=== PATIENT | male | born 1945 | race Caucasian/White ===

== ENCOUNTER 2019-05-12 09:47 | Outpatient (CLI) | payer MEDICARE, OTHER, SELFPAY ==
--- NOTE | 2019-05-12 10:04 | CT_ITS ---
WS: [id number] CT ANGIOGRAPHY ABDOMEN AORTA HISTORY: H/O ENDOVASCULAR STENT GRAFT FOR AAA TECHNIQUE: Noncontrast CT first performed. CT angiogram is performed during IV injection. Reformation images reviewed. All CT scans at [facility] use at least one of these dose optimization t echniques: automated exposure control; mA and/or kV adjustment per patient size (includes targeted ex ams where dose is matched to clinical indication); or iterative reconstruction. CONTRAST: Omnipaque 350; 95 mL IV. DLP: 2324.9 mGycm COMPARISON: Aorta ultrasound 04/09/2018 Chronic emphysematous changes at the lung bases. Mildly enlarged heart. No hiatal hernia. Liver, sple en, pancreas and adrenal glands are negative. Normally distended gallbladder with calcification. Mild thinning of the renal cortex bilaterally with bilateral renal cysts. No solid mass is identified. La rgest cyst in the upper pole the LEFT kidney measuring 4.3 cm. Hyperdense cyst from the posterior mid kidney does not enhance. None of these complex cystic masses enhance. Mild perinephric stranding wit h no obstruction. Abdominal aorta: Endovascular stent graft is placed throughout the aorta beginning at the level of th e renal arteries. Graft extends inferiorly into the proximal iliac arteries. Maximum diameter of the aorta is 4.4 cm x 4.3 cm. Fusiform dilatation begins just below the level of the renal arteries. Ther e is no endoleak or enlargement of the [facility] aneurysm. No periaortic hematoma or mass. Diffuse constipation. No adenopathy or fluid. The appendix is normal. Extensive descending and sigmoi d colon diverticulosis without acute diverticulitis. Straightening and slight reversal of the normal lumbar lordosis. Severe degenerative disc disease at L2-3 and L3-4. Large endplate osteophytes from the vertebral bodies. Component of central and foramin al stenosis at the L3-[address]/CT angio abdomen 99684 IMPRESSION: 1. Stable endovascular stent grafting of the abdominal aorta. No evidence for endovascular leak or progression of the [facility] ge[facility] aneurysm. 2. Bilateral renal cysts. 3. Descending and sigmoid diverticulosis without acute diverticulitis. 4. Cholelithiasis without acute cholecystitis.
[2019-05-12] MEDS: iohexol 350 mg/mL 100 mL Btl IV (10:42)
== END 2019-05-12 09:48 | disposition home or self-care (01) ==
LOC: RADWPI 10:03
PROVIDERS: Family Provider Family Medicine; PCP Family Medicine; Visit Provider Internal Medicine Cardiovascular Disease
DX: K80.20 Calculus of gallbladder without cholecystitis without obstruction (principal); K57.90 Diverticulosis of intestine, part unspecified, without perforation or abscess without bleeding; N28.1 Cyst of kidney, acquired; Z95.828 Presence of other vascular implants and grafts
CPT/HCPCS: 74175; Q9967

== ENCOUNTER → 2019-10-15 07:51 | Outpatient (BNVA) | payer MEDICARE, OTHER, SELFPAY | PROVIDERS: Family Provider Family Medicine; PCP Family Medicine; Visit Provider Urology | DX: C67.2 Malignant neoplasm of lateral wall of bladder (principal) | CPT/HCPCS: 81001 ==

== ENCOUNTER 2019-11-24 14:37 | Outpatient (CLI) | payer MEDICARE, OTHER, SELFPAY ==
--- NOTE | 2019-11-24 14:43 | XR_ITS ---
WS: [id number] SCREENING DEXA SCAN [employer] CLINICAL INFORMATION: OSTEOPOROSIS COMPARISON: FINDINGS: Left forearm bone mineral density 0.986 with a T score of 0.0 and Z score of 1.0 Left femoral neck bone mineral density measures 0.845 g/cm2. This corresponds to a T score of -1.8 an d Z score of -1.3. Right femoral neck bone mineral density measures 0.898 g/cm2. This corresponds to a T score -1.4of an d Z score of -0.9. Mean femoral neck bone mineral density measures 0.871 g/cm2. This corresponds to a T score of -1.6 an d Z score of -1.1. XR/XR DEXA axial skeleton* 32262 IMPRESSION: Osteopenia in the femoral necks. Normal bone mineralization in the left forearm Patient's FRAX calculated 10 year probability for major osteoporotic fracture i s 32.5 % and osteoporotic hip fracture is 27.1%.
== END 2019-11-24 14:38 | disposition home or self-care (01) ==
LOC: RADWPI 14:42
PROVIDERS: PCP Family Medicine; Visit Provider Family Medicine
DX: M81.0 Age-related osteoporosis without current pathological fracture (principal); M85.862 Other specified disorders of bone density and structure, left lower leg; M85.861 Other specified disorders of bone density and structure, right lower leg
CPT/HCPCS: 77080

== ENCOUNTER 2020-02-26 07:40 | Outpatient (CLI) | payer MEDICARE, OTHER, SELFPAY ==
--- NOTE | 2020-02-26 08:00 | USCV_ITS ---
Neal Garzon Age: 75 Gender: M : 1945 Exam Date: 02/26/2020 07:56 Ordering Phys: Jovany Burns MD ([email or web address]) Technologist: Travon Jj [place] [facility] [place] AO GRAFT AO GRAFT HISTORY: Diameter (cm) AP x Transverse x Length Velocity (cm/s) Waveform Prox Aorta: x x Mid Aorta: x x Distal Aorta: x x Right Iliac Prox: x x Left Iliac Prox: x x Stent Prox Landing 2.84 x 3.58 x 35.90 Aneurysmal Sac Max 4.59 x 4.11 x 37.20 Lt Lat Sac Dim 0.63 Rt Lat Sac Dim 0.44 Stent Dist Landing 3.16 x 3.50 x 40.50 Right Iliac Stent 1.65 x 1.60 x 89.20 Left Iliac Stent 1.55 x 1.28 x 82.60 Right Renal Art 112.40 Left Renal Art 98.30 FINDINGS: NORMAL GRAPH CONCLUSIONS Normal Doppler flow velocites noted throught the aorta and common iliac arteries. Normal aortic endograft. Aneurysm sac measures 4.5 x 4.1cm Romel Flor MD (Electronically Signed) Final Date: 26 February 2020 10:17 S
== END 2020-02-26 07:41 | disposition home or self-care (01) ==
LOC: US 07:40
PROVIDERS: PCP Family Medicine; Visit Provider Internal Medicine Cardiovascular Disease
DX: I71.4 Abdominal aortic aneurysm, without rupture (principal)
CPT/HCPCS: 93978

== ENCOUNTER → 2020-04-19 10:20 | Outpatient (BNVA) | payer MEDICARE, OTHER, SELFPAY | PROVIDERS: PCP Family Medicine; Visit Provider Urology | DX: C67.9 Malignant neoplasm of bladder, unspecified (principal); C67.2 Malignant neoplasm of lateral wall of bladder; C67.4 Malignant neoplasm of posterior wall of bladder | CPT/HCPCS: 81003 ==

== ENCOUNTER → 2020-06-15 14:22 | Outpatient (BNVA) | payer MEDICARE, SELFPAY | PROVIDERS: PCP Family Medicine; Visit Provider Urology | DX: C67.4 Malignant neoplasm of posterior wall of bladder (principal) | CPT/HCPCS: 81003 ==

== ENCOUNTER 2020-07-05 13:51 | Outpatient (CLI) | payer MEDICARE, SELFPAY ==
--- NOTE | 2020-07-05 14:08 | USCV_ITS ---
Neal Garzon Age: 75 Gender: M : 1945 Exam Date: 07/05/2020 15:13 Ordering Phys: Jovany Burns MD ([email or web address]) Technologist: Emilia Miles [place] [facility] [place]ication: LOSS OF VISION 1/2 LT EYE BP: 135 / 68 HR: 65 Rhythm: Sinus Technical Quality: Adequate MEASUREMENTS (Male / Female) Normal Values 2D ECHO LV Diastolic Diameter PLAX 4.7 cm 4.2 - 5.9 / 3.9 - 5.3 cm LV Systolic Diameter PLAX 2.9 cm IVS Diastolic Thickness 1.3 cm 0.6 - 1.0 / 0.6 - 0.9 cm IVS Systolic Thickness 1.9 cm LVPW Diastolic Thickness 1.5 cm 0.6 - 1.0 / 0.6 - 0.9 cm LVPW Systolic Thickness 1.9 cm LVOT Diameter 2.1 cm LV Ejection Fraction 2D Teich 68.8 % LV Ejection Fraction MOD 2C 76.0 % LV Ejection Fraction 2C AL 76.1 % LA Diameter 3.5 cm LA Width 2.7 cm LA Height 3.9 cm RA Width 3.8 cm RA Height 4.8 cm Aorta at Sinotubular Diameter 4.0 cm M-MODE LV Diastolic Diameter MM 7.3 cm 4.2 - 5.9 / 3.9 - 5.3 cm LV Systolic Diameter MM 4.0 cm LV Ejection Fraction MM Teich 75.4 % IVS Diastolic Thickness MM 1.8 cm 0.6 - 1.0 / 0.6 - 0.9 cm IVS Systolic Thickness MM 3.1 cm LVPW Diastolic Thickness MM 0.9 cm 0.6 - 1.0 / 0.6 - 0.9 cm LVPW Systolic Thickness MM 2.0 cm RV Diastolic Diameter MM 1.9 cm Aortic Annulus Diameter 4.0 cm LA Ao Ratio MM 1.0 MV E Point Septal Separation 0.7 cm DOPPLER AV Peak Velocity 131.0 cm/s LVOT Peak Velocity 106.0 cm/s AV Area Cont Eq vti 2.6 cm squared AV Area Cont Eq pk 2.7 cm squared MV Area PHT 3.3 cm squared Mitral E to A Ratio 0.8 MV E' Velocity 43.0 cm/s Mitral E to MV E' Ratio 9.9 Mitral E to LV E' Lateral Ratio 10.8 Mitral E to LV E' Septal Ratio 9.4 TR Peak Velocity 113.1 cm/s TR Peak Gradient 5.1 mmHg TR Mean Velocity 80.6 cm/s TR Mean Gradient 2.9 mmHg TR Velocity Time Integral 32.2 cm TV Peak E Velocity 84.0 cm/s Right Atrial Pressure 3.0 mmHg Pulmonary Artery Systolic Pressu 8.1 mmHg PV Peak Velocity 78.0 cm/s RV Acceleration Time 0.1 s RV Ejection Time 0.4 s RV AcT/ET 0.4 FINDINGS Left Ventricle Normal LV size with a slightly diminished ejection fraction of 50%. Mild diffuse hypokinesia of the anterior and lateral wall segments. Right Ventricle The right ventricle is normal in size and function. Right Atrium The right atrium is normal in size. Left Atrium The left atrium is normal in size. Mitral Valve No gross abnormalities noted Aortic Valve Trace aortic valve regurgitation. Tricuspid Valve Trace to mild tricuspid valve regurgitation. Pulmonic Valve Pulmonic valve not well visualized. Pericardium Normal pericardium without effusion. Aorta Normal ascending aorta dimension. CONCLUSIONS Normal LV size with a slightly diminished ejection fraction of 50% (visual). Mild diffuse hypokinesia of the anterior and lateral wall segments. Trace to mild tricuspid valve regurgitation. Trace aortic valve regurgitation. There is no pericardial effusion. There are no intracardiac masses. No similar previous study is available for comparison. Dr Jovany Burns MD [facility] (Electronically Signed) Final Date: 06 July 2020 09:54 S
--- NOTE | 2020-07-05 14:15 | USCV_ITS ---
Neal Garzon Age: 75 Gender: M : 1945 Exam Date: 07/05/2020 14:44 Ordering Phys: Jovany Burns MD ([email or web address] [email or web address]) Technologist: Emilia Miles [place] [facility] [place]: LOSS OF VISION LT EYE 1/2 Risk Factors: Unknown Previous Vascular Surgery: None PER PT Right Brachial BP: / Left Brachial BP: / Right Left Velocity (cm/s) Spectral Plaque Velocity (cm/s) Spectral Plaque Syst/Diast Broadening Syst/Diast Broadening 98.10/ 34.20 Prox CCA 29.90 / 7.60 94.80/ 32.00 Mid CCA 25.00 / 7.60 87.10/ 28.70 Distal CCA 21.70 / 7.90 98.10/ 33.10 Prox ICA 152.80/ 80.40 118.00/45.20 Mid ICA 48.90 / 21.80 118.00/33.10 Distal ICA 41.70 / 23.00 95.90 ECA 163.00 1.24 ICA/CCA 6.12 Antegrade Vertebral Antegrade 51.90/ 14.50 cm/s 49.70/ 13.40 cm/s Tri Subclavian Bi 118.0 122.8 0 5 FINDINGS Heavy heterogeneous plaques at the left bifurcation and proximal internal carotid artery Delayed peaking low amplitude waveforms in the mid and distal ICA High resistance Doppler flow pattern in the common carotid artery Moderate heterogeneous plaques of the right bifurcation and internal carotid artery. Antegrade flow in the vertebral arteries bilaterally Normal Doppler velocities in the subclavian arteries bilaterally CONCLUSIONS Features suggestive of high-grade stenosis in the left ICA and bifurcation suggesting greater than 70%. Moderate heterogeneous plaques at the right bifurcation and ICA with a less than 50% stenosis. No significant stenosis in the subclavian or vertebral arteries. No similar previous studies are available for comparison Dr Jovany Burns MD [facility] (Electronically Signed) Final Date: 06 July 2020 17:11 S
== END 2020-07-05 13:52 | disposition home or self-care (01) ==
LOC: US 13:52
PROVIDERS: PCP Family Medicine; Visit Provider Internal Medicine Cardiovascular Disease
DX: I74.9 Embolism and thrombosis of unspecified artery (principal); H54.7 Unspecified visual loss; I65.23 Occlusion and stenosis of bilateral carotid arteries; I08.2 Rheumatic disorders of both aortic and tricuspid valves
CPT/HCPCS: 93306; 93880

== ENCOUNTER 2020-07-30 07:14 | Outpatient (CLI) | payer MEDICARE, SELFPAY ==
[2020-07-30 07:20] VITALS: BMI 32.6
--- NOTE | 2020-07-30 07:21 | NMCV_ITS ---
NM denny perf SPECT r/s* [id number] Neal Garzon Age: 75 Gender: M : 1945 Exam Date: 07/30/2020 08:38 Ordering Phys: Jovany Burns MD ([email or web address]) Technologist: JAYRO Manriquez Exam Location: [facility] Indications: ATHEROSCLEROTIC HEART DISEASE STRESS TEST Please [facility] IMAGE PROTOCOL Rest/Stress 1 Lexiscan Day Radiopharmaceutical Dose (mCi) Administration Site Administered by Rest: Tc-99m 10.7 IV JAYRO Villa Sestamibi Stress:Tc-99m 32.3 IV JAYRO Villa Sestamibi Rest: 30-Jul-2020 60 Discovery 630 Stress: 30-Jul-2020 30 Discovery 630 0.4mg Lexiscan. Images obtained in supine and prone position. SPECT RESULTS Technical Quality: Excellent Raw Data Analysis: Image Corrections: Summed Stress Score: 9 Summed Rest Score: 5 Summed Difference Score: 5 PERFUSION FINDINGS Small to moderate area of decreased tracer uptake in the mid inferolateral, anterolateral and apical segments with some reversibility in the anterolateral and apical regions FUNCTIONAL RESULTS (calculated via Gated SPECT) Stress Image LV EF (%): 61 Stress EDV (mL):187 TID: 1.09 Stress ESV (mL):73 FUNCTIONAL FINDINGS: Segmental wall motion analysis revealed no gross wall motion abnormalities. IMPRESSIONS 1. Myocardial perfusion imaging revealing small to moderate area of decreased tracer uptake in the anterolateral, inferolateral and apical segments with some reversibility in the anterolateral and apical region, suggestive of myocardial scarring with ischemia in the distribution of the left circumflex artery; small areas of scarring in the distribution of the right coronary artery and left anterior descending artery. 2. Normal LV ejection fraction 61%. 3. LV wall motion analysis revealing no gross wall motion normalities. 4. Mildly dilated LV cavity No similar previous studies are available for comparison Dr Jovany Burns MD [facility] (Electronically Signed) Final Date: 30 July 2020 14:31 S
--- NOTE | 2020-07-30 07:21 | ECG_ITS ---
[facility] Test Date: 2020-07-30 Pat Name: Neal Garzon Department: Room: Gender: Male Card Fixer: : 1945 Requested By: Jovany Burns Order Number: [id number] Mikaela MD: Jovany Burns M.D. Interpretive Statements NAME OF STUDY: LEXISCAN SESTAMIBI STRESS TEST INDICATION: LOW EF; LEAKY VALVES PROCEDURE: At the baseline, the EKG revealed normal sinus rhythm with a right bundle branch block pattern.. The baseline blood pressure was 137/73 mm Hg with a heart rate of 61 beats/min. Lexiscan was infused over a period of 20 seconds. A total of 0.4 milligrams of Lexiscan was infused. The stress phase was continued for a total of 5 minutes. Heart rate at the end of the stress phase was 69 with a blood pressure 129/67. The EKG at the peak infusion revealed no significant changes. Sestamibi was injected 20 seconds after the Lexiscan infusion. Blood pressure at the end of the recovery phase was 136/59 with a heart rate of 67 per minute. CONCLUSION: 1. No significant EKG changes with the LexiScan infusion 2. No LexiScan induced chest pain or cardiac arrhythmia 3. Normal blood pressure and heart rate response 4. Sestamibi/sestamibi perfusion scan pending; see separate report. Electronically Signed On 08-02-2020 23:39:25 CDT by Jovany Burns M.D. [email or web address]
--- NOTE | 2020-07-30 08:03 | CT_ITS ---
WS: [id number] CT ANGIOGRAM CEREBRAL AND CAROTID ARTERIES HISTORY: I65.29 - Occlusion and stenosis of unspecified carotid artery TECHNIQUE: CT angiogram is performed of the carotid and cerebral arteries. During arterial injection imaging is obtained from the skull vertex to the aortic arch in 1.25 mm imaging. Coronal and sagittal reformats are submitted. Additional multi planar reformats of the carotid and cerebral arteries are submitted, MIP imaging also reviewed. NASCET criteria utilized. All CT scans at [facility] use at least one of these dose optimization techniques: automated exposure control; mA and/or kV ad justment per patient size (includes targeted exams where dose is matched to clinical indication); or iterative reconstruction. CONTRAST: Omnipaque 300; 95 mL IV. DLP: 3306.85 mGy.cm COMPARISON: None available. No intracranial hemorrhage. Mild atrophy and ischemic disease. Carotid Angiogram: Right carotid: Common carotid artery: Arises normally from the arch. There is calcified plaque in the distal carotid artery through the bifurcation. Internal carotid artery: Mild scattered plaque with stenosis at 20%. External carotid artery is paten t. External carotid artery: Patent. Left carotid: Common carotid artery: Large amount of intimal thickening circumferentially surrounding the common ca rotid artery. The lumen is narrow to the bifurcation. Lumen measures 3 mm. Internal carotid artery: There is extensive amount of calcified plaque through the carotid bifurcatio n. There is intimal thickening. Complete occlusion is suspected. There is contrast in the distal ICA but there is continued intimal thickening throughout the common carotid artery. External carotid artery: Patent. Right vertebral artery: Unremarkable. Left vertebral artery: Unremarkable. Arises normally from the subclavian artery. Subclavian arteries: No stenosis or significant abnormality. Upper thorax: Chronic emphysema. Small mediastinal and superior tracheal length nodes. Thyroid gland: Normal. Osseous structures: Unremarkable. CEREBRAL ANGIOGRAM: Intracranial vertebral arteries: Normal with no significant atherosclerosis. Basilar artery: No significant stenosis or occlusion. No aneurysm. Intracranial Internal carotid arteries: There is a large amount of calcified plaque and intimal thick ening in the RIGHT petrous and cavernous carotid artery. Stenosis near 50%. Small caliber LEFT petrou s portion of the intracranial carotid artery. Small caliber with limited flow due due to the occlusio n at the LEFT extracranial bifurcation. There is a large amount of calcified plaque through the kai nous sinus. Middle cerebral arteries: Small caliber but patent LEFT MCA. No aneurysm. Anterior cerebral arteries and ACOM: Normal. Posterior cerebral arteries and PCOM's: Small caliber RIGHT P1 segment. Dural venous sinuses are normally enhancing. Mastoid air cells: Normal. Paranasal sinuses: Mucous retention cyst in the RIGHT maxillary sinus. Calvarium: Normal. CT/CT angio headneck* [id number] IMPRESSION: 1. Large amount of calcified plaque and intimal thickening through the proxima l LEFT ICA. 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 Small string sign could be present but obscured by artifact from the calcification. 2. There is diffuse mild intimal thickening throughout the LEFT common and int ernal carotid artery. 3. 20% stenosis RIGHT extracranial ICA. 4. Moderate amount of calcified plaque with atherosclerotic disease in the pet sloan and cavernous carotid arteries, greatest on the LEFT. 5. Moderate atherosclerotic plaque aortic arch.
[2020-07-30 08:46] LABS: Blood Urea Nitrogen 17 mg/dL (8-23)
[2020-07-30] MEDS: regadenoson 0.4 Mg/5 ml Syringe IVP (09:55)
[2020-07-30 09:58] VITALS: BP 163/58; PULSE 83
--- NOTE | 2020-07-30 09:58 | SUR.PREOP ---
Patient reports no pain or discomfort prior to the start of the procedure.
[2020-07-30] MEDS: iohexol 350 mg/mL 100 mL Btl IV (10:02)
== END 2020-07-30 07:15 | disposition home or self-care (01) ==
PROVIDERS: Radiology Diagnostic Radiology; PCP Family Medicine; Visit Provider Internal Medicine Cardiovascular Disease
DX: I65.29 Occlusion and stenosis of unspecified carotid artery (principal); I70.0 Atherosclerosis of aorta
CPT/HCPCS: 70496; 70498; 78452; 82565; 84520; 93017; A9500; J2785; Q9967

== ENCOUNTER 2020-08-10 09:01 | Outpatient (CLI) | payer MEDICARE, SELFPAY ==
--- NOTE | 2020-08-10 09:00 | CT_ITS ---
WS: [id number] CTA THORACIC TECHNIQUE: Contrast enhanced CTA of the thoracic aorta with coronal and sagittal reformatted images a nd maximum intensity projection (MIP) images. CLINICAL INFORMATION: I65.29 - Occlusion and stenosis of unspecified carotid artery COMPARISON: CT chest CTA neck July 30, 2020 DLP: 1969.[address] scans at [facility] use at least one of these dose optimization techniques: automat ed exposure control; mA and/or kV adjustment per patient size (includes targeted exams where dose is matched to clinical indication); or iterative reconstruction. FINDINGS: Recent CTA neck reviewed. Right common carotid artery is patent at the origin. No significant right c ommon carotid artery stenosis. Circumferential wall thickening involving the left common carotid artery with mild stenosis. Common c arotid artery origin is patent. Proximal subclavian arteries are normal. Subclavian arteries are dougherty nt. Mild to moderate calcification at the right subclavian artery origin. Moderate atheromatous disea se thoracic aorta. Proximal vertebral arteries are patent. Normal caliber thoracic aorta. Coronary calcification. Moderate chronic emphysematous changes. No acu te pulmonary infiltrates. Suspicious pulmonary opacities involving the superior segment right upper l obe along the fissure with spiculated margins measuring 2.1 x 1.1 CM. Additional suspicious nodule in the anterior right upper lobe measuring 15 mm with spiculated margins. Additional noncalcified nodule right lower lobe measuring 7 mm. Tiny noncalcified nodules in the righ t lung apex. A few additional subcentimeter noncalcified nodules in the right upper lobe and right lo wer lobe. Left lung is well aerated. No acute pulmonary infiltrates. Hazy atelectasis in both lungs with air tr apping. Right hilar lymphadenopathy. Prominent AP window, peribronchial, anterior mediastinal and sub carinal lymph nodes. Findings are new since 2017. Partially visualized abdominal aorta endovascular stent. Hypertrophic changes thoracic spine. No axil david lymphadenopathy. Diffuse fatty infiltration the liver. Cholelithiasis. Normal GE junction. Adren al glands are normal. Left renal cysts. CT/CT angio chest 31253 IMPRESSION: 1. Common carotid origins are patent. Mild circumferential wall thickening inv olving the left common carotid artery which remains patent. 2. Subclavian artery origins are patent. 3. Multiple pulmonary nodules described above the largest in the super segment right lower lobe along the fissure measuring 2.1 x 1.1 mm with spiculated clifton ins suspicious for primary neoplasm or metastasis. Findings can be further eval uated with PET/CT. 4. Multiple additional suspicious noncalcified pulmonary nodules with addition al notable lesion in the right upper lobe measuring 15 mm. 5. Right hilar lymphadenopathy. Prominent AP window, anterior mediastinal, per ibronchial and subcarinal lymph nodes. 6. Diffuse fatty infiltration of the liver. Cholelithiasis.
[2020-08-10] MEDS: iohexol 350 mg/mL 100 mL Btl IV (09:32)
== END 2020-08-10 09:02 | disposition home or self-care (01) ==
PROVIDERS: PCP Family Medicine; Visit Provider Internal Medicine Cardiovascular Disease
DX: I65.29 Occlusion and stenosis of unspecified carotid artery (principal); K76.0 Fatty (change of) liver, not elsewhere classified; R91.8 Other nonspecific abnormal finding of lung field; K80.20 Calculus of gallbladder without cholecystitis without obstruction
CPT/HCPCS: 71275

== ENCOUNTER → 2020-08-18 14:12 | Outpatient (BNVA) | payer MEDICARE, SELFPAY | PROVIDERS: PCP Family Medicine; Visit Provider Urology | DX: C67.4 Malignant neoplasm of posterior wall of bladder (principal) | CPT/HCPCS: 81003 ==

== ENCOUNTER → 2020-08-24 13:47 | Outpatient (BNVA) | payer MEDICARE, SELFPAY | PROVIDERS: PCP Family Medicine; Visit Provider Internal Medicine Critical Care Medicine | DX: R91.1 Solitary pulmonary nodule (principal); Z20.822 Contact with and (suspected) exposure to COVID-19 | CPT/HCPCS: 87635 ==

== ENCOUNTER 2020-08-31 05:57 | Day surgery (SDC) | payer MEDICARE, SELFPAY ==
[2020-08-30 16:55] VITALS: BMI 31.4
[2020-08-31] VITALS (15 sets, daily range): BP systolic 93–145; BP diastolic 44–91; PULSE 58–73; RESP 12–20; TEMP 36.1–36.9; O2SAT 85–100
--- NOTE | 2020-08-31 | CT_ITS ---
Guided Bronchoscopy Planning CT images; total exam DLP: 888.91 mGy-cm MTDD
[2020-08-31] MEDS: sodium chloride 0.9% 1,000 ML 30 ML IV ×2 (06:38→08:27)
--- NOTE | 2020-08-31 06:52 | W.PM.OPSUD ---
Surgery/Procedure H&P Update DATE OF PROCEDURE: August 31, 2020 DATE H&P PERFORMED: 08/27/20 H&P UPDATE INFORMATION: I have reviewed H&P completed within last 30 days, I have examined patient prior to procedure and No changes to prior documentation PREOP DIAGNOSIS: Suspected lung cancer PLANNED PROCEDURE: Bronchoscopy with inspection of the airway, possible endobronchial biopsies, bronchoalveolar lavage navigational bronchoscopy guided transbronchial biopsy of the right upper lobe lung nodule, fine-needle aspiration of the same lesion, endobronchial sound guided transbronchial needle aspiration of lymph nodes and control of bleeding. Operation Date: 08/31/20 07:00 Proposed Procedures p Jesús [id number] R91.1(Not Applicable) - Biplab MD Claribel
--- NOTE | 2020-08-31 07:03 | ANES.PREANE2 ---
Pre-Anesthetic Assessment Pre-Anesthetic Assessment: Height/Weight: Height 1.83 m Weight 105.233 kg Temp Pulse Resp BP Pulse Ox 98.5 F 69 18 105/59 92 08/31/20 06:15 08/31/20 06:15 08/31/20 06:15 08/31/20 06:15 08/31/20 06:15 Preop Diagnosis: Suspected lung cancer Proposed Procedure: Operation Date: 08/31/20 07:00 Proposed Procedures horace Espinosa [id number] R91.1(Not Applicable) - Avani Sanford MD Familial anesthetic complications: None Was Beta Jas taken within 24 hours: Yes Was Clonidine taken within 24 hours: N/A Last intake: Intake Last Liquid Date 08/30/20 Last Liquid Time 20:00 Last Solid Date 08/30/20 Last Solid Time 06:18 Social: Social History: Tobacco and No alcohol Exam: Pre-Anes Outpt Exam: alert, oriented x 3, clear to auscultation bilaterally and regular rate & rhythm Airway: Cervical ROM: WNL MP: 2 Dentition: False Pulmonary: Pulmonary: COPD CV/HEM: CV/HEM: CAD and HTN Comments: aortic aneursym GI: GI: GERD Metabolic: Metabolic: Hyperlipidemia Neuropsych: 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 Anesthetic Plan: ASA status: 4 Anesthesia: General Risk of > 500 ml blood loss (7ml/kg in children): No Meds/Allergies Current Medications: Current Medications Generic Name Dose Route Start Last Admin Trade Name Freq PRN Reason Stop Dose Admin Sodium Chloride 1,000 mls @ 30 ml s/hr 08/31/20 06:15 08/31/20 06:38 Sodium Chloride 0.9% IV 09/01/20 06:14 30 mls/hr .Q24H HATTIE Administration PFSH Anesthesia PFSH: Medical History Aortic aneurysm Bladder cancer CAD (coronary artery disease) 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 Father , AT AGE 51 Aortic aneurysm Other Hypertension Social History Smoking and tobacco status: current every day smoker cigarettes Packs smoked per day: 1 Years cigarettes smoked: 60 Second hand smoke exposure: Yes Smoking risk assessment/counseling performed?: Yes Alcohol intake: current Alcohol intake frequency: holidays/special occasions only Counseling given: No Counseling given: No Lives independently: Yes Household members: spouse Marital status: Current occupational status: retired History of recent travel: No Current gender identity: Male Data Anesthesia Cardiac Studies: No Data to Display
[2020-08-31] MEDS: lidocaine 1% INJ 20 mL XX (07:30)
--- NOTE | 2020-08-31 09:07 | PM.OP ---
Operative Report Date of procedure: August 31, 2020 Pre-op Diagnosis: Suspected lung cancer Post-op diagnosis: same Brief History: This is a 75-year-old gentleman coming in for bronchoscopic evaluation for suspected lung cancer. Procedure: Name of the procedure: Bronchoscopy with inspection of the airway, bronchoalveolar lavage, endobronchial biopsies, navigational guided transbronchial biopsies and fine-needle aspiration of the right upper lobe lung nodule, endobronchial ultrasound-guided transbronchial needle aspiration of lymph nodes and control of bleeding. Indication: Suspected lung cancer Anesthesia: General anesthesia. Local anesthesia: The elis in the right and left mainstem bronchi were anesthetized with 1% lidocaine, 3 mL. Description of the procedure: The procedure was explained to the patient and the consent was obtained. The patient was brought to the OR. The patient underwent endotracheal intubation for general anesthesia. Following induction of general anesthesia, the bronchoscope was advanced through the ET tube. The lower trachea appeared to be mildly erythematous, no endotracheal lesion was seen. The elis was splayed. The elis, the right and left mainstem bronchi are anesthetized with 1% lidocaine. In a systematic manner bilateral bronchial tree was then examined. The bronchoscope was advanced into the left mainstem bronchus. The left upper lobe, lingula and left lower lobe bronchi were examined up to the third subsegmental level and no abnormalities were identified. The bronchoscope was then introduced into the right mainstem bronchus. The right upper lobe, right middle lobe and right lower lobe bronchi were examined up to the third subsegmental level and no abnormalities were identified except mild irregularity in the mucosa of the entrance in the right upper lobe bronchus. There was mucus throughout the lungs. Navigational bronchoscopy guided transbronchial biopsies from the right upper lobe lung nodule was obtained. Multiple samples were obtained. Endobronchial biopsies were obtained from the right secondary elis. Bronchoalveolar lavage was performed from the posterior segment of the right upper lobe. 60 mL of fluid was instilled fluid return was 20 mL. The fluid color was bloody. The endobronchial ultrasound was introduced through the ET tube. Mediastinal and hilar lymphadenopathy was identified with the ultrasound. Fine-needle aspiration was performed from station 4R, 7 and 10 after sequentially. Samples: 1. Bronchoalveolar lavage specimen was sent for cytology. 2. The endobronchial biopsies are sent for histopathology. 3. The transbronchial biopsies are sent for histopathology. The fine-needle aspiration from the right upper lobe lung nodule was also sent for histopathology. 4. The transbronchial needle aspiration of the aforementioned lymph node groups were sent for histopathology. Complications: There was no immediate complications. Chest x-ray: Pending
--- NOTE | 2020-08-31 09:10 | XRR_ITS ---
PROCEDURE INFORMATION: Exam: XR Chest Exam date and time: 08/31/2020 9:17 AM Age: 75 years old Clinical indication: Screening exam; Other screening; Prior surgery; Surgery date: Post-operative (0-2 days); Surgery type: Bronchoscopy; Additional info: Post bronchoscopy TECHNIQUE: Imaging protocol: XR of the chest. Views: 1 view. COMPARISON: CT angio chest [id number] 08/10/2020 9:37 AM FINDINGS: Lungs: There is a a a parenchymal density in the lateral aspect of the right lung in the projection of the 6 posterior rib. This finding was documented to be a mass lesion on recent CT scan of the chest. The lungs are otherwise clear. No consolidation. Pleural spaces: Unremarkable. No pleural effusion. No pneumothorax. Heart/Mediastinum: Unremarkable. No cardiomegaly. Bones/joints: Unremarkable. XR/XR chest 1V portable [id number] IMPRESSION: 1. Right upper lobe mass lesion seen on CT examination . 2. Otherwise negative chest examination
[2020-08-31] MEDS: ipratropium 0.5 mg/2.5 mL Neb INHALATION (09:31)
--- NOTE | 2020-08-31 10:32 | PC.NURSE ---
UPON ARRIVAL TO OPS A POST PT S O2 SATS WERE 88% RA. LEVELS CONTINUED TO DECLINE TO 82%. I WAS ABLE TO GET O2 LEVEL TO 92 ON 4L NC. PTS SATS WENT DOWN AGAIN TO 86 AND HELD STEADY UNTIL I RAISED LEVEL TO 6L NC THEN SATS AVERAGED 98%. 30 MINS LATER PT REQUESTED TO GO HOME. I TURNED OFF THE OXYGEN AND HE DECLINED TO 82%, PLACED BACK ON O2 AT 4 L NC
--- NOTE | 2020-08-31 10:59 | PC.NURSE ---
DR PEREZ CONSULTED AND ORDERS RECEIVED FOR RT EVALUATION FOR HOME OXYGEN
--- NOTE | 2020-08-31 13:08 | PC.NURSE ---
HOME OXYGEN 3L PER NC RECOMMENDED FROM RT. ORDERS FAXED TO [facility], THEN PT INFORMED ME THAT HE DID NOT WANT HOME OXYGEN. STATED HE CHECKS HIS O2 LEVELS EVERY OTHER DAY AND THAT 88% TO 99% OXYGEN LEVEL IS WHAT HE RUNS AT HOME. HE SAID IF IT DROPS LOWER HE WILL CALL THE DR. DR PEREZ INFORMED AND AWARE OF NO HOME OXYGEN.
--- NOTE | 2020-08-31 14:27 | ANE.PACU2 ---
Inpatient post-anesthesia follow up: Airway intact: Yes Vital signs: Temperature 97.6 F Pulse Rate 63 Respiratory Rate 18 Blood Pressure 145/91 Pulse Oximetry [Qu alifying 93 Sp02 on Oxygen wit h Exercise] Pulse Oximetry [Ro om Air at 85 Rest] Pulse Oximetry 100 Oxygen Delivery Me thod Room Air Oxygen Flow Rate 3 Fraction of Inspir ed Oxygen Hydration adequate: Yes Nausea and vomiting: No Pain level: 1 Mental status: Baseline
== END 2020-08-31 12:15 | disposition home or self-care (01) ==
PROVIDERS: PCP Family Medicine; Visit Provider Internal Medicine Critical Care Medicine
PROC: 0BJ08ZZ Inspection of Tracheobronchial Tree, Via Natural or Artificial Opening Endoscopic (ICD-10-PCS; CPT 31622; principal; 2020-08-31 07:00)
PROC: BB4BZZZ Ultrasonography of Pleura (ICD-10-PCS; 2020-08-31 07:00)
DX: C34.90 Malignant neoplasm of unspecified part of unspecified bronchus or lung (principal); J44.9 Chronic obstructive pulmonary disease, unspecified; I25.10 Atherosclerotic heart disease of native coronary artery without angina pectoris; I10 Essential (primary) hypertension; K21.9 Gastro-esophageal reflux disease without esophagitis; E78.5 Hyperlipidemia, unspecified
CPT/HCPCS: 31624; 31627; 31652; 71045; 77011; 80500; 88112; 88305; J1100; J2405; J2704; J2710; J3010; J3490; J7030; J7611; J7644

== ENCOUNTER 2020-08-31 21:30 | Inpatient (IN) | payer MEDICARE, SELFPAY ==
[2020-08-31] VITALS (7 sets, daily range): BP systolic 90–122; BP diastolic 45–92; PULSE 66–92; RESP 12–22; TEMP 36.9; O2SAT 88–100; BMI 31.4
--- NOTE | 2020-08-31 21:34 | ECG_ITS ---
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 Measurements Intervals [place] Rate: 86 P: [place]: QRS: -89 QRSD: 168 T: 26 QT: 406 QTc: 487 Interpretive Statements SINUS RHYTHM LEFT AXIS DEVIATION [QRS AXIS < -30] RIGHT BUNDLE BRANCH BLOCK [120+ ms QRS DURATION, UPRIGHT V1, 40+ ms S IN I/aVL/V4/V5/V6] No previous ECG available for comparison Electronically Signed On 09-02-2020 14:11:42 CDT by Denise Smith M.D. [id number]
--- NOTE | 2020-08-31 21:38 | XRR_ITS ---
PROCEDURE INFORMATION: Exam: XR Chest Exam date and time: 08/31/2020 9:47 PM Age: 75 years old Clinical indication: Shortness of breath; Prior surgery; Surgery date: 6+ months; Additional info: SOB TECHNIQUE: Imaging protocol: XR of the chest. Views: 1 view. Total images: 1 COMPARISON: CR XR chest 1V portable [id number] 08/31/2020 9:23 AM FINDINGS: Lungs: Interval development of ground-glass interstitial lung disease right upper lobe which could reflect active interstitial pneumonitis and/or interstitial edema. No visible consolidated alveolar airspace disease. The right lung pulmonary nodules are not radiographically visible this evaluation. COPD/chronic bronchitis. Senile fibrosis. Pleural spaces: Unremarkable. No pleural effusion. No pneumothorax. Heart/Mediastinum: Cardiac structures and configuration with arteriosclerosis. Tortuous thoracic aorta which can be seen in hypertensive cardiovascular disease. Bones/joints: Unremarkable rage. XR/XR chest 1V portable [id number] IMPRESSION: Interval development of ground-glass interstitial lung disease right upper lobe which could reflect active interstitial pneumonitis and/or interstitial edema.
--- NOTE | 2020-08-31 22:09 | ED_ITS ---
HPI - SOB/Dyspnea General: Chief Complaint: Shortness of Breath/Dyspnea Stated Complaint: BRONCHOSCOPY THIS AM:DIFF BREATHING,DIZZY,HTN Time Seen by Provider: 08/31/20 21:38 Source: patient Mode of arrival: ambulatory Limitations: no limitations History of Present Illness: HPI Narrative: 75-year-old male who has a history of a pulmonary nodule and had a bronchoscopy done this morning. He states he started having shortness of breath and chest pain later this afternoon. Patient is short of breath here and is requiring oxygen currently. He is not on oxygen at home and is requiring 4 L here to keep above 90%. Denies any fever. He has had a slight cough. Denies any worsening improving factors. Associated symptoms: Reports chest pain; Deny abdominal pain, fever(s), nausea or vomiting Review of Systems Const: Denies: fever(s), chills, body aches or change in appetite Eyes: Denies: blurry vision or eye discomfort ENMT: Denies: throat pain or dental pain Card: Reports: chest pain Resp: Reports: dyspnea GI: Denies: abdominal pain, nausea, vomiting or diarrhea : Denies: dysuria Musc: Denies: neck pain or back pain Skin/Breast: Denies: rash Neuro: Denies: headache(s) Psych: Denies: depression Elliott/Lymph: Denies: easy bruising All/Imm: Denies: urticaria PFSH ED PFSH: Medical History Aortic aneurysm Bladder cancer CAD (coronary artery disease) 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 Father , AT AGE 51 Aortic aneurysm Other Hypertension Social History Smoking and tobacco status: current every day smoker cigarettes Packs smoked per day: 1 Years cigarettes smoked: 60 Second hand smoke exposure: Yes Smoking risk assessment/counseling performed?: Yes Alcohol intake: current Alcohol intake frequency: holidays/special occasions only Counseling given: No Counseling given: No Lives independently: Yes Household members: spouse Marital status: Current occupational status: retired History of recent travel: No Current gender identity: Male Physical Exam Const: COMMON NORMALS: no acute distress, patient oriented x3 and healthy appearing HENMT: COMMON NORMALS: normocephalic and atraumatic HEAD & SCALP: normoceph alic and atraumatic Eye: COMMON NORMALS: Equal, round and reactive pupils present and EOMs intact bilaterally PUPIL: Yes Equal, round and reactive pupils present Neck/C-Spine: COMMON NORMALS: full ROM and supple Chest: COMMONS NORMALS: normal inspection of the chest and normal palpation of entire chest wall Resp: COMMON NORMALS: normal respiratory effort, No retractions, No use of accessory muscles and clear to auscultation bilaterally AUSCULTATION: clear to auscultation bilaterally Cardio: COMMON NORMALS: regular rate, regular rhythm and No murmurs present (Cardio) RATE: regular rate RHYTHM: regular rhythm GI: COMMON NORMALS: Normal to inspection, nondistended, normoactive bowel sounds present, Soft to palpation, non-tender and no masses PALPATION: Yes Soft to palpation Extremity: COMMON NORMALS: normal to inspection and full ROM Neuro: COMMON NORMALS: patient oriented x3, moves all extremities and no focal motor deficits Psych: COMMON NORMALS: mental status grossly normal, Normal thought process present and cooperative THOUGHT PROCESS: Normal thought process present Skin: COMMON NORMALS: no rashes or lesions noted and no wounds GENERAL SKIN EXAM: no rashes or lesions noted Course Vital Signs: Vital signs: Vital Signs Temperature 98.5 F 08/31/20 21:36 Pulse Rate 92 08/31/20 21:36 Respiratory Rate 20 H 08/31/20 21:36 Blood Pressure 120/55 08/31/20 21:36 Pulse Oximetry 88 L 08/31/20 21:36 MDM - SOB/Dyspnea MDM Narrative: Medical decision making narrative: Patient presents here with dyspnea. X-ray is concerning for pneumonia. CT shows possible pulmonary contusion or hemorrhage it could be related to his recent bronchoscopy. We will still treat him for the possible pneumonia as well. Patient is requiring oxygen that is new in nature. Spoke to the hospitalist will admit. Lab Data: Labs: Lab Results 08/31/20 08/31/20 08/31/20 Range/Units 21:50 21:50 21:50 WBC 18.2 H (4.0-10.0) 10^3/ uL RBC 4.04 L (4.1-5.3) 10^6/u L Hgb 10.7 L (11.7-16.6) g/dL Hct 35.8 L (42.0-52.0) % MCV 88.6 (80-94) fL MCH 26.5 L (28.0-34.0) pg MCHC 29.9 L (30.0-36.0) g/dL RDW 18.5 H (12.1-15.1) % Plt Count 228 (130-400) 10^3/c mm MPV 10.6 H (7.4-10.4) fL Neut % (Auto) 87.6 % Lymph % (Auto) 3.5 % [place] % (Auto) 8.1 % Eos % (Auto) 0.0 % Baso % (Auto) 0.2 % Neut # (Auto) 15.91 H (1.8-7.7) 10^3/u L Lymph # (Auto) 0.6 L (0.8-4.8) 10^3/u L [place] # (Auto) 1.5 H (0.2-0.9) 10^3/u L Eos # (Auto) 0.0 (0.0-0.8) 10^3/u L Baso # (Auto) 0.0 (0.0-0.1) 10^3/u L Nucleated RBC % (a uto) 0 % Nucleated RBCs # 0.0 /100WBC PT (12.1-14.9) SECO NDS INR (0.8-1.2) Sodium 135 L (136-145) mmol/L Potassium 4.6 (3.5-5.1) mmol/L Chloride 102 (98-107) mmol/L Carbon Dioxide 16 L (22-29) mmol/L Anion Gap 21.6 H (5-19) BUN 33 H (8-23) mg/dL Creatinine 1.2 (0.7-1.2) mg/dL GFR Calculation Not Reportable Glucose 142 H (65-115) mg/dL Calculated Osmolal ity 290 (285-295) mOsm/k g Lactic Acid (0.5-2.2) mmol/L Calcium 8.2 L (8.5-10.5) mg/dL Total Bilirubin 0.7 (0.15-1.2) mg/dL AST 15 (0-40) U/L ALT 8 (0-41) U/L Alkaline Phosphata se 86 (40-130) IU/L Troponin T Baselin e 25 H (0-15) ng/L Troponin T 120 Min conchita [place] Troponin T NT-Pro-B Natriuret Pep 647 H (0-450) pg/mL Total Protein 6.3 L (6.6-8.7) g/dL Albumin 3.6 (3.5-5.2) g/dL Globulin 2.7 (1.3-4.6) g/dL 08/31/20 08/31/20 08/31/20 Range/Units 21:50 22:15 23:42 WBC (4.0-10.0) 10^3/ uL RBC (4.1-5.3) 10^6/u L Hgb (11.7-16.6) g/dL Hct (42.0-52.0) % MCV (80-94) fL MCH (28.0-34.0) pg MCHC (30.0-36.0) g/dL RDW (12.1-15.1) % Plt Count (130-400) 10^3/c mm MPV (7.4-10.4) fL Neut % (Auto) % Lymph % (Auto) % [place] % (Auto) % Eos % (Auto) % Baso % (Auto) % Neut # (Auto) (1.8-7.7) 10^3/u L Lymph # (Auto) (0.8-4.8) 10^3/u L [place] # (Auto) (0.2-0.9) 10^3/u L Eos # (Auto) (0.0-0.8) 10^3/u L Baso # (Auto) (0.0-0.1) 10^3/u L Nucleated RBC % (a uto) % Nucleated RBCs # /100WBC PT 14.20 (12.1-14.9) SECO NDS INR 1.07 (0.8-1.2) Sodium (136-145) mmol/L Potassium (3.5-5.1) mmol/L Chloride (98-107) mmol/L Carbon Dioxide (22-29) mmol/L Anion Gap (5-19) BUN (8-23) mg/dL Creatinine (0.7-1.2) mg/dL GFR Calculation Glucose (65-115) mg/dL Calculated Osmolal ity (285-295) mOsm/k g Lactic Acid 1.3 (0.5-2.2) mmol/L Calcium (8.5-10.5) mg/dL Total Bilirubin (0.15-1.2) mg/dL AST (0-40) U/L ALT (0-41) U/L Alkaline Phosphata se (40-130) IU/L Troponin T Baselin e (0-15) ng/L Troponin T 120 Min conchita Cancelled Delta Troponin T Cancelled NT-Pro-B Natriuret Pep (0-450) pg/mL Total Protein (6.6-8.7) g/dL Albumin (3.5-5.2) g/dL Globulin (1.3-4.6) g/dL Imaging Data^: CXR: Radiologist's impression: [address] [address] XRay Report Signed Patient: Neal Garzon Unit #: [id number] : 1945 Age/Sex: 75 / M ADM Date: 08/31/20 Loc: ER Room/Bed: Attending Dr: Ordering Provider/Ordering MD: Delaney Novak MD Date of Service: 08/31/20 Procedure(s): XR chest 1V portable [id number] Accession Number(s): [id number] Report Number: [id number] PROCEDURE INFORMATION: Exam: XR Chest Exam date and time: 08/31/2020 9:47 PM Age: 75 years old Clinical indication: Shortness of breath; Prior surgery; Surgery date: 6+ months; Additional info: SOB TECHNIQUE: Imaging protocol: XR of the chest. Views: 1 view. Total images: 1 COMPARISON: CR XR chest 1V portable [id number] 08/31/2020 9:23 AM FINDINGS: Lungs: Interval development of ground-glass interstitial lung disease right upper lobe which could reflect active interstitial pneumonitis and/or interstitial edema. No visible consolidated alveolar airspace disease. The right lung pulmonary nodules are not radiographically visible this evaluation. COPD/chronic bronchitis. Senile fibrosis. Pleural spaces: Unremarkable. No pleural effusion. No pneumothorax. Heart/Mediastinum: Cardiac structures and configuration with arteriosclerosis. Tortuous thoracic aorta which can be seen in hypertensive cardiovascular disease. Bones/joints: Unremarkable rage. XR/XR chest 1V portable [id number] IMPRESSION: Interval development of ground-glass interstitial lung disease right upper lobe which could reflect active interstitial pneumonitis and/or interstitial edema. CT Head: Radiologist's impression: [employer] [address] [address] Scan Report Signed Patient: Neal Garzon Unit #: [id number] : 1945 Age/Sex: 75 / M ADM Date: 08/31/20 Loc: ER Room/Bed: Attending Dr: Ordering Provider/Ordering MD: Delaney Novak MD Date of Service: 08/31/20 Procedure(s): CT head wo con* [id number] Accession Number(s): [id number] Report Number: [id number] PROCEDURE INFORMATION: Exam: CT Head Without Contrast Exam date and time: 08/31/2020 10:32 PM Age: 75 years old Clinical indication: Weakness, extremity; Bilateral TECHNIQUE: Imaging protocol: Computed tomography of the head without contrast. Radiation optimization: All CT scans at this facility use at least one of these dose optimization techniques: automated exposure control; mA and/or kV adjustment per patient size (includes targeted exams where dose is matched to clinical indication); or iterative reconstruction. ADDITIONAL STUDY INFORMATION: Total DLP (mGy-cm): 960.23 COMPARISON: 07/30/2020 FINDINGS: Examination is limited by artifacts from patient motion. There are prominent intracranial arterial calcifications. Evaluation of the brain demonstrates no other convincing areas of abnormal density when allowing for artifacts from patient motion. There is mild cerebral cortical atrophy. Ventricles do not appear significantly dilated. No definite depressed calvarial fracture is demonstrated. Visualized paranasal sinuses and mastoid air cells demonstrate no significant opacification. CT/CT head wo con* [id number] IMPRESSION: No definite acute intracranial process is demonstrated when allowing for artifacts from patient motion. CT Chest: Attestation: I personally reviewed and interpreted this imaging study as follows: Radiologist's impression: [employer] [address] [address] Scan Report Signed Patient: Neal Garzon Unit #: [id number] : 1945 Age/Sex: 75 / M ADM Date: 08/31/20 Loc: ER Room/Bed: Attending Dr: Ordering Provider/Ordering MD: Delaney Novak MD Date of Service: 08/31/20 Procedure(s): CT angio chest PE protcl [id number] Accession Number(s): [id number] Report Number: [id number] PROCEDURE INFORMATION: Exam: CTA Chest With Contrast Exam date and time: 08/31/2020 10:51 PM Age: 75 years old Clinical indication: Chest pain; Prior surgery; Surgery type: Stent; Patient HX: Bronchoscopy today; Additional info: Cp TECHNIQUE: Imaging protocol: Computed tomographic angiography of the chest with contrast. 3D rendering (Not supervised by radiologist): MIP and/or 3D reconstructed images were created by the technologist. Total images: 999 Radiation optimization: All CT scans at this facility use at least one of these dose optimization techniques: automated exposure control; mA and/or kV adjustment per patient size (includes targeted exams where dose is matched to clinical indication); or iterative reconstruction. Contrast material: OMNI 350; Contrast volume: 81 ml; Contrast route: INTRAVENOUS (IV); COMPARISON: CT angio chest [id number] 08/10/2020 9:37 AM RADIATION DOSE METRICS: Total DLP (mGy-cm): 633.53 FINDINGS: Pulmonary arteries: No visible evidence of pulmonary embolism/pulmonary arterial thrombus. Aorta: The thoracic aorta is nonaneurysmal. No visible intimal flap or dissection. Moderately advanced arterial sclerotic disease. Lungs: New mixed ground-glass interstitial opacification and crazy paving of early consolidated alveolar airspace disease posterior segment left upper lobe at the site of presumed bronchoscopy site. This process obscures the underlying subpleural pulmonary nodule. Suspected focal pulmonary contusion, pulmonary hemorrhage, and/or pneumonitis/pneumonia. Again note of the anterior segment right upper lobe spiculated nodule unchanged. Again note of 2 tiny right lower lobe pulmonary nodules (series 3, image 40 and 44) measuring under 5 mm. Small 4 mm pulmonary nodule lateral basal segment left lower lobe (series 3, image 50). COPD/chronic bronchitis. Pleural spaces: Scant right pleural effusion. No pneumothorax. Heart: No cardiomegaly. No visible pericardial effusion. Moderate three-vessel coronary artery disease. Lymph nodes: Again note of marginally prominent middle mediastinal and hilar lymph nodes stable since 08/10/2020. Largest aortopulmonic node measures approximately 15 mm in the short axis. Gallbladder and bile ducts: Tiny gallstones within the gallbladder neck. Kidneys and ureters: Simple cortical cyst superior pole left kidney. No follow-up recommended. Bones/joints: No visible active or acute osseous pathology. Degenerative disease of the spine with degenerative disc disease and spondylosis deformans. Currently no visible osteolytic or osteoblastic destructive process. Old anterior right rib fractures. Soft tissues: Unremarkable. CT/CT angio chest PE protcl [id number] IMPRESSION: 1. No visible evidence of pulmonary embolism/pulmonary arterial thrombus. 2. Posterior segment left upper lobe focal pulmonary contusion, pulmonary hemorrhage, and/or pneumonitis/pneumonia as discussed in text above. 3. Bilateral pulmonary nodules as detailed in text above. 4. Scant right pleural effusion. 5. Again note of marginally prominent middle mediastinal and hilar lymph nodes stable since 08/10/2020. 6. Cholelithiasis. EKG Data^: EKG 1: Attestation: I personally reviewed and interpreted this EKG as follows: EKG Interpretation Date: 08/31/20 EKG interpretation time: 21:58 Interpretation: nsr hr [address] or t wave abnormalities qrs 168 qtc 449 EKG 2: Attestation: I personally reviewed and interpreted this EKG as follows: EKG Interpretation Date: 08/31/20 EKG interpretation time: 23:38 Interpretation: nsr hr [address] or t wave abnormalities qrs 173 qtc 448 Discharge Plan Discharge Patient Disposition: Admitted As Inpatient Clinical Impression: Hypoxia Community acquired pneumonia Qualifiers: Laterality: unspecified laterality Qualified Code(s): J18.9 - Pneumonia, unspecified organism Dyspnea Qualifiers: Dyspnea type: unspecified Qualified Code(s): R06.00 - Dyspnea, unspecified Condition: Stable Coding Level of Care Code ED Car Dropper for g Fwd Exam Comprehensive
[2020-08-31 22:14] LABS: Basophils % 0.2 %; Hematocrit 35.8 % (42.0-52.0); Hemoglobin 10.7 g/dL (11.7-16.6); Lymphocytes # 0.6 10^3/uL (0.8-4.8); Lymphocytes % 3.5 %; Mean Corpuscular HGB Conc 29.9 g/dL (30.0-36.0); Mean Corpuscular Hemoglobin 26.5 pg (28.0-34.0); Mean Corpuscular Volume 88.6 fL (80-94); Mean Platelet Volume 10.6 fL (7.4-10.4); Monocytes # 1.5 10^3/uL (0.2-0.9); Monocytes % 8.1 %; Neutrophils # 15.91 10^3/uL (1.8-7.7); Neutrophils % 87.6 %; Nucleated Red Blood Cells % 0 %; Platelet Count 228 10^3/cmm (130-400); Red Blood Count 4.04 10^6/uL (4.1-5.3); Red Cell Distribution Width 18.5 % (12.1-15.1); White Blood Count 18.2 10^3/uL (4.0-10.0)
--- NOTE | 2020-08-31 22:17 | CTR_ITS ---
PROCEDURE INFORMATION: Exam: CTA Chest With Contrast Exam date and time: 08/31/2020 10:51 PM Age: 75 years old Clinical indication: Chest pain; Prior surgery; Surgery type: Stent; Patient HX: Bronchoscopy today; Additional info: Cp TECHNIQUE: Imaging protocol: Computed tomographic angiography of the chest with contrast. 3D rendering (Not supervised by radiologist): MIP and/or 3D reconstructed images were created by the technologist. Total images: 999 Radiation optimization: All CT scans at this facility use at least one of these dose optimization techniques: automated exposure control; mA and/or kV adjustment per patient size (includes targeted exams where dose is matched to clinical indication); or iterative reconstruction. Contrast material: OMNI 350; Contrast volume: 81 ml; Contrast route: INTRAVENOUS (IV); COMPARISON: CT angio chest [id number] 08/10/2020 9:37 AM RADIATION DOSE METRICS: Total DLP (mGy-cm): 633.53 FINDINGS: Pulmonary arteries: No visible evidence of pulmonary embolism/pulmonary arterial thrombus. Aorta: The thoracic aorta is nonaneurysmal. No visible intimal flap or dissection. Moderately advanced arterial sclerotic disease. Lungs: New mixed ground-glass interstitial opacification and crazy paving of early consolidated alveolar airspace disease posterior segment left upper lobe at the site of presumed bronchoscopy site. This process obscures the underlying subpleural pulmonary nodule. Suspected focal pulmonary contusion, pulmonary hemorrhage, and/or pneumonitis/pneumonia. Again note of the anterior segment right upper lobe spiculated nodule unchanged. Again note of 2 tiny right lower lobe pulmonary nodules (series 3, image 40 and 44) measuring under 5 mm. Small 4 mm pulmonary nodule lateral basal segment left lower lobe (series 3, image 50). COPD/chronic bronchitis. Pleural spaces: Scant right pleural effusion. No pneumothorax. Heart: No cardiomegaly. No visible pericardial effusion. Moderate three-vessel coronary artery disease. Lymph nodes: Again note of marginally prominent middle mediastinal and hilar lymph nodes stable since 08/10/2020. Largest aortopulmonic node measures approximately 15 mm in the short axis. Gallbladder and bile ducts: Tiny gallstones within the gallbladder neck. Kidneys and ureters: Simple cortical cyst superior pole left kidney. No follow-up recommended. Bones/joints: No visible active or acute osseous pathology. Degenerative disease of the spine with degenerative disc disease and spondylosis deformans. Currently no visible osteolytic or osteoblastic destructive process. Old anterior right rib fractures. Soft tissues: Unremarkable. CT/CT angio chest PE protcl [id number] IMPRESSION: 1. No visible evidence of pulmonary embolism/pulmonary arterial thrombus. 2. Posterior segment left upper lobe focal pulmonary contusion, pulmonary hemorrhage, and/or pneumonitis/pneumonia as discussed in text above. 3. Bilateral pulmonary nodules as detailed in text above. 4. Scant right pleural effusion. 5. Again note of marginally prominent middle mediastinal and hilar lymph nodes stable since 08/10/2020. 6. Cholelithiasis. COMMENTS: Consistent with the [employer]'s Incidental Findings Committee white paper (J Am Carline Radiol 2018): Any incidental renal lesion less than 1 cm or classified as too small to characterize, or any incidental cystic renal lesion characterized as simple-appearing, is likely benign. No follow-up imaging is recommended for these lesions per consensus recommendations based on imaging criteria. Radiation Dose CTDIVOL = (mGy): DLP = 633.53 (mGy-cm)
--- NOTE | 2020-08-31 22:31 | CTR_ITS ---
PROCEDURE INFORMATION: Exam: CT Head Without Contrast Exam date and time: 08/31/2020 10:32 PM Age: 75 years old Clinical indication: Weakness, extremity; Bilateral TECHNIQUE: Imaging protocol: Computed tomography of the head without contrast. Radiation optimization: All CT scans at this facility use at least one of these dose optimization techniques: automated exposure control; mA and/or kV adjustment per patient size (includes targeted exams where dose is matched to clinical indication); or iterative reconstruction. ADDITIONAL STUDY INFORMATION: Total DLP (mGy-cm): 960.23 COMPARISON: 07/30/2020 FINDINGS: Examination is limited by artifacts from patient motion. There are prominent intracranial arterial calcifications. Evaluation of the brain demonstrates no other convincing areas of abnormal density when allowing for artifacts from patient motion. There is mild cerebral cortical atrophy. Ventricles do not appear significantly dilated. No definite depressed calvarial fracture is demonstrated. Visualized paranasal sinuses and mastoid air cells demonstrate no significant opacification. CT/CT head wo con* [id number] IMPRESSION: No definite acute intracranial process is demonstrated when allowing for artifacts from patient motion. Radiation Dose CTDIVOL = (mGy): DLP = 960.23 (mGy-cm)
[2020-08-31 22:35] LABS: Troponin(5th) Baseline 25 ng/L (0-15)
[2020-08-31 22:41] LABS: INR 1.07 (0.8-1.2)
[2020-08-31 22:43] LABS: Alanine Aminotransferase 8 U/L (0-41); Albumin Level 3.6 g/dL (3.5-5.2); Alkaline Phosphatase 86 IU/L (40-130); Anion Gap 21.6 (5-19); Aspartate Amino Transferase 15 U/L (0-40); Blood Urea Nitrogen 33 mg/dL (8-23); Calcium 8.2 mg/dL (8.5-10.5); Carbon Dioxide 16 mmol/L (22-29); Chloride 102 mmol/L (98-107); Globulin 2.7 g/dL (1.3-4.6); Glucose 142 mg/dL (65-115); NT Pro B Type Natriuretic Pept 647 pg/mL (0-450); Osmolality Calculated 290 mOsm/kg (285-295); Potassium 4.6 mmol/L (3.5-5.1); Sodium 135 mmol/L (136-145); Total Bilirubin 0.7 mg/dL (0.15-1.2); Total Protein 6.3 g/dL (6.6-8.7)
[2020-08-31 22:50] LABS: Lactic Sepsis W/Reflex 1.3 mmol/L (0.5-2.2)
[2020-08-31] MEDS: iohexol 350 mg/mL 100 mL Btl IV (22:52)
--- NOTE | 2020-08-31 23:34 | ECG_ITS ---
[facility] Test Date: 2020-08-31 Pat Name: Neal Garzon Department: Room: Gender: Male Government Clerk: : 1945 Requested By: Delaney Novak Order Number: [id number] Mikaela MD: Denise Smith M.D. Measurements Intervals [place] Rate: 82 P: PA: QRS: -76 QRSD: 173 T: 27 QT: 410 QTc: 479 Interpretive Statements SINUS RHYTHM LEFT AXIS DEVIATION [QRS AXIS < -30] RIGHT BUNDLE BRANCH BLOCK [120+ ms QRS DURATION, UPRIGHT V1, 40+ ms S IN I/aVL/V4/V5/V6] Compared to ECG 08/31/2020 21:58:31 No significant changes Electronically Signed On 09-02-2020 14:13:53 CDT by Denise Smith M.D. [id number]
[2020-08-31] MEDS: cefTRIAXone 2,000 MG in sodium chloride 0.9% (plus) 50 ML 100 MG IV (23:45)
[2020-08-31] MEDS: sodium chloride 0.9% 1,000 ML 999 ML IV (23:46)
--- NOTE | 2020-08-31 23:55 | P.HP_ITS ---
Providers/Chief Complaint Primary Care Provider: Clint Cleaning MD Chief Complaint: BRONCHOSCOPY THIS AM:DIFF BREATHING,DIZZY,HTN History of Present Illness Neal Garzon is a 75 year old male who underwent bronchoscopic evaluation of karmen pected lung cancer, status post bronchoalveolar lavage posterior segment right upper lobe, fluid color was bloody, endobronchial biopsies were sent for histopathological diagnosis fine-needle aspiration from right upper lobe lung nodule was also sent, has extensive history of smoking, PET scan revealed hypermetabolic activity of nodules on right upper lobe with increased FDG uptake around right hilar, right paratracheal region presenting today with worsening shortness of breath. Patient is stating that after bronchoscopy he did not require any opioids, he went home ate his lunch and was doing fine until about mid afternoon he started experiencing right-sided chest heaviness, he checked his pulse ox which was reading O2 saturation in upper 70s, he also noticed hemoptysis today. Please note patient has carotid stenosis for which he is following up with Dr. Goldstein, today when he started noticing singh floaters in his visual field he decided to come to the hospital. Diagnostics in the ER revealed normal hemodynamics he was requiring 4 L nasal cannula to keep saturation 100% which was downgraded to 3 L during my evaluation, hemoglobin 10.7 do not have previous hemoglobin to compare CTA chest revealed: lungs: New mixed ground-glass interstitial opacification and crazy paving of early consolidated alveolar airspace disease posterior segment left upper lobe at the site of presumed bronchoscopy site. This process obscures the underlying subpleural pulmonary nodule. Suspected focal pulmonary contusion, pulmonary hemorrhage, and/or pneumonitis/pneumonia. Again note of the anterior segment right upper lobe spiculated nodule unchanged. Again note of 2 tiny right lower lobe pulmonary nodules (series 3, image 40 and 44) measuring under 5 mm. Small 4 mm pulmonary nodule lateral basal segment left lower lobe (series 3, image 50). COPD/chronic bronchitis. Review of Systems Const: Reports: body aches and fatigue; Denies: fever(s) Eyes: Reports: change in vision, blurry vision, floaters and seeing flashes ENMT: Denies: throat pain Card: Reports: chest pain and dyspnea on exertion Resp: Reports: dyspnea, productive cough and hemoptysis GI: Denies: abdominal pain : Denies: flank pain Musc: Denies: neck pain Skin/Breast: Denies: rash Neuro: Denies: headache(s) Psych: Denies: anxiety Endo: Denies: polyuria Elliott/Lymph: Denies: easy bruising All/Imm: Denies: urticaria Medications/Allergies Home Medications Medication Instructions Recorded Confirmed Last Taken Type B-complex with vitamin C 1 tab PO DAILY 09/22/19 08/31/20 08/30/20 History diphenhydramine 25 1 tab PO Q6H PRN 09/22/19 08/31/20 08/30/20 History mg-acetaminophen 500 mg tablet empagliflozin 25 mg tablet 25 mg PO DAILY 09/22/19 08/31/20 08/29/20 History fluticasone fur. 100 mcg-umeclid 1 inh INHALATION DAILY 09/22/19 08/31/20 08/31/20 04:15 History 62.5 mcg-vilant 25 mcg inhalat.powder glipizide 2.5 mg tablet, extended 2.5 mg PO DAILY 09/22/19 08/31/20 08/30/20 History release 24 hr isosorbide mononitrate 30 mg 30 mg PO DAILY 09/22/19 08/31/20 1 Day Ago History tablet,extended release 24 hr ~08/30/20 lansoprazole 30 mg capsule,delayed 30 mg PO DAILY 09/22/19 08/31/20 08/31/20 04:20 History release losartan 50 mg tablet 50 mg PO BID 09/22/19 08/31/20 08/31/20 04:20 History metformin 1,000 mg tablet 1,000 mg PO BID 09/22/19 08/31/20 08/30/20 History multivitamin 1 tab PO DAILY 09/22/19 08/31/20 08/31/20 04:20 History nitroglycerin 0.4 mg sublingual 0.4 mg SUBLINGUAL Q5M PRN 30 Days 09/22/19 08/30/20 Unknown Rx tablet #30 tab rosuvastatin 20 mg tablet 20 mg PO DAILY 09/22/19 08/31/20 08/30/20 History amlodipine 5 mg tablet 5 mg PO DAILY #90 tab 02/09/20 08/31/20 08/30/20 Rx atenolol 50 mg tablet 50 mg PO DAILY #90 tab 02/09/20 08/31/20 08/31/20 04:20 Rx cholecalciferol (vitamin D3) 25 25 mcg PO DAILY 04/19/20 08/31/20 08/30/20 History mcg (1,000 unit) capsule aspirin 325 mg tablet 325 mg PO BID 08/18/20 08/31/20 08/30/20 History Allergies Allergy/AdvReac Type Severity Reaction Status Date / Time ammonia Allergy NA Verified 08/31/20 06:29 exenatide [From Byetta] Allergy Nausea Verified 08/31/20 06:29 Iodinated Contrast Media Allergy Rash Verified 08/31/20 06:29 liraglutide [From Victoza] Allergy Tachycardia Verified 08/31/20 06:29 niacin Allergy NA Verified 08/31/20 06:29 PFSH Acute PFSH: Medical History Aortic aneurysm Bladder cancer CAD (coronary artery disease) 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 Father , AT AGE 51 Aortic aneurysm Other Hypertension Social History Smoking and tobacco status: current every day smoker cigarettes Packs smoked per day: 1 Years cigarettes smoked: 60 Second hand smoke exposure: Yes Smoking risk assessment/counseling performed?: Yes Alcohol intake: current Alcohol intake frequency: holidays/special occasions only Counseling given: No Counseling given: No Lives independently: Yes Household members: spouse Marital status: Current occupational status: retired History of recent travel: No Current gender identity: Male Vitals/I&O/Wt Last Vital Signs Temp 98.5 F 08/31/20 21:36 Pulse 92 08/31/20 21:36 Resp 20 H 08/31/20 21:36 BP 120/55 08/31/20 21:36 Pulse Ox 88 L 08/31/20 21:36 Weight last 48 hrs Weight 105.233 kg Physical Exam Narrative: EXAM NARRATIVE: Very pleasant and cooperative elderly male Currently saturating well on 3 L nasal cannula Complaining of mild right-sided chest discomfort S1, S2 no murmur appreciated, no signs of heart failure Abdomen distended, central obesity, nontender, soft Lower extremity mild edema EOMI, PERRLA GCS 15 Awake alert and attentive GCS history no signs of neurological deficit Appropriate mood and affect No acute respite distress Bilateral breath sounds with crackles right upper lung zone Data : 08/31/20 21:50 08/31/20 21:50 Micro: Microbiology 08/31/20 22:40 Blood Culture - Preliminary Blood SPECIMEN COLLECTED 08/31/20 22:20 Blood Culture - Preliminary Blood SPECIMEN COLLECTED A&P Assessment and plan (1) Acute respiratory failure with hypoxia: Status: Acute (2) COPD (chronic obstructive pulmonary disease): Status: Acute (3) Mediastinal lymphadenopathy: Status: Acute (4) Lung nodule, multiple: Status: Acute (5) 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: Status: Acute (6) Carotid stenosis, left: Status: Acute Additional A&P Information Acute hypoxic respiratory failure with underlying COPD Acute COPD exacerbation Status post bronchoscopy and bronchoalveolar lavage of right bronchus CTA chest today is revealing opacity in the right upper lobe, concern for pulmonary contusion/hemorrhage, he is not septic on admission, Received 2 g of ceftriaxone in the ER along with azithromycin, got 1 L normal saline and DuoNeb treatment Pulmonary contusion, hemorrhage, pneumonitis in differential, no massive pulmonary hemorrhage to require urgent intubation or bronchoscopy Monitor ventilation, oxygenation and H&H overnight currently saturating well on 3 L nasal cannula Continue Levaquin Keep patient n.p.o. Avoid anticoagulation, no coagulopathy noted Not sure at this point whether this is procedure related versus lung carcinoma related right upper lobe finding however in comparison to previous CT scan right upper lobe opacity is new will update Dr. Sanford in the morning, hemodynamically stable oxygenating well on 3 L no active hemoptysis Left carotid stenosis Patient does endorse floaters, flashes No active neurological signs or symptoms Follows up with Dr. Goldstein Unfortunately cannot take aspirin or Plavix at this time Bladder cancer: Follows up with Dr. Schreer, no active hematuria He is an active smoker N.p.o. DVT prophylaxis SCDs Goals of care discussed with the patient: He is full code Attestations Medical Necessity Statement*: Anticipating stay in the hospital cross more than 2 midnights for hemoptysis, post bronchoscopy possible pulmonary contusion/hemorrhage Time Spent in Patient Care: (>than 50% of time spent in counselling and/or direct pt care on unit) . 30mins Coding Level of Care Code Acute Over The Road Driver for Chg Fwd Diagnoses Acute respiratory failure with hypoxia J96.01 COPD (chronic obstructive pulmonary disease) J44.9 Mediastinal lymphadenopathy R59.0 Lung nodule, multiple R91.8 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 R91.8 Carotid stenosis, left I65.22
[2020-09-01] VITALS (60 sets, daily range): BP systolic 90–147; BP diastolic 49–73; PULSE 74–103; RESP 16–35; TEMP 37.1–37.2; O2SAT 87–95
[2020-09-01 00:21] LABS: Troponin 5 2HR 26.95 ng/L (0-15); Troponin 5 2HR Delta 1.95 ABS# (0-10)
[2020-09-01] MEDS: azithromycin 500 MG in sodium chloride 0.9% 250 ML 250 MG IV (00:41)
[2020-09-01] MEDS: sodium chloride 0.9% 1,000 ML 30 ML IV ×2 (02:20→14:07)
[2020-09-01] MEDS: sodium chloride 0.9% 1,000 ML 999 ML IV (03:24)
[2020-09-01 03:40] LABS: Basophils % 0.2 %; Hematocrit 31.2 % (42.0-52.0); Hemoglobin 9.3 g/dL (11.7-16.6); Lymphocytes # 1.1 10^3/uL (0.8-4.8); Lymphocytes % 5.7 %; Mean Corpuscular HGB Conc 29.8 g/dL (30.0-36.0); Mean Corpuscular Hemoglobin 26.3 pg (28.0-34.0); Mean Corpuscular Volume 88.1 fL (80-94); Mean Platelet Volume 9.5 fL (7.4-10.4); Monocytes # 1.7 10^3/uL (0.2-0.9); Monocytes % 8.9 %; Neutrophils # 16.22 10^3/uL (1.8-7.7); Neutrophils % 84.7 %; Nucleated Red Blood Cells % 0 %; Platelet Count 199 10^3/cmm (130-400); Red Blood Count 3.54 10^6/uL (4.1-5.3); Red Cell Distribution Width 18.4 % (12.1-15.1); White Blood Count 19.2 10^3/uL (4.0-10.0)
--- NOTE | 2020-09-01 04:00 | XR_ITS ---
WS: [id number] Portable AP upright chest, 09/01/2020 Clinical Data: Hypoxia Comparison: Portable chest, 08/31/2020. Findings: Right upper lobe opacity has increased slightly. The remainder of the lungs is clear. The h eart is slightly enlarged. The aortic arch and descending aorta show calcification and tortuosity. No nodules, masses or effusions are seen. Monitor leads are on the chest wall. XR/XR chest 1V portable [id number] Impression: 1. Slight increase in right upper lobe opacity which may represent worsening pn eumonia and/or pulmonary contusion. 2. Cardiomegaly and atherosclerosis.
[2020-09-01 04:01] LABS: Troponin 5 6HR 32.74 ng/L (0-15); Troponin 5 6HR Delta 7.74 ng/L (0-12)
[2020-09-01 04:06] LABS: Anion Gap 17.6 (5-19); Blood Urea Nitrogen 34 mg/dL (8-23); Calcium 7.3 mg/dL (8.5-10.5); Carbon Dioxide 19 mmol/L (22-29); Glucose 132 mg/dL (65-115); Osmolality Calculated 291 mOsm/kg (285-295); Sodium 136 mmol/L (136-145)
[2020-09-01 04:08] LABS: Chloride 104 mmol/L (98-107); Potassium 4.6 mmol/L (3.5-5.1)
[2020-09-01] MEDS: piperacillin-tazobactam 3.375 GM in sodium chloride 0.9% (plus) 50 ML IV ×2 (05:59→14:05)
[2020-09-01 06:05] LABS: Glucose Point of Care 130 mg/dL (70-110)
[2020-09-01] MEDS: tranexamic acid 1,000 mg/10mL SDV 500 MG XX (06:21)
--- NOTE | 2020-09-01 06:23 | PC.NURSE ---
0445 Pt placed in ICU room 5 on bedside monitor VSS A/Ox4 on 5LNC 0506 Dr. Friedman give PLt results notified VSS and adequate BP Hold platlets and vasopressin for now. May start vasopressin if SBP less [address] Friemdan updated on pt condition VSS no issues
[2020-09-01] MEDS: ipratropium-albuterol 3 mL Neb INHALATION (06:37)
[2020-09-01] MEDS: pantoprazole DR 40 mg Tablet PO (09:04)
[2020-09-01 09:10] LABS: Hematocrit 32.2 % (42.0-52.0); Hemoglobin 9.4 g/dL (11.7-16.6)
[2020-09-01 12:41] LABS: Glucose Point of Care 118 mg/dL (70-110)
[2020-09-01 16:14] LABS: Hematocrit 32.2 % (42.0-52.0); Hemoglobin 9.6 g/dL (11.7-16.6)
[2020-09-01] MEDS: atorvastatin 40 mg Tablet 80 MG PO (17:27)
[2020-09-01 17:34] LABS: Glucose Point of Care 234 mg/dL (70-110)
--- NOTE | 2020-09-01 18:33 | PC.NURSE ---
LATE NOTE: AT 1628 There was a 4 second pause on the heart monitor. Visible in all leads. Another nurse was in the room speaking with the patient at the time. Pt was asymptomatic. Nurse alerted Dr Ingram. No new orders received at this time. continue to monitor.
--- NOTE | 2020-09-01 18:58 | PC.RESP ---
Smoking Cessation information sent to patient.
[2020-09-01 19:54] LABS: Glucose Point of Care 233 mg/dL (70-110)
[2020-09-01] MEDS: HYDROmorphone 1 mg/mL INJ 1 mL 0.2 MG IVP (20:26)
--- NOTE | 2020-09-01 21:05 | P.PN_ITS ---
Subjective Subjective: Interval history: No hematemesis. Breathing better. Had a several second sinus pause that was completely asymptomatic. Hemoglobin is stable. Vitals/I&O/Wt Last Vital Signs Temp 98.9 F 09/01/20 04:24 Pulse 84 09/01/20 14:00 Resp 25 H 09/01/20 20:26 BP 90/49 09/01/20 04:24 Pulse Ox 94 09/01/20 06:37 09/01/20 09/01/20 09/01/20 06:59 14:59 22:59 Intake Total 2300 / 2300 903.5 / 903.5 530 / 1433.5 Output Total 450 / 450 450 / 450 850 / 1300 Balance 1850 / 1850 453.5 / 453.5 -320 / 133.5 Weight last 48 hrs Weight 105.233 kg Physical Exam Narrative: EXAM NARRATIVE: Awake and alert, not acutely ill-appearing, scattered wheezes, no evidence of hemoptysis noted, regular rhythm Data : 09/01/20 16:05 09/01/20 03:34 Micro: Microbiology 08/31/20 22:40 Blood Culture - Preliminary Blood SPECIMEN COLLECTED 08/31/20 22:20 Blood Culture - Preliminary Blood SPECIMEN COLLECTED A&P Assessment and plan (1) Sinus pause: Noted on monitor, asymptomatic Status: Acute (2) Hemoptysis: Status: Acute (3) Acute respiratory failure with hypoxia: Status: Acute (4) S/P bronchoscopy with biopsy: Status: Acute (5) 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: Status: Chronic (6) COPD (chronic obstructive pulmonary disease): Status: Chronic Qualifiers: COPD type: unspecified COPD Qualified Code(s): J44.9 - Chronic obstructive pulmonary disease, unspecified (7) Diabetes: Status: Chronic Qualifiers: Diabetes mellitus type: type 2 Diabetes mellitus detention insulin use: without detention use Diabetes mellitus complication status: with circulatory complication Diabetes mellitus complication detail: with other circulatory complications Qualified Code(s): E11.59 - Type 2 diabetes mellitus with other circulatory complications (8) Hypertension: With borderline blood pressures off of multiple medications -usually on atenolol, isosorbide, amlodipine and losartan Status: Chronic Qualifiers: Hypertension type: essential hypertension Qualified Code(s): I10 - Essential (primary) hypertension (9) CAD (coronary artery disease): Status: Chronic Qualifiers: Coronary Disease-Associated Artery/Lesion type: [place] artery [place] vs. transplanted heart: [place] heart Associated angina: with stable angina Qualified Code(s): I25.118 - Atherosclerotic heart disease of [place] coronary artery with other forms of angina pectoris (10) Carotid stenosis, left: Status: Chronic (11) Aortic aneurysm: Status: Chronic Qualifiers: Aortic location: abdominal aorta Presence of rupture: without rupture Qualified Code(s): I71.4 - Abdominal aortic aneurysm, without rupture Additional A&P Information Discussed with Dr. Sanford Stop IV antibiotics, start Augmentin I have discontinued IV fluids and vasopressin We will transfer to the floor Recheck hemoglobin in the morning Telemetry monitoring for recurrent sinus pauses -noted on monitor and appeared in multiple leads but patient was completely asymptomatic, alert and talking at the time. Dose of beta-blockade was already decreased by half Continue to hold home amlodipine, isosorbide and losartan Resume home Crestor Has breathing treatments Reevaluate in the morning and if stable consider discharge Touched base with his son and him briefly to review plan of care Attestations Medical Necessity Statement*: Requires ongoing stay for continued management as described Coding Level of Care Code Acute Software Installation Engineer for Chg Fwd Diagnoses Sinus pause I45.5 Hemoptysis R04.2 Acute respiratory failure with hypoxia J96.01 S/P bronchoscopy with biopsy Z98.890 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 R91.8 COPD (chronic obstructive pulmonary disease) J44.9 COPD type: unspecified COPD Diabetes E11.59 Diabetes mellitus type: type 2 Diabetes mellitus 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 transplanted heart: [place] heart Associated angina: with stable angina Carotid stenosis, left I65.22 Aortic aneurysm I71.4 Aortic location: abdominal aorta Presence of rupture: without rupture
[2020-09-02] VITALS (57 sets, daily range): BP systolic 118–159; BP diastolic 54–81; PULSE 70–106; RESP 13–33; TEMP 36.6–36.8; O2SAT 85–94
[2020-09-02] MEDS: HYDROmorphone 1 mg/mL INJ 1 mL 0.4 MG IVP (02:16)
[2020-09-02 03:42] LABS: Basophils # 0.1 10^3/uL (0.0-0.1); Basophils % 0.4 %; Eosinophils # 0.1 10^3/uL (0.0-0.8); Eosinophils % 0.7 %; Hematocrit 32.3 % (42.0-52.0); Hemoglobin 9.7 g/dL (11.7-16.6); Lymphocytes # 1.2 10^3/uL (0.8-4.8); Lymphocytes % 7.9 %; Mean Corpuscular Hemoglobin 26.5 pg (28.0-34.0); Mean Corpuscular Volume 88.3 fL (80-94); Mean Platelet Volume 9.9 fL (7.4-10.4); Monocytes # 1.3 10^3/uL (0.2-0.9); Monocytes % 8.3 %; Neutrophils # 12.37 10^3/uL (1.8-7.7); Neutrophils % 81.9 %; Nucleated Red Blood Cells % 0 %; Platelet Count 211 10^3/cmm (130-400); Red Blood Count 3.66 10^6/uL (4.1-5.3); Red Cell Distribution Width 18.4 % (12.1-15.1); White Blood Count 15.1 10^3/uL (4.0-10.0)
[2020-09-02 03:55] LABS: Blood Urea Nitrogen 19 mg/dL (8-23); Calcium 8.1 mg/dL (8.5-10.5); Carbon Dioxide 22 mmol/L (22-29); Chloride 105 mmol/L (98-107); Glucose 152 mg/dL (65-115); Osmolality Calculated 285 mOsm/kg (285-295); Sodium 135 mmol/L (136-145)
[2020-09-02] MEDS: atenolol 50 mg Tablet 25 MG PO (05:12)
[2020-09-02 07:10] LABS: Glucose Point of Care 152 mg/dL (70-110)
[2020-09-02] MEDS: pantoprazole DR 40 mg Tablet PO (09:18)
[2020-09-02] MEDS: amoxicillin-clav 875-125 mg Tablet 1 TAB PO ×2 (09:18→17:40)
--- NOTE | 2020-09-02 09:23 | PC.CHAP ---
Pastoral Care Encounter/Spiritual Assessment Type of Contact [] Declined industrial psychology teacher visit [] Patient/Family/Request visit [] Outpatient visit [] Follow-up visit [] Physician referral [] Code/Alert [x] Routine visit [] Staff referral [] Actively dying [] Patient sleeping [] Family support [] [] Out of room [] Palliative care [] [] Receiving care in room [] Pre-surgical visit [] Trauma [] Long length of stay [x] ICU visit [] Other: Relational/Emotional Strength [] Patient feels connected with others/family/visitors/staff [] Distress [] Loneliness/isolation [] Abandonment Spirituality of Patient [] Person of [place] [] Attends Synagogue of their [place] [] Believes in Prayer [] Reads Bible or Restorationism materials [] There are Spiritual issues to be addressed Bottle Cleaner Interventions [x] Prayer [] Active listening [] Non-anxious presence [] Spiritual/emotional support [] Crisis/trauma care [] Spiritual counseling [] Bereavement support [] Provided bereavement packet [] Provided Bible/devotional materials [] Provided toy/stuffed animal, coloring book to patient or family member [] Provided Communion [] Anointing/[place] [] Salvation [x] Completed spiritual assessment [] Other: Impact on Illness or Injury [] Angry [] Fearful [] Anxious [] Often cries [] Exhaustion [] Unable to work [] Unable to attend gnosticism [] Unable to walk/stand [] Unable to read [] Unable to drive [] Unable to eat/drink [] Unable to sleep [] Unable to be with family [] Patient intubated [] Other: Summary Time spent with patient
--- NOTE | 2020-09-02 09:45 | PM.PN ---
Subjective Subjective: Interval history: The patient was seen and examined. He was in bed comfortable. Not coughing up any blood. The patient has been treated with broad-spectrum antibiotic and currently on Augmentin. The patient had a 4-second pause yesterday without any symptoms. Background: The patient underwent navigational bronchoscopy guided transbronchial biopsy of the right upper lobe lung nodule, fine-needle aspiration of the same nodule as well as endobronchial sound guided transbronchial needle aspiration of station 4R, 7 and 10. The bronchoscopy was performed for concerns for lung cancer. The patient has 2 pulmonary nodules in the right upper lobe and PET positive midsternal hilar lymphadenopathy. Medications: Reviewed: Yes Vitals/I&O/Wt Last Vital Signs Temp 98.2 F 09/02/20 04:00 Pulse 71 09/02/20 07:59 Resp 16 09/02/20 07:59 BP 144/58 09/02/20 04:10 Pulse Ox 92 09/02/20 07:59 09/01/20 09/02/20 09/02/20 22:59 06:59 14:59 Intake Total 530 / 1433.5 1500 / 2933.5 420 / 420 Output Total 1700 / 2150 1550 / 3700 600 / 600 Balance -1170 / -716.5 -50 / -766.5 -180 / -180 Weight last 48 hrs Weight 232 lb Physical Exam Narrative: EXAM NARRATIVE: General: Patient is awake alert and oriented, in no distress. Neck: No JVD Respiratory: Auscultation: Crackles in the posterior right upper lung, no wheezing or rhonchi Cardiovascular: Regular rate and rhythm, S1-S2 present, no murmur, no peripheral edema. Abdomen: Soft, nontender, nondistended, positive bowel sound Musculoskeletal: No obvious joint deformity Skin: No rash Neuro: Mental status is normal, no gross cranial nerve deficit, normal motor and coordination. Data : 09/02/20 03:14 09/02/20 03:14 Micro: Microbiology 08/31/20 22:40 Blood Culture - Preliminary Blood Gram positive cocci 08/31/20 22:20 Blood Culture - Preliminary Blood NEGATIVE TO DATE Attestation for Other Data: I personally reviewed and interpreted the following: Other data: I have reviewed the patient laboratory microbiologic and neurologic data. CT angiogram of the chest on admission did not reveal any pulmonary embolism. There was crazy paving pattern in the posterior segment of the right upper lobe consistent with bleeding. A&P Assessment and plan (1) Pulmonary hemorrhage: The CT scan of the chest that revealed infiltrate in the posterior segment of the right upper lobe and crazy paving pattern is consistent with pulmonary hemorrhage. The patient underwent transbronchial biopsies of the right upper lobe lung nodule. 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 There has been no evidence of active bleeding on the CT angiogram of the chest. The patient did not have any more hemoptysis in the past 24 hours. The patient is currently on Augmentin. The patient can be safely discharged from the pulmonary point of view. Status: Acute (2) Chronic respiratory failure with hypoxia: The patient will likely require oxygen. He was hypoxic in the past and after the bronchoscopy evaluation. However the patient did not want any oxygen. Today the patient is willing to use oxygen as he thinks this is helping him. Status: Acute (3) Suspected lung cancer: Patient is currently undergoing work-up for suspected lung cancer. The patient has PET positive right upper lobe lung nodule in the posterior segment and PET positive midsternal hilar lymphadenopathy. The endobronchial sound guided transbronchial needle aspiration of the hilar mediastinal lymph nodes had been negative for malignancy. The transbronchial biopsies of the right upper lobe lung nodule had also been negative. The patient will need a CT-guided biopsy of the lung nodule. I have discussed this in detail with the patient and I will follow this up as outpatient. Status: Acute Attestations Medical Necessity Statement*: Will defer to the primary team Coding Level of Care Code Acute Oncology Account Specialist for [facility] Kathia Diagnoses Pulmonary hemorrhage R04.89 Chronic respiratory failure with hypoxia J96.11 Suspected lung cancer R68.89
--- NOTE | 2020-09-02 10:06 | PC.NURSE ---
pt anxious to go home. He spoke to Dr. Sanford regarding going home. Refusing to wear EKG and BP cuff. Agreed to wear o2 and pulse ox. Sitting in chair, wearing his clothes.
--- NOTE | 2020-09-02 10:11 | PC.NURSE ---
02 turned down to 2L/NC
[2020-09-02 11:08] LABS: Glucose Point of Care 144 mg/dL (70-110)
--- NOTE | 2020-09-02 11:19 | PC.NURSE ---
walked pt around unit, approx. 200 ft, pt was on 2 liter, saturation was 89 when returning to room. Tolerated well.
[2020-09-02] MEDS: aspirin 81 mg EC Tablet PO ×2 (14:09→17:40)
[2020-09-02 17:08] LABS: Glucose Point of Care 127 mg/dL (70-110)
--- NOTE | 2020-09-02 17:25 | PM.DCS ---
Discharge Providers Date of Admission: 09/01/20 01:19 Date of Discharge: September 02, 2020 Attending Provider at Admission: Colt Friedman MD Attending Provider at Discharge: Lisa Ingram MD Consults: Pulmonology, Dr. Sanford Primary Care Provider: Clint Cleaning MD Diagnoses at Discharge Discharge Diagnosis (1) Hemoptysis: Status: Resolved (2) Pulmonary hemorrhage: Status: Acute (3) Acute respiratory failure with hypoxia: Status: Resolved (4) S/P bronchoscopy with biopsy: (5) Suspected lung cancer: Status: Acute (6) Sinus pause: Status: Acute Permanent problem details: one episode 3-4 seconds on telemetry, multiple leads, during hospital stay, completely asymptomatic (7) Lung nodule, multiple: Status: Chronic (8) Mediastinal lymphadenopathy: Status: Chronic (9) Chronic respiratory failure with hypoxia: Status: Chronic (10) COPD (chronic obstructive pulmonary disease): Status: Chronic Qualifiers: COPD type: unspecified COPD Qualified Code(s): J44.9 - Chronic obstructive pulmonary disease, unspecified (11) Diabetes: Status: Chronic Qualifiers: Diabetes mellitus complication detail: with other circulatory complications Diabetes mellitus complication status: with circulatory complication Diabetes mellitus intermediate insulin use: without intermediate use Diabetes mellitus type: type 2 Qualified Code(s): E11.59 - Type 2 diabetes mellitus with other circulatory complications Reason for Visit Reason for Visit: BRONCHOSCOPY THIS AM:DIFF BREATHING,DIZZY,HTN Hospital Course Hospital Course Mr. Levi presented to the emergency room with complaint of increased shortness of breath and low oxygen levels in addition to some hemoptysis. He had had a bronchoscopy with biopsy. It had to be done while he was still on aspirin due to chronic vascular issues. It was not unexpected for him to have hemoptysis. He had been hypoxic with exertion previously but declined arrangements for home oxygen. Imaging done in the emergency room including a CTA of the chest was concerning for pulmonary contusion, hemorrhage or pneumonitis. Mr. Segal has known multiple bilateral pulmonary nodules and concern for lung cancer. He was treated with inhaled tranxenamic acid and vasopressin as well as broad-spectrum antibiotics. The following day H&H were stable, he had no further hemoptysis. He was transferred out of the ICU and vasopressin was stopped. He was changed to oral antibiotics. He was monitored overnight on the floor. Arrangements were made for home oxygen after he finally agreed that it helped him feel better and he was discharged home with plan for outpatient follow-up. Patient was quite eager to be going home. He was walking around with oxygen on and feeling better than he had before a bit. Scattered crackles noted on examination. He had a regular rhythm. Gait was normal. Discharge Data Data Completed and Pending: Completed Studies During Hospitalization Category Date Time Status CT angio chest PE protcl [id number] Urge nt Cat Scan 08/31/20 22:[address] head wo con* 7 0450 Urgent Cat Scan 08/31/20 22:31 Completed XR chest 1V monica ble [id number] AM LABS Exams 09/01/20 04:00 Completed XR chest 1V monica ble [id number] Stat Exams 08/31/20 21:38 Completed Pending at discharge Category Date Time Status Blood Culture Sta t Lab 08/31/20 22:40 Results Laboratory Results WBC 15.1 10^3/uL (4.0 -10.0) H 09/02/20 03:14 RBC 3.66 10^6/uL (4.1 -5.3) L 09/02/20 03:14 Hgb 9.7 g/dL (11.7-16 .6) L 09/02/20 03:14 Hct 32.3 % (42.0-52.0 ) L 09/02/20 03:14 MCV 88.3 fL (80-94) 09/02/20 03:14 MCH 26.5 pg (28.0-34. 0) L 09/02/20 03:14 MCHC 30.0 g/dL (30.0-3 6.0) 09/02/20 03:14 RDW 18.4 % (12.1-15.1 ) H 09/02/20 03:14 Plt Count 211 10^3/cmm (130 -400) 09/02/20 03:14 MPV 9.9 fL (7.4-10.4) 09/02/20 03:14 Neut % (Auto) 81.9 % 09/02/20 03:14 Lymph % (Auto) 7.9 % 09/02/20 03:14 Chester % (Auto) 8.3 % 09/02/20 03:14 Eos % (Auto) 0.7 % 09/02/20 03:14 Baso % (Auto) 0.4 % 09/02/20 03:14 Neut # (Auto) 12.37 10^3/uL (1. 8-7.7) H 09/02/20 03:14 Lymph # (Auto) 1.2 10^3/uL (0.8- 4.8) 09/02/20 03:14 Chester # (Auto) 1.3 10^3/uL (0.2- 0.9) H 09/02/20 03:14 Eos # (Auto) 0.1 10^3/uL (0.0- 0.8) 09/02/20 03:14 Baso # (Auto) 0.1 10^3/uL (0.0- 0.1) 09/02/20 03:14 Nucleated RBC % (a uto) 0 % 09/02/20 03:14 Nucleated RBCs # 0.0 /100WBC 09/02/20 03:14 PT 14.20 SECONDS (12 .1-14.9) 08/31/20 22:15 INR 1.07 (0.8-1.2) 08/31/20 22:15 Sodium 135 mmol/L (136-1 45) L 09/02/20 03:14 Potassium 4.0 mmol/L (3.5-5 .1) 09/02/20 03:14 Chloride 105 mmol/L (98-10 7) 09/02/20 03:14 Carbon Dioxide 22 mmol/L (22-29) 09/02/20 03:14 Anion Gap 12.0 (5-19) 09/02/20 03:14 BUN 19 mg/dL (8-23) 09/02/20 03:14 Creatinine 0.7 mg/dL (0.7-1. 2) 09/02/20 03:14 GFR Calculation Not Reportable 09/02/20 03:14 Glucose 152 mg/dL (65-115 ) H 09/02/20 03:14 POC Glucose 127 mg/dL (70-110 ) H 09/02/20 16:52 Calculated Osmolal ity 285 mOsm/kg (285- 295) 09/02/20 03:14 Lactic Acid 1.3 mmol/L (0.5-2 .2) 08/31/20 21:50 Calcium 8.1 mg/dL (8.5-10 .5) L 09/02/20 03:14 Total Bilirubin 0.7 mg/dL (0.15-1 .2) 08/31/20 21:50 AST 15 U/L (0-40) 08/31/20 21:50 ALT 8 U/L (0-41) 08/31/20 21:50 Alkaline Phosphata se 86 IU/L (40-130) 08/31/20 21:50 Troponin T Baselin e 25 ng/L (0-15) H 08/31/20 21:50 Troponin T 120 Min conchita 26.95 ng/L (0-15) H 08/31/20 23:55 Delta Troponin T 1.95 ABS# (0-10) 08/31/20 23:55 Troponin T Hi Sens 6Hr 32.74 ng/L (0-15) H 09/01/20 03:34 Troponin T Hi Sens 6Hr Delta 7.74 ng/L (0-12) 09/01/20 03:34 NT-Pro-B Natriuret Pep 647 pg/mL (0-450) H 08/31/20 21:50 Total Protein 6.3 g/dL (6.6-8.7 ) L 08/31/20 21:50 Albumin 3.6 g/dL (3.5-5.2 ) 08/31/20 21:50 Globulin 2.7 g/dL (1.3-4.6 ) 08/31/20 21:50 Impressions Chest CTA 08/31/20 22:17 IMPRESSION: 1. No visible evidence of pulmonary embolism/pulmonary arterial thrombus. 2. Posterior segment left upper lobe focal pulmonary contusion, pulmonary hemorrhage, and/or pneumonitis/pneumonia as discussed in text above. 3. Bilateral pulmonary nodules as detailed in text above. 4. Scant right pleural effusion. 5. Again note of marginally prominent middle mediastinal and hilar lymph nodes stable since 08/10/2020. 6. Cholelithiasis. COMMENTS: Consistent with the [employer]'s Incidental Findings Committee white paper (J Am Carline Radiol 2018): Any incidental renal lesion less than 1 cm or classified as too small to characterize, or any incidental cystic renal lesion characterized as simple-appearing, is likely benign. No follow-up imaging is recommended for these lesions per consensus recommendations based on imaging criteria. Head CT 08/31/20 22:31 IMPRESSION: No definite acute intracranial process is demonstrated when allowing for artifacts from patient motion. Chest X-Ray 09/01/20 04:00 Impression: 1. Slight increase in right upper lobe opacity which may represent worsening pneumonia and/or pulmonary contusion. 2. Cardiomegaly and atherosclerosis. Vitals: Last Vital Signs Temp 97.8 F 09/02/20 13:47 Pulse 70 09/02/20 14:02 Resp 16 09/02/20 14:02 BP 131/71 09/02/20 13:47 Pulse Ox 85 L 09/02/20 15:48 Discharge Plan Discharge Patient Disposition: Home Condition: Stable Prescriptions: New amoxicillin-pot clavulanate 875-125 mg Tablet 1 tab PO BID 7 Days Qty: 14 RF: 0 Continued losartan 50 mg tablet 50 mg PO BID RF: 0 lansoprazole 30 mg capsule,delayed release(DR/EC) 30 mg PO QAM RF: 0 glipizide 2.5 mg tablet extended release 24hr 2.5 mg PO QAM RF: 0 Jardiance 25 mg tablet 25 mg PO DAILY@18 RF: 0 isosorbide mononitrate 30 mg tablet extended release 24 hr 30 mg PO DAILY@18 RF: 0 rosuvastatin [Crestor] 20 mg tablet 20 mg PO DAILY@18 RF: 0 Trelegy Ellipta 100-62.5-25 mcg blister with device 1 inh INHALATION QAM RF: 0 multivitamin Tablet 1 tab PO DAILY RF: 0 B-complex with vitamin C Tablet 1 tab PO QAM RF: 0 diphenhydramine-acetaminophen [Tylenol PM Extra Strength] 25-500 mg tablet 1 tab PO BEDTIME RF: 0 nitroglycerin 0.4 mg tablet, sublingual 0.4 mg SUBLINGUAL Q5M PRN (Reason: chest pain) 30 Days Qty: 30 RF: 3 cholecalciferol (vitamin D3) 25 mcg (1,000 unit) capsule 25 mcg PO QPM RF: 0 amlodipine 5 mg tablet 5 mg PO DAILY Qty: 90 RF: 3 aspirin 81 mg Tablet,Delayed Release (Dr/Ec) 81 mg PO BID RF: 0 atenolol 50 mg tablet 50 mg PO QAM RF: 0 ZzzQuil 50 mg/30 mL Liquid 50 mg PO BEDTIME RF: 0 Held metformin 1,000 mg tablet 1,000 mg PO BID RF: 0 Hold Instructions: Resume on 09/04/20. held due to contrast with CTA; resume sunday Discharge Orders: Discharge Order (Routine); Ordered 09/02/20 Ordered By: Lisa Ingram Other Ambulatory Orders: DME: Oxygen (Order) Location: None Selected Ordered By: Lisa Ingram Referrals: Clint Cleaning MD [Primary Care Provider] - (Please call [facility] and make an appointment to see Dr. Cleaning within one week.) Avani Sanford MD [Physician] - 1 week (Please call [facility] [place] and schedule an appointment to see Dr. Sanford within one week.) Discharge Diet: Usual diet Discharge Activity: Resume usual activity Patient Instructions: Amoxicillin/Clavulanate Potassium (By mouth), Flexible Bronchoscopy (GEN), Opioid Safety, Using Oxygen at Home Activity Restrictions/Additional Instructions: You presented with low oxygen levels, increasing shortness of breath and some scant hemoptysis after your bronchoscopy done by Dr. Sanford. You were started on oxygen therapy and monitored closely. You had no further episodes of blood in your sputum. Hemoglobin was stable. You were evaluated for home oxygen and found to require 3 L by nasal cannula to maintain saturations at rest. Arrangements for home oxygen were made. You are being treated with an antibiotic for the next 7 days. Metformin needs to be held for another day and a half, you can resume on Sunday. This was held secondary to contrast. During the course of the hospital stay you did have one episode of a sinus pause that was noted on telemetry monitoring. You were talking and completely asymptomatic during this event. Your usual medications were continued and you were monitored without recurrence. When you follow-up with cardiology please be sure to let them know this. Should you have any recurrent hemoptysis, increasing chest pain or difficulty breathing, please contact Dr. Sanford return to the emergency room for further evaluation. Blood cultures from the hospital stay are still pending as our studies from outpatient bronchoscopy. Discharge Attestations Time Spent in Discharge Care*: greater than 30 min Specific Discharge Activities: educating patient, discussing with pcp/other providers, discussing with major case detective/social workers/dc planners, documenting/other paperwork and evaluating patient/reviewing data Quality Metrics Clinical Quality Measures During this hospital stay, did patient experience: None Coding Level of Care Code Acute Chg FW DC note Diagnoses Hemoptysis R04.2 Pulmonary hemorrhage R04.89 Acute respiratory failure with hypoxia J96.01 S/P bronchoscopy with biopsy Z98.890 Suspected lung cancer R68.89 Sinus pause I45.5 Lung nodule, multiple R91.8 Mediastinal lymphadenopathy R59.0 Chronic respiratory failure with hypoxia J96.11 COPD (chronic obstructive pulmonary disease) J44.9 COPD type: unspecified COPD Diabetes E11.59 Diabetes mellitus complication detail: with other circulatory complications Diabetes mellitus complication status: with circulatory complication Diabetes mellitus intermediate insulin use: without intermediate use Diabetes mellitus type: type 2
[2020-09-02] MEDS: atorvastatin 40 mg Tablet 80 MG PO (17:40)
--- NOTE | 2020-09-02 18:27 | PC.NURSE ---
Patient given discharge instructions, all questions answered. Patient discharged at this time in stable condition.
== END 2020-09-02 18:29 | disposition home or self-care (01) | DRG 189 ==
LOC: ER 23:59 → MEDSURG 09-01 01:19 → ICU 09-01 04:28 → MEDSURG 09-02 13:27
PROVIDERS: Admitting Provider Internal Medicine; Emergency Provider Emergency Medicine; PCP Family Medicine; Visit Provider Hospitalist
DX: J96.01 Acute respiratory failure with hypoxia (principal); J44.1 Chronic obstructive pulmonary disease with (acute) exacerbation; R04.89 Hemorrhage from other sites in respiratory passages; F17.210 Nicotine dependence, cigarettes, uncomplicated; I65.22 Occlusion and stenosis of left carotid artery; I71.9 Aortic aneurysm of unspecified site, without rupture; C67.4 Malignant neoplasm of posterior wall of bladder; I25.10 Atherosclerotic heart disease of native coronary artery without angina pectoris; E11.9 Type 2 diabetes mellitus without complications; E78.5 Hyperlipidemia, unspecified; I10 Essential (primary) hypertension; Z98.1 Arthrodesis status; R59.0 Localized enlarged lymph nodes; R91.8 Other nonspecific abnormal finding of lung field; Z79.82 Long term (current) use of aspirin; Z79.84 Long term (current) use of oral hypoglycemic drugs
CPT/HCPCS: 31624; 31627; 31652; 36415; 36416; 70450; 71045; 71275; 77011; 80048; 80053; 80500; 82962; 83605; 83880; 84484; 85014; 85018; 85025; 85610; 87040; 87205; 88112; 88305; 93005; 94640; 96365; 96367; 96372; 99285; J0456; J0696; J1100; J1170; J1815; J2405; J2543; J2704; J2710; J3010; J3370; J3490; J7030; J7040; J7050; J7611; J7644; Q9967

== ENCOUNTER 2020-10-28 08:27 | Outpatient (CLI) | payer MEDICARE, SELFPAY ==
--- NOTE | 2020-10-28 08:45 | USCV_ITS ---
Duran Neal Age: 75 Gender: M : 1945 Exam Date: 10/28/2020 08:49 Ordering Phys: Jovany Burns MD ([email or web address]) Technologist: Exam Location: [facility] Indication: CCA STENOSIS Risk Factors: Previous Vascular Surgery: Right Brachial BP: / Left Brachial BP: / Right Left Velocity (cm/s) Spectral Plaque Velocity (cm/s) Spectral Plaque Syst/Diast Broadening Syst/Diast Broadening 71.70/ 12.10 Prox CCA 29.50 / 0.00 50.70/ 13.20 Mid CCA 22.50 / 1.60 Hetro 72.80/ 20.90 Distal CCA 23.30 / 2.30 Kennedy 79.40/ 20.90 Prox ICA 37.60 / 12.80 Kennedy 88.20/ 34.20 Mid ICA 28.20 / 7.70 Kennedy 116.90/41.90 Distal ICA 25.60 / 6.00 109.20 ECA 75.00 1.61 ICA/CCA 1.27 Antegrade Vertebral Antegrade 52.90/ 16.50 cm/s 43.00/ 12.00 cm/s Tri Subclavian Tri 55.90 54.00 FINDINGS APPEARS TO BE NEART OR COMPLETE OCCLUSION OF CCA IN THE LT BULB. REVERSED BLOOD FLOW IN ECA WITH ABNORMAL FLOW IN LT ICA. 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 Mild to moderate heterogeneous plaques at the right bifurcation and proximal ICA with the Doppler features suggesting less than 50% stenosis. Compared to the study from 07/05/2000, the occlusion at the left bifurcation appears to be almost complete. Dr Jovany Burns MD [facility] (Electronically Signed) Final Date: 29 October 2020 15:18 S
== END 2020-10-28 08:28 | disposition home or self-care (01) ==
LOC: RAD 08:30
PROVIDERS: PCP Family Medicine; Visit Provider Internal Medicine Cardiovascular Disease
DX: I77.9 Disorder of arteries and arterioles, unspecified (principal); I65.23 Occlusion and stenosis of bilateral carotid arteries
CPT/HCPCS: 93880

== ENCOUNTER 2020-11-05 07:50 | Outpatient (CLI) | payer MEDICARE, SELFPAY ==
--- NOTE | 2020-11-08 09:40 | ONC CON_ITS ---
Dr. López New Patient Note Patient: Neal Garzon Unit #: [id number]: 1945 Dicatated By: Wally López M.D.Date of Visit: Nov 05, 2020 Onc MED New Patient/Consult Referring Physician: Dr. ELISSA SANFORD M.D. Chief Complaint: Lung cancer. 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 In June 2019 when he presented with acute visual loss in the left eye. His echocardiogram showed slightly diminished ejection fraction at 50% with mild diffuse hypokinesis of the anterior and lateral wall segments. It otherwise was unrevealing. His carotid Doppler showed high-grade stenosis of the left ICA and bifurcation with a moderate heterogeneous plaques at the right bifurcation and ICA. CT angiogram of the head/neck on 07/30/2020 showed a large amount of calcified plaque and intimal thickening to the proximal left ICA which was noted to be completely occluded. There was 20% stenosis of the right extracranial ICA. CT angiogram of the chest on 08/10/2020 showed patent common carotid origins and subclavian artery origins. The most significant finding was the presence of suspicious pulmonary opacities involving the superior segment right upper lobe along the fissure measuring 2.1 x 1.1 cm and in the anterior right upper lobe measuring 15 mm. A noncalcified right lower lobe nodule measured 7 mm. There was associated right hilar adenopathy and there was prominent AP window, peribronchial, anterior mediastinal, and subcarinal adenopathy, all new from a previous study in 2017. Further evaluation with PET/CT on 08/21/2020 showed FDG avid posterior segment right upper lobe subpleural nodule measuring 1.4 x 1.7 cm, SUV 7.7, indicating high probability of malignancy. A second lesion in the anterior right upper lobe measuring 1.0 x 1.5 cm was also FDG avid with SUV 4.9. FDG positive lymph nodes were noted in the right upper hilum and right paratracheal region consistent with metastatic disease. There were no other areas of abnormal uptake. He then had pulmonary consultation with Dr. Sanford and on 08/31/2020 he underwent navigational bronchoscopy/EBUS. There was evidence for mild irregularity of mucosa of the entrance in the right upper lobe bronchus, there were no endobronchial lesions identified. He underwent right upper lobe endobronchial biopsy and transbronchial FNA biopsy of the right upper lobe nodule and of station 4R, 7, and 10 lymph nodes. Pathology on the right upper lobe transbronchial biopsies showed no malignancy, and the FNA biopsies of station 4R, station 7, and station 10 R lymph nodes were also negative for malignancy. Additionally, the bronchial washings were negative for malignancy. On 10/22/[address]-guided biopsy of the subpleural nodule in the posterior lateral right upper lobe. Pathology on that biopsy showed invasive moderately differentiated adenocarcinoma consistent with pulmonary origin. Additional pathologic studies are still pending including the EGFR mutation with ALK reflex, BRAF mutation, ROS1, and PD-L1 studies. He is seen now for further management. He has limited activity tolerance due to fatigue and shortness of breath, though it has been going on for quite a while. He is able to do some light work. ECOG score is 1. He has good appetite and he has gained weight. He does not have fever or night sweats. He has shortness of breath. He used to have cough, especially at night, but that has improved. He does not complain of chest pain. He currently has no GI complaints. He does follow with Dr. Scherer for his bladder cancer. His says his bladder is a little weak . He has chronic back pain. Recently has developed some pain in the middle fingers of his left hand. He has just occasional headache in the occipital area. He has some positional dizziness. He has no numbness/paresthesia or other focal neurologic symptoms. Past Medical History: His medical history consists of abdominal aortic aneurysm, carotid stenosis, chronic obstructive pulmonary disease, coronary artery disease, degenerative arthritis, degenerative disease of the spine, gastroesophageal reflux disease, hyperlipidemia, hypertension, and type II diabetes. He has a history of superficial bladder cancer, a history of retinal artery occlusion, and a history of diverticulitis. Past Surgical History: He underwent navigational bronchoscopy/EBUS on 08/31/[address] directed biopsy of right upper lobe lung nodule on 10/22/2020. His other surgical/procedural history includes endovascular repair of abdominal aortic aneurysm in 2010, TURBT for superficial bladder cancer in 2006, and spinal fusion in 1960. Medications: Acetaminophen PM (500-25 mg) Tablet Oral at bedtime PRN, amLODIPine Besylate (5 mg) Tablet Oral daily, Atenolol (50 mg) Tablet Oral every am, B Complex-C Tablet Oral daily, Cholecalciferol (25 mcg ) Tablet Oral daily, Clopidogrel Bisulfate (75 mg) Tablet Oral daily, diphenhydrAMINE HCl (50 mg) Capsule Oral at bedtime, Empagliflozin (25 mg) Tablet Oral daily, Fmnxaqgmlht-Waxqjbgts-Nuhdlq (100-62.5-25 mcg/inh) Aerosol Powder, Breath Activated Inhalation every am, glipiZIDE ER (2.5 mg) Tablet SR 24 HR Oral every am, HYDROcodone-Acetaminophen (10-325 mg) Tablet Oral four times a day PRN, Isosorbide Mononitrate ER (30 mg) Tablet SR 24 HR Oral every am, Lansoprazole (30 mg) Capsule Delayed Release Oral every am, Losartan Potassium (50 mg) Tablet Oral b.i.d., metFORMIN HCl (1000 mg) Tablet Oral b.i.d., Multivitamin Adult Tablet Oral daily, Nitroglycerin Tablet, sublingual Sublingual PRN, Rosuvastatin Calcium (20 mg) Tablet Oral daily, ZzzQuil Liquid Oral at bedtime PRN Allergies: Ammonia Solution, Exenatide, Iodinated Contrast Media, Liraglutide, and Niacin. Social History: Mr. Garzon is . He has a history of smoking for 50 years, up to 2 packs of cigarettes daily. He is in the process of quitting. He has had only very occasional alcohol use. Family History: Father of ruptured aortic aneurysm at age 51. Mother lived to age 99. A brother has been treated for throat cancer. Review Of Symptoms: Constitutional - He has limited activity tolerance due to fatigue and shortness of breath. He is able to do some light work. His appetite is good. He has gained weight. He does not have fever or night sweats. ECOG score is 1, Eyes - He recently lost vision in his left eye, ENMT - He has hearing loss and tinnitus. No sinus congestion/drainage. No mouth sores. No sore throat or difficulty swallowing, Hematologic/Lymphatic - No abnormal bruising or bleeding, Respiratory - He has shortness of breath. He had been having cough, especially at night, but that has improved. No pleuritic pain or hemoptysis, Cardiovascular - No angina pain. No palpitations, Gastrointestinal - No nausea or vomiting. His acid reflux is adequately managed with medication. No diarrhea or constipation. No blood in the stool or black stools, Genitourinary (M) - He has a history of bladder cancer. His bladder is a little weak . No dysuria or hematuria. No urinary frequency. No urgency or incontinence, Musculoskeletal - He has chronic back pain. He recently developed pain in the 2 middle fingers of his left hand, Integumentary - No skin rash or other skin changes, Neurologic - He has occasional headache in the occipital area. He has some dizziness, which tends to be positional. No numbness or tingling. No other focal neurologic symptoms, Psychiatric - No anxiety or depression. He sleeps okay taking Benadryl and Tylenol at bedtime. Vital Signs: Performed on Nov 05, 2020 09:15: 3, 0, 34.18 (HIGH), 2.35 sq.m, 72 in, 92 % (LOW), 68 /min, 18 /min, 152/76 mm(hg) (HIGH), 97.2 F (LOW), and 252 lbs (HIGH). Physical Examination: Constitutional - He looks pretty good generally, Eyes - Sclerae nonicteric. Conjunctivae clear, ENMT - No lesions noted in the oral cavity, Neck - No mass or thyromegaly, Hematologic/Lymphatic - No cervical, clavicular, or axillary adenopathy, Respiratory - Lungs sound clear with some decrease in air movement bilaterally, Cardiovascular - Heart rhythm is regular. There is no murmur, gallop, or rub noted, Abdomen - Mildly distended. Liver and spleen are not enlarged. There is no abdominal mass or ascites noted and there is no inguinal adenopathy, Back/Spine - No spine or CVA tenderness noted, Extremities - Mild lower extremity edema. Pedal pulses are palpable bilaterally, Integumentary - No rashes. No suspicious skin lesions noted, Neurologic - No focal neurologic deficits noted. Problem List: 1. Moderately differentiated adenocarcinoma involving the upper lobe of the right lung. There is uncertainty about the staging due to suspected mediastinal lymph node involvement by PET/CT, but unconfirmed with EBUS/FNA biopsy. With two sites of suspected involvement in the right upper lobe but in the absence of lymph node involvement, his disease is stage IIB (T3, N0, M0). 2. COPD. 3. Hypertension. 4. Hyperlipidemia. 5. Type 2 diabetes. 6. Coronary artery disease with previous myocardial infarction. 7. 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 8. He is status post endovascular repair of abdominal aortic aneurysm. 9. GERD. 10. Degenerative arthritis/degenerative disease of the spine. 11. History of superficial bladder cancer. Problems Addressed with this Encounter and Plan: Patient with moderately differentiated adenocarcinoma involving the upper lobe of the right lung. There is uncertainty about the staging. due to suspected mediastinal lymph node involvement by PET/CT, but unconfirmed with EBUS/FNA biopsy. With two sites of suspected involvement in the right upper lobe but in the absence of lymph node involvement, his disease is stage IIB (T3, N0, M0). By PET/CT, there are two sites of suspected involvement in the right upper lobe and there was also suspected hilar and mediastinal lymph node involvement. The lymph nodes, though, were negative by EBUS with FNA biopsy. If the biopsies are accurate, his disease is stage IIB (T3, N0, M0) but with involved lymph nodes the stage is IIIB (T3, N2, M0). With N0 or N1 disease, he would potentially be an operable candidate. However, given his underlying medical illnesses, SBRT to both lesions may be a better option, but only for N0 disease. For T3, N1 disease and have the option for surgery or chemoradiation. For T3, N2 disease the recommended treatment is radiation concurrently with weekly carboplatin/paclitaxel chemotherapy. Given the uncertainty with the staging, I am going to repeat a diagnostic chest CT. If that shows increase in the mediastinal adenopathy, I think we can be fairly certain that it is involved and he can be treated as such. If there has not been a significant interval change in those lymph nodes, then it would be best to surgically stage with mediastinoscopy. In addition, I am also going to schedule additional staging evaluation with head MRI. Signed By: Wally López M.D. <<Signature on File>>
== END 2020-11-05 07:51 | disposition home or self-care (01) ==
LOC: ONCMED 07:54
PROVIDERS: PCP Family Medicine; Referring Provider Internal Medicine Critical Care Medicine; Visit Provider Internal Medicine Medical Oncology
DX: C34.11 Malignant neoplasm of upper lobe, right bronchus or lung (principal); C77.2 Secondary and unspecified malignant neoplasm of intra-abdominal lymph nodes; J44.9 Chronic obstructive pulmonary disease, unspecified; I10 Essential (primary) hypertension; E78.5 Hyperlipidemia, unspecified; E11.59 Type 2 diabetes mellitus with other circulatory complications; I25.10 Atherosclerotic heart disease of native coronary artery without angina pectoris; I25.2 Old myocardial infarction; I65.22 Occlusion and stenosis of left carotid artery; I71.4 Abdominal aortic aneurysm, without rupture; K21.9 Gastro-esophageal reflux disease without esophagitis; M47.9 Spondylosis, unspecified; Z85.51 Personal history of malignant neoplasm of bladder; Z79.899 Other long term (current) drug therapy
CPT/HCPCS: 99205

== ENCOUNTER 2020-11-10 06:32 | Outpatient (CLI) | payer MEDICARE, SELFPAY ==
--- NOTE | 2020-11-10 12:36 | N.ONRAD NP_ITS ---
Radiation Oncology New Patient Visit Patient: Neal Garzon MR#: [id number] : 1945> Age: 75> Sex: Male> Dictated by: Dr. Junaid Fitzgerald Date of Service: 11/10/2020 Referring Physician(s) : Dr. Wally López Diagnosis: C34.11 - malignant neoplasm of upper lobe, right bronchus or lung, Diagnosed 11/05/2020 (active), stage iib, t3, n0, m0. (Stage is uncertain because of another questionable pulmonary nodule and questionable mediastinal lymphadenopathy. Follow-up imaging is planned in attempt to clarify the stage.) Radiotherapy to date: Summary > No prior radiation therapy. Chief Complaint / History of Present Illness: Mr. Garzon is a 75-year-old gentleman who presented in June of this year with acute loss of vision in the left eye. He underwent an extensive vascular work-up which included a CT angiogram of the chest on 08/10/2020. He was noted to have 3 pulmonary nodules in the right lung, 2 of which were in the right upper lobe measuring 2.1 x 1.1 cm and 1.5 cm. A 7 mm noncalcified nodule was also noted in the right lower lobe. The study also revealed evidence of right hilar lymphadenopathy and possible mediastinal lymphadenopathy. A PET CT was performed 08/21/2028. The SUV for the 2 nodules in the right upper lobe was in the malignant range. Also lymph nodes in the right upper hilum and right paratracheal area had uptake consistent with malignancy. No other disease was detected. Navigational bronchoscopy was performed 08/31/2020. There was some irregularity of the mucosa at the entrance of the right upper lobe bronchus but no endobronchial lesions were seen. Right upper lobe biopsy and transbronchial biopsies of 1 right upper lobe nodule and lymph node stations 4R, 7 and 10 were performed. Pathology returned negative for malignancy at all sites. In view of these results a CT-guided biopsy of the subpleural nodule in the posterior lateral right upper lobe was performed 11-10. The pathology shows invasive moderately differentiated adenocarcinoma. Genetic studies have been ordered. As of today the only one that has returned is the PD-L1 which shows approximately 50% of cells positive. Dr. López has seen Mr. Garzon in consultation. It is difficult to make any recommendations with regard to treatment in view of the unclear staging. The patient could be staged T1N0M0, T3N0M0, T1 or T3 N1, or T1 or T3N2. Dr. López has ordered a CT of the chest in an attempt to clarify the situation with the unbiopsied right upper lobe nodule as well as the hilar and mediastinal nodes. That study will be performed 11/22/2020. For additional staging he also ordered an MRI of the brain which will be performed 11/19/2020. Pulmonary function studies are ordered for 11/16/2020. Mr. Garzon is referred for consultation. Current Medications: Acetaminophen PM, amLODIPine Besylate, atenolol, b Complex-C, cholecalciferol, clopidogrel Bisulfate, diphenhydrAMINE HCl, empagliflozin, qpbsekfgybo-Fhwekkgoo-Ctzqjf, glipiZIDE ER, hYDROcodone-Acetaminophen, isosorbide Mononitrate ER, lansoprazole, losartan Potassium, metFORMIN HCl, multivitamin Adult, nitroglycerin, rosuvastatin Calcium, zzzQuil. Allergies: Ammonia Solution, Exenatide, Iodinated Contrast Media, Liraglutide and Niacin. Medical History: - Abdominal aortic aneurysm, - carotid stenosis, - chronic obstructive pulmonary disease, - coronary artery disease, - degenerative arthritis, - degenerative disease of the spine, - gastroesophageal reflux disease, - history of diverticulitis, - history of retinal artery occlusion, - history of superficial bladder cancer, - hyperlipidemia, - hypertension, - type II diabetes. No history of collagen vascular disease. No previous radiation therapy. Surgical History: Covid vaccine #1 in 04/2020, covid vaccine #2 in 05/2020, cT directed biopsy of right upper lobe lung nodule on 10/22/2020, endovascular repair of abdominal aortic aneurysm in 2010, navigational bronchoscopy/EBUS on 08/31/2020, spinal fusion in 1960 and tURBT for superficial bladder cancer in 2006. Family History: Father is at age 51 having experienced aortic aneurysm. Mother is at age 100. Father of ruptured aortic aneurysm at age 51. Mother lived to age 99. A brother has been treated for throat cancer. Social History: Last screened on 11/05/2020 - Current every day smoker. Last screened on 11/05/2020 - Drinks occasionally. Patient indicated use of the following products: cigarettes. Current Complaints / Review of Systems: . Mild fatigue but is stable. Performance status has not changed recently. Eyes- the vision loss in his left eye is stable and is not expected to improve. He has no other vision problems. Ears: he has bilateral chronic hearing loss that is stable. GI: no loss of appetite. No difficulty with swallowing. No upper GI or lower GI complaints. Pulmonar: he has shortness of breath with exertion. He has oxygen at home that he uses on an as needed basis. He has minimal cough. No sputum production or hemoptysis. Cardiovascular: he has sublingual nitrogen but has never taken it for chest pain. He has had no recent cardiac events. : history of a superficial bladder cancer which was treated surgically. He still undergoes screening and has had no recurrence. No bladder complaints. Musculoskeletal: he has chronic back pain which has produced some limitation in his mobility, particularly just after arising from lying down or sitting. No new complaints in bone or joints. Neurologic: occasional headaches. Otherwise negative. Vital Signs: Performed on 11/10/2020 9:17 AM BMI - 33.771 kg/m2 (high), Height - 72.00 in, Weight - 249.0 lbs, Temperature - 97.7 f, Pulse - 66, Respiration - 18, O2 Sat - 94 % (low), Pain - 0 and BP - 135/ 66 mm(hg). Physical Exam: Alert, oriented, no acute distress. He appears well-nourished and moderately overweight. He has no cervical or supraclavicular lymphadenopathy. Lungs clear to auscultation with no rales rhonchi or wheezes. Heart rhythm regular. No murmur or gallop detected. Abdomen obese. No distention. No organomegaly or mass or tenderness. Musculoskeletal no bone tenderness. Normal and steady gait. Performance Status: ECOG 1 Pathology: Primary, c34.11 - malignant neoplasm of upper lobe, right bronchus or lung, Diagnosed 11/05/2020 (active) Lab: Imaging: See HPI Impression: Mr. Moreno in has a biopsy confirmed adenocarcinoma of the left upper lobe. Genetic studies are pending. As previously noted, his stage of disease is not clear at this time. Further imaging has been ordered in an attempt to clarify the patient's stage. I discussed that if he has disease limited to 1 or both of the nodules in the right upper lobe that he would likely be a candidate for either surgery or SBRT. We did not discuss surgery to any degree, but I did review both the logistics and expected outcome of SBRT to the lung. I explained that most patients tolerate SBRT extremely well and have minimal or no loss of pulmonary reserve. I discussed that long-term control is about the same or slightly better than surgery. If he has more advanced disease, then he would be a candidate for concomitant chemo radiation. I discussed an approximately 6-week course of radiation given daily 5 days/week. I reviewed side effects and possible complications. I discussed that his oxygen needs may increase and he could possibly even need to be on oxygen [id number]. I discussed there is a small risk of cardiac injury but given the location of this cancer, the risk to the heart is very small. I discussed the acute effects of treatment as well. Plan: See Dr. López and Dr. Gusman after his scans and PFTs to further discuss treatment options. Signed by: 11/10/2020 12:35:37 PM <<Signature on File>> Time spent with patient: CPT Code: CPT Code:
== END 2020-11-10 06:33 | disposition home or self-care (01) ==
LOC: ONCMED 06:35
PROVIDERS: PCP Family Medicine; Visit Provider Specialist
DX: C34.11 Malignant neoplasm of upper lobe, right bronchus or lung (principal); E11.8 Type 2 diabetes mellitus with unspecified complications; I10 Essential (primary) hypertension; J44.9 Chronic obstructive pulmonary disease, unspecified; I25.10 Atherosclerotic heart disease of native coronary artery without angina pectoris; M19.90 Unspecified osteoarthritis, unspecified site; K21.9 Gastro-esophageal reflux disease without esophagitis; Z85.51 Personal history of malignant neoplasm of bladder; E78.5 Hyperlipidemia, unspecified
CPT/HCPCS: 99205

== ENCOUNTER → 2020-11-11 10:30 | Outpatient (BNVA) | payer MEDICARE, SELFPAY | PROVIDERS: PCP Family Medicine; Visit Provider Internal Medicine Cardiovascular Disease | DX: C34.90 Malignant neoplasm of unspecified part of unspecified bronchus or lung (principal); Z20.822 Contact with and (suspected) exposure to COVID-19 | CPT/HCPCS: 87635 ==

== ENCOUNTER 2020-11-16 13:56 | Outpatient (CLI) | payer MEDICARE, SELFPAY ==
--- NOTE | 2020-11-16 14:34 | PFTS_ITS ---
Date of Study:11/16/20 Date of Dictation: MECHANICS: Forced vital capacity (FVC) is normal. Forced expiratory volume in one second (FEV1) is normal. FEV1/FVC is normal. FLOW VOLUME LOOP: Mild scooping. LUNG VOLUMES: Total lung capacity (TLC) is normal. Residual volume (RV) is normal. DIFFUSING CAPACITY FOR CARBON MONOXIDE: Moderately reduced. INTERPRETATION: The postbronchodilator spirometry is normal. There is no significant postbronchodilator response. Lung volumes are normal. Gas exchange (DLCO) is moderately reduced. MTDD
== END 2020-11-16 13:57 | disposition home or self-care (01) ==
LOC: RT 13:59
PROVIDERS: PCP Family Medicine; Visit Provider Internal Medicine Critical Care Medicine
DX: C34.90 Malignant neoplasm of unspecified part of unspecified bronchus or lung (principal)
CPT/HCPCS: 94060; 94726; 94729; J7611

== ENCOUNTER → 2020-11-17 13:22 | Outpatient (BNVA) | payer MEDICARE, SELFPAY | PROVIDERS: PCP Family Medicine; Visit Provider Urology | DX: C67.4 Malignant neoplasm of posterior wall of bladder (principal) | CPT/HCPCS: 81003 ==

== ENCOUNTER 2020-11-19 08:26 | Outpatient (CLI) | payer MEDICARE, SELFPAY ==
--- NOTE | 2020-11-19 08:46 | MR_ITS ---
WS: [id number] MRI HEAD WITHOUT AND WITH CONTRAST TECHNIQUE: Sagittal T1, T2 axial, T2 axial FLAIR, axial susceptibility weighted imaging, axial diffus ion weighted images, and coronal T2 images were obtained. Pre and post-T1 axial and post T1 coronal i mages. ADC and FSPGR images. CLINICAL INFORMATION: LUNG CANCER COMPARISON: CT August 31, 2020 FINDINGS: 5 mm focus of restricted diffusion involving the medial left temporal lobe along the temporal horn. S mall amount of associated T2 signal abnormality. This is difficult to evaluate due to size adjacent t o the ventricle but no abnormal gadolinium enhancement in this area. Findings suspicious for tiny foc us of acute ischemia considering left ICA stenosis or less likely metastatic disease. Recommend 3 mon th follow-up. No other suspicious foci of restricted diffusion. Minimal small vessel changes. Mild parenchymal volu me loss. Normal posterior fossa. Loss of the left ICA flow void at the skull base consistent with slo w flow and high-grade proximal ICA stenosis as seen on the recent CTA.Small amount of fluid right max illary sinus. Tiny chronic lacunar infarcts or prominent perivascular spaces left basal ganglia. Enhancing dural based lesion in the parasagittal extending into the calvarium with enhancement. This measures approximately 5 x 6 mm right parietal lobe posteriorly. Tiny amount of calvarial remodeling seen on the prior CTA July 31, 2019 The right parietal calvarium. This most likely represents a small chronic meningioma. No convincing e vidence of enhancing intracranial metastatic disease. Normal optic chiasm and pituitary infundibulum. Temporal lobes and hippocampal formations are otherwi se normal in appearance. No other abnormal foci of intracranial enhancement. No other significant fin dings. IMPRESSION: 1. Loss of the left ICA flow void at the skull base consistent with slow flow with high-grade proxim al stenosis at the bifurcation as seen on the recent CTA. 2. Tiny 5 mm focus of restricted diffusion in the mesial left temporal lobe suspicious for acute isc hemia or less likely metastatic disease. Recommend 3 month follow-up. 3. Enhancing extra-axial dural based lesion with calvarial remodeling measuring 5 x 6 mm in the righ t parietal lobe posteriorly likely represents an incidental meningioma 4. No other abnormal intracranial enhancing lesions. 5. Mild small vessel changes with moderate parenchymal volume loss. 6. Right maxillary sinusitis with air-fluid level.
[2020-11-19] MEDS: gadobenate dimeglumine 20 mL vial IV (09:25)
== END 2020-11-19 08:27 | disposition home or self-care (01) ==
LOC: RADWPI 08:37
PROVIDERS: PCP Family Medicine; Visit Provider Internal Medicine Medical Oncology
DX: C34.11 Malignant neoplasm of upper lobe, right bronchus or lung (principal); J32.0 Chronic maxillary sinusitis
CPT/HCPCS: 70553; A9577

== ENCOUNTER 2020-11-22 07:59 | Outpatient (CLI) | payer MEDICARE, SELFPAY ==
[2020-11-22 09:44] LABS: Blood Urea Nitrogen 13 mg/dL (8-23)
--- NOTE | 2020-11-22 09:44 | CT_ITS ---
WS: [id number] CT CHEST TECHNIQUE: Contrast enhanced CT of the chest with coronal and sagittal reformatted images. CLINICAL INFORMATION: LUNG CANCER COMPARISON: PET/CT August 21, 2020, CTA chest 08/10/2020 and 08/31/2020 DLP: 1050.[address] scans at [facility] use at least one of these dose optimization techniques: automat ed exposure control; mA and/or kV adjustment per patient size (includes targeted exams where dose is matched to clinical indication); or iterative reconstruction. FINDINGS: Spiculated right upper lobe nodule laterally and right upper lobe anterior are unchanged since the pr ior examination. Right upper lobe nodule laterally measures 2.1 x 1.2 CM. Spiculated anterior right u pper lobe nodule measures 7.4 mm. Noncalcified nodules right lower lobe measuring 4 to 5 mm are uncha nged. Prominent anterior mediastinal and peribronchial lymph nodes are unchanged. Stable prominent ri ght hilar lymph nodes. Moderate chronic emphysematous changes. Left lung is well aerated. Small nodule left lower lobe later ally to the fissure measuring 3 mm is unchanged and appears calcified on the prior exam. No axillary lymphadenopathy. Aortic calcification. Coronary calcification. Normal GE junction. Hepato megaly. Cholelithiasis. Partially visualized left renal cyst measuring 4.1 CM. Aneurysmal upper abdom inal aorta measuring 4.[address]/CT chest w con* [id number] IMPRESSION: 1. Right upper lobe FDG avid spiculated nodules suspicious for neoplasm are un changed since the prior examinations described above. 2. Two Additional 4 to 5 mm noncalcified nodules right lower lobe are stable. 3. Calcified granuloma left lower lobe near the fissure. 4. Prominent anterior mediastinal, peribronchial lymph nodes and right hilar l ymph nodes are unchanged.
[2020-11-22] MEDS: iodixanol 320 mg/mL 100mL Btl IV (10:01)
== END 2020-11-22 08:00 | disposition home or self-care (01) ==
PROVIDERS: PCP Family Medicine; Visit Provider Internal Medicine Medical Oncology
DX: C34.11 Malignant neoplasm of upper lobe, right bronchus or lung (principal); J43.9 Emphysema, unspecified; I70.0 Atherosclerosis of aorta; Z79.899 Other long term (current) drug therapy
CPT/HCPCS: 36415; 71260; 82565; 84520; Q9967

== ENCOUNTER 2020-12-01 10:40 | Outpatient (CLI) | payer MEDICARE, SELFPAY ==
[2020-12-01 11:46] LABS: Blood Urea Nitrogen 16 mg/dL (8-23)
== END 2020-12-01 10:41 | disposition home or self-care (01) ==
PROVIDERS: Internal Medicine Cardiovascular Disease; PCP Family Medicine; Visit Provider Thoracic Surgery (Cardiothoracic Vascular Surgery)
DX: Z01.812 Encounter for preprocedural laboratory examination (principal); Z20.822 Contact with and (suspected) exposure to COVID-19
CPT/HCPCS: 36415; 80048; 81003; 82565; 84520; 85025; 86850; 86900; 86920; 87635; 93005

== ENCOUNTER 2020-12-06 07:22 | Day surgery (SDC) | payer MEDICARE, SELFPAY ==
[2020-12-01 12:09] VITALS: BMI 33.2
--- NOTE | 2020-12-01 12:31 | ECG_ITS ---
[facility] Test Date: 2020-12-01 Pat Name: Neal Garzon Department: Room: Gender: Male Porter Baggage: : 1945 Requested By: Alexis Goldstein Order Number: [id number] MD: Denise Smith M.D. Measurements Intervals [place] Rate: 63 P: 53 NE: 286 QRS: -80 QRSD: 182 T: 12 QT: 469 QTc: 482 Interpretive Statements SINUS RHYTHM WITH FIRST DEGREE AV BLOCK INDETERMINATE AXIS RIGHT BUNDLE BRANCH BLOCK [120+ ms QRS DURATION, UPRIGHT V1, 40+ ms S IN I/aVL/V4/V5/V6] LEFT ANTERIOR FASCICULAR BLOCK [QRS AXIS <= -45, QR IN I, RS IN II] Compared to ECG 08/31/2020 23:24:21 First degree AV block now present Indeterminate axis now present Left anterior fascicular block now present Left-axis deviation no longer present Electronically Signed On 12-02-2020 10:01:04 CDT by Denise Smith M.D. [email or web address]
[2020-12-01 12:51] LABS: Anion Gap 16.2 (5-19); Blood Urea Nitrogen 16 mg/dL (8-23); Calcium 9.1 mg/dL (8.5-10.5); Carbon Dioxide 22 mmol/L (22-29); Chloride 106 mmol/L (98-107); Glucose 116 mg/dL (65-115); Osmolality Calculated 292 mOsm/kg (285-295); Potassium 4.2 mmol/L (3.5-5.1); Sodium 140 mmol/L (136-145)
[2020-12-01 13:07] LABS: Add Urine Microscopic? NO; Charge for UA Resulting for Rev
[2020-12-01 13:24] LABS: Basophils # 0.1 10^3/uL (0.0-0.1); Basophils % 1.4 %; Eosinophils # 0.2 10^3/uL (0.0-0.8); Eosinophils % 2.8 %; Hematocrit 35.7 % (42.0-52.0); Hemoglobin 10.7 g/dL (11.7-16.6); Lymphocytes # 2.4 10^3/uL (0.8-4.8); Lymphocytes % 28.1 %; Mean Corpuscular Hemoglobin 27.3 pg (28.0-34.0); Mean Corpuscular Volume 91.1 fL (80-94); Mean Platelet Volume 10.5 fL (7.4-10.4); Monocytes # 0.7 10^3/uL (0.2-0.9); Neutrophils # 5.06 10^3/uL (1.8-7.7); Neutrophils % 59.3 %; Nucleated Red Blood Cells % 0 %; Platelet Count 210 10^3/cmm (130-400); Red Blood Count 3.92 10^6/uL (4.1-5.3); Red Cell Distribution Width 18.5 % (12.1-15.1); White Blood Count 8.5 10^3/uL (4.0-10.0)
--- NOTE | 2020-12-01 13:28 | P.ANESASSM_ITS ---
Pre-Anesthetic Assessment Pre-Anesthetic Assessment: Height/Weight: Height 1.83 m Weight 111.13 kg Preop Diagnosis: Mediastinal adenopathy/right upper lobe lung lesions Proposed Procedure: Operation Date: 12/06/20 12:45 Proposed Procedures p Mediastinoscopy(Not Applicable) - Alexis Goldstein MD s Bronchoscopy(Not Applicable) - Alexis Goldstein MD Was Beta Jas taken within 24 hours: Yes Was Clonidine taken within 24 hours: N/A Social: Social History: Tobacco and No alcohol Exam: Pre-Anes Outpt Exam: alert, oriented x 3 and regular rate & rhythm Airway: Submandibular: WNL Cervical ROM: WNL MP: 2 Dentition: False Pulmonary: Pulmonary: COPD CV/HEM: CV/HEM: Arrythmia, CAD, HTN and PVD Comments: left carotic total occlusion, AAA stent GI: GI: GERD Metabolic: Metabolic: DM, Hyperlipidemia and Morbid obesity Anesthetic Plan: ASA status: 3 Anesthesia: General Other: A.line Risk of > 500 ml blood loss (7ml/kg in children): No PFSH Anesthesia PFSH: Medical History Aortic aneurysm Bladder cancer CAD (coronary artery disease) 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 Carotid stenosis, left COPD (chronic obstructive pulmonary disease) Diabetes Diverticulitis Hyperlipidemia Hypertension 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 Surgical History H/O spinal fusion H/O transurethral destruction of bladder lesion History of biopsy S/P bronchoscopy with biopsy (08/31/20) Family History Mother , 100 Diabetes Father , AT AGE 51 Aortic aneurysm CAD (coronary artery disease) Brother Cancer Other Hypertension Denies family history of Clotting disorder Dementia Chronic kidney disease (CKD) Suicide Anesthesia complication Bleeding disorder Lung disease Stroke Social History Quit status (tobacco): has quit using tobacco Year quit tobacco: 2020 Former quit date comment: Hx of 1 PPD x 60 Years Second hand smoke exposure: No Smoking risk assessment/counseling performed?: No Alcohol intake: current Alcohol intake frequency: holidays/special occasions only Counseling given: No Counseling given: No Lives independently: Yes Household members: spouse Marital status: Current occupational status: retired History of recent travel: No Current gender identity: Male Data Anesthesia CBC & Chem 7: 12/01/20 12:45 12/01/20 10:55 Other Labs: Laboratory Results - last 48 hr 12/01/20 12/01/20 10:55 12:45 WBC 8.5 RBC 3.92 L Hgb 10.7 L Hct 35.7 L MCV 91.1 MCH 27.3 L MCHC 30.0 RDW 18.5 H Plt Count 210 MPV 10.5 H Neut % (Auto) 59.3 Lymph % (Auto) 28.1 [place] % (Auto) 8.0 Eos % (Auto) 2.8 Baso % (Auto) 1.4 Neut # (Auto) 5.06 Lymph # (Auto) 2.4 [place] # (Auto) 0.7 Eos # (Auto) 0.2 Baso # (Auto) 0.1 Nucleated RBC % (auto) 0 Nucleated RBCs # 0.0 Sodium 140 Potassium 4.2 Chloride 106 Carbon Dioxide 22 Anion Gap 16.2 BUN 16 Creatinine 0.6 L GFR Calculation Not Reportable Glucose 116 H Calculated Osmolality 292 Calcium 9.1 Cardiac Studies: No Data to Display
[2020-12-01 13:40] LABS: Urine Appearance Clear (CLEAR); Urine Color Yellow (Yellow); pH Urine 6 (5-7)
[2020-12-01 13:41] LABS: Bilirubin Urine Neg (Negative); Blood Urine Neg (Negative); Glucose Urine UA 4+ (Normal); Ketones Urine Negative (Negative); Leukocyte Esterase Urine Negative (Negative); Nitrate Urine Negative (Negative); Protein Urine Trace (Negative); Urobilinogen Urine 4 mg/dL (Negative)
[2020-12-06] VITALS (11 sets, daily range): BP systolic 111–148; BP diastolic 53–82; PULSE 63–74; RESP 14–18; TEMP 36.1–36.5; O2SAT 89–95
[2020-12-06 07:55] LABS: Glucose Point of Care 153 mg/dL (70-110)
[2020-12-06] MEDS: sodium chloride 0.9% 1,000 ML 30 ML IV (08:06)
--- NOTE | 2020-12-06 08:11 | P.ANESUD_ITS ---
Pre-Anesthetic Update Pre-Anesthetic Assessment: Date of Surgery/Procedure: 12/06/20 Preop Brittnee gnosis: Suspected lung cancer Proposed Procedure: Operation Date: 12/06/20 08:55 Proposed Procedures p Mediastinoscopy(Not Applicable) - Alexis Goldstein MD s Bronchoscopy(Not Applicable) - Alexis Goldstein MD Any changes to Pre-Anesthetic Assessment?: No Last Intake: Intake Last Liquid Date 12/06/20 Last Liquid Time 06:00 Last Solid Date 12/05/20 Last Solid Time 21:00 Labs Last 48hrs: Laboratory Results - last 48 hr 12/01/20 12/06/20 12:45 07:51 POC Glucose 153 H Blood Type O Positive Rho(D) Type Positive / 4+ Antibody Screen Negative Crossmatch See Detail Vitals: Temperature 97 F L 12/06/20 07:34 Temperature Source Temporal Artery S can 12/06/20 07:34 Pulse Rate 63 12/06/20 07:34 Pulse Rhythm 12/06/20 07:34 Pulse Strength 3+ Normal 12/06/20 07:34 Respiratory Rate 18 12/06/20 07:34 Blood Pressure 148/82 12/06/20 07:34 Blood Pressure Darcy n 104 12/06/20 07:34 Pulse Oximetry 95 12/06/20 07:34 Oxygen Delivery Me thod 12/06/20 07:34 Exam: Pre-Anes Outpt Exam: alert, oriented x 3, clear to auscultation bilaterally and regular rate & rhythm Cardiac Studies: No Data to Display
--- NOTE | 2020-12-06 08:30 | W.PM.OPSUD ---
Surgery/Procedure H&P Update DATE OF PROCEDURE: December 06, 2020 DATE H&P PERFORMED: 11/26/20 H&P UPDATE INFORMATION: I have reviewed H&P completed within last 30 days, I have examined patient prior to procedure and No changes to prior documentation PREOP DIAGNOSIS: Adenocarcinoma right upper lobe: Possible mediastinal involvement PRIMARY INDICATION FOR PROCEDURE: Assessment for possible metastatic disease to mediastinum PLANNED PROCEDURE: Operation Date: 12/06/20 08:55 Proposed Procedures p Mediastinoscopy(Not Applicable) - Alexis Goldstein MD s Bronchoscopy(Not Applicable) - Alexis Goldsteni MD
[2020-12-06] MEDS: vancomycin 1,000 MG SDV 1000 MG IRRIGATION (09:47)
[2020-12-06] MEDS: thrombin 5,000 unit SDV 5000 UNIT XX (10:06)
--- NOTE | 2020-12-06 10:58 | XRR_ITS ---
PROCEDURE INFORMATION: Exam: XR Chest Exam date and time: 12/06/2020 10:58 AM Age: 75 years old Clinical indication: Device placement; Prior surgery; Surgery date: Post-operative (0-2 days); Surgery type: Post op cabg TECHNIQUE: Imaging protocol: XR of the chest. Views: 1 view. Total images: 1 COMPARISON: CT chest w con* [id number] 11/22/2020 9:57 AM FINDINGS: Lungs: Coarse chronic pulmonary markings. Indistinct patchy opacities are seen in the right mid lung and at the left lung base may represent small areas of scarring or pneumonia, possible atypical pneumonia. Pleural spaces: Unremarkable. No pleural effusion. No pneumothorax. Heart/Mediastinum: Mild cardiomegaly. Vasculature: Atherosclerosis is evident. Bones/joints: Osseous structures are unchanged from the prior exam. XR/XR chest 1V portable [id number] IMPRESSION: 1. Mild cardiomegaly. 2. Coarse chronic pulmonary markings. 3. Indistinct patchy opacities are seen in the right mid lung and at the left lung base may represent small areas of scarring or pneumonia, possible atypical pneumonia.
--- NOTE | 2020-12-06 10:58 | PM.OP ---
Operative Report Date of procedure: December 06, 2020 Pre-op Diagnosis: Adenocarcinoma right upper lobe: Possible mediastinal involvement Post-op diagnosis: same Procedure Done: 1. Flexible diagnostic bronchoscopy 2. Mediastinoscopy with biopsy Implants: None Specimens removed/disposition: Mediastinal lymph node biopsies from the precarinal region, station 4R, station 2R. All specimens sent for permanent analysis. Surgeon: Alexis Goldstein Anesthesia: General Complications: None Findings: Mr. Garzon presents today for planned bronchoscopy and mediastinoscopy as we continued investigations as to mediastinal adenopathy and increased activity on PET scan. He has been previously diagnosed by CT directed biopsy of a right upper lobe lesion to have adenocarcinoma. He currently is under the care of Dr. López from oncology. Due to the persistence of his mediastinal adenopathy, direct biopsy has been recommended and will continue to attempt treatment options and staging. Rationale was carefully discussed. Appropriate consents have been reviewed and signed. 1. Flexible diagnostic bronchoscopy Procedure: Mr. Garzon underwent general endotracheal anesthesia with an 8.0 endotracheal tube. With adequate anesthesia, flexible bronchoscope was inserted through the endotracheal tube. In a methodical fashion the trachea, elis, right main bronchus and associated lobar bronchi were inspected. In a similar fashion the left side was inspected. Secretions were cleared as needed to allow for adequate inspection. normal saline and bicarbonate solution were used to clear thick secretions. Findings: Main elis and secondary elis were sharp. Branching anatomy was normal. Mucosa was not friable. There is no evidence for submucosal infiltration or extrinsic compression. No shara endobronchial lesions were identified. Once completed, the scope was withdrawn under direct visualization confirming cleared secretions and no substantial bleeding. Endoscopic photos were taken as required to document pathology. Next, Mr. Garzon was repositioned for mediastinoscopy. 2. Mediastinoscopy with biopsy PROCEDURE:. Appropriate invasive lines were placed. After positioning over protective padding, Mr. Garzon was sterilely prepped and draped. A transverse incision was made above the sternal notch and carried down through the platysma. Cautery was utilized and large bridging veins were secured with clips and ligature prior to division. The pretracheal space was reached and enhanced the surgeon's finger. Mediastinoscope was inserted by direct vision and carefully advanced along the anterior plane of the trachea. Utilizing blunt dissection with suction, prominent lymph nodes at stations 4R and 2R as well as precarinal region were dissected free. Aspiration was then carefully performed followed by biopsy under direct vision. Specimens were sent to pathology for permanent analysis. The specimens collected at stations 4R visually appeared suspicious. After adequate biopsy and tissue sampling, the patient was placed in reverse Trendelenburg position. Hemostasis was confirmed with the use of cautery, packing, and Surgicel. After confirmation of hemostasis, the scope was withdrawn under direct vision. The wound was then carefully irrigated and closed with 3-0 and 4-0 Vicryl suture. The skin was reapproximated in a subcuticular manner. Sterile dressing was applied. With equal breath sounds bilaterally, Mr. Garzon was then awakened from anesthesia, extubated, and taken to the Postoperative Care Unit. Chest x-ray is currently pending. I did confer with his as to our operative findings. Condition: stable Disposition: PACU
[2020-12-06] MEDS: ipratropium 0.5 mg/2.5 mL Neb INHALATION (11:27)
--- NOTE | 2020-12-06 15:12 | ANE.PACU2 ---
Inpatient post-anesthesia follow up: Airway intact: Yes Vital signs: Temperature 97.7 F Pulse Rate 70 Respiratory Rate 18 Blood Pressure 122/60 Pulse Oximetry 90 Oxygen Delivery Me thod Room Air Oxygen Flow Rate 2 Fraction of Inspir ed Oxygen Hydration adequate: Yes Nausea and vomiting: No Pain level: 3 Mental status: Baseline
[2020-12-17 09:10] LABS: Miscellaneous Test See Scanned Lab Rpt
[2020-12-17 09:11] LABS: Miscellaneous Test See Scanned Lab Rpt
== END 2020-12-06 13:13 | disposition home or self-care (01) ==
PROVIDERS: PCP Family Medicine; Visit Provider Thoracic Surgery (Cardiothoracic Vascular Surgery)
PROC: 0WJC4ZZ Inspection of Mediastinum, Percutaneous Endoscopic Approach (ICD-10-PCS; CPT 39401; principal; 2020-12-06 08:55)
PROC: 0BJ08ZZ Inspection of Tracheobronchial Tree, Via Natural or Artificial Opening Endoscopic (ICD-10-PCS; CPT 31622; 2020-12-06 08:55)
DX: C34.90 Malignant neoplasm of unspecified part of unspecified bronchus or lung (principal); I65.22 Occlusion and stenosis of left carotid artery; J44.9 Chronic obstructive pulmonary disease, unspecified; I25.10 Atherosclerotic heart disease of native coronary artery without angina pectoris; I10 Essential (primary) hypertension; K21.9 Gastro-esophageal reflux disease without esophagitis; E78.5 Hyperlipidemia, unspecified; E66.01 Morbid (severe) obesity due to excess calories; Z68.33 Body mass index [BMI] 33.0-33.9, adult; E11.9 Type 2 diabetes mellitus without complications; Z98.1 Arthrodesis status; Z87.891 Personal history of nicotine dependence
CPT/HCPCS: 31622; 39402; 36415; 36416; 71045; 80048; 81003; 81235; 81275; 82565; 82962; 84520; 85025; 86850; 86900; 86920; 87635; 88305; 88367; 88368; 88381; 88387; 93005; J1100; J2405; J2704; J3010; J3370; J3490; J7030; J7611; J7644

== ENCOUNTER 2020-12-08 09:15 | Outpatient (CLI) | payer MEDICARE, SELFPAY ==
--- NOTE | 2020-12-08 16:54 | ONC FU_ITS ---
Dr. López Patient Follow-Up Note Patient: Neal Garzon Unit #: [id number]: 1945 Dicatated By: Wally López M.D.Date of Visit:Dec 08, 2020 Onc Med Follow-up/Prog Note Chief Complaint: Lung cancer. 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 In June 2020 he presented with acute visual loss in the left eye. His echocardiogram showed slightly diminished ejection fraction at 50% with mild diffuse hypokinesis of the anterior and lateral wall segments. It otherwise was unrevealing. His carotid Doppler showed high-grade stenosis of the left ICA and bifurcation with a moderate heterogeneous plaques at the right bifurcation and ICA. CT angiogram of the head/neck on 07/30/2020 showed a large amount of calcified plaque and intimal thickening to the proximal left ICA which was noted to be completely occluded. There was 20% stenosis of the right extracranial ICA. CT angiogram of the chest on 08/10/2020 showed patent common carotid origins and subclavian artery origins. The most significant finding was the presence of suspicious pulmonary opacities involving the superior segment right upper lobe along the fissure measuring 2.1 x 1.1 cm and in the anterior right upper lobe measuring 15 mm. A noncalcified right lower lobe nodule measured 7 mm. There was associated right hilar adenopathy and there was prominent AP window, peribronchial, anterior mediastinal, and subcarinal adenopathy, all new from a previous study in 2017. Further evaluation with PET/CT on 08/21/2020 showed FDG avid posterior segment right upper lobe subpleural nodule measuring 1.4 x 1.7 cm, SUV 7.7, indicating high probability of malignancy. A second lesion in the anterior right upper lobe measuring 1.0 x 1.5 cm was also FDG avid with SUV 4.9. FDG positive lymph nodes were noted in the right upper hilum and right paratracheal region consistent with metastatic disease. There were no other areas of abnormal uptake. He then had pulmonary consultation with Dr. Sanford and on 08/31/2020 he underwent navigational bronchoscopy/EBUS. There was evidence for mild irregularity of mucosa of the entrance in the right upper lobe bronchus, there were no endobronchial lesions identified. He underwent right upper lobe endobronchial biopsy and transbronchial FNA biopsy of the right upper lobe nodule and of station 4R, 7, and 10 lymph nodes. Pathology on the right upper lobe transbronchial biopsies showed no malignancy, and the FNA biopsies of station 4R, station 7, and station 10 R lymph nodes were also negative for malignancy. Additionally, the bronchial washings were negative for malignancy. On 10/22/[address]-guided biopsy of the subpleural nodule in the posterior lateral right upper lobe. Pathology on that biopsy showed invasive moderately differentiated adenocarcinoma consistent with pulmonary origin. The tumor was positive for P-L1 expression > 50%. There was insufficient tumor sample for any additional molecular studies. I had seen him initially on 11/05/2020. Despite the negative FNA, the PET/CT findings were still suspicious for involvement in the mediastinal lymph nodes. He then had a repeat chest CT on 11/22/2020. That study showed no change in the right upper lobe pulmonary nodules or in the prominent anterior mediastinal, peribronchial, and right hilar lymph nodes. As such, he was referred to Dr. Goldstein and on 12/06/2020 he underwent surgical mediastinoscopy with biopsy of level 2R, level 4R, and left precarinal lymph nodes. The left precarinal node biopsy was negative for malignancy, but both the level 4R and the level 2R nodes showed adenocarcinoma. With that finding, his disease was confirmed to be stage IIIB (T3, N2, M0). His other medical illnesses include COPD, hypertension, hyperlipidemia, type 2 diabetes, coronary artery disease with previous myocardial infarction, carotid stenosis, GERD, and degenerative arthritis/degenerative disease of the spine. He has had previous endovascular repair of an abdominal aortic aneurysm. He also has a prior history of superficial bladder cancer. He has a history of smoking for 50 years, up to 2 packs of cigarettes daily. He has been in the process of quitting. He is seen now to discuss further management of the lung cancer. There has been no significant change in his clinical status. Medications: Acetaminophen PM (500-25 mg) Tablet Oral at bedtime PRN, amLODIPine Besylate (5 mg) Tablet Oral daily, Atenolol (50 mg) Tablet Oral every am, B Complex-C Tablet Oral daily, Cholecalciferol (25 mcg ) Tablet Oral daily, Clopidogrel Bisulfate (75 mg) Tablet Oral daily, diphenhydrAMINE HCl (50 mg) Capsule Oral at bedtime, Empagliflozin (25 mg) Tablet Oral daily, Idzcklodevt-Yerhebcgt-Eiqfic (100-62.5-25 mcg/inh) Aerosol Powder, Breath Activated Inhalation every am, glipiZIDE ER (2.5 mg) Tablet SR 24 HR Oral every am, HYDROcodone-Acetaminophen (10-325 mg) Tablet Oral four times a day PRN, Isosorbide Mononitrate ER (30 mg) Tablet SR 24 HR Oral every am, Lansoprazole (30 mg) Capsule Delayed Release Oral every am, Losartan Potassium (50 mg) Tablet Oral b.i.d., metFORMIN HCl (1000 mg) Tablet Oral b.i.d., Multivitamin Adult Tablet Oral daily, Nitroglycerin Tablet, sublingual Sublingual PRN, Rosuvastatin Calcium (20 mg) Tablet Oral daily, ZzzQuil Liquid Oral at bedtime PRN Allergies: Ammonia Solution, Exenatide, Iodinated Contrast Media, Liraglutide, and Niacin. Vital Signs: Performed on Dec 08, 2020 10:56 Height - 72.00 in Weight - 251 lbs (HIGH) BSA - 2.35 sq.m BMI - 34.04 (HIGH) Temperature - 98.0 F (LOW) Pulse - 82 /min Respiration - 18 /min BP - 123/67 mm(hg) O2 Sat - 92 % (LOW) Pain - 3 Fatigue - 7 Problem List: 1. Moderately differentiated adenocarcinoma involving the upper lobe of the right lung, stage IIIB (T3, N2, M0). His tumor was found to to be positive for PD-L1 expression at > 50%. 2. COPD. 3. Hypertension. 4. Hyperlipidemia. 5. Type 2 diabetes. 6. Coronary artery disease with previous myocardial infarction. 7. 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 8. He is status post endovascular repair of abdominal aortic aneurysm. 9. GERD. 10. Degenerative arthritis/degenerative disease of the spine. 11. History of superficial bladder cancer. 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 His tumor was found to to be positive for PD-L1 expression at > 50%. The mediastinal lymph node involvement has been confirmed by surgical mediastinoscopy. The pathology results were reviewed with the patient, and we discussed the clinical implications. With involved mediastinal lymph nodes his disease is inoperable and is no longer eligible for SBRT. The recommended treatment will be a standard chemoradiation utilizing weekly carboplatin/paclitaxel for the chemosensitization. He will need to undergo placement of Port-A-Cath venous access device for the chemotherapy, and that will be arranged with Dr. Goldstein. I reviewed anticipated side effects with the chemotherapy which may include nausea/vomiting, alopecia, fatigue, low blood counts, and neuropathy, among others. He is aware that the chemotherapy will involve a steroid premedication, which will likely increase his blood sugars. He will return to see Dr. Gusman as soon as the Port-A-Cath is in place and he will then begin treatment as soon as the radiation planning is completed. We also discussed the fact that if he does show response to the chemoradiation, he will then be eligible to continue treatment with maintenance immunotherapy. Signed By: Wally López M.D. <<Signature on File>>
== END 2020-12-08 09:16 | disposition home or self-care (01) ==
PROVIDERS: PCP Family Medicine; Visit Provider Internal Medicine Medical Oncology
DX: C34.11 Malignant neoplasm of upper lobe, right bronchus or lung (principal); J44.9 Chronic obstructive pulmonary disease, unspecified; I10 Essential (primary) hypertension; E78.5 Hyperlipidemia, unspecified; E11.59 Type 2 diabetes mellitus with other circulatory complications; I25.10 Atherosclerotic heart disease of native coronary artery without angina pectoris; I25.2 Old myocardial infarction; I65.23 Occlusion and stenosis of bilateral carotid arteries; I71.4 Abdominal aortic aneurysm, without rupture; K21.9 Gastro-esophageal reflux disease without esophagitis; M47.9 Spondylosis, unspecified; Z85.51 Personal history of malignant neoplasm of bladder; Z79.899 Other long term (current) drug therapy
CPT/HCPCS: 99215

== ENCOUNTER → 2020-12-10 14:00 | Outpatient (BNVA) | payer MEDICARE, SELFPAY | PROVIDERS: PCP Family Medicine; Visit Provider Thoracic Surgery (Cardiothoracic Vascular Surgery) | DX: Z20.822 Contact with and (suspected) exposure to COVID-19 (principal) | CPT/HCPCS: 87635 ==

== ENCOUNTER 2020-12-14 09:23 | Day surgery (SDC) | payer MEDICARE, SELFPAY ==
[2020-12-13 14:27] VITALS: BMI 32.8
[2020-12-14] VITALS (7 sets, daily range): BP systolic 127–178; BP diastolic 73–85; PULSE 56–65; RESP 12–16; TEMP 36.3–36.5; O2SAT 90–94
--- NOTE | 2020-12-14 | SCC_ITS ---
Procedure Done: Left IJ Port-A-Cath placement 41.2 seconds of fluoroscopic guidance, for a cumulative dose of 7.62 mGy, was provided to Dr. Goldstein by the radiology department. C-arm images of the chest were saved for the patient's permanent record. [facility]
--- NOTE | 2020-12-14 09:36 | SC_ITS ---
WS: [id number] Exam: C-arm FL for CVA [id number] Date/Time of Exam: 12/14/2020 9:36 AM Reason For Exam: Port-A-Cath placement A limited anterior-posterior C-arm image of the central chest is submitted for evaluation. A Port-A-Cath appears to enter from the left side and terminate at the expected region of the cavoatr ial junction. No other significant finding on this limited study.
[2020-12-14] MEDS: sodium chloride 0.9% 1,000 ML 30 ML IV (10:14)
[2020-12-14 10:26] LABS: Basophils # 0.1 10^3/uL (0.0-0.1); Basophils % 1.2 %; Eosinophils # 0.3 10^3/uL (0.0-0.8); Hematocrit 35.5 % (42.0-52.0); Hemoglobin 10.7 g/dL (11.7-16.6); Lymphocytes # 2.5 10^3/uL (0.8-4.8); Lymphocytes % 28.9 %; Mean Corpuscular HGB Conc 30.1 g/dL (30.0-36.0); Mean Corpuscular Hemoglobin 27.6 pg (28.0-34.0); Mean Corpuscular Volume 91.5 fl (80-94); Mean Platelet Volume 10.1 fL (7.4-10.4); Monocytes # 0.7 10^3/uL (0.2-0.9); Monocytes % 7.6 %; Neutrophils # 5.06 10^3/uL (1.8-7.7); Neutrophils % 58.8 %; Nucleated Red Blood Cells % 0 %; Platelet Count 227 10^3/cmm (130-400); Red Blood Count 3.88 10^6/uL (4.1-5.3); Red Cell Distribution Width 17.4 % (12.1-15.1); White Blood Count 8.6 10^3/uL (4.0-10.0)
--- NOTE | 2020-12-14 10:26 | W.PM.OPSUD ---
Surgery/Procedure H&P Update DATE OF PROCEDURE: December 14, 2020 DATE H&P PERFORMED: 12/06/20 H&P UPDATE INFORMATION: I have reviewed H&P completed within last 30 days, I have examined patient prior to procedure and No changes to prior documentation PREOP DIAGNOSIS: Right upper lobe adenocarcinoma/Port-A-Cath placement PRIMARY INDICATION FOR PROCEDURE: Stage III lung carcinoma. PLANNED PROCEDURE: Operation Date: 12/14/20 11:00 Proposed Procedures p Portacath Insertion(Not Applicable) - Alexis Goldstein MD
--- NOTE | 2020-12-14 10:31 | ANES.PREANE2 ---
Pre-Anesthetic Assessment Pre-Anesthetic Assessment: Height/Weight: Height 1.83 m Weight 109.769 kg Temp Pulse Resp BP Pulse Ox 97.7 F 63 16 127/73 92 12/14/20 09:41 12/14/20 09:41 12/14/20 09:41 12/14/20 09:41 12/14/20 09:41 Preop Diagnosis: Right upper lobe adenocarcinoma/Port-A-Cath placement Proposed Procedure: Operation Date: 12/14/20 11:00 Proposed Procedures p Portacath Insertion(Not Applicable) - Alexis Goldstein MD Was Beta Jas taken within 24 hours: Yes Was Clonidine taken within 24 hours: N/A Last intake: Intake Last Liquid Date 12/13/20 Last Liquid Time 23:00 Last Solid Date 12/13/20 Last Solid Time 19:00 Social: Social History: Tobacco and No alcohol Exam: Pre-Anes Outpt Exam: alert, oriented x 3 and regular rate & rhythm Airway: Submandibular: WNL Cervical ROM: WNL MP: 2 Dentition: False Pulmonary: Pulmonary: COPD Comments: Lung CA CV/HEM: CV/HEM: CAD, HTN and PVD Comments: AAA stent GI: GI: GERD Metabolic: Metabolic: DM Anesthetic Plan: ASA status: 3 Anesthesia: MAC Risk of > 500 ml blood loss (7ml/kg in children): No Meds/Allergies Current Medications: Current Medications Generic Name Dose Route Start Last Admin Trade Name Freq PRN Reason Stop Dose Admin Sodium Chloride 1,000 mls @ 30 ml s/hr 12/14/20 09:45 12/14/20 10:14 Sodium Chloride 0.9% IV 12/15/20 09:44 30 mls/hr .Q24H HATTIE Administration PFSH Anesthesia PFSH: Medical History Aortic aneurysm Bladder cancer CAD (coronary artery disease) 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 Carotid stenosis, left COPD (chronic obstructive pulmonary disease) Diabetes Diverticulitis Hyperlipidemia Hypertension 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 Surgical History H/O spinal fusion H/O transurethral destruction of bladder lesion History of biopsy S/P bronchoscopy with biopsy (08/31/20) Family History Mother , 100 Diabetes Father , AT AGE 51 Aortic aneurysm CAD (coronary artery disease) Brother Cancer Other Hypertension Denies family history of Clotting disorder Dementia Chronic kidney disease (CKD) Suicide Anesthesia complication Bleeding disorder Lung disease Stroke Social History Quit status (tobacco): has quit using tobacco Year quit tobacco: 2020 Former quit date comment: Hx of 1 PPD x 60 Years Second hand smoke exposure: No Smoking risk assessment/counseling performed?: No Alcohol intake: current Alcohol intake frequency: holidays/special occasions only Counseling given: No Counseling given: No Lives independently: Yes Household members: spouse Marital status: Current occupational status: retired History of recent travel: No Current gender identity: Male Data Anesthesia CBC & Chem 7: 12/14/20 10:09 12/14/20 10:09 Other Labs: Laboratory Results - last 48 hr 12/14/20 10:09 WBC 8.6 RBC 3.88 L Hgb 10.7 L Hct 35.5 L MCV 91.5 MCH 27.6 L MCHC 30.1 RDW 17.4 H Plt Count 227 MPV 10.1 Neut % (Auto) 58.8 Lymph % (Auto) 28.9 [place] % (Auto) 7.6 Eos % (Auto) 3.0 Baso % (Auto) 1.2 Neut # (Auto) 5.06 Lymph # (Auto) 2.5 [place] # (Auto) 0.7 Eos # (Auto) 0.3 Baso # (Auto) 0.1 Nucleated RBC % (auto) 0 Nucleated RBCs # 0.0 Cardiac Studies: No Data to Display
[2020-12-14 10:44] LABS: INR 0.92 (0.8-1.2)
[2020-12-14 10:46] LABS: Anion Gap 15.3 (5-19); Blood Urea Nitrogen 14 mg/dL (8-23); Carbon Dioxide 23 mmol/L (22-29); Chloride 104 mmol/L (98-107); Glucose 145 mg/dL (65-115); Osmolality Calculated 289 mOsm/kg (285-295); Potassium 4.3 mmol/L (3.5-5.1); Sodium 138 mmol/L (136-145)
[2020-12-14 10:49] LABS: Add Urine Microscopic? YES; Bilirubin Urine Neg (Negative); Blood Urine Neg (Negative); Glucose Urine UA 4+ (Normal); Ketones Urine Negative (Negative); Leukocyte Esterase Urine Negative (Negative); Mucus Urine TRACE /hpf; Nitrate Urine Negative (Negative); Protein Urine Trace (Negative); Squamous Epithelial Cell Urine RARE /hpf (0-5); Urine Appearance Clear (CLEAR); Urine Color Yellow (Yellow); Urobilinogen Urine 1 mg/dL (Negative); pH Urine 5 (5-7)
[2020-12-14] MEDS: ceFAZolin 1,000 mg SDV 1000 MG IRRIGATION (11:14)
[2020-12-14] MEDS: lidocaine 1% INJ 50 mL INJECTION (11:41)
[2020-12-14] MEDS: heparin, porcine 1,000 unit/mL INJ 10 mL 10000 UNIT IRRIGATION (11:41)
--- NOTE | 2020-12-14 13:06 | P.OP_ITS ---
Operative Report Date of procedure: December 14, 2020 Pre-op Diagnosis: Right upper lobe adenocarcinoma/Port-A-Cath placement Post-op diagnosis: same Procedure Done: Left IJ Port-A-Cath placement Implants: Port-A-Cath tubing and reservoir Pathology: none sent Surgeon: Alexis Goldstein Anesthesia: MAC and Local Complications: None: Post procedure chest x-ray pending Findings: Hand-held ultrasonography investigation of the right and left subclavian veins revealed attenuated vessels. 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 Therefore, after inability to adequately notify the vessels or adjacent, I elected to utilize a left IJ for catheter placement. Condition: stable Disposition: same day Brief History: 75-year-old gentleman with adenocarcinoma of the right upper lobe by previous CT directed needle biopsy. He underwent mediastinoscopy on December 06 for persistent adenopathy in the mediastinum and indeed return adenocarcinoma consistent with 3B disease. He is currently under the care of Dr. López from oncology. Port-A-Cath placement has been requested as therapy continues. Details and risk of the procedure were carefully and frankly discussed. Appropriate consents were reviewed and signed. Procedure: Details and risks of the procedure were carefully and frankly reviewed. Appropriate consents were provided for review and signature. Mr. Garzon was taken to the operating room and placed on the OR table in supine position. Appropriate sedation and relaxation were provided by our anesthesia colleagues. The patient's entire upper chest and neck was sterilely prepped and draped. 1% lidocaine was infiltrated for local anesthesia. The patient was then placed in Trendelenburg position. Utilizing modified Seldinger technique, initially at tempted to engage the left subclavian vein without success. I was also unsuccessful on the right side. Hand-held ultrasonography revealed attenuated vessels without an obvious lumen. He has a prior history for thrombosis of indwelling catheters. We did ultrasounded the left neck and identified the left IJ. This vessel was engaged under ultrasound guidance and guidewire was placed. Position was confirmed by fluoroscopy. Needle was withdrawn. The patient was then placed in the supine position. Next, after infiltration of anesthesia, transverse incision was made in the left subclavicular region of the anterior chest wall and a subcutaneous pocket was created with the use of cautery. Lidocaine was infiltrated between this pocket and the exit point of the guidewire from the left neck. Tunneling catheter was then passed from the pocket to the exit point in the left neck for which Port-A-Cath tubing was then passed through., Utilizing a dilator and sheath combination, these were passed over the J-wire under fluoroscopic guidance into position without difficulty. Vascular tubing was then passed through the tear-away sheath and the sheath was removed. Appropriate distal positioning was confirmed. Entire tubing was flushed heparinized saline solution. The tubing at the exit point in the left chest wall subcutaneous pocket was cut to the appropriate length and then connected to Port-A-Cath reservoir tubing. The entire system was aspirated of air and then flushed with heparin solution. The Port-A-Cath reservoir was then secured to the floor of the subcutaneous pocket with suture. The pocket was then carefully irrigated with antibiotic solution. Hemostasis was confirmed. The wound was then closed in 2 layers of 3-0 Vicryl suture subcutaneously. The skin was reapproximated carefully in a subcuticular manner with 4-0 Monocryl suture. A sterile dressing was applied followed by a compressive dressing. At the completion of the procedure there are equal breath sounds bilaterally. Vital signs remained stable. Mr. Garzon was then transported to patient surgery. Chest x-ray is pending. We attempted to contact his by phone at the completion of the procedure.
--- NOTE | 2020-12-14 13:40 | XR_ITS ---
WS: [id number] Exam: XR chest 1V portable [id number] Date/Time of Exam: 12/14/2020 1:40 PM Reason For Exam: POST OP A left subclavian port has been placed and probably ends near the cavoatrial junction. The lungs are fully expanded. The heart is enlarged. No pleural effusions. Groundglass infiltrates seen in the late ral aspect of the mid and upper lobe right lung. XR/XR chest 1V portable [id number] IMPRESSION: 1. Left subclavian port appears to end at the cavoatrial junction in good posit ion. 2. Groundglass infiltrates seen in the lateral aspect of the mid and upper righ t lung.
--- NOTE | 2020-12-14 15:34 | ANE.PACU2 ---
Inpatient post-anesthesia follow up: Airway intact: Yes Vital signs: Temperature 97.7 F Pulse Rate 57 Respiratory Rate 16 Blood Pressure 178/85 Pulse Oximetry 90 Oxygen Delivery Me thod Room Air Oxygen Flow Rate 2 Fraction of Inspir ed Oxygen Hydration adequate: Yes Nausea and vomiting: No Pain level: 1 Mental status: Baseline
[2020-12-15 06:01] LABS: Glucose Point of Care 147 mg/dL (70-110)
== END 2020-12-14 14:15 | disposition home or self-care (01) ==
PROVIDERS: PCP Family Medicine; Visit Provider Thoracic Surgery (Cardiothoracic Vascular Surgery)
PROC: (CPT 36561; principal; 2020-12-14 11:00)
DX: C34.11 Malignant neoplasm of upper lobe, right bronchus or lung (principal); J44.9 Chronic obstructive pulmonary disease, unspecified; I25.10 Atherosclerotic heart disease of native coronary artery without angina pectoris; I10 Essential (primary) hypertension; K21.9 Gastro-esophageal reflux disease without esophagitis; E11.9 Type 2 diabetes mellitus without complications; Z98.1 Arthrodesis status; Z87.891 Personal history of nicotine dependence
CPT/HCPCS: 36561; 36415; 36416; 71045; 76000; 77001; 80048; 81001; 82962; 85025; 85610; C1788; J0690; J1644; J2250; J2704; J3010; J7030

== ENCOUNTER 2020-12-21 05:46 | Outpatient (RCR) | payer MEDICARE, SELFPAY ==
--- NOTE | 2020-12-15 | CT_ITS ---
Radiation Therapy Planning CT images; total exam DLP: 1021.42 mGy-cm MTDD
[2020-12-20 11:52] LABS: Basophils % 0.2 %; Hematocrit 36.9 % (42.0-52.0); Hemoglobin 11.2 g/dL (11.7-16.6); Lymphocytes # 0.5 10^3/uL (0.8-4.8); Lymphocytes % 7.7 %; Mean Corpuscular HGB Conc 30.4 g/dL (30.0-36.0); Mean Corpuscular Hemoglobin 27.3 pg (28.0-34.0); Mean Corpuscular Volume 89.8 fl (80-94); Mean Platelet Volume 10.3 fL (7.4-10.4); Monocytes % 0.6 %; Neutrophils # 6.04 10^3/uL (1.8-7.7); Nucleated Red Blood Cells % 0 %; Platelet Count 252 10^3/cmm (130-400); Red Blood Count 4.11 10^6/uL (4.1-5.3); Red Cell Distribution Width 16.8 % (12.1-15.1); White Blood Count 6.6 10^3/uL (4.0-10.0)
[2020-12-20 12:24] LABS: Alanine Aminotransferase 11 U/L (0-41); Alkaline Phosphatase 61 IU/L (40-130); Aspartate Amino Transferase 18 U/L (0-40); Blood Urea Nitrogen 11 mg/dL (8-23); Calcium 9.5 mg/dL (8.5-10.5); Carbon Dioxide 19 mmol/L (22-29); Chloride 101 mmol/L (98-107); Globulin 3.8 g/dL (1.3-4.6); Glucose 162 mg/dL (65-115); Osmolality Calculated 283 mOsm/kg (285-295); Sodium 135 mmol/L (136-145); Total Protein 7.8 g/dL (6.6-8.7)
[2020-12-20] MEDS: famotidine 20 mg/2 mL INJ IVP (13:38)
[2020-12-20] MEDS: sodium chloride 0.9% 250 ML IV (13:38)
[2020-12-20] MEDS: diphenhydrAMINE 50 mg/mL SDV 1mL 25 MG IV (13:40)
[2020-12-20] MEDS: palonosetron 0.25 mg/5 mL SDV IV (13:43)
--- NOTE | 2020-12-21 14:30 | ONCRAD TMN_ITS ---
Radiation Oncology Weekly Treatment Management Patient: Neal Garzon MR#: [id number] : 1945 Attending Physician: Dr. Junaid Fitzgerald Date of Service: 12/21/2020 Referring Physician(s) : Wally López Diagnosis: C34.11 - Malignant neoplasm of upper lobe, right bronchus or lung, Diagnosed 12/08/2020 (Active) Stage IIIB, T3, N2, M0 Radiotherapy to date: Course: Lung 2020, Treatment Site: Lung Ca RUL, Ref. ID: [id number], Energy: 6X, Dose/Fx (cGy): 200, #Fx: , Dose Correction (cGy): 0, Total Dose (cGy): 400, Start Date: 12/20/2020, Elapsed Days: 1 Reason for visit: The patient is being seen today as part of their regularly scheduled weekly on treatment visits to assess for acute toxicities from radiotherapy. Review of Systems: Radiation started yesterday. The first treatment went well. He also had his first session of chemotherapy yesterday and seemed to tolerate that well. He has no complaints. He has multiple questions about the arrangement of beans, how they are focused on the malignancy, their impact as they pass through normal tissue, and how the treatment works at the cellular level against the cancer. He also wants to get a copy of his treatment plan. Vital Signs: Performed on 12/21/2020 11:36 AM BMI - 33.364 kg/m2 (high), Height - 72.00 in, Weight - 246.0 lbs, Temperature - 97.4 f, Pulse - 80 /min, Respiration - 20 /min, O2 Sat - 93 % (low), Pain - 0 and BP - 129/ 69 mm(hg). Physical Exam: Alert, oriented, no acute distress. No respiratory distress. He is ambulatory without assistance. Imaging: Radiation therapy imaging related to accurate target localization (i.e. KV, MV and CBCT) was reviewed. Appropriate changes, if any, were made to ensure treatment accuracy. Plan: Continue treatment as planned. We will check with the technical staff about either getting a paper printout of his treatment plan or obtaining a disc with the requested material. Signed by: Dr. Junaid Fitzgerald 12/21/2020 2:29:15 PM
== END 2020-12-21 23:59 | disposition home or self-care (01) ==
LOC: ONCMED 05:46
PROVIDERS: Internal Medicine Medical Oncology; Absent Provider Specialist; PCP Family Medicine; Visit Provider Specialist
DX: Z51.0 Encounter for antineoplastic radiation therapy (principal); Z51.11 Encounter for antineoplastic chemotherapy; C34.11 Malignant neoplasm of upper lobe, right bronchus or lung; Z79.899 Other long term (current) drug therapy
CPT/HCPCS: 77300; 77301; 77334; 77338; 77386; 77470; 80053; 85025; 96367; 96375; 96413; 96417; J1100; J1200; J2469; J3490; J7030; J7040; J7050; J9045; J9267

== ENCOUNTER 2020-12-31 05:56 | Outpatient (RCR) | payer MEDICARE, SELFPAY ==
[2020-12-28 09:47] LABS: Basophils % 0.2 %; Hematocrit 36.5 % (42.0-52.0); Hemoglobin 11.3 g/dL (11.7-16.6); Lymphocytes # 0.3 10^3/uL (0.8-4.8); Lymphocytes % 5.6 %; Mean Corpuscular Hemoglobin 28.2 pg (28.0-34.0); Mean Platelet Volume 11.1 fL (7.4-10.4); Monocytes % 0.5 %; Neutrophils # 5.12 10^3/uL (1.8-7.7); Neutrophils % 92.6 %; Nucleated Red Blood Cells % 0 %; Platelet Count 217 10^3/cmm (130-400); Red Blood Count 4.01 10^6/uL (4.1-5.3); Red Cell Distribution Width 16.9 % (12.1-15.1); White Blood Count 5.5 10^3/uL (4.0-10.0)
[2020-12-28 10:15] LABS: Alanine Aminotransferase 13 U/L (0-41); Albumin Level 4.1 g/dL (3.5-5.2); Alkaline Phosphatase 54 IU/L (40-130); Anion Gap 16.5 (5-19); Aspartate Amino Transferase 16 U/L (0-40); Blood Urea Nitrogen 15 mg/dL (8-23); Carbon Dioxide 22 mmol/L (22-29); Chloride 102 mmol/L (98-107); Globulin 3.2 g/dL (1.3-4.6); Glucose 174 mg/dL (65-115); Osmolality Calculated 287 mOsm/kg (285-295); Potassium 4.5 mmol/L (3.5-5.1); Sodium 136 mmol/L (136-145); Total Bilirubin 0.7 mg/dL (0.15-1.2); Total Protein 7.3 g/dL (6.6-8.7)
--- NOTE | 2020-12-28 10:27 | ONCRAD TMN_ITS ---
Radiation Oncology Treatment Management Note Patient Name: Neal Garzon Date of : 1945 Date of Service: 12/28/2020 Attending Physician: John Gusman M.D. Neal Garzon is a 75 year-old white male recently diagnosed with a clinical stage IIIA (T1cN2) adenocarcinoma of the right upper lobe of the lung. The patient has received 10 Gy of a prescribed 60 Bales with an intensity modulated radiotherapy plan utilizing a step and shoot treatment technique. He has been prescribed Carboplatin (AUC 2) and Paclitaxel (50 mg/m???) weekly during therapy. Upon review of systems, he denied pulmonary symptoms. On physical examination, the patient weighed 246 lbs. His temperature was 96.6 ???F with a blood pressure of 137/72 mmHg. The pulse was 74 bpm and his respiratory rate was 20. Oxygen saturation while breathing room air was 93%. There was no erythema within the treatment mendoza. Continue thoracic radiotherapy as prescribed. Signed by: Dr. John Gusman 12/28/2020 10:26:46 AM
[2020-12-28 10:34] LABS: Slide Review Slide Review Perform
[2020-12-28] MEDS: famotidine 20 mg/2 mL INJ IVP (11:24)
[2020-12-28] MEDS: sodium chloride 0.9% 250 ML 75 ML IV (11:25)
[2020-12-28] MEDS: diphenhydrAMINE 50 mg/mL SDV 1mL 25 MG IVP (11:26)
[2020-12-28] MEDS: palonosetron 0.25 mg/5 mL SDV IVP (11:28)
--- NOTE | 2020-12-28 14:41 | ONC FU_ITS ---
Dr. López Patient Follow-Up Note Patient: Neal Garzon Unit #: [id number]: 1945 Dicatated By: Wally López M.D.Date of Visit:Dec 28, 2020 Onc Med Follow-up/Prog Note Chief Complaint: Lung cancer. 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 In June 2020 he presented with acute visual loss in the left eye. His echocardiogram showed slightly diminished ejection fraction at 50% with mild diffuse hypokinesis of the anterior and lateral wall segments. It otherwise was unrevealing. His carotid Doppler showed high-grade stenosis of the left ICA and bifurcation with a moderate heterogeneous plaques at the right bifurcation and ICA. CT angiogram of the head/neck on 07/30/2020 showed a large amount of calcified plaque and intimal thickening to the proximal left ICA which was noted to be completely occluded. There was 20% stenosis of the right extracranial ICA. CT angiogram of the chest on 08/10/2020 showed patent common carotid origins and subclavian artery origins. The most significant finding was the presence of suspicious pulmonary opacities involving the superior segment right upper lobe along the fissure measuring 2.1 x 1.1 cm and in the anterior right upper lobe measuring 15 mm. A noncalcified right lower lobe nodule measured 7 mm. There was associated right hilar adenopathy and there was prominent AP window, peribronchial, anterior mediastinal, and subcarinal adenopathy, all new from a previous study in 2017. Further evaluation with PET/CT on 08/21/2020 showed FDG avid posterior segment right upper lobe subpleural nodule measuring 1.4 x 1.7 cm, SUV 7.7, indicating high probability of malignancy. A second lesion in the anterior right upper lobe measuring 1.0 x 1.5 cm was also FDG avid with SUV 4.9. FDG positive lymph nodes were noted in the right upper hilum and right paratracheal region consistent with metastatic disease. There were no other areas of abnormal uptake. He then had pulmonary consultation with Dr. Sanford and on 08/31/2020 he underwent navigational bronchoscopy/EBUS. There was evidence for mild irregularity of mucosa of the entrance in the right upper lobe bronchus, there were no endobronchial lesions identified. He underwent right upper lobe endobronchial biopsy and transbronchial FNA biopsy of the right upper lobe nodule and of station 4R, 7, and 10 lymph nodes. Pathology on the right upper lobe transbronchial biopsies showed no malignancy, and the FNA biopsies of station 4R, station 7, and station 10 R lymph nodes were also negative for malignancy. Additionally, the bronchial washings were negative for malignancy. On 10/22/[address]-guided biopsy of the subpleural nodule in the posterior lateral right upper lobe. Pathology on that biopsy showed invasive moderately differentiated adenocarcinoma consistent with pulmonary origin. The tumor was positive for P-L1 expression > 50%. There was insufficient tumor sample for any additional molecular studies. I had seen him initially on 11/05/2020. Despite the negative FNA, the PET/CT findings were still suspicious for involvement in the mediastinal lymph nodes. He then had a repeat chest CT on 11/22/2020. That study showed no change in the right upper lobe pulmonary nodules or in the prominent anterior mediastinal, peribronchial, and right hilar lymph nodes. As such, he was referred to Dr. Goldstein and on 12/06/2020 he underwent surgical mediastinoscopy with biopsy of level 2R, level 4R, and left precarinal lymph nodes. The left precarinal node biopsy was negative for malignancy, but both the level 4R and the level 2R nodes showed adenocarcinoma. With that finding, his disease was confirmed to be stage IIIB (T3, N2, M0), and he was recommended to proceed with chemoradiation he was His other medical illnesses include COPD, hypertension, hyperlipidemia, type 2 diabetes, coronary artery disease with previous myocardial infarction, carotid stenosis, GERD, and degenerative arthritis/degenerative disease of the spine. He has had previous endovascular repair of an abdominal aortic aneurysm. He also has a prior history of superficial bladder cancer. He has a history of smoking for 50 years, up to 2 packs of cigarettes daily. He has been in the process of quitting. INTERIM HISTORY: He began radiation together with weekly carboplatin/paclitaxel chemotherapy on 12/20/2020. Experienced no acute toxicity with his initial chemotherapy infusion. He is seen for a follow-up visit. He says his energy has been down a little, particularly in the mornings. He complains that his legs feel heavy, particularly after taking steroid. He is still doing his normal chores. ECOG score is 1. He has good appetite. He has not had fever or night sweats. He has a little sinus drainage and he has a little bit of cough. He has normal COPD breathing, and he is using oxygen at night. He does not complain of chest pain. He has not had any nausea/vomiting. Bowel and bladder function have been okay, though his urination has been a little more urgent at times. His left middle and ring fingers have been locking up since his treatment. He has no other joint or bone pain. He has a little bit of dull headache. His dizziness has been a little worse at times. He has no numbness/paresthesia or other neuropathy symptoms. Medications: Acetaminophen PM (500-25 mg) Tablet Oral at bedtime PRN, amLODIPine Besylate (5 mg) Tablet Oral daily, Atenolol (50 mg) Tablet Oral every am, B Complex-C Tablet Oral daily, Cholecalciferol (25 mcg ) Tablet Oral daily, Clopidogrel Bisulfate (75 mg) Tablet Oral daily, diphenhydrAMINE HCl (50 mg) Capsule Oral at bedtime, Empagliflozin (25 mg) Tablet Oral daily, Hutbkjapazk-Bclgldcpx-Cxuvfg (100-62.5-25 mcg/inh) Aerosol Powder, Breath Activated Inhalation every am, glipiZIDE ER (2.5 mg) Tablet SR 24 HR Oral every am, HYDROcodone-Acetaminophen (10-325 mg) Tablet Oral four times a day PRN, Isosorbide Mononitrate ER (30 mg) Tablet SR 24 HR Oral every am, Lansoprazole (30 mg) Capsule Delayed Release Oral every am, Losartan Potassium (50 mg) Tablet Oral b.i.d., metFORMIN HCl (1000 mg) Tablet Oral b.i.d., Multivitamin Adult Tablet Oral daily, Nitroglycerin Tablet, sublingual Sublingual PRN, Rosuvastatin Calcium (20 mg) Tablet Oral daily, ZzzQuil Liquid Oral at bedtime PRN Allergies: Ammonia Solution, Exenatide, Iodinated Contrast Media, Liraglutide, and Niacin. Vital Signs: Performed on Dec 28, 2020 12:00 Height - 72.00 in Weight - 245.8 lbs BSA - 2.33 sq.m BMI - 33.34 (HIGH) Temperature - 97.1 F (LOW) Pulse - 78 /min Respiration - 18 /min BP - 136/68 mm(hg) O2 Sat - 94 % (LOW) Pain - 0 Fatigue - 3 Performed on Dec 28, 2020 09:36 Height - 72.00 in Weight - 245.8 lbs Temperature - 96.6 F Pulse - 74 /min Respiration - 20 /min BP - 137/72 mm(hg) O2 Sat - 93 % (LOW) Pain - 0 Performed on Dec 28, 2020 09:36 BMI - 33.337 kg/m2 (HIGH) Physical Examination: Constitutional - He looks pretty good generally, Eyes - Sclerae nonicteric. Conjunctivae clear, ENMT - No lesions noted in the oral cavity, Hematologic/Lymphatic - No cervical, clavicular, or axillary adenopathy, Respiratory - Lungs sound clear with some decrease in air movement bilaterally, Cardiovascular - Heart rhythm is regular. There is no murmur, gallop, or rub noted, Abdomen - Mildly distended. Liver and spleen are not enlarged. There is no abdominal mass or ascites noted and there is no inguinal adenopathy, Extremities - Mild edema, Neurologic - No focal neurologic deficits noted. Lab/Imaging: Test performed on Dec 28, 2020 10:59 Creatinine 0.6 mg/dL Cr Clearance (Est) 166.04 mL/min Test performed on Dec 28, 2020 09:18 Sodium 136 mmol/L Potassium 4.5 mmol/L Chloride 102 mmol/L CO2 22 mmol/L Anion Gap 16.5 BUN 15 mg/dL Glucose 174 mg/dL Osmolality - Calculated 287 mOsm/kg Calcium 9.0 mg/dL Protein, Total 7.3 g/dL Albumin 4.1 g/dL Globulin 3.2 g/dL Bilirubin, Total 0.7 mg/dL ALT (SGPT) 13 U/L AST (SGOT) 16 U/L Alkaline Phosphatase 54 IU/L WBC 5.5 10 3/uL RBC 4.01 10 6/uL HGB 11.3 g/dL HCT 36.5 % MCV 91.0 fl MCH 28.2 pg MCHC 31.0 g/dL RDW 16.9 % Platelet Count 217 10 3/cmm MPV 11.1 fL Neutrophils 5.12 10 3/uL Lymphocytes 0.3 10 3/uL Monocytes 0.0 10 3/uL Eosinophils 0.0 10 3/uL Basophils 0.0 10 3/uL Neutrophil % 92.6 % Lymphocyte % 5.6 % Monocyte % 0.5 % Eosinophil % 0.0 % Basophils % 0.2 % NRBC % 0 % CBC Slide Review Slide Review Perform SLIDE REVIEW AGREES WITH AUTOMATED RESULTS ST Problem List: 1. Moderately differentiated adenocarcinoma involving the upper lobe of the right lung, stage IIIB (T3, N2, M0). His tumor was found to to be positive for PD-L1 expression at > 50%. 2. COPD. 3. Hypertension. 4. Hyperlipidemia. 5. Type 2 diabetes. 6. Coronary artery disease with previous myocardial infarction. 7. 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 8. He is status post endovascular repair of abdominal aortic aneurysm. 9. GERD. 10. Degenerative arthritis/degenerative disease of the spine. 11. History of superficial bladder cancer. 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 His tumor was found to to be positive for PD-L1 expression at > 50%. The mediastinal lymph node involvement was confirmed by surgical mediastinoscopy. With those findings, he was recommended to proceed with chemoradiation. He then began radiation, currently with weekly carboplatin/paclitaxel chemotherapy on 12/20/2020. Thus far he has tolerated his chemotherapy with no significant adverse effects. He will proceed with his week 2 carboplatin/paclitaxel. The dosages remain the same. I will see him again in 1 week. Signed By: Wally López M.D. <<Signature on File>>
== END 2021-01-02 14:00 | disposition home or self-care (01) ==
LOC: ONCMED 05:56
PROVIDERS: Internal Medicine Medical Oncology; Absent Provider Radiology Radiation Oncology; PCP Family Medicine; Visit Provider Radiology Radiation Oncology
DX: Z51.0 Encounter for antineoplastic radiation therapy (principal); Z51.11 Encounter for antineoplastic chemotherapy; C34.11 Malignant neoplasm of upper lobe, right bronchus or lung; J44.9 Chronic obstructive pulmonary disease, unspecified; I10 Essential (primary) hypertension; E78.5 Hyperlipidemia, unspecified; E11.59 Type 2 diabetes mellitus with other circulatory complications; I25.10 Atherosclerotic heart disease of native coronary artery without angina pectoris; I25.2 Old myocardial infarction; I65.22 Occlusion and stenosis of left carotid artery; I71.4 Abdominal aortic aneurysm, without rupture; K21.9 Gastro-esophageal reflux disease without esophagitis; M47.9 Spondylosis, unspecified; Z85.51 Personal history of malignant neoplasm of bladder; Z79.899 Other long term (current) drug therapy
CPT/HCPCS: 77014; 77336; 77386; 80053; 85025; 96367; 96375; 96413; 96417; 99215; J1100; J1200; J2469; J3490; J7030; J7040; J7050; J9045; J9267

== ENCOUNTER 2021-01-02 14:26 | Inpatient (IN) | payer MEDICARE, SELFPAY ==
[2021-01-02] VITALS (9 sets, daily range): BP systolic 70–115; BP diastolic 40–58; PULSE 70–82; RESP 15–26; TEMP 36.2–36.7; O2SAT 90–96; BMI 31.8
[2021-01-02] MEDS: sodium chloride 0.9% 1,000 ML 999 ML IV ×2 (15:40→16:31)
[2021-01-02] MEDS: cefepime 1,000 MG in sodium chloride 0.9% (plus) 50 ML 100 MG IV (15:40)
[2021-01-02 15:45] LABS: Basophils % 0.5 %; Eosinophils % 0.9 %; Hemoglobin 10.5 g/dL (11.7-16.6); Lymphocytes # 0.2 10^3/uL (0.8-4.8); Lymphocytes % 8.8 %; Mean Corpuscular HGB Conc 30.9 g/dL (30.0-36.0); Mean Corpuscular Hemoglobin 27.7 pg (28.0-34.0); Mean Corpuscular Volume 89.7 fl (80-94); Monocytes # 0.1 10^3/uL (0.2-0.9); Monocytes % 6.5 %; Neutrophils % 82.8 %; Nucleated Red Blood Cells % 0 %; Platelet Count 81 10^3/cmm (130-400); Red Blood Count 3.79 10^6/uL (4.1-5.3); Red Cell Distribution Width 16.7 % (12.1-15.1); White Blood Count 2.2 10^3/uL (4.0-10.0)
[2021-01-02 15:59] LABS: Alanine Aminotransferase 36 U/L (0-41); Albumin Level 3.4 g/dL (3.5-5.2); Alkaline Phosphatase 50 IU/L (40-130); Aspartate Amino Transferase 59 U/L (0-40); Blood Urea Nitrogen 28 mg/dL (8-23); Calcium 8.6 mg/dL (8.5-10.5); Carbon Dioxide 20 mmol/L (22-29); Chloride 98 mmol/L (98-107); Globulin 2.9 g/dL (1.3-4.6); Glucose 123 mg/dL (65-115); Lipase 12 U/L (13-60); Osmolality Calculated 281 mOsm/kg (285-295); Sodium 132 mmol/L (136-145); Total Bilirubin 0.9 mg/dL (0.15-1.2); Total Protein 6.3 g/dL (6.6-8.7)
[2021-01-02 16:00] LABS: Lactate (Lactic Acid level) 1.9 mmol/L (0.5-2.2)
--- NOTE | 2021-01-02 16:16 | W.ED.GENADLT ---
HPI - General Adult General: Chief complaint: Skin/Abscess/Foreign Body Stated complaint: LOW BP, BLURRED VISION, DIZZY//DR GREEN Time Seen by Provider: 01/02/21 14:49 History of Present Illness: HPI narrative: Patient is a 75-year-old male with history of lung carcinoma on chemotherapy and radiation treatments presenting to the emergency room at the request of Dr. Green for concerns of port infection that is not improving with outpatient antibiotics. Patient underwent last round of chemotherapy about 7 days ago last round of radiation treatment 4 days ago. Patient 2 days ago noticed that his left chest port looks red and swollen. Patient received Keflex for antibiotics took the medicine without significant improvement in symptoms. Today, patient went to see Dr. Green and was told to go to the emergency room given low blood pressure 70/30 in the office on repeat reading and nonimprovement in infection around the port. Onset: 3 days ago Duration:3 days Location:home Severity:moderate/severe Review of Systems Narrative: Constitutional: No fever, no chills. HEENT: No vision changes CV: No chest pain, no palpitations PULM: no cough, no dyspnea. GI: No abdominal pain, no N/V/D. : No dysuria MSKEL: No muscle pain SKIN: +L chest port site redness, swelling, and pain NEURO: No headache, no focal weakness. 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 Surgical History H/O spinal fusion H/O transurethral destruction of bladder lesion History of biopsy History of PTCA S/P bronchoscopy with biopsy (08/31/20) Family History Mother , 100 Diabetes Father , AT AGE 51 Aortic aneurysm CAD (coronary artery disease) Brother Cancer Other Hypertension Denies family history of Clotting disorder Dementia Chronic kidney disease (CKD) Suicide Anesthesia complication Bleeding disorder Lung disease Stroke Social History Quit status (tobacco): has quit using tobacco Year quit tobacco: 2020 Former quit date comment: Hx of 1 PPD x 60 Years Second hand smoke exposure: No Smoking risk assessment/counseling performed?: No Alcohol intake: current Alcohol intake frequency: holidays/special occasions only Counseling given: No Counseling given: No Lives independently: Yes Household members: spouse Marital status: Current occupational status: retired History of recent travel: No Current gender identity: Male Physical Exam Narrative: EXAM NARRATIVE: Head: Atraumatic Eyes: PERRL, conjunctiva without injection ENT: Mucous membrane moist NECK: Supple, ROM intact LUNGS: LCTAB, no crackles/rhonchi CV: RRR ABDOMEN: Soft, nontender in all quadrants EXTREMITY: Normal ROM SKIN: +erythema nd indruation around the L port site NEURO: Awake and alert, no focal motor deficits PSYCH: Normal mood and affect Course Vital Signs: Vital signs: Vital Signs Temperature 97.9 F 01/03/21 16:54 Pulse Rate 70 01/03/21 16:54 Respiratory Rate 17 01/03/21 16:54 Blood Pressure 110/66 01/03/21 16:54 Pulse Oximetry 96 01/03/21 16:54 MDM - General Adult MDM Narrative: Medical decision making narrative: Patient is 75-year-old male on chemotherapy and radiation treatment for lung cancer presenting to the emergency room for concerns of worsening port site infection and hypotension. However, patient has had steady blood pressure reading of 80/40. Patient is currently not neutropenic with a white count of 2.2 and 80% neutrophils. Patient is afebrile in the emergency room. Given concerns for port infection, patient will be admitted to the hospital for surgical removal and medical management. S/p vancomycin and cefepime and 2L IVF. Blood culture lactic acid pending. I have spoken with Dr. Das who will attempt to remove the infected port today. Disposition: Admission for serial reevaluation. Lab Data: Labs: Lab Results 01/02/21 01/02/21 01/02/21 Range/Units 15:10 15:10 15:10 WBC 2.2 L (4.0-10.0) 10^3/ uL RBC 3.79 L (4.1-5.3) 10^6/u L Hgb 10.5 L (11.7-16.6) g/dL Hct 34.0 L (42.0-52.0) % MCV 89.7 (80-94) fl MCH 27.7 L (28.0-34.0) pg MCHC 30.9 (30.0-36.0) g/dL RDW 16.7 H (12.1-15.1) % Plt Count 81 L (130-400) 10^3/c mm MPV 11.0 H (7.4-10.4) fL Neut % (Auto) 82.8 % Lymph % (Auto) 8.8 % [place] % (Auto) 6.5 % Eos % (Auto) 0.9 % Baso % (Auto) 0.5 % Neut # (Auto) 1.80 (1.8-7.7) 10^3/u L Lymph # (Auto) 0.2 L (0.8-4.8) 10^3/u L [place] # (Auto) 0.1 L (0.2-0.9) 10^3/u L Eos # (Auto) 0.0 (0.0-0.8) 10^3/u L Baso # (Auto) 0.0 (0.0-0.1) 10^3/u L Nucleated RBC % (a uto) 0 % Nucleated RBCs # 0.0 /100WBC Sodium 132 L (136-145) mmol/L Potassium 4.0 (3.5-5.1) mmol/L Chloride 98 (98-107) mmol/L Carbon Dioxide 20 L (22-29) mmol/L Anion Gap 18.0 (5-19) BUN 28 H (8-23) mg/dL Creatinine 1.4 H (0.7-1.2) mg/dL GFR Calculation Not Reportable Glucose 123 H (65-115) mg/dL Calculated Osmolal ity 281 L (285-295) mOsm/k g Lactate 1.9 (0.5-2.2) mmol/L Calcium 8.6 (8.5-10.5) mg/dL Total Bilirubin 0.9 (0.15-1.2) mg/dL AST 59 H (0-40) U/L ALT 36 (0-41) U/L Alkaline Phosphata se 50 (40-130) IU/L Total Protein 6.3 L (6.6-8.7) g/dL Albumin 3.4 L (3.5-5.2) g/dL Globulin 2.9 (1.3-4.6) g/dL Lipase 12 L (13-60) U/L Discharge Plan Discharge Patient Disposition: Admitted As Inpatient Admit Provider: Chino Das Clinical Impression: Sepsis, Infection due to Port-A-Cath, Immunosuppression, Hypotension Condition: Stable Discharge Diet: Cardiac Discharge Activity: Resume usual activity Coding Level of Care Code ED Law Office Assistant for Lauro Bae
[2021-01-02] MEDS: vancomycin 1,000 MG in sodium chloride 0.9% 250 ML 250 MG IV (16:27)
--- NOTE | 2021-01-02 16:52 | P.HP_ITS ---
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 He began radiation with weekly carboplatin/paclitaxel chemotherapy on 12/20/2020. s/p Left IJ Port-A-Cath placement 12/14 presented to the hospital for complaint of fever. Pt is stating that he has noticed fever as high as 103F at home, he was prescribed keflex however it did not improve his symptoms. Today he presented to the ER for the evaluation of port a cath as it is getting tender and more hyperemic. In the ER, has leucopenia, no neutropenia, SHELDON. He was given Vanc and Cefepime. Dr Suárez to take him to the OR today. Review of Systems Const: Reports: fever(s), chills, body aches and fatigue Eyes: Denies: change in vision ENMT: Denies: throat pain Card: Denies: chest pain Resp: Denies: dyspnea GI: Denies: abdominal pain, nausea or vomiting : Denies: flank pain Musc: Denies: neck pain Skin/Breast: Reports: erythema, skin tenderness and non-healing lesions; Denies: sores Neuro: Denies: headache(s) Psych: Denies: anxiety Endo: Denies: polyuria Elliott/Lymph: Denies: easy bruising All/Imm: Denies: urticaria Medications/Allergies Home Medications Medication Instructions Recorded Confirmed Last Taken Type B-complex with vitamin C 1 tab PO QAM 09/22/19 01/02/21 01/02/21 History diphenhydramine 25 1 tab PO BEDTIME 09/22/19 01/02/21 01/01/21 History mg-acetaminophen 500 mg tablet empagliflozin 25 mg tablet 25 mg PO DAILY@18 09/22/19 01/02/21 01/01/21 History fluticasone fur. 100 mcg-umeclid 1 inh INHALATION QAM 09/22/19 01/02/21 01/02/21 History 62.5 mcg-vilant 25 mcg inhalat.powder glipizide 2.5 mg tablet, extended 2.5 mg PO QAM 06/05/1201/02/21 01/02/21 Histo ry release 24 hr isosorbide mononitrate 30 mg 30 mg PO DAILY@18 09/22/19 01/02/21 01/01/21 H istory tablet,extended release 24 hr lansoprazole 30 mg capsule,delayed 30 mg PO QAM 09/22/19 01/02/21 01/02/21 History release losartan 50 mg tablet 50 mg PO BID 09/22/19 01/02/21 01/02/21 History metformin 1,000 mg tablet 1,000 mg PO BID 09/22/19 01/02/21 01/02/21 History multivitamin 1 tab PO DAILY 09/22/19 01/02/21 01/02/21 History nitroglycerin 0.4 mg sublingual 0.4 mg SUBLINGUAL Q5M PRN 30 Days 09/22/19 01/02/21 12/05/20 Rx tablet #30 tab rosuvastatin 20 mg tablet 20 mg PO DAILY@18 09/22/19 01/02/21 01/01/21 History cholecalciferol (vitamin D3) 25 25 mcg PO QPM 04/19/20 01/02/21 01/01/21 History mcg (1,000 unit) capsule ZzzQuil 50 mg PO BEDTIME 09/01/20 01/02/21 01/01/21 History atenolol 50 mg PO QAM 09/01/20 01/02/21 01/02/21 History clopidogrel 75 mg tablet 75 mg PO DAILY 30 Days #30 tab 10/21/20 01/02/21 01/02/21 Rx hydrocodone-acetaminophen 1 tab PO Q6H PRN #20 tab 12/06/20 01/02/21 Unknown Rx amlodipine 5 mg PO QPM 12/13/20 01/02/21 01/01/21 History cephalexin 500 mg PO QID 01/02/21 01/02/21 01/02/21 History dexamethasone [Decadron] 20 mg PO . BEFORE TREATMENTS 01/02/21 01/02/21 12/26/20 History lorazepam [Ativan] 1 mg PO TID PRN 01/02/21 01/02/21 Unknown History Allergies Allergy/AdvReac Type Severity Reaction Status Date / Time ammonia Allergy NA Verified 12/01/20 12:03 exenatide [From Byetta] Allergy Nausea Verified 12/01/20 12:03 Iodinated Contrast Media Allergy Rash Verified 12/01/20 12:03 liraglutide [From Victoza] Allergy Tachycardia Verified 12/01/20 12:03 niacin Allergy ALGY-Rash Verified 12/01/20 12:03 PFSH Acute PFSH: Medical History (Updated 01/02/21 @ 17:25 by Colt Friedman MD) Aortic aneurysm Bladder cancer CAD (coronary artery disease) 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 Carotid stenosis, left COPD (chronic obstructive pulmonary disease) Diabetes Diverticulitis Hyperlipidemia Hypertension 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 Surgical History (Updated 01/02/21 @ 17:25 by Colt Friedman MD) H/O spinal fusion H/O transurethral destruction of bladder lesion History of biopsy History of PTCA S/P bronchoscopy with biopsy (08/31/20) Family History Mother , 100 Diabetes Father , AT AGE 51 Aortic aneurysm CAD (coronary artery disease) Brother Cancer Other Hypertension Denies family history of Clotting disorder Dementia Chronic kidney disease (CKD) Suicide Anesthesia complication Bleeding disorder Lung disease Stroke Social History Quit status (tobacco): has quit using tobacco Year quit tobacco: 2020 Former quit date comment: Hx of 1 PPD x 60 Years Second hand smoke exposure: No Smoking risk assessment/counseling performed?: No Alcohol intake: current Alcohol intake frequency: holidays/special occasions only Counseling given: No Counseling given: No Lives independently: Yes Household members: spouse Marital status: Current occupational status: retired History of recent travel: No Current gender identity: Male Vitals/I&O/Wt Last Vital Signs Temp 98.1 F 01/02/21 14:43 Pulse 70 01/02/21 15:43 Resp 19 H 01/02/21 15:43 BP 83/46 01/02/21 15:43 Pulse Ox 91 01/02/21 15:43 Weight last 48 hrs Weight 106.594 kg Physical Exam Narrative: EXAM NARRATIVE: elderly male Who was sitting comfortably in his bed Saturating well on room air Left-sided Port-A-Cath has hyperemia and tenderness to palpation without active purulent drainage however has some skin excoriation and open wound on superior side Abdomen distended with obesity bowel sound present Low symmetry no edema he is wearing compression stockings EOMI: PERRLA No joint swelling Cellulitis around Port-A-Cath Data : 01/02/21 15:10 01/02/21 15:10 Micro: Microbiology 01/02/21 15:12 Blood Culture - Preliminary Blood SPECIMEN COLLECTED 01/02/21 15:10 Blood Culture - Preliminary Blood SPECIMEN COLLECTED A&P Assessment and plan (1) Immunosuppression: Status: Acute (2) Infection due to Port-A-Cath: Status: Acute (3) Lung cancer: Status: Acute (4) Chronic respiratory failure with hypoxia: Status: Chronic (5) SHELDON (acute kidney injury): Status: Acute Additional A&P Information Infected left IJ Port-A-Cath To be taken to the OR for removal by Dr. Das Initiate diet afterwards Continue vancomycin and cefepime Requested procalcitonin, blood cultures In the ER he is not septic he is afebrile no leukocytosis tachypnea tachycardia there is leukopenia without neutropenia I will continue low-dose normal saline because of hypotension Hold antihypertensives Patient took atenolol this morning Lung cancer: Please see Dr. Green's note for details Received first cycle of chemo radiotherapy, second cycle was due tomorrow which he will miss Acute kidney injury: Creatinine 1.4 I would like to keep him on normal saline 30 cc/h today and monitor urine output correlate with creatinine next day EF 50% Hold nephrotoxic agents: Discontinue Metformin Chronic respiratory failure with hypoxia no acute exacerbation uses 2 L at night Full code DVT prophylaxis start 12hrs after the procedure tomorrow Consistent carb diet with sliding scale Attestations Medical Necessity Statement*: Anticipating stay in the hospital cross more than 2 midnights Anticipating discharge after final results of blood culture Time Spent in Patient Care: Greater than 35 minutes Coding Level of Care Code Acute Radioisotope Technician for [facility] F[facility] Diagnoses Immunosuppression D84.9 Infection due to Port-A-Cath T80.219A Lung cancer C34.90 Chronic respiratory failure with hypoxia J96.11 SHELDON (acute kidney injury) N17.9
--- NOTE | 2021-01-02 18:04 | PM.CONSULT ---
Providers/Reason For Consult Consulting Physician/Specialty*: Chino Das MD Reason for Consult*: Infected left upper chest Port-A-Cath Attending Physician: Chino Das MD Primary Care Provider: Clint Cleaning MD History of Present Illness History of Present Illness Chief Complaint: I am sore on my left chest side and my neck History of present illness: Mr Neal Garzon is a 75 year old male well-known with history of lung cancer. Undergone Port-A-Cath placement back in November 2020 to start his chemotherapy.Apparently the patient had previous thrombosis of the left subclavian vein as well as right upper extremity PICC line and thus it was elected at that time to access the left internal jugular vein.over the past few days patient developed cellulitic changes on the left upper chest and left side of the neck in addition to tenderness to touch and he was directed by Dr. López his medical oncologist to go to the ER for further care and evaluation. Patient is admitted to the hospitalist service and a chest x-ray was obtained today that showed: 1. Left subclavian port appears to end at the cavoatrial junction in good position. 2. Groundglass infiltrates seen in the lateral aspect of the mid and upper right lung Per emergency provider the patient had a blood pressure of 80/40 and sepsis was a concern subsequently general surgery was consulted for potential explantation of the port. Patient reports that last time he had his Plavix was today and he reports that he has been running fevers. Review of Systems General: Reports: 10 or more systems reviewed and unremarkable except in HPI and below Meds/Allergies Home Medications and Allergies Home Medications Medication Instructions Recorded Confirmed Last Taken Type B-complex with vitamin C 1 tab PO QAM 09/22/19 01/02/21 01/02/21 History diphenhydramine 25 1 tab PO BEDTIME 09/22/19 01/02/21 01/01/21 History mg-acetaminophen 500 mg tablet empagliflozin 25 mg tablet 25 mg PO DAILY@18 09/22/19 01/02/21 01/01/21 History fluticasone fur. 100 mcg-umeclid 1 inh INHALATION QAM 09/22/19 01/02/21 01/02/21 History 62.5 mcg-vilant 25 mcg inhalat.powder glipizide 2.5 mg tablet, extended 2.5 mg PO QAM 09/22/19 01/02/21 01/02/21 History release 24 hr isosorbide mononitrate 30 mg 30 mg PO DAILY@18 09/22/19 01/02/21 01/01/21 History tablet,extended release 24 hr lansoprazole 30 mg capsule,delayed 30 mg PO QAM 09/22/19 01/02/21 01/02/21 History release losartan 50 mg tablet 50 mg PO BID 09/22/19 01/02/21 01/02/21 History metformin 1,000 mg tablet 1,000 mg PO BID 09/22/19 01/02/21 01/02/21 History multivitamin 1 tab PO DAILY 09/22/19 01/02/21 01/02/21 History nitroglycerin 0.4 mg sublingual 0.4 mg SUBLINGUAL Q5M PRN 30 Days 09/22/19 01/02/21 12/05/20 Rx tablet #30 tab rosuvastatin 20 mg tablet 20 mg PO DAILY@18 09/22/19 01/02/21 01/01/21 History cholecalciferol (vitamin D3) 25 25 mcg PO QPM 04/19/20 01/02/21 01/01/21 History mcg (1,000 unit) capsule ZzzQuil 50 mg PO BEDTIME 09/01/20 01/02/21 01/01/21 History atenolol 50 mg PO QAM 09/01/20 01/02/21 01/02/21 History clopidogrel 75 mg tablet 75 mg PO DAILY 30 Days #30 tab 10/21/20 01/02/21 01/02/21 Rx hydrocodone-acetaminophen 1 tab PO Q6H PRN #20 tab 12/06/20 01/02/21 Unknown Rx amlodipine 5 mg PO QPM 12/13/20 01/02/21 01/01/21 History cephalexin 500 mg PO QID 01/02/21 01/02/21 01/02/21 History dexamethasone [Decadron] 20 mg PO . 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 Carotid stenosis, left COPD (chronic obstructive pulmonary disease) Diabetes Diverticulitis Hyperlipidemia Hypertension 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 Surgical History H/O spinal fusion H/O transurethral destruction of bladder lesion History of biopsy History of PTCA S/P bronchoscopy with biopsy (08/31/20) Family History Mother , 100 Diabetes Father , AT AGE 51 Aortic aneurysm CAD (coronary artery disease) Brother Cancer Other Hypertension Denies family history of Clotting disorder Dementia Chronic kidney disease (CKD) Suicide Anesthesia complication Bleeding disorder Lung disease Stroke Social History Quit status (tobacco): has quit using tobacco Year quit tobacco: 2020 Former quit date comment: Hx of 1 PPD x 60 Years Second hand smoke exposure: No Smoking risk assessment/counseling performed?: No Alcohol intake: current Alcohol intake frequency: holidays/special occasions only Counseling given: No Counseling given: No Lives independently: Yes Household members: spouse Marital status: Current occupational status: retired History of recent travel: No Current gender identity: Male Vitals/I&O/Wt Last Vital Signs Temp 97.1 F L 01/02/21 17:13 Pulse 72 01/02/21 17:13 Resp 18 01/02/21 17:13 BP 115/58 01/02/21 17:13 Pulse Ox 94 01/02/21 17:13 01/02/21 01/02/21 01/02/21 06:59 14:59 22:59 Intake Total 250 / 250 Balance 250 / 250 Weight last 48 hrs Weight 235 lb Physical Exam Narrative: EXAM NARRATIVE: Patient is conscious alert oriented X3 BMI 32 Head and neck examination PERRLA no masses no cervical lymphadenopathy no jaundice Cellulitic changes appreciated onto the left upper chest and left side of the neck with tenderness at the port site with erythema associated and no evidence of crepitus Cardiac examination audible S1-S2 no murmurs no gallops no arrhythmias Chest is clear bilateral,abscence of Rhonchi or wheezes,no surgical emphysema Abdomen nontender nondistended soft no organomegaly guarding or rigidity/no signs of peritonitis Extremities no cyanosis no clubbing no edema Data Micro: Micro: Microbiology 01/02/21 15:12 Blood Culture - Pr eliminary Blood SPECIMEN [facility]LEC CHANDNI 01/02/21 15:10 Blood Culture - Pr eliminary Blood SPECIMEN [facility] A&P Assessment and plan (1) Infection due to Port-A-Cath: Plan of care; After thorough history physical examination and reviewing the chart and reviweing the images iwth my personal intrepretation.I counseled the patient for Port-A-Cath explantation , indications, risks including pneumothorax that may require Chest tube(s) placement and potential injury of major vascular structures that may require Thoractomy, benefits,indications and alternatives were all discussed with the patient, patient understands and is interested to proceed. Patient also understands that his potentially high risk for bleeding as he has been on chronic Plavix therapy but due to the urgency of the matter we will plan to explant the Port-A-Cath today. Rationale was carefully and clearly discussed with the patient.Appropriate informed consent have been reviewed and signed. Status: Acute Consult Attestations Medical Necessity Statement: Per admitting service Time Spent in Patient Care: (>than 50% of time spent in counselling and/or direct pt care on unit). Coding Level of Care Code Acute Medical Accounts Receivable Specialist for [facility] Fwd Diagnoses Infection due to Port-A-Cath T80.219A
--- NOTE | 2021-01-02 18:16 | ANES.PREANE2 ---
Pre-Anesthetic Assessment Pre-Anesthetic Assessment: Height/Weight: Height 1.83 m Weight 106.594 kg Temp Pulse Resp BP Pulse Ox 97.1 F L 72 18 115/58 94 01/02/21 17:13 01/02/21 17:13 01/02/21 17:13 01/02/21 17:13 01/02/21 17:13 Preop Diagnosis: Right upper lobe adenocarcinoma/Port-A-Cath placement Proposed Procedure: Operation Date: 01/02/21 18:25 Proposed Procedures p Portacath Removal(Not Applicable) - Chino Das MD Was Beta Jas taken within 24 hours: Yes Was Clonidine taken within 24 hours: N/A Last intake: Intake Last Liquid Date 01/02/21 Last Liquid Time 14:00 Last Solid Date 01/02/21 Last Solid Time 08:00 Social: Social History: Tobacco and No alcohol Exam: Pre-Anes Outpt Exam: alert, oriented x 3, clear to auscultation bilaterally and regular rate & rhythm Airway: Submandibular: WNL Cervical ROM: WNL MP: 2 Pulmonary: Pulmonary: COPD Comments: Adenocarcinoma of Right Lung CV/HEM: CV/HEM: CAD, CHF and HTN : : Chronic renal Insufficiency Hepatic: Hepatic: None reported GI: GI: GERD Metabolic: Metabolic: DM and Hyperlipidemia Musc/skel: Musc/skel: OA/DJD Neuropsych: Neuropsych: None reported Anesthetic Plan: ASA status: 3E Anesthesia: MAC PFSH Anesthesia PFSH: Medical History (Updated 01/02/21 @ 17:25 by Colt Friedman MD) Aortic aneurysm Bladder cancer CAD (coronary artery disease) 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 Carotid stenosis, left COPD (chronic obstructive pulmonary disease) Diabetes Diverticulitis Hyperlipidemia Hypertension 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 Surgical History (Updated 01/02/21 @ 17:25 by Colt Friedman MD) H/O spinal fusion H/O transurethral destruction of bladder lesion History of biopsy History of PTCA S/P bronchoscopy with biopsy (08/31/20) Family History Mother , 100 Diabetes Father , AT AGE 51 Aortic aneurysm CAD (coronary artery disease) Brother Cancer Other Hypertension Denies family history of Clotting disorder Dementia Chronic kidney disease (CKD) Suicide Anesthesia complication Bleeding disorder Lung disease Stroke Social History Quit status (tobacco): has quit using tobacco Year quit tobacco: 2020 Former quit date comment: Hx of 1 PPD x 60 Years Second hand smoke exposure: No Smoking risk assessment/counseling performed?: No Alcohol intake: current Alcohol intake frequency: holidays/special occasions only Counseling given: No Counseling given: No Lives independently: Yes Household members: spouse Marital status: Current occupational status: retired History of recent travel: No Current gender identity: Male Data Anesthesia CBC & Chem 7: 01/02/21 15:10 01/02/21 15:10 Other Labs: Laboratory Results - last 48 hr 01/02/21 01/02/21 01/02/21 15:10 15:10 15:10 WBC 2.2 L RBC 3.79 L Hgb 10.5 L Hct 34.0 L MCV 89.7 MCH 27.7 L MCHC 30.9 RDW 16.7 H Plt Count 81 L MPV 11.0 H Neut % (Auto) 82.8 Lymph % (Auto) 8.8 [place] % (Auto) 6.5 Eos % (Auto) 0.9 Baso % (Auto) 0.5 Neut # (Auto) 1.80 Lymph # (Auto) 0.2 L [place] # (Auto) 0.1 L Eos # (Auto) 0.0 Baso # (Auto) 0.0 Nucleated RBC % (auto) 0 Nucleated RBCs # 0.0 Sodium 132 L Potassium 4.0 Chloride 98 Carbon Dioxide 20 L Anion Gap 18.0 BUN 28 H Creatinine 1.4 H GFR Calculation Not Reportable Glucose 123 H Calculated Osmolality 281 L Lactate 1.9 Calcium 8.6 Total Bilirubin 0.9 AST 59 H ALT 36 Alkaline Phosphatase 50 Total Protein 6.3 L Albumin 3.4 L Globulin 2.9 Lipase 12 L Micro: Microbiology 01/02/21 15:12 Blood Culture - Preliminary Blood SPECIMEN COLLECTED 01/02/21 15:10 Blood Culture - Preliminary Blood SPECIMEN COLLECTED Cardiac Studies: No Data to Display
--- NOTE | 2021-01-02 18:50 | P.OP_ITS ---
Operative Report Date of procedure: January 02, 2021 Pre-op Diagnosis: Infected left upper chest Port-A-Cath Post-op diagnosis: same Post-op Findings: Purulent discharge at the site of the pocket Procedure Done: Explantation of left upper chest Port-A-Cath Specimens removed/disposition: Tip of the catheter sent for microbiology Swabs for aerobes and anaerobes from the wound bed of the port Surgeon: Chino Das [employer] Food Server: spring manufacturing set up technician Lucy Circulating nurse Xochitl Anesthesia: MAC (Dr. Zelaya and JOSEFINA Mahajan) Estimated blood loss (mL): 5 Complications: No immediate complication Condition: stable Disposition: floor Brief History: Sepsis with concern of infection of left upper chest Port-A-Cath Procedure: After identifying the patient in the holding area, informed consent per chart ,patient was then transferred to the operative suite, was placed in supine position, IV propofol was infused by the anesthesia provider and both arms were tucked, prep and drape of left upper chest region was done usual sterile technique. Time-out was done verifying the patient's name/date of /planned procedure and destination after the procedure, all were in agreement. I started by injection of lidocaine 2% at the site of the planned incision started by an transverse incision including the previous incision of the catheter placement located at the left upper chest, upon creation of the incision there was purulent discharge appreciated about 5-10 mL, swabs were obtained for cultures and sensitivities for aerobes and anaerobes. After removal of the sutures and dissection without difficulty the port was explanted easily. At this point the catheter was removed at the same time direct pressure was applied at the site of the left internal jugular vein stick to prevent bleeding for at least 7 minutes. The tip of the culture was sent for microbiology Copious and thorough irrigation of the wound was done followed by appropriate hemostasis, the wound skin edges were approximated loosely by 3-0 nylon. Followed by pressure dressing at the site of the left internal jugular vein as well as the wound. Patient tolerated the procedure well, count of instruments, needles and sponges were completed at the end of the procedure.And then patient was transferred to the recovery area in stable condition. I Was present for the whole entire procedure
--- NOTE | 2021-01-02 20:06 | PC.PHAR ---
Pharmacokinetic dosing service Date: 01/02/21 Time: 1999 Objective: Patient: Neal Garzon Floor: 103[address]1 Age: 75 yo Serum creatinine: 1.4 mg/dL Height: 72.0 Inches Weight (kg): 106.594 Diagnosis: Relevant medical/social history: Cultures and sensitivities: Other labs: Assessment: IBW (kg): 77.60 Dosing wt(kg): 106.594 Estimated Creatinine clearance (ml/min): 48.5 CRCL method: Cockcroft and Gault using ibw(default). Drug selected: Vancomycin Loading dose (mg): 0 Vd (liters): 95.9 (factor used: 0.9 L/kg) Manolo (hr-1): 0.045 Half life (hrs): 15.40 Recommended dose: 1500 mg Interval: 18 hrs Infusion time (hrs): 1.5 Predicted peak (mcg/mL): 27.2 Predicted trough (mcg/mL): 12.95 Total body weight is being used for vancomycin dosing. Renal function is stable [ ] /unstable [ ] Recommendations: Give Vancomycin 1500 mg q 18 hrs with an expected Cpeak of 27.2 mcg/ml and an expected Ctrough of 12.95 mcg/ml Renal dosing of other antibiotics (review renal dosing of other medications and list guidelines here): Thank you for the consult, will continue to follow. Signature: Marie Vernon [facility]
[2021-01-02 20:25] LABS: Glucose Point of Care 99 mg/dL (70-110)
[2021-01-03] VITALS (8 sets, daily range): BP systolic 102–117; BP diastolic 60–68; PULSE 70–95; RESP 13–30; TEMP 36.6–36.8; O2SAT 92–97
[2021-01-03] MEDS: cefepime 2,000 MG in sodium chloride 0.9% (plus) 50 ML 100 MG IV (03:18)
[2021-01-03 03:36] LABS: Add Urine Microscopic? YES; Bilirubin Urine Neg (Negative); Blood Urine 2+ (Negative); Glucose Urine UA 4+ (Normal); Ketones Urine Negative (Negative); Leukocyte Esterase Urine Negative (Negative); Nitrate Urine Negative (Negative); Protein Urine 1+ (Negative); Urine Appearance Clear (CLEAR); Urine Color Yellow (Yellow); Urobilinogen Urine Norm (Negative); pH Urine 5 (5-7)
[2021-01-03 03:37] LABS: Add Urine Culture? Yes; Amorphous Sediment Urine 1+ /hpf; Bacteria Urine 2+ /hpf; Hyaline Casts Urine 0-4 /lpf; Mucus Urine 1+ /hpf; Squamous Epithelial Cell Urine 0-4 /hpf (0-5)
[2021-01-03] MEDS: vancomycin 1,500 MG/300 ML PIGGYBACK 200 MG IV (04:34)
[2021-01-03 05:53] LABS: Basophils % 0.5 %; Eosinophils % 0.9 %; Hematocrit 30.8 % (42.0-52.0); Hemoglobin 9.4 g/dL (11.7-16.6); Lymphocytes # 0.4 10^3/uL (0.8-4.8); Lymphocytes % 16.4 %; Mean Corpuscular HGB Conc 30.5 g/dL (30.0-36.0); Mean Corpuscular Hemoglobin 27.8 pg (28.0-34.0); Mean Corpuscular Volume 91.1 fl (80-94); Mean Platelet Volume 11.6 fL (7.4-10.4); Monocytes # 0.2 10^3/uL (0.2-0.9); Monocytes % 10.9 %; Neutrophils # 1.56 10^3/uL (1.8-7.7); Neutrophils % 70.8 %; Nucleated Red Blood Cells % 0 %; Platelet Count 75 10^3/cmm (130-400); Red Blood Count 3.38 10^6/uL (4.1-5.3); Red Cell Distribution Width 16.6 % (12.1-15.1); White Blood Count 2.2 10^3/uL (4.0-10.0)
[2021-01-03 06:18] LABS: Alanine Aminotransferase 33 U/L (0-41); Alkaline Phosphatase 51 IU/L (40-130); Anion Gap 15.8 (5-19); Aspartate Amino Transferase 49 U/L (0-40); Blood Urea Nitrogen 21 mg/dL (8-23); C Reactive Protein 146.6 mg/L (0.0-4.9); Calcium 8.1 mg/dL (8.5-10.5); Carbon Dioxide 20 mmol/L (22-29); Chloride 103 mmol/L (98-107); Creatinine Clr Calc Pharmacy 70.9526; Globulin 2.6 g/dL (1.3-4.6); Glucose 94 mg/dL (65-115); Osmolality Calculated 283 mOsm/kg (285-295); Potassium 3.8 mmol/L (3.5-5.1); Sodium 135 mmol/L (136-145); Total Bilirubin 0.6 mg/dL (0.15-1.2); Total Protein 5.6 g/dL (6.6-8.7)
[2021-01-03 06:23] LABS: Procalcitonin 0.78 ng/mL (0-0.5)
[2021-01-03 06:39] LABS: Glucose Point of Care 115 mg/dL (70-110)
--- NOTE | 2021-01-03 07:13 | PC.NURSE ---
Shift Note Frequent safety and comfort rounds continue. Orders and/or nursing care completed as indicated. Patient monitored for response to intervention and treatment(s). Education provided includes plan of care. Patient and/or operations support representative verbalized understanding. Will continue to monitor.
[2021-01-03 08:29] LABS: Slide Review Slide Review Perform
--- NOTE | 2021-01-03 08:37 | PC.CHAP ---
Pastoral Care Encounter/Spiritual Assessment Type of Contact [] Declined billboard mechanic visit [] Patient/Family/Request visit [] Outpatient visit [] Follow-up visit [] Physician referral [] Code/Alert [x] Routine visit [] Staff referral [] Actively dying [] Patient sleeping [] Family support [] [] Out of room [] Palliative care [] [] Receiving care in room [] Pre-surgical visit [] Trauma [] Long length of stay [] ICU visit [] Other: Relational/Emotional Strength [] Patient feels connected with others/family/visitors/staff [] Distress [] Loneliness/isolation [] Abandonment Spirituality of Patient [] Person of Sapna [] Attends Yarsani of their Sapna [] Believes in Prayer [] Reads Bible or Samaritan materials [] There are Spiritual issues to be addressed Service Center Specialist Interventions [x] Prayer [x] Active listening [x] Non-anxious presence [x] Spiritual/emotional support [] Crisis/trauma care [] Spiritual counseling [] Bereavement support [] Provided bereavement packet [] Provided Bible/devotional materials [] Provided toy/stuffed animal, coloring book to patient or family member [] Provided Communion [] Anointing/[place] [] Salvation [x] Completed spiritual assessment [] Other: Impact on Illness or Injury [] Angry [] Fearful [] Anxious [] Often cries [] Exhaustion [] Unable to work [] Unable to attend baptism [] Unable to walk/stand [] Unable to read [] Unable to drive [] Unable to eat/drink [] Unable to sleep [] Unable to be with family [] Patient intubated [] Other: Summary feels better Time spent with patient 5 min
--- NOTE | 2021-01-03 10:44 | PM.PN ---
Subjective Subjective: Interval history: Overall patient feels better Medications: Reviewed: Yes Vitals/I&O/Wt Last Vital Signs Temp 98.1 F 01/03/21 03:47 Pulse 87 01/03/21 10:12 Resp 30 H 01/03/21 10:12 BP 102/68 01/03/21 10:12 Pulse Ox 93 01/03/21 10:12 01/02/21 01/03/21 01/03/21 22:59 06:59 14:59 Intake Total 2300 / 2300 450 / 2750 714 / 714 Output Total 300 / 303 250 / 250 Balance 2297 / 2297 150 / 2447 464 / 464 Weight last 48 hrs Weight 235 lb Physical Exam Narrative: EXAM NARRATIVE: Patient is conscious alert oriented X3 BMI 32 Head and neck examination PERRLA no masses no cervical lymphadenopathy no jaundice, no evidence of neck swelling or hematoma Left-sided neck cellulitis and upper chest is feeding, no evidence of purulent discharge from the wound, mild erythema surrounding the incision and sutures in place. Data : 01/03/21 05:04 01/03/21 05:04 Micro: Microbiology 01/02/21 18:43 Gram Stain - Final Chest 01/02/21 15:12 Blood Culture - Preliminary Blood SPECIMEN COLLECTED 01/02/21 15:10 Blood Culture - Preliminary Blood SPECIMEN COLLECTED A&P Assessment and plan (1) Infection due to Port-A-Cath: Assessment 75 years old gentleman status post explantation of left upper chest Port-A-Cath due to infection. 01/02/2021 Plan of care; Daily application of dry dressing Sponge bath would be appropriate Follow on cultures and sensitivities and will defer antimicrobial therapy to hospitalist service Assurance and education All questions have been answered and all concerns have been addressed to patient's satisfaction. Status: Acute Attestations Medical Necessity Statement*: Will defer to the primary team Time Spent in Patient Care: (>than 50% of time spent in counselling and/or direct pt care on unit). Coding Level of Care Code Acute Associate Product Manager for Lauro Bae Diagnoses Infection due to Port-A-Cath T80.219A
--- NOTE | 2021-01-03 12:57 | PM.DCS ---
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 Source of fever was related to cellulitis around Port-A-Cath site. From the ER he was taken straight to the OR for removal of Mediport. About 10 mL of purulent discharge noted. He did not spike fever, remained afebrile however CBC and BMP consistent with pancytopenia and improvement in SHELDON. Patient's blood pressure was low at the time of admission which improved with discontinuation of antihypertensives. Patient was eager to leave on 12/03 stating his has an appointment tomorrow with an photography and prints curator which they cannot afford to miss. I did call the lab to run Gram stain on fluid sent from the OR. It came back as gram-positive cocci in pairs and chains. I am planning to discharge him today on clindamycin for coverage of staph aureus, Streptococcus and anaerobes. Dr. Das is aware was planning to see him on Sunday 1 PM. Patient is well aware that his cultures are pending and in case his blood cultures come back as positive he will need at least 4 weeks of antibiotics, PICC line placement and echo. His questions were answered to his satisfaction. He was instructed to stop taking antihypertensives for next few days and monitor his blood pressure on daily basis and add medications gradually. Physical Exam Narrative: EXAM NARRATIVE: elderly male Who was sitting comfortably in his bed Saturating well on room air Abdomen distended with obesity bowel sound present Low symmetry no edema he is wearing compression stockings EOMI: PERRLA No joint swelling Cellulitis around Port-A-Cath improved, no active purulent drainage, suture noted Discharge Data Data Completed and Pending: Pending at discharge Category Date Time Status Anaerobic Culture Routine Lab 01/02/21 18:43 Received Blood Culture Sta t Lab 01/02/21 15:12 Results Catheter Tip Cult ure Routine Lab 01/02/21 18:43 Received Urine Culture Sta t Lab 01/03/21 03:00 Received Vancomycin Trough Timed Lab 01/04/21 15:00 Ordered Wound Culture and Gram Stain Routin e Lab 01/02/21 18:43 Results Labs from last 24 hours 01/03/21 01/03/21 01/03/21 06:31 05:04 05:04 WBC 2.2 L RBC 3.38 L Hgb 9.4 L Hct 30.8 L MCV 91.1 MCH 27.8 L MCHC 30.5 RDW 16.6 H Plt Count 75 L MPV 11.6 H Neut % (Auto) 70.8 Lymph % (Auto) 16.4 Braxton % (Auto) 10.9 Eos % (Auto) 0.9 Baso % (Auto) 0.5 Neut # (Auto) 1.56 L Lymph # (Auto) 0.4 L Braxton # (Auto) 0.2 Eos # (Auto) 0.0 Baso # (Auto) 0.0 Nucleated RBC % (a uto) 0 Nucleated RBCs # 0.0 Sodium 135 L Potassium 3.8 Chloride 103 Carbon Dioxide 20 L Anion Gap 15.8 BUN 21 Creatinine 1.1 GFR Calculation Not Reportable Glucose 94 POC Glucose 115 H Calculated Osmolal ity 283 L Lactate Calcium 8.1 L Total Bilirubin 0.6 AST 49 H ALT 33 Alkaline Phosphata se 51 C-Reactive Protein 146.6 H Total Protein 5.6 L Albumin 3.0 L Globulin 2.6 Lipase Procalcitonin 0.78 H Urine Color Urine Appearance Urine pH Ur Specific Gravit y Urine Protein Urine Glucose (UA) Urine Ketones Urine Blood Urine Nitrate Urine Bilirubin Urine Urobilinogen Ur Leukocyte Alejandra ase Urine RBC Urine WBC Ur Squamous Epith Cells Amorphous Sediment Urine Bacteria Hyaline Casts Urine Mucus 01/03/21 01/02/21 01/02/21 03:00 20:08 15:10 WBC RBC Hgb Hct MCV MCH MCHC RDW Plt Count MPV Neut % (Auto) Lymph % (Auto) Braxton % (Auto) Eos % (Auto) Baso % (Auto) Neut # (Auto) Lymph # (Auto) Braxton # (Auto) Eos # (Auto) Baso # (Auto) Nucleated RBC % (a uto) Nucleated RBCs # Sodium Potassium Chloride Carbon Dioxide Anion Gap BUN Creatinine GFR Calculation Glucose POC Glucose 99 Calculated Osmolal ity Lactate 1.9 Calcium Total Bilirubin AST ALT Alkaline Phosphata se C-Reactive Protein Total Protein Albumin Globulin Lipase Procalcitonin Urine Color Yellow Urine Appearance Clear Urine pH 5 Ur Specific Gravit y 1.010 Urine Protein 1+ H Urine Glucose (UA) 4+ H Urine Ketones Negative Urine Blood 2+ H Urine Nitrate Negative Urine Bilirubin Neg Urine Urobilinogen Norm Ur Leukocyte Alejandra ase Negative Urine RBC 10-15 H Urine WBC 5-10 H Ur Squamous Epith Cells 0-4 H Amorphous Sediment 1+ Urine Bacteria 2+ H Hyaline Casts 0-4 H Urine Mucus 1+ 01/02/21 01/02/21 15:10 15:10 WBC 2.2 L RBC 3.79 L Hgb 10.5 L Hct 34.0 L MCV 89.7 MCH 27.7 L MCHC 30.9 RDW 16.7 H Plt Count 81 L MPV 11.0 H Neut % (Auto) 82.8 Lymph % (Auto) 8.8 Braxton % (Auto) 6.5 Eos % (Auto) 0.9 Baso % (Auto) 0.5 Neut # (Auto) 1.80 Lymph # (Auto) 0.2 L Braxton # (Auto) 0.1 L Eos # (Auto) 0.0 Baso # (Auto) 0.0 Nucleated RBC % (a uto) 0 Nucleated RBCs # 0.0 Sodium 132 L Potassium 4.0 Chloride 98 Carbon Dioxide 20 L Anion Gap 18.0 BUN 28 H Creatinine 1.4 H GFR Calculation Not Reportable Glucose 123 H POC Glucose Calculated Osmolal ity 281 L Lactate Calcium 8.6 Total Bilirubin 0.9 AST 59 H ALT 36 Alkaline Phosphata se 50 C-Reactive Protein Total Protein 6.3 L Albumin 3.4 L Globulin 2.9 Lipase 12 L Procalcitonin Urine Color Urine Appearance Urine pH Ur Specific Gravit y Urine Protein Urine Glucose (UA) Urine Ketones Urine Blood Urine Nitrate Urine Bilirubin Urine Urobilinogen Ur Leukocyte Alejandra ase Urine RBC Urine WBC Ur Squamous Epith Cells Amorphous Sediment Urine Bacteria Hyaline Casts Urine Mucus Vitals: Last Vital Signs Temp 98.2 F 01/03/21 12:16 Pulse 83 01/03/21 12:16 Resp 20 H 01/03/21 12:16 BP 113/62 01/03/21 12:16 Pulse Ox 92 01/03/21 12:16 Discharge Plan Discharge Patient Disposition: Home Condition: Stable Prescriptions: New clindamycin HCl 300 mg capsule 600 mg PO Q8H 7 Days Qty: 42 RF: 0 Continued lansoprazole 30 mg capsule,delayed release(DR/EC) 30 mg PO QAM RF: 0 metformin 1,000 mg tablet 1,000 mg PO BID RF: 0 Hold Instructions: Resume on 09/04/20. held due to contrast with CTA; resume sunday glipizide 2.5 mg tablet extended release 24hr 2.5 mg PO QAM RF: 0 Jardiance 25 mg tablet 25 mg PO DAILY@18 RF: 0 isosorbide mononitrate 30 mg tablet extended release 24 hr 30 mg PO DAILY@18 RF: 0 rosuvastatin [Crestor] 20 mg tablet 20 mg PO DAILY@18 RF: 0 Trelegy Ellipta 100-62.5-25 mcg blister with device 1 inh INHALATION QAM RF: 0 multivitamin Tablet 1 tab PO DAILY RF: 0 B-complex with vitamin C Tablet 1 tab PO QAM RF: 0 diphenhydramine-acetaminophen [Tylenol PM Extra Strength] 25-500 mg tablet 1 tab PO BEDTIME RF: 0 nitroglycerin 0.4 mg tablet, sublingual 0.4 mg SUBLINGUAL Q5M PRN (Reason: chest pain) 30 Days Qty: 30 RF: 3 cholecalciferol (vitamin D3) 25 mcg (1,000 unit) capsule 25 mcg PO QPM RF: 0 clopidogrel [Plavix] 75 mg tablet 75 mg PO DAILY 30 Days Qty: 30 RF: 3 atenolol 50 mg tablet 50 mg PO QAM RF: 0 ZzzQuil 50 mg/30 mL Liquid 50 mg PO BEDTIME RF: 0 hydrocodone-acetaminophen 5-325 mg tablet 1 tab PO Q6H PRN (Reason: pain) Qty: 20 RF: 0 amlodipine 5 mg tablet 5 mg PO QPM RF: 0 Decadron 4 mg Tablet 20 mg PO . BEFORE TREATMENTS RF: 0 Ativan 1 mg Tablet 1 mg PO TID PRN (Reason: SEVERE NAUSEA) RF: 0 Changed losartan 50 mg tablet 50 mg PO DAILY Qty: 0 RF: 0 Discontinued cephalexin 500 mg capsule 500 mg PO QID RF: 0 Discharge Orders: Discharge Order (Routine); Ordered 01/03/21 Ordered By: Colt Friedman Referrals: Chino Das MD [Physician] - 01/05/21 1:00 pm (Please follow-up with Dr. Das on Jan 05 at 1:00P.M. If you have any questions or need to reschedule. Please call ) Clint Cleaning MD [Primary Care Provider] - (Please follow-up with Dr. Cleaning on at 10:45A.M. If you have ant questions or need to reschedule. Please call ) Discharge Diet: Cardiac Discharge Activity: Resume usual activity Patient Instructions: Clindamycin (By mouth), Wound Infection (DC), Sepsis (DC), Surgical Site Infections (GEN), Hypotension (DC), Opioid Safety, Wound Care (General) Activity Restrictions/Additional Instructions: We will give you clindamycin which will cover staph aureus, Streptococcus, anaerobes, in case you develop diarrhea please do not take Imodium. You will need investigation for C. difficile Please follow-up with Dr. Das on Sunday Your blood cultures and final results of fluid culture pending preliminary report says gram-positive cocci in pairs and chains Pls hold off on your blood pressure as discuss by the doctor. Please check your blood pressure twice a day at home and keep a record for you to bring to your doctors. Watch for any signs of infection. Discharge Attestations Time Spent in Discharge Care*: less than 30 min Quality Metrics Clinical Quality Measures During this hospital stay, did patient experience: None Coding Level of Care Code Acute Chg FW DC note Diagnoses Infection due to Port-A-Cath T80.219A
[2021-01-03 17:20] LABS: Glucose Point of Care 189 mg/dL (70-110)
--- NOTE | 2021-01-03 20:33 | PC.NURSE ---
Discharge Note Patient discharged to [home via wheelchair accompanied by nephew. Discharge instructions reviewed with patient and/or client care representative. Educated pt regarding how to care for his wound at home, signs and symptoms of infection, checking his BP and holding his BP meds per doctor discussion w/ him at bedside. pt verbalizes understanding. Mobile pharmacy medications and/or prescriptions provided. Belongings/home medications returned.
--- NOTE | 2021-01-04 09:41 | PC.SOCIAL ---
discharge follow up call made. patient is taking clindamycin as prescribed. patient is aware of follow up appointments. pt voices no needs or concerns at this time.
== END 2021-01-03 17:03 | disposition home or self-care (01) | DRG 315 ==
LOC: ER 16:19 → OR 16:29 → CSU 17:47
PROVIDERS: Absent Provider Internal Medicine Medical Oncology; Admitting Provider Surgery; Emergency Provider Emergency Medicine; PCP Family Medicine; Visit Provider Surgery
PROC: 0JPT0XZ Removal of Tunneled Vascular Access Device from Trunk Subcutaneous Tissue and Fascia, Open Approach (ICD-10-PCS; CPT 36589; principal; 2021-01-02 18:15)
DX: T80.219A Unspecified infection due to central venous catheter, initial encounter (principal); C34.11 Malignant neoplasm of upper lobe, right bronchus or lung; D84.821 Immunodeficiency due to drugs; N17.9 Acute kidney failure, unspecified; J96.11 Chronic respiratory failure with hypoxia; Y81.3 Surgical instruments, materials and general- and plastic-surgery devices (including sutures) associated with adverse incidents; Z79.899 Other long term (current) drug therapy; Z98.1 Arthrodesis status; I71.4 Abdominal aortic aneurysm, without rupture; Z85.51 Personal history of malignant neoplasm of bladder; J44.9 Chronic obstructive pulmonary disease, unspecified; E11.9 Type 2 diabetes mellitus without complications; E78.5 Hyperlipidemia, unspecified; I10 Essential (primary) hypertension; T45.1X5A Adverse effect of antineoplastic and immunosuppressive drugs, initial encounter; Z79.84 Long term (current) use of oral hypoglycemic drugs; Z79.02 Long term (current) use of antithrombotics/antiplatelets; Z79.891 Long term (current) use of opiate analgesic
CPT/HCPCS: 36415; 36416; 77336; 77386; 80048; 80053; 81001; 82962; 83605; 83690; 84145; 85025; 86140; 87040; 87070; 87075; 87077; 87086; 87186; 87205; 96365; 96367; 96372; 99285; J0692; J1815; J2704; J3370; J7030; J7050

== ENCOUNTER 2021-01-10 05:39 | Outpatient (RCR) | payer MEDICARE, SELFPAY ==
--- NOTE | 2021-01-06 11:27 | ONCRAD TMN_ITS ---
Radiation Oncology Treatment Management Note Patient Name: Neal Garzon Date of : 1945 Date of Service: 01/06/2021 Attending Physician: John Gusman M.D. Neal Garzon is a 75 year-old white male recently diagnosed with a clinical stage IIIA (T1cN2) adenocarcinoma of the right upper lobe of the lung. The patient has received 18 Gy of a prescribed 60 Bales with an intensity modulated radiotherapy plan utilizing a step and shoot treatment technique. He has been prescribed Carboplatin (AUC 2) and Paclitaxel (50 mg/m???) weekly during therapy. Upon review of systems, he denied pulmonary symptoms. On physical examination, the patient weighed 243 lbs. His temperature was 96.7 ???F with a blood pressure of 149/77 mmHg. The pulse was 77 bpm and his respiratory rate was 20. Oxygen saturation while breathing room air was 98%. There was no erythema within the treatment mendoza. Left upper-chest wall wound (site of previous port) is being packed daily. Continue thoracic radiotherapy as planned. Signed by: Dr. John Gusman 01/06/2021 11:26:04 AM
--- NOTE | 2021-01-07 08:02 | PC.RESP ---
PULMONARY REHAB INFORMATION SENT TO PATIENT.
== END 2021-01-10 08:25 | disposition home or self-care (01) ==
LOC: ONCMED 05:39
PROVIDERS: Absent Provider Radiology Radiation Oncology; PCP Family Medicine; Visit Provider Radiology Radiation Oncology
DX: Z51.0 Encounter for antineoplastic radiation therapy (principal); C34.11 Malignant neoplasm of upper lobe, right bronchus or lung; Z79.899 Other long term (current) drug therapy
CPT/HCPCS: 77386

== ENCOUNTER 2021-01-10 09:06 | Day surgery (SDC) | payer MEDICARE, SELFPAY ==
[2021-01-10 09:43] VITALS: BMI 31.8
--- NOTE | 2021-01-10 09:50 | XR_ITS ---
WS: [id number] CHEST XRAY TECHNIQUE: Portable chest. CLINICAL INFORMATION: PICC LINE INSERTION COMPARISON: None. FINDINGS: Right PICC line with tip in distal SVC in good position. No pneumothorax. Cardiomegaly with aortic ca lcification. XR/XR chest 1V portable [id number] IMPRESSION: Right PICC line with tip in the distal SVC. No pneumothorax.
--- NOTE | 2021-01-10 10:35 | PC.NURSE ---
Pt to GI lab for Vancomycin 1250 mg IVPB following PICC line insertion. CXR shows PICC in SVC and ready to use. Site to R upper arm flushed without difficulty and positive for blood return. Dressing currently D/I. Pt to have infusions through [facility]. Pt states he has been in contact with agency and is set up for infusion this evening.
[2021-01-10 10:44] VITALS: BP 162/77; PULSE 71; RESP 18; TEMP 36.3; O2SAT 95
--- NOTE | 2021-01-10 10:45 | SUR.PHASEII ---
PICC NOTE/GI TRANSFER Picc inserted. Patient transferred to GI lab via wheelchair for 1st dosing of antibiotic therapy. Insert notes documented in PCS. Report off to Yumiko Zuñiga RN. Discharged in stable condition.
[2021-01-10] MEDS: vancomycin 1,250 MG/250 ML PIGGYBACK 250 MG IV (11:09)
--- NOTE | 2021-01-10 12:12 | PC.NURSE ---
Pt tolerated Vancomycin without difficulty. No signs of reaction noted. PICC flushed with 10 mL NS following use. Secured with coban and stockinette.
== END 2021-01-10 12:30 | disposition home or self-care (01) ==
LOC: GILAB 09:10
PROVIDERS: PCP Family Medicine; Visit Provider Surgery
DX: T80.219A Unspecified infection due to central venous catheter, initial encounter (principal)
CPT/HCPCS: 36569; 71045; 96365; J3370

== ENCOUNTER 2021-01-12 08:13 | Outpatient (CLI) | payer MEDICARE, SELFPAY ==
[2021-01-12 08:47] LABS: Alanine Aminotransferase 16 U/L (0-41); Albumin Level 3.6 g/dL (3.5-5.2); Alkaline Phosphatase 72 IU/L (40-130); Anion Gap 16.1 (5-19); Aspartate Amino Transferase 20 U/L (0-40); Blood Urea Nitrogen 17 mg/dL (8-23); Calcium 8.8 mg/dL (8.5-10.5); Carbon Dioxide 23 mmol/L (22-29); Chloride 101 mmol/L (98-107); Globulin 3.1 g/dL (1.3-4.6); Glucose 141 mg/dL (65-115); Osmolality Calculated 286 mOsm/kg (285-295); Potassium 4.1 mmol/L (3.5-5.1); Sodium 136 mmol/L (136-145); Total Bilirubin 0.7 mg/dL (0.15-1.2); Total Protein 6.7 g/dL (6.6-8.7)
[2021-01-12 10:40] LABS: Vancomycin Trough 12.3 ug/mL (10-15)
== END 2021-01-12 08:14 | disposition home or self-care (01) ==
PROVIDERS: PCP Family Medicine; Visit Provider Surgery
DX: D84.9 Immunodeficiency, unspecified (principal)
CPT/HCPCS: 80053; 80202

== ENCOUNTER 2021-01-14 06:37 | Outpatient (RCR) | payer MEDICARE, SELFPAY ==
[2021-01-11 11:20] LABS: Basophils % 0.3 %; Hematocrit 33.9 % (42.0-52.0); Hemoglobin 10.4 g/dL (11.7-16.6); Lymphocytes # 0.2 10^3/uL (0.8-4.8); Lymphocytes % 7.2 %; Mean Corpuscular HGB Conc 30.7 g/dL (30.0-36.0); Mean Corpuscular Hemoglobin 28.4 pg (28.0-34.0); Mean Corpuscular Volume 92.6 fl (80-94); Mean Platelet Volume 11.1 fL (7.4-10.4); Monocytes % 0.9 %; Neutrophils # 2.86 10^3/uL (1.8-7.7); Nucleated Red Blood Cells % 0 %; Platelet Count 161 10^3/cmm (130-400); Red Blood Count 3.66 10^6/uL (4.1-5.3); Red Cell Distribution Width 20.1 % (12.1-15.1); White Blood Count 3.2 10^3/uL (4.0-10.0)
[2021-01-11 11:57] LABS: Alanine Aminotransferase 19 U/L (0-41); Albumin Level 3.7 g/dL (3.5-5.2); Alkaline Phosphatase 79 IU/L (40-130); Blood Urea Nitrogen 11 mg/dL (8-23); Calcium 9.4 mg/dL (8.5-10.5); Carbon Dioxide 20 mmol/L (22-29); Chloride 106 mmol/L (98-107); Globulin 3.2 g/dL (1.3-4.6); Glucose 183 mg/dL (65-115); Osmolality Calculated 292 mOsm/kg (285-295); Sodium 139 mmol/L (136-145); Total Bilirubin 0.8 mg/dL (0.15-1.2); Total Protein 6.9 g/dL (6.6-8.7)
[2021-01-11 12:00] LABS: Anion Gap 18.2 (5-19); Aspartate Amino Transferase 24 U/L (0-40); Potassium 5.2 mmol/L (3.5-5.1)
[2021-01-11] MEDS: famotidine 20 mg/2 mL INJ IVP (12:58)
[2021-01-11] MEDS: diphenhydrAMINE 50 mg/mL SDV 1mL 25 MG IV (12:59)
[2021-01-11] MEDS: sodium chloride 0.9% 250 ML 75 ML IV (13:00)
[2021-01-11] MEDS: palonosetron 0.25 mg/5 mL SDV IV (13:00)
--- NOTE | 2021-01-12 13:03 | ONCRAD TMN_ITS ---
Radiation Oncology Treatment Management Note Patient Name: Neal Garzon Date of : 1945 Date of Service: 01/12/2021 Attending Physician: John Gusman M.D. Neal Garzon is a 75 year-old white male recently diagnosed with a clinical stage IIIA (T1cN2) adenocarcinoma of the right upper lobe of the lung. The patient has received 26 Gy of a prescribed 60 Bales with an intensity modulated radiotherapy plan utilizing a step and shoot treatment technique. He has been prescribed Carboplatin (AUC 2) and Paclitaxel (50 mg/m???) weekly during therapy. Upon review of systems, he denied pulmonary symptoms. On physical examination, the patient weighed 238 lbs. His temperature was 97.5 ???F with a blood pressure of 135/70 mmHg. The pulse was 71 bpm and his respiratory rate was 20. Oxygen saturation while breathing room air was 95%. There was no erythema within the treatment mendoza. Decreased right-side breath sounds. Continue thoracic radiotherapy as prescribed. Signed by: Dr. John Gusman 01/12/2021 1:01:08 PM
== END 2021-01-14 09:44 | disposition home or self-care (01) ==
LOC: ONCMED 06:37
PROVIDERS: Internal Medicine Medical Oncology; Absent Provider Radiology Radiation Oncology; PCP Family Medicine; Visit Provider Radiology Radiation Oncology
DX: Z51.0 Encounter for antineoplastic radiation therapy (principal); Z51.11 Encounter for antineoplastic chemotherapy; C34.11 Malignant neoplasm of upper lobe, right bronchus or lung; Z79.899 Other long term (current) drug therapy
CPT/HCPCS: 77014; 77336; 77386; 80053; 85025; 96367; 96375; 96413; 96417; J1100; J1200; J1642; J2469; J3490; J7030; J7040; J7050; J9045; J9267

== ENCOUNTER 2021-01-14 09:45 | Outpatient (CLI) | payer MEDICARE, SELFPAY ==
[2021-01-14 10:21] LABS: Alanine Aminotransferase 16 U/L (0-41); Albumin Level 3.6 g/dL (3.5-5.2); Alkaline Phosphatase 66 IU/L (40-130); Anion Gap 15.2 (5-19); Aspartate Amino Transferase 19 U/L (0-40); Blood Urea Nitrogen 19 mg/dL (8-23); Carbon Dioxide 23 mmol/L (22-29); Chloride 103 mmol/L (98-107); Globulin 3.2 g/dL (1.3-4.6); Glucose 141 mg/dL (65-115); Osmolality Calculated 289 mOsm/kg (285-295); Potassium 4.2 mmol/L (3.5-5.1); Sodium 137 mmol/L (136-145); Total Protein 6.8 g/dL (6.6-8.7)
[2021-01-14 10:22] LABS: Vancomycin Trough 19.9 ug/mL (10-15)
== END 2021-01-14 09:46 | disposition home or self-care (01) ==
PROVIDERS: PCP Family Medicine; Visit Provider Surgery
DX: D84.9 Immunodeficiency, unspecified (principal)
CPT/HCPCS: 80053; 80202

== ENCOUNTER 2021-01-15 15:56 | Outpatient (CLI) | payer MEDICARE, SELFPAY | END 2021-01-15 15:57 | disposition home or self-care (01) | PROVIDERS: PCP Family Medicine; Visit Provider Surgery | DX: R19.7 Diarrhea, unspecified (principal) | CPT/HCPCS: 83630; 87493; 87506 ==

== ENCOUNTER 2021-01-17 06:50 | Outpatient (RCR) | payer MEDICARE, SELFPAY ==
[2021-01-17 11:52] LABS: Basophils % 0.9 %; Eosinophils % 0.9 %; Hematocrit 31.9 % (42.0-52.0); Hemoglobin 9.8 g/dL (11.7-16.6); Lymphocytes # 0.6 10^3/uL (0.8-4.8); Lymphocytes % 16.6 %; Mean Corpuscular HGB Conc 30.7 g/dL (30.0-36.0); Mean Corpuscular Hemoglobin 28.8 pg (28.0-34.0); Mean Corpuscular Volume 93.8 fl (80-94); Mean Platelet Volume 11.2 fL (7.4-10.4); Monocytes # 0.2 10^3/uL (0.2-0.9); Monocytes % 7.1 %; Neutrophils % 73.9 %; Nucleated Red Blood Cells % 0 %; Platelet Count 142 10^3/cmm (130-400); White Blood Count 3.4 10^3/uL (4.0-10.0)
[2021-01-17 12:16] LABS: Alanine Aminotransferase 14 U/L (0-41); Albumin Level 3.6 g/dL (3.5-5.2); Alkaline Phosphatase 58 IU/L (40-130); Anion Gap 16.4 (5-19); Aspartate Amino Transferase 27 U/L (0-40); Blood Urea Nitrogen 13 mg/dL (8-23); Calcium 8.9 mg/dL (8.5-10.5); Carbon Dioxide 22 mmol/L (22-29); Chloride 104 mmol/L (98-107); Glucose 158 mg/dL (65-115); Osmolality Calculated 289 mOsm/kg (285-295); Potassium 4.4 mmol/L (3.5-5.1); Sodium 138 mmol/L (136-145); Total Protein 6.6 g/dL (6.6-8.7)
== END 2021-01-17 09:19 | disposition home or self-care (01) ==
LOC: ONCMED 06:50
PROVIDERS: Absent Provider Radiology Radiation Oncology; PCP Family Medicine; Visit Provider Internal Medicine Medical Oncology
DX: Z51.0 Encounter for antineoplastic radiation therapy (principal); C34.11 Malignant neoplasm of upper lobe, right bronchus or lung; Z79.899 Other long term (current) drug therapy
CPT/HCPCS: 77014; 77386; 77427; 80053; 85025

== ENCOUNTER 2021-01-17 09:20 | Outpatient (CLI) | payer MEDICARE, SELFPAY ==
[2021-01-17 10:13] LABS: Alanine Aminotransferase 14 U/L (0-41); Albumin Level 3.6 g/dL (3.5-5.2); Alkaline Phosphatase 62 IU/L (40-130); Anion Gap 15.1 (5-19); Aspartate Amino Transferase 22 U/L (0-40); Blood Urea Nitrogen 12 mg/dL (8-23); Calcium 8.8 mg/dL (8.5-10.5); Carbon Dioxide 24 mmol/L (22-29); Chloride 104 mmol/L (98-107); Globulin 3.1 g/dL (1.3-4.6); Glucose 146 mg/dL (65-115); Osmolality Calculated 290 mOsm/kg (285-295); Potassium 4.1 mmol/L (3.5-5.1); Sodium 139 mmol/L (136-145); Total Bilirubin 1.1 mg/dL (0.15-1.2); Total Protein 6.7 g/dL (6.6-8.7)
[2021-01-17 10:42] LABS: Vancomycin Trough 16.1 ug/mL (10-15)
== END 2021-01-17 09:21 | disposition home or self-care (01) ==
LOC: LAB 09:21
PROVIDERS: PCP Family Medicine; Visit Provider Surgery
DX: T80.212A Local infection due to central venous catheter, initial encounter (principal)
CPT/HCPCS: 80053; 80202

== ENCOUNTER 2021-01-20 06:32 | Outpatient (RCR) | payer MEDICARE, SELFPAY ==
[2021-01-18] MEDS: sodium chloride 0.9% 250 ML 75 ML IV (10:25)
[2021-01-18] MEDS: palonosetron 0.25 mg/5 mL SDV IV (10:25)
[2021-01-18] MEDS: famotidine 20 mg/2 mL INJ IVP (10:26)
[2021-01-18] MEDS: diphenhydrAMINE 50 mg/mL SDV 1mL 25 MG IV (10:28)
--- NOTE | 2021-01-18 11:11 | ONC FU_ITS ---
Dr. López Patient Follow-Up Note Patient: Neal Gazron Unit #: [id number]: 1945 Dicatated By: Wally López M.D.Date of Visit:Jan 18, 2021 Onc Med Follow-up/Prog Note Chief Complaint: Lung cancer. 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 In June 2020 he presented with acute visual loss in the left eye. His echocardiogram showed slightly diminished ejection fraction at 50% with mild diffuse hypokinesis of the anterior and lateral wall segments. It otherwise was unrevealing. His carotid Doppler showed high-grade stenosis of the left ICA and bifurcation with a moderate heterogeneous plaques at the right bifurcation and ICA. CT angiogram of the head/neck on 07/30/2020 showed a large amount of calcified plaque and intimal thickening to the proximal left ICA which was noted to be completely occluded. There was 20% stenosis of the right extracranial ICA. CT angiogram of the chest on 08/10/2020 showed patent common carotid origins and subclavian artery origins. The most significant finding was the presence of suspicious pulmonary opacities involving the superior segment right upper lobe along the fissure measuring 2.1 x 1.1 cm and in the anterior right upper lobe measuring 15 mm. A noncalcified right lower lobe nodule measured 7 mm. There was associated right hilar adenopathy and there was prominent AP window, peribronchial, anterior mediastinal, and subcarinal adenopathy, all new from a previous study in 2017. Further evaluation with PET/CT on 08/21/2020 showed FDG avid posterior segment right upper lobe subpleural nodule measuring 1.4 x 1.7 cm, SUV 7.7, indicating high probability of malignancy. A second lesion in the anterior right upper lobe measuring 1.0 x 1.5 cm was also FDG avid with SUV 4.9. FDG positive lymph nodes were noted in the right upper hilum and right paratracheal region consistent with metastatic disease. There were no other areas of abnormal uptake. He then had pulmonary consultation with Dr. Sanford and on 08/31/2020 he underwent navigational bronchoscopy/EBUS. There was evidence for mild irregularity of mucosa of the entrance in the right upper lobe bronchus, there were no endobronchial lesions identified. He underwent right upper lobe endobronchial biopsy and transbronchial FNA biopsy of the right upper lobe nodule and of station 4R, 7, and 10 lymph nodes. Pathology on the right upper lobe transbronchial biopsies showed no malignancy, and the FNA biopsies of station 4R, station 7, and station 10 R lymph nodes were also negative for malignancy. Additionally, the bronchial washings were negative for malignancy. On 10/22/[address]-guided biopsy of the subpleural nodule in the posterior lateral right upper lobe. Pathology on that biopsy showed invasive moderately differentiated adenocarcinoma consistent with pulmonary origin. The tumor was positive for P-L1 expression > 50%. There was insufficient tumor sample for any additional molecular studies. I had seen him initially on 11/05/2020. Despite the negative FNA, the PET/CT findings were still suspicious for involvement in the mediastinal lymph nodes. He then had a repeat chest CT on 11/22/2020. That study showed no change in the right upper lobe pulmonary nodules or in the prominent anterior mediastinal, peribronchial, and right hilar lymph nodes. As such, he was referred to Dr. Goldstein and on 12/06/2020 he underwent surgical mediastinoscopy with biopsy of level 2R, level 4R, and left precarinal lymph nodes. The left precarinal node biopsy was negative for malignancy, but both the level 4R and the level 2R nodes showed adenocarcinoma. With that finding, his disease was confirmed to be stage IIIB (T3, N2, M0), and he was recommended to proceed with chemoradiation he was His other medical illnesses include COPD, hypertension, hyperlipidemia, type 2 diabetes, coronary artery disease with previous myocardial infarction, carotid stenosis, GERD, and degenerative arthritis/degenerative disease of the spine. He has had previous endovascular repair of an abdominal aortic aneurysm. He also has a prior history of superficial bladder cancer. He has a history of smoking for 50 years, up to 2 packs of cigarettes daily. He has been in the process of quitting. INTERIM HISTORY: He began radiation together with weekly carboplatin/paclitaxel chemotherapy on 12/20/2020. Experienced no acute toxicity with his initial chemotherapy infusion. He continued with his week 2 chemotherapy on 12/28/2020. He then developed an infection at the site of his Port-A-Cath venous access device, requiring removal of the Port-A-Cath on 01/02/2021. The wound site and the catheter tip grew methicillin sensitive staph aureus. On 01/11/2021 he was able to continue with his week 3 carboplatin/paclitaxel administered through a PICC line in the right arm. He is being followed at wound care, and he also has been receiving outpatient IV vancomycin. He is seen for a follow-up visit. He has been feeling pretty good generally, though he is now getting more fatigued. He is still able to do light work. ECOG score is 1. His appetite is not good and he has having more esophagitis symptoms and difficulty swallowing. He is eating some, and is also supplementing with Ensure daily. He does not have fever or night sweats. He has a smoker's cough. He says his breathing is pretty good. He does not complain of chest pain. He has not been having any nausea. He has been having some diarrhea. He has noted improvement in his bladder function. He has no significant joint or bone pain. He has not had headache. He has been having some dizziness. He has no numbness/paresthesia or other neuropathy symptoms. Medications: Acetaminophen PM (500-25 mg) Tablet Oral at bedtime PRN, amLODIPine Besylate (5 mg) Tablet Oral daily, Atenolol (50 mg) Tablet Oral every am, B Complex-C Tablet Oral daily, Cholecalciferol (25 mcg ) Tablet Oral daily, Clopidogrel Bisulfate (75 mg) Tablet Oral daily, diphenhydrAMINE HCl (50 mg) Capsule Oral at bedtime, Empagliflozin (25 mg) Tablet Oral daily, Sfqhisdecph-Upibqdxet-Yedtec (100-62.5-25 mcg/inh) Aerosol Powder, Breath Activated Inhalation every am, glipiZIDE ER (2.5 mg) Tablet SR 24 HR Oral every am, HYDROcodone-Acetaminophen (10-325 mg) Tablet Oral four times a day PRN, Isosorbide Mononitrate ER (30 mg) Tablet SR 24 HR Oral every am, Lansoprazole (30 mg) Capsule Delayed Release Oral every am, Losartan Potassium (50 mg) Tablet Oral b.i.d., metFORMIN HCl (1000 mg) Tablet Oral b.i.d., Multivitamin Adult Tablet Oral daily, Nitroglycerin Tablet, sublingual Sublingual PRN, Rosuvastatin Calcium (20 mg) Tablet Oral daily, Vancomycin HCl (1 g) Intravenous b.i.d., ZzzQuil Liquid Oral at bedtime PRN Allergies: Ammonia Solution, Exenatide, Iodinated Contrast Media, Liraglutide, and Niacin. Vital Signs: Performed on Jan 18, 2021 09:46 Height - 72.00 in Weight - 236.8 lbs (LOW) BSA - 2.29 sq.m BMI - 32.12 (HIGH) Temperature - 95.9 F (LOW) Pulse - 96 /min Respiration - 18 /min BP - 102/61 mm(hg) O2 Sat - 95 % (LOW) Pain - 0 Fatigue - 6 Physical Examination: Constitutional - He looks pretty good generally, Eyes - Sclerae nonicteric. Conjunctivae clear, ENMT - No lesions noted in the oral cavity, Hematologic/Lymphatic - No cervical, clavicular, or axillary adenopathy, Respiratory - Lungs sound clear with some decrease in air movement bilaterally, Cardiovascular - Heart rhythm is regular. There is no murmur, gallop, or rub noted, Abdomen - Mildly distended. Liver and spleen are not enlarged. There is no abdominal mass or ascites noted and there is no inguinal adenopathy, Extremities - Slight edema, Neurologic - No focal neurologic deficits noted. Lab/Imaging: CBC shows hemoglobin 9.8 g, white blood cell count 3400, and platelet count 142,000. The absolute neutrophil count is 2500. Comprehensive metabolic profile is unremarkable. Problem List: 1. Moderately differentiated adenocarcinoma involving the upper lobe of the right lung, stage IIIB (T3, N2, M0). His tumor was found to to be positive for PD-L1 expression at > 50%. 2. COPD. 3. Hypertension. 4. Hyperlipidemia. 5. Type 2 diabetes. 6. Coronary artery disease with previous myocardial infarction. 7. 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 8. He is status post endovascular repair of abdominal aortic aneurysm. 9. GERD. 10. Degenerative arthritis/degenerative disease of the spine. 11. History of superficial bladder cancer. Problems Addressed with this Encounter and Plan: 1. 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 His tumor was found to to be positive for PD-L1 expression at > 50%. The mediastinal lymph node involvement was confirmed by surgical mediastinoscopy. With those findings, he was recommended to proceed with chemoradiation. He began radiation concurrently with weekly carboplatin/paclitaxel chemotherapy on 12/20/2020. Following his week to chemotherapy he developed an infection at the site of the Port-A-Cath venous access device in the upper left chest wall, and he underwent removal of the Port-A-Cath on 01/02/2021. He was able to proceed with week 3 carboplatin/paclitaxel on 01/11/2021, administered through a PICC line in the right arm. He has now having a little more treatment related fatigue and he is now having some esophagitis symptoms. He he is mildly anemic, and he has moderately severe neutropenia. He is having no significant neuropathy symptoms. Overall, he is tolerating treatment with acceptable toxicity. He will proceed with his week 4 carboplatin/paclitaxel. The dosages remain the same. He returns in 1 week. 2. He developed an open wound at the site of his Port-A-Cath venous access device in the upper left chest wall in association with a methicillin sensitive staph aureus infection. The Port-A-Cath has been removed, and he is being followed at wound care. At this point he remains on outpatient IV vancomycin. Signed By: Wally López M.D. <<Signature on File>>
--- NOTE | 2021-01-18 13:27 | ONCRAD TMN_ITS ---
Radiation Oncology Treatment Management Note Patient Name: Neal Garzon Date of : 1945 Date of Service: 01/18/2021 Attending Physician: John Gusman M.D. Neal Garzon is a 75 year-old white male recently diagnosed with a clinical stage IIIA (T1cN2) adenocarcinoma of the right upper lobe of the lung. The patient has received 34 Gy of a prescribed 60 Bales with an intensity modulated radiotherapy plan utilizing a step and shoot treatment technique. He has been prescribed Carboplatin (AUC 2) and Paclitaxel (50 mg/m???) weekly during therapy. Upon review of systems, he denied pulmonary symptoms. On physical examination, the patient weighed 237 lbs. His temperature was 96.9 ???F with a blood pressure of 128/63 mmHg. The pulse was 86 bpm and his respiratory rate was 20. Oxygen saturation while breathing room air was 95%. There was no erythema within the treatment mendoza. Bronchial breath sounds were auscultated. Continue thoracic radiotherapy as planned. Signed by: Dr. John Gusman 01/18/2021 1:25:07 PM
== END 2021-01-20 23:59 | disposition home or self-care (01) ==
LOC: ONCMED 06:32
PROVIDERS: Absent Provider Radiology Radiation Oncology; PCP Family Medicine; Visit Provider Radiology Radiation Oncology
DX: Z51.0 Encounter for antineoplastic radiation therapy (principal); Z51.11 Encounter for antineoplastic chemotherapy; C34.11 Malignant neoplasm of upper lobe, right bronchus or lung; J44.9 Chronic obstructive pulmonary disease, unspecified; I10 Essential (primary) hypertension; E78.5 Hyperlipidemia, unspecified; E11.59 Type 2 diabetes mellitus with other circulatory complications; I25.10 Atherosclerotic heart disease of native coronary artery without angina pectoris; I25.2 Old myocardial infarction; I65.22 Occlusion and stenosis of left carotid artery; I71.4 Abdominal aortic aneurysm, without rupture; K21.9 Gastro-esophageal reflux disease without esophagitis; M47.9 Spondylosis, unspecified; Z85.51 Personal history of malignant neoplasm of bladder; Z79.899 Other long term (current) drug therapy
CPT/HCPCS: 36592; 77336; 77386; 80053; 85025; 96367; 96375; 96413; 96417; 99215; J1100; J1200; J2469; J3490; J7030; J7040; J7050; J9045; J9267

== ENCOUNTER 2021-01-20 08:43 | Outpatient (CLI) | payer MEDICARE, SELFPAY ==
[2021-01-20 09:39] LABS: Anion Gap 17.9 (5-19); Blood Urea Nitrogen 19 mg/dL (8-23); Carbon Dioxide 20 mmol/L (22-29); Chloride 102 mmol/L (98-107); Glucose 168 mg/dL (65-115); Osmolality Calculated 288 mOsm/kg (285-295); Potassium 3.9 mmol/L (3.5-5.1); Sodium 136 mmol/L (136-145)
== END 2021-01-20 08:44 | disposition home or self-care (01) ==
PROVIDERS: PCP Family Medicine; Visit Provider Surgery
DX: T80.212A Local infection due to central venous catheter, initial encounter (principal)
CPT/HCPCS: 80048; 80202

== ENCOUNTER 2021-02-10 06:17 | Outpatient (RCR) | payer MEDICARE, SELFPAY ==
--- NOTE | 2021-01-24 11:48 | ONCRAD TMN_ITS ---
Radiation Oncology Treatment Management Note Patient Name: Neal Garzon Date of : 1945 Date of Service: 01/24/2021 Attending Physician: John Gusman M.D. Neal Garzon is a 75 year-old white male recently diagnosed with a clinical stage IIIA (T1cN2) adenocarcinoma of the right upper lobe of the lung. The patient has received 42 Gy of a prescribed 60 Bales with an intensity modulated radiotherapy plan utilizing a step and shoot treatment technique. He has been prescribed Carboplatin (AUC 2) and Paclitaxel (50 mg/m???) weekly during therapy. Upon review of systems, he denied pulmonary symptoms. On physical examination, the patient weighed 234 lbs. His temperature was 96.7 ???F with a blood pressure of 124/64 mmHg. The pulse was 71 bpm and his respiratory rate was 20. Oxygen saturation while breathing room air was 97%. There was no erythema within the treatment mendoza. Bronchial breath sounds were auscultated in the posterior lung mendoza. Continue thoracic radiotherapy as prescribed. Signed by: Dr. John Gusman 01/24/2021 11:47:22 AM
[2021-01-24 12:30] LABS: Basophils % 1.5 %; Eosinophils # 0.1 10^3/uL (0.0-0.8); Eosinophils % 3.1 %; Hematocrit 31.1 % (42.0-52.0); Hemoglobin 9.5 g/dL (11.7-16.6); Lymphocytes # 0.4 10^3/uL (0.8-4.8); Lymphocytes % 19.6 %; Mean Corpuscular HGB Conc 30.5 g/dL (30.0-36.0); Mean Corpuscular Hemoglobin 28.7 pg (28.0-34.0); Mean Platelet Volume 11.5 fL (7.4-10.4); Monocytes # 0.1 10^3/uL (0.2-0.9); Monocytes % 6.7 %; Neutrophils # 1.33 10^3/uL (1.8-7.7); Neutrophils % 68.6 %; Nucleated Red Blood Cells % 0 %; Platelet Count 98 10^3/cmm (130-400); Red Blood Count 3.31 10^6/uL (4.1-5.3); Red Cell Distribution Width 20.7 % (12.1-15.1); White Blood Count 1.9 10^3/uL (4.0-10.0)
[2021-01-24 13:03] LABS: Alanine Aminotransferase 12 U/L (0-41); Albumin Level 3.7 g/dL (3.5-5.2); Alkaline Phosphatase 52 IU/L (40-130); Anion Gap 15.5 (5-19); Aspartate Amino Transferase 17 U/L (0-40); Blood Urea Nitrogen 14 mg/dL (8-23); Calcium 8.9 mg/dL (8.5-10.5); Carbon Dioxide 22 mmol/L (22-29); Chloride 106 mmol/L (98-107); Globulin 2.6 g/dL (1.3-4.6); Glucose 116 mg/dL (65-115); Osmolality Calculated 289 mOsm/kg (285-295); Potassium 4.5 mmol/L (3.5-5.1); Sodium 139 mmol/L (136-145); Total Bilirubin 1.2 mg/dL (0.15-1.2); Total Protein 6.3 g/dL (6.6-8.7)
[2021-01-31 12:51] LABS: Eosinophils # 0.1 10^3/uL (0.0-0.8); Eosinophils % 1.7 %; Hematocrit 32.2 % (42.0-52.0); Lymphocytes # 0.4 10^3/uL (0.8-4.8); Lymphocytes % 14.4 %; Mean Corpuscular HGB Conc 31.1 g/dL (30.0-36.0); Mean Corpuscular Hemoglobin 30.2 pg (28.0-34.0); Mean Corpuscular Volume 97.3 fl (80-94); Mean Platelet Volume 11.7 fL (7.4-10.4); Monocytes # 0.6 10^3/uL (0.2-0.9); Neutrophils # 1.77 10^3/uL (1.8-7.7); Neutrophils % 60.9 %; Nucleated Red Blood Cells % 0 %; Platelet Count 143 10^3/cmm (130-400); Red Blood Count 3.31 10^6/uL (4.1-5.3); Red Cell Distribution Width 23.7 % (12.1-15.1); White Blood Count 2.9 10^3/uL (4.0-10.0)
[2021-01-31 12:53] LABS: Alanine Aminotransferase 12 U/L (0-41); Albumin Level 3.7 g/dL (3.5-5.2); Alkaline Phosphatase 57 IU/L (40-130); Anion Gap 15.6 (5-19); Aspartate Amino Transferase 19 U/L (0-40); Blood Urea Nitrogen 12 mg/dL (8-23); Carbon Dioxide 23 mmol/L (22-29); Chloride 107 mmol/L (98-107); Globulin 2.8 g/dL (1.3-4.6); Glucose 113 mg/dL (65-115); Osmolality Calculated 293 mOsm/kg (285-295); Potassium 4.6 mmol/L (3.5-5.1); Sodium 141 mmol/L (136-145); Total Bilirubin 0.9 mg/dL (0.15-1.2); Total Protein 6.5 g/dL (6.6-8.7)
--- NOTE | 2021-01-31 13:08 | ONCRAD TMN_ITS ---
Radiation Oncology Treatment Management Note Patient Name: Neal Garzon Date of : 1945 Date of Service: 01/31/2021 Attending Physician: John Gusman M.D. Neal Garzon is a 75 year-old white male recently diagnosed with a clinical stage IIIA (T1cN2) adenocarcinoma of the right upper lobe of the lung. The patient has received 52 Gy of a prescribed 60 Bales with an intensity modulated radiotherapy plan utilizing a step and shoot treatment technique. He has been prescribed Carboplatin (AUC 2) and Paclitaxel (50 mg/m???) weekly during therapy. Upon review of systems, he denied pulmonary symptoms. On physical examination, the patient weighed 235 lbs. His temperature was 97 ???F with a blood pressure of 121/65 mmHg. The pulse was 75 bpm and his respiratory rate was 18. Oxygen saturation while breathing room air was 96%. Bronchial breath sounds were auscultated in the posterior lung mendoza. Continue thoracic radiotherapy as planned. Signed by: Dr. John Gusman 01/31/2021 1:07:40 PM
[2021-02-01 09:44] LABS: Vancomycin Trough 13.9 ug/mL (10-15)
[2021-02-01 09:45] LABS: Alanine Aminotransferase 12 U/L (0-41); Albumin Level 3.6 g/dL (3.5-5.2); Alkaline Phosphatase 59 IU/L (40-130); Anion Gap 12.4 (5-19); Aspartate Amino Transferase 16 U/L (0-40); Blood Urea Nitrogen 14 mg/dL (8-23); Calcium 8.9 mg/dL (8.5-10.5); Carbon Dioxide 23 mmol/L (22-29); Chloride 104 mmol/L (98-107); Glucose 143 mg/dL (65-115); Osmolality Calculated 283 mOsm/kg (285-295); Potassium 4.4 mmol/L (3.5-5.1); Sodium 135 mmol/L (136-145); Total Bilirubin 0.8 mg/dL (0.15-1.2); Total Protein 6.6 g/dL (6.6-8.7)
[2021-02-02] MEDS: palonosetron 0.25 mg/5 mL SDV IVP (11:50)
[2021-02-02] MEDS: sodium chloride 0.9% 250 ML 75 ML IV (11:50)
[2021-02-02] MEDS: famotidine 20 mg/2 mL INJ IVP (11:51)
[2021-02-02] MEDS: diphenhydrAMINE 50 mg/mL SDV 1mL 25 MG IVP (11:53)
--- NOTE | 2021-02-06 22:56 | ONC FU_ITS ---
[facility] Patient Note Patient: Neal Garzon Unit #: [id number]: 1945 Dictated By: Bertin RaderDate of Visit: Feb 01, 2021 Onc MED Follow-Up/Prog Note Chief Complaint: Lung cancer. 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 In June 2020 he presented with acute visual loss in the left eye. His echocardiogram showed slightly diminished ejection fraction at 50% with mild diffuse hypokinesis of the anterior and lateral wall segments. It otherwise was unrevealing. His carotid Doppler showed high-grade stenosis of the left ICA and bifurcation with a moderate heterogeneous plaques at the right bifurcation and ICA. CT angiogram of the head/neck on 07/30/2020 showed a large amount of calcified plaque and intimal thickening to the proximal left ICA which was noted to be completely occluded. There was 20% stenosis of the right extracranial ICA. CT angiogram of the chest on 08/10/2020 showed patent common carotid origins and subclavian artery origins. The most significant finding was the presence of suspicious pulmonary opacities involving the superior segment right upper lobe along the fissure measuring 2.1 x 1.1 cm and in the anterior right upper lobe measuring 15 mm. A noncalcified right lower lobe nodule measured 7 mm. There was associated right hilar adenopathy and there was prominent AP window, peribronchial, anterior mediastinal, and subcarinal adenopathy, all new from a previous study in 2017. Further evaluation with PET/CT on 08/21/2020 showed FDG avid posterior segment right upper lobe subpleural nodule measuring 1.4 x 1.7 cm, SUV 7.7, indicating high probability of malignancy. A second lesion in the anterior right upper lobe measuring 1.0 x 1.5 cm was also FDG avid with SUV 4.9. FDG positive lymph nodes were noted in the right upper hilum and right paratracheal region consistent with metastatic disease. There were no other areas of abnormal uptake. He then had pulmonary consultation with Dr. Sanford and on 08/31/2020 he underwent navigational bronchoscopy/EBUS. There was evidence for mild irregularity of mucosa of the entrance in the right upper lobe bronchus, there were no endobronchial lesions identified. He underwent right upper lobe endobronchial biopsy and transbronchial FNA biopsy of the right upper lobe nodule and of station 4R, 7, and 10 lymph nodes. Pathology on the right upper lobe transbronchial biopsies showed no malignancy, and the FNA biopsies of station 4R, station 7, and station 10 R lymph nodes were also negative for malignancy. Additionally, the bronchial washings were negative for malignancy. On 10/22/[address]-guided biopsy of the subpleural nodule in the posterior lateral right upper lobe. Pathology on that biopsy showed invasive moderately differentiated adenocarcinoma consistent with pulmonary origin. The tumor was positive for P-L1 expression > 50%. There was insufficient tumor sample for any additional molecular studies. Dr López had seen him initially on 11/05/2020. Despite the negative FNA, the PET/CT findings were still suspicious for involvement in the mediastinal lymph nodes. He then had a repeat chest CT on 11/22/2020. That study showed no change in the right upper lobe pulmonary nodules or in the prominent anterior mediastinal, peribronchial, and right hilar lymph nodes. As such, he was referred to Dr. Goldstein and on 12/06/2020 he underwent surgical mediastinoscopy with biopsy of level 2R, level 4R, and left precarinal lymph nodes. The left precarinal node biopsy was negative for malignancy, but both the level 4R and the level 2R nodes showed adenocarcinoma. With that finding, his disease was confirmed to be stage IIIB (T3, N2, M0), and he was recommended to proceed with chemoradiation. His other medical illnesses include COPD, hypertension, hyperlipidemia, type 2 diabetes, coronary artery disease with previous myocardial infarction, carotid stenosis, GERD, and degenerative arthritis/degenerative disease of the spine. He has had previous endovascular repair of an abdominal aortic aneurysm. He also has a prior history of superficial bladder cancer. He has a history of smoking for 50 years, up to 2 packs of cigarettes daily. He has been in the process of quitting. INTERIM HISTORY: He began radiation together with weekly carboplatin/paclitaxel chemotherapy on 12/20/2020. Experienced no acute toxicity with his initial chemotherapy infusion. He continued with his week 2 chemotherapy on 12/28/2020. He then developed an infection at the site of his Port-A-Cath venous access device, requiring removal of the Port-A-Cath on 01/02/2021. The wound site and the catheter tip grew methicillin sensitive staph aureus. On 01/11/2021 he was able to continue with his week 3 carboplatin/paclitaxel administered through a PICC line in the right arm. He is being followed at wound care, and he also has been receiving outpatient IV vancomycin. He was seen for a follow-up visit on 01/31/2021 and his week 5 treatment was held due to neutropenia with an ANC of 1330 compare to 2500 the week before. Mr Garzon is here today for followup and consideration of week 5 Carboplatin/TAxol. He is scheduled to complete radiation therapy this Sunday. Overall he states he feels good. He has had no fever or chills. He denies any mouth sores, sore throat or difficulty swallowing. He states he has had some fatigue but no worse than what it has been. He is still able to do all his ADLs without any kind of assistance. He denies any new concerns. He denies any new pain. His appetite is about the same. His weight remains stable at 235. He denies any nausea to speak of . He denies any diarrhea. He denies any neuropathy from the chemotherapy. He does state that he did not take his premed steroids today. His ECOG is 1. Past Medical History: Abdominal aortic aneurysm Carotid stenosis Chronic obstructive pulmonary disease Coronary artery disease Degenerative arthritis Degenerative disease of the spine Gastroesophageal reflux disease History of diverticulitis History of retinal artery occlusion History of superficial bladder cancer Hyperlipidemia Hypertension Type II diabetes Past Surgical History: Cataracts Colonoscopy CT directed biopsy of right upper lobe lung nodule in 2020 Navigational bronchoscopy/EBUS in 2020 Covid vaccine #2 in 2020 Covid vaccine #1 in 2020 Endovascular repair of abdominal aortic aneurysm in 2010 TURBT for superficial bladder cancer in 2006 Spinal fusion in 1960 Allergies: Ammonia Solution, Exenatide, Iodinated Contrast Media, Liraglutide, and Niacin. Medications: Acetaminophen PM (500-25 mg) Tablet Oral at bedtime PRN amLODIPine Besylate 1 Tablet (of 2.5 mg) Oral daily Anti-Diarrheal 1 Tablet (of 2 mg) Tablet Oral PRN Atenolol (50 mg) Tablet Oral every am B Complex-C Tablet Oral daily Cholecalciferol (25 mcg ) Tablet Oral daily Clopidogrel Bisulfate (75 mg) Tablet Oral daily diphenhydrAMINE HCl (50 mg) Capsule Oral at bedtime Empagliflozin (25 mg) Tablet Oral daily Ioejvowsbgp-Lbssudgzn-Sejxfr (100-62.5-25 mcg/inh) Aerosol Powder, Breath Activated Inhalation every am glipiZIDE ER (2.5 mg) Tablet SR 24 HR Oral every am HYDROcodone-Acetaminophen (10-325 mg) Tablet Oral four times a day PRN Isosorbide Mononitrate ER (30 mg) Tablet SR 24 HR Oral every am Lansoprazole (30 mg) Capsule Delayed Release Oral every am Losartan Potassium (50 mg) Tablet Oral b.i.d. metFORMIN HCl (1000 mg) Tablet Oral b.i.d. Multivitamin Adult Tablet Oral daily Nitroglycerin Tablet, sublingual Sublingual PRN Probiotic Daily 1 Capsule Oral b.i.d. Rosuvastatin Calcium (20 mg) Tablet Oral daily Vancomycin HCl (1 g) Intravenous b.i.d. ZzzQuil Liquid Oral at bedtime PRN Family History: Mr. Garzon's mother at age 100. Mr. Garzon's father at age 51: aortic aneurysm. Father of ruptured aortic aneurysm at age 51. Mother lived to age 100. A brother has been treated for throat cancer. Social History: Mr. Garzon is . He is an occasional smoker who has smoked 2.0 packs/day for 59 years. He drinks occasionally. He has indicated exposure to the following products: cigarettes. 12/21/20: Has started back smoking but is trying to quit again.//bd He has a history of smoking for 50 years, up to 2 packs of cigarettes daily. He is in the process of quitting. He has had only very occasional alcohol use. Review Of Symptoms: <See Above> Vital Signs: Performed on Feb 01, 2021 11:24 Height - 72.00 in Weight - 235.8 lbs (HIGH) BSA - 2.28 sq.m BMI - 31.98 (HIGH) Temperature - 97.4 F (LOW) Pulse - 77 /min Respiration - 18 /min BP - 104/60 mm(hg) O2 Sat - 95 % (LOW) Pain - 0 Fatigue - 6,1 - No physically strenuous activity, but ambulatory and able to carry out light or sedentary work (e.g. office work, light house work). (ECOG) Physical Examination: Constitutional Alert, oriented, no acute distress. Skin pink, warm and dry. Head Normocephalic; atraumatic. Eyes Conjunctivae and sclerae are clear and without icterus. Pupils are reactive and equal. ENMT No oral exudates, ulcers, masses, thrush or mucositis. Oropharynx clear. Tongue normal. Neck Supple without masses or thyromegaly. No jugular venous distension. Hematologic/Lymphatic No petechiae or purpura. No tender or palpable lymph nodes in the cervical or supraclavicular areas. Respiratory Lungs are clear to auscultation without rhonchi or wheezing. Cardiovascular Regular rate and rhythm of heart without murmurs,clicks, gallops or rubs. Abdomen Non-tender, non-distended, no masses or ascites. Good bowel sounds noted in all quads. No guarding or rebound tenderness. No pulsatile masses. Back/Spine Non-tender to palpation. Extremities No visible deformities, no cyanosis, clubbing or edema. Right arm PICC unremarkable. Musculoskeletal No tenderness or swelling, normal range of motion without obvious weakness. Integumentary No rashes or lesions. Neurologic No sensory or motor deficits, normal cerebellar function, normal gait. Psychiatric Alert and oriented times three. Coherent speech. Verbalizes understanding of our discussions today. Laboratory:Test performed on Feb 01, 2021 08:00 Sodium 135 mmol/L Potassium 4.4 mmol/L Chloride 104 mmol/L CO2 23 mmol/L Anion Gap 12.4 BUN 14 mg/dL Creatinine 0.6 mg/dL Cr Clearance (Est) 166.0400 mL/min Glucose 143 mg/dL Osmolality - Calculated 283 mOsm/kg Calcium 8.9 mg/dL Protein, Total 6.6 g/dL Albumin 3.6 g/dL Globulin 3.0 g/dL Bilirubin, Total 0.8 mg/dL ALT (SGPT) 12 U/L AST (SGOT) 16 U/L Alkaline Phosphatase 59 IU/L Impression: 1. Moderately differentiated adenocarcinoma involving the upper lobe of the right lung, stage IIIB (T3, N2, M0). His tumor was found to to be positive for PD-L1 expression at > 50%. 2. COPD. 3. Hypertension. 4. Hyperlipidemia. 5. Type 2 diabetes. 6. Coronary artery disease with previous myocardial infarction. 7. 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 8. He is status post endovascular repair of abdominal aortic aneurysm. 9. GERD. 10. Degenerative arthritis/degenerative disease of the spine. 11. History of superficial bladder cancer. 12. MRSA left chest wall (Port a cath insertion site/Port removed) December 2020 Plan/Problems Addressed at this Visit: 1. 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 His tumor was found to to be positive for PD-L1 expression at > 50%. The mediastinal lymph node involvement was confirmed by surgical mediastinoscopy. With those findings, he was recommended to proceed with chemoradiation. He began radiation concurrently with weekly carboplatin/paclitaxel chemotherapy on 12/20/2020. Following his week to chemotherapy he developed an infection at the site of the Port-A-Cath venous access device in the upper left chest wall, and he underwent removal of the Port-A-Cath on 01/02/2021. He was able to proceed with week 3 carboplatin/paclitaxel on 01/11/2021, administered through a PICC line in the right arm. He has now having a little more treatment related fatigue and he is now having some esophagitis symptoms. He he is mildly anemic, and he has moderately severe neutropenia. He is having no significant neuropathy symptoms. Overall, he is tolerating treatment with acceptable toxicity. He completed his week 4 carboplatin/paclitaxel. Week 5 was held on January 24, 2021 due to a platelet count of 98,000 and an ANC of 1330. His previous ANC the week prior was 2500 and his platelet count at that time was 142,000. A. We will proceed with week 5 carboplatin paclitaxel with slight dose reduction. Would like to avoid growth factors as he is currently receiving radiation as well. He completes radiation this Sunday. B. He will continue current antiemetics as these are working well for him. C. January 31, 2021 labs were reviewed in detail and discussed with Mr. Garzon and a copy was given to him. WBC 2.9, hemoglobin is 10, platelets 10 43,000, ANC is 1770 potassium 4.6 random glucose 113 creatinine 0.4 LFTs are normal. D. I have asked Mr. Garzon to return in 1 week with CBC CMP. We will reassess his neutropenia at that time. I would feel more comfortable starting him with growth factors at that time if needed. E. According to Dr. Gusman in radiation therapy he has had a good response and I felt it necessary to proceed with chemotherapy today at a slightly reduced dose. We will support him with growth factors as needed. F. Mr. Garzon was instructed to contact us in the interim should questions or problems arise. 2. He developed an open wound at the site of his Port-A-Cath venous access device in the upper left chest wall in association with a methicillin sensitive staph aureus infection. The Port-A-Cath has been removed, and he is being followed at wound care. At this point he remains on outpatient IV vancomycin. ADDENDUM Mr. Garzon was scheduled to return for his week 5 carboplatin paclitaxel on February 02, 2021 due to steroid noncompliance today. He was reminded to take his steroid premeds tonight and with treat him tomorrow. Signed By: Bertin Rader-, [facility] Wally López MD <<Signature on File>>
--- NOTE | 2021-02-07 08:20 | N.ONRD TS_ITS ---
Radiation OncologyTreatment Summary Patient Name: Neal Garzon Date of : 1945 Date of Service: 02/04/2021 Attending Physician: John Gusman M.D. Neal Garzon is a 75 year-old white male recently diagnosed with a clinical stage IIIA (T1cN2) adenocarcinoma of the right upper lobe of the lung. Daily radiotherapy was administered between the dates of December 20, 2020 through February 04, 2021. A prescribed dose of 60 Gy was delivered in 30 fractions encompassing 47 elapsed days. The right upper-lobe mass and mediastinal lymphadenopathy were treated utilizing an intensity modulated radiotherapy plan with a step and shoot treatment technique. The plan required eight gantry angles (0???, 30???, 160???, 190???, 210???, 230???, 300???, and 330???) replicating an arc. The collimator rotations spanned 0??? to 254??? to minimize MLC excursion. The field sizes measured between 11.3 cm x 152.3 cm to 15.2 cm x 12 cm. The SSDs measured a minimum of 80 cm to a maximum of 88.2 cm. The ports delivered 187 MU, 167 MU, 124 MU, 117 MU, 146 MU, 112 MU, 159 MU, and 166 MU corresponding to the gantry angles described. All treatments were performed with the [employer] linear accelerator and an isocentric technique. The dose was calculated by Anisotropic Analytic Algorithm. A photon energy of 6 MV was prescribed with the plan normalized to deliver 100% of the prescription dose to 95% of the planning target volume. He was prescribed carboplatin (AUC 2) and paclitaxel (50 mg/m???) weekly during therapy under the supervision of Wally López M.D. Signed by: Dr. John Gusman 02/07/2021 8:18:43 AM
[2021-02-10 10:14] LABS: Basophils % 0.9 %; Eosinophils # 0.1 10^3/uL (0.0-0.8); Hematocrit 31.4 % (42.0-52.0); Hemoglobin 9.5 g/dL (11.7-16.6); Lymphocytes # 0.4 10^3/uL (0.8-4.8); Mean Corpuscular HGB Conc 30.3 g/dL (30.0-36.0); Mean Corpuscular Volume 99.1 fl (80-94); Mean Platelet Volume 11.2 fL (7.4-10.4); Monocytes # 0.4 10^3/uL (0.2-0.9); Monocytes % 10.8 %; Neutrophils # 2.54 10^3/uL (1.8-7.7); Neutrophils % 73.8 %; Nucleated Red Blood Cells % 0.6 %; Platelet Count 127 10^3/cmm (130-400); Red Blood Count 3.17 10^6/uL (4.1-5.3); Red Cell Distribution Width 24.7 % (12.1-15.1); White Blood Count 3.4 10^3/uL (4.0-10.0)
[2021-02-10 10:25] LABS: Alanine Aminotransferase 12 U/L (0-41); Albumin Level 3.6 g/dL (3.5-5.2); Alkaline Phosphatase 55 IU/L (40-130); Anion Gap 16.3 (5-19); Aspartate Amino Transferase 18 U/L (0-40); Blood Urea Nitrogen 16 mg/dL (8-23); Calcium 8.8 mg/dL (8.5-10.5); Carbon Dioxide 22 mmol/L (22-29); Chloride 103 mmol/L (98-107); Globulin 2.7 g/dL (1.3-4.6); Glucose 161 mg/dL (65-115); Osmolality Calculated 289 mOsm/kg (285-295); Potassium 4.3 mmol/L (3.5-5.1); Sodium 137 mmol/L (136-145); Total Bilirubin 0.6 mg/dL (0.15-1.2); Total Protein 6.3 g/dL (6.6-8.7)
--- NOTE | 2021-02-25 01:46 | ONC FU_ITS ---
[facility] Patient Note Patient: Neal Garzon Unit #: [id number]: 1945 Dictated By: Bertin RaderDate of Visit: Feb 10, 2021 Onc MED Follow-Up/Prog Note Chief Complaint: Lung cancer. 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 In June 2020 he presented with acute visual loss in the left eye. His echocardiogram showed slightly diminished ejection fraction at 50% with mild diffuse hypokinesis of the anterior and lateral wall segments. It otherwise was unrevealing. His carotid Doppler showed high-grade stenosis of the left ICA and bifurcation with a moderate heterogeneous plaques at the right bifurcation and ICA. CT angiogram of the head/neck on 07/30/2020 showed a large amount of calcified plaque and intimal thickening to the proximal left ICA which was noted to be completely occluded. There was 20% stenosis of the right extracranial ICA. CT angiogram of the chest on 08/10/2020 showed patent common carotid origins and subclavian artery origins. The most significant finding was the presence of suspicious pulmonary opacities involving the superior segment right upper lobe along the fissure measuring 2.1 x 1.1 cm and in the anterior right upper lobe measuring 15 mm. A noncalcified right lower lobe nodule measured 7 mm. There was associated right hilar adenopathy and there was prominent AP window, peribronchial, anterior mediastinal, and subcarinal adenopathy, all new from a previous study in 2017. Further evaluation with PET/CT on 08/21/2020 showed FDG avid posterior segment right upper lobe subpleural nodule measuring 1.4 x 1.7 cm, SUV 7.7, indicating high probability of malignancy. A second lesion in the anterior right upper lobe measuring 1.0 x 1.5 cm was also FDG avid with SUV 4.9. FDG positive lymph nodes were noted in the right upper hilum and right paratracheal region consistent with metastatic disease. There were no other areas of abnormal uptake. He then had pulmonary consultation with Dr. Sanford and on 08/31/2020 he underwent navigational bronchoscopy/EBUS. There was evidence for mild irregularity of mucosa of the entrance in the right upper lobe bronchus, there were no endobronchial lesions identified. He underwent right upper lobe endobronchial biopsy and transbronchial FNA biopsy of the right upper lobe nodule and of station 4R, 7, and 10 lymph nodes. Pathology on the right upper lobe transbronchial biopsies showed no malignancy, and the FNA biopsies of station 4R, station 7, and station 10 R lymph nodes were also negative for malignancy. Additionally, the bronchial washings were negative for malignancy. On 10/22/[address]-guided biopsy of the subpleural nodule in the posterior lateral right upper lobe. Pathology on that biopsy showed invasive moderately differentiated adenocarcinoma consistent with pulmonary origin. The tumor was positive for P-L1 expression > 50%. There was insufficient tumor sample for any additional molecular studies. Dr López had seen him initially on 11/05/2020. Despite the negative FNA, the PET/CT findings were still suspicious for involvement in the mediastinal lymph nodes. He then had a repeat chest CT on 11/22/2020. That study showed no change in the right upper lobe pulmonary nodules or in the prominent anterior mediastinal, peribronchial, and right hilar lymph nodes. As such, he was referred to Dr. Goldstein and on 12/06/2020 he underwent surgical mediastinoscopy with biopsy of level 2R, level 4R, and left precarinal lymph nodes. The left precarinal node biopsy was negative for malignancy, but both the level 4R and the level 2R nodes showed adenocarcinoma. With that finding, his disease was confirmed to be stage IIIB (T3, N2, M0), and he was recommended to proceed with chemoradiation. His other medical illnesses include COPD, hypertension, hyperlipidemia, type 2 diabetes, coronary artery disease with previous myocardial infarction, carotid stenosis, GERD, and degenerative arthritis/degenerative disease of the spine. He has had previous endovascular repair of an abdominal aortic aneurysm. He also has a prior history of superficial bladder cancer. He has a history of smoking for 50 years, up to 2 packs of cigarettes daily. He has been in the process of quitting. INTERIM HISTORY: He began radiation together with weekly carboplatin/paclitaxel chemotherapy on 12/20/2020. Experienced no acute toxicity with his initial chemotherapy infusion. He continued with his week 2 chemotherapy on 12/28/2020. He then developed an infection at the site of his Port-A-Cath venous access device, requiring removal of the Port-A-Cath on 01/02/2021. The wound site and the catheter tip grew methicillin sensitive staph aureus. On 01/11/2021 he was able to continue with his week 3 carboplatin/paclitaxel administered through a PICC line in the right arm. He is being followed at wound care, and he also has been receiving outpatient IV vancomycin. He was seen for a follow-up visit on 01/31/2021 and his week 5 treatment was held due to neutropenia with an ANC of 1330 compare to 2500 the week before. Mr Garzon was seen on 02/01/21 for followup and consideration of week 5 Carboplatin/Taxol. He was scheduled to complete radiation therapy that following Sunday-February 04, 2021. He was doing well at that visit and his neutrophils had recovered to 1770. He was treated a slight dose reduction given his previous neutropenia as I did not feel comfortable giving him growth factor support while he was on radiation. I felt there was an option to pursue growth factor support after completion of the radiation if necessary. He is here today for 1 week follow-up post completion of chemotherapy and radiation. He completed radiation therapy on 02/04/2021 total dosing was 60 Bales was delivered in 30 fractions encompassing 47 elapsed days. As for this visit today, I wanted to make sure that his neutropenia had not been worsened to the point of initiation of growth factor support. He reports he is doing well. He denies any fever or chills. He denies any night sweats. He states his appetite is good. He is still tired but feels that that is actually getting better already. He denies any nausea or vomiting. He has had slight neuropathy but states that seems to be better also. He has no concerns today. He denies any pain. He denies any diarrhea or constipation. He denies any urinary changes. He states he has not had any new pain and denies any joint or muscle pain. His ECOG is 1. Past Medical History: Abdominal aortic aneurysm Carotid stenosis Chronic obstructive pulmonary disease Coronary artery disease Degenerative arthritis Degenerative disease of the spine Gastroesophageal reflux disease History of diverticulitis History of retinal artery occlusion History of superficial bladder cancer Hyperlipidemia Hypertension Type II diabetes Past Surgical History: Cataracts Colonoscopy CT directed biopsy of right upper lobe lung nodule in 2020 Navigational bronchoscopy/EBUS in 2020 Covid vaccine #2 in 2020 Covid vaccine #1 in 2020 Endovascular repair of abdominal aortic aneurysm in 2010 TURBT for superficial bladder cancer in 2006 Spinal fusion in 1960 Allergies: Ammonia Solution, Exenatide, Iodinated Contrast Media, Liraglutide, and Niacin. Medications: Acetaminophen PM (500-25 mg) Tablet Oral at bedtime PRN Anti-Diarrheal 1 Tablet (of 2 mg) Tablet Oral PRN Atenolol (50 mg) Tablet Oral every am B Complex-C Tablet Oral daily Cholecalciferol (25 mcg ) Tablet Oral daily Clopidogrel Bisulfate (75 mg) Tablet Oral daily diphenhydrAMINE HCl (50 mg) Capsule Oral at bedtime Empagliflozin (25 mg) Tablet Oral daily Sjszynqhewd-Owddcyxpa-Nanblh (100-62.5-25 mcg/inh) Aerosol Powder, Breath Activated Inhalation every am glipiZIDE ER (2.5 mg) Tablet SR 24 HR Oral every am HYDROcodone-Acetaminophen (10-325 mg) Tablet Oral four times a day PRN Isosorbide Mononitrate ER (30 mg) Tablet SR 24 HR Oral every am Lansoprazole (30 mg) Capsule Delayed Release Oral every am Losartan Potassium (50 mg) Tablet Oral b.i.d. metFORMIN HCl (1000 mg) Tablet Oral b.i.d. Multivitamin Adult Tablet Oral daily Nitroglycerin Tablet, sublingual Sublingual PRN Probiotic Daily 1 Capsule Oral b.i.d. Rosuvastatin Calcium (20 mg) Tablet Oral daily ZzzQuil Liquid Oral at bedtime PRN Family History: Mr. Garzon's mother at age 100. Mr. Garzon's father at age 51: aortic aneurysm. Father of ruptured aortic aneurysm at age 51. Mother lived to age 100. A brother has been treated for throat cancer. Social History: Mr. Garzon is . He is an occasional smoker who has smoked 2.0 packs/day for 59 years. He drinks occasionally. He has indicated exposure to the following products: cigarettes. 12/21/20: Has started back smoking but is trying to quit again.//bd He has a history of smoking for 50 years, up to 2 packs of cigarettes daily. He is in the process of quitting. He has had only very occasional alcohol use. Review Of Symptoms: <See Above> Vital Signs: Performed on Feb 10, 2021 11:53 Height - 72.00 in Weight - 230.6 lbs (LOW) BSA - 2.26 sq.m BMI - 31.28 (HIGH) Temperature - 96.6 F (LOW) Pulse - 87 /min Respiration - 18 /min BP - 122/75 mm(hg) O2 Sat - 94 % (LOW) Pain - 0 Fatigue - 8,1 - No physically strenuous activity, but ambulatory and able to carry out light or sedentary work (e.g. office work, light house work). (ECOG) Physical Examination: Constitutional Alert, oriented, no acute distress. Skin pink, warm and dry. Head Normocephalic; atraumatic. Eyes Conjunctivae and sclerae are clear and without icterus. Pupils are reactive and equal. ENMT No oral exudates, ulcers, masses, thrush or mucositis. Oropharynx clear. Tongue normal. Neck Supple without masses or thyromegaly. No jugular venous distension. Hematologic/Lymphatic No petechiae or purpura. No tender or palpable lymph nodes in the cervical or supraclavicular areas. Respiratory Lungs are clear to auscultation without rhonchi or wheezing. Cardiovascular Regular rate and rhythm of heart without murmurs,clicks, gallops or rubs. Abdomen Non-tender, non-distended, no masses or ascites. Good bowel sounds noted in all quads. No guarding or rebound tenderness. No pulsatile masses. Back/Spine Non-tender to palpation. Extremities No visible deformities, no cyanosis, clubbing or edema. Right arm PICC unremarkable. Musculoskeletal No tenderness or swelling, normal range of motion without obvious weakness. Integumentary No rashes or lesions. Neurologic No sensory or motor deficits, normal cerebellar function, normal gait. Psychiatric Alert and oriented times three. Coherent speech. Verbalizes understanding of our discussions today. Laboratory:Test performed on Feb 10, 2021 09:45 Sodium 137 mmol/L Potassium 4.3 mmol/L Chloride 103 mmol/L CO2 22 mmol/L Anion Gap 16.3 BUN 16 mg/dL Creatinine 0.5 mg/dL Cr Clearance (Est) 199.2400 mL/min Glucose 161 mg/dL Osmolality - Calculated 289 mOsm/kg Calcium 8.8 mg/dL Protein, Total 6.3 g/dL Albumin 3.6 g/dL Globulin 2.7 g/dL Bilirubin, Total 0.6 mg/dL ALT (SGPT) 12 U/L AST (SGOT) 18 U/L Alkaline Phosphatase 55 IU/L WBC 3.4 10 3/uL RBC 3.17 10 6/uL HGB 9.5 g/dL HCT 31.4 % MCV 99.1 fl MCH 30.0 pg MCHC 30.3 g/dL RDW 24.7 % Platelet Count 127 10 3/cmm MPV 11.2 fL Neutrophils 2.54 10 3/uL Lymphocytes 0.4 10 3/uL Monocytes 0.4 10 3/uL Eosinophils 0.1 10 3/uL Basophils 0.0 10 3/uL Neutrophil % 73.8 % Lymphocyte % 11.0 % Monocyte % 10.8 % Eosinophil % 2.0 % Basophils % 0.9 % NRBC % 0.6 % Test performed on Dec 28, 2020 09:18 CBC Slide Review Slide Review Perform SLIDE REVIEW AGREES WITH AUTOMATED RESULTS ST Impression: 1. Moderately differentiated adenocarcinoma involving the upper lobe of the right lung, stage IIIB (T3, N2, M0). His tumor was found to to be positive for PD-L1 expression at > 50%. 2. COPD. 3. Hypertension. 4. Hyperlipidemia. 5. Type 2 diabetes. 6. Coronary artery disease with previous myocardial infarction. 7. 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 8. He is status post endovascular repair of abdominal aortic aneurysm. 9. GERD. 10. Degenerative arthritis/degenerative disease of the spine. 11. History of superficial bladder cancer. Plan/Problems Addressed at this Visit: 1. 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 His tumor was found to to be positive for PD-L1 expression at > 50%. The mediastinal lymph node involvement was confirmed by surgical mediastinoscopy. With those findings, he was recommended to proceed with chemoradiation. He began radiation concurrently with weekly carboplatin/paclitaxel chemotherapy on 12/20/2020. Following his week to chemotherapy he developed an infection at the site of the Port-A-Cath venous access device in the upper left chest wall, and he underwent removal of the Port-A-Cath on 01/02/2021. He was able to proceed with week 3 carboplatin/paclitaxel on 01/11/2021, administered through a PICC line in the right arm. He has now having a little more treatment related fatigue and he is now having some esophagitis symptoms. He he is mildly anemic, and he has moderately severe neutropenia. He is having no significant neuropathy symptoms. Overall, he is tolerating treatment with acceptable toxicity. He completed his week 4 carboplatin/paclitaxel. Week 5 was held on January 24, 2021 due to a platelet count of 98,000 and an ANC of 1330. His previous ANC the week prior was 2500 and his platelet count at that time was 142,000. On 02/01/2021 his ANC had slightly improved to 1770. His platelet count had recovered to 143,000 and his hemoglobin was stable at 10.0. I elected to pursue week 5 chemotherapy with slight dose reduction to avoid use of growth factor support while on radiation if possible. A. Mr Garzon completed week 5 carboplatin paclitaxel with slight dose reduction on 02/01/21. He completed radiation therapy on 02/04/2021 total dosing was 60 Bales was delivered in 30 fractions encompassing 47 elapsed days. B. He may now have his PICC line removed as he states he has completed the vancomycin as well. He requires no further chemotherapy at this time. C. Today's labs reviewed in detail discussed with Mr. Garzon and a copy was given to him. WBC 3.4, hemoglobin 9.5, platelets 1 27,000, ANC is 2540. Potassium 4.3 random glucose 161 creatinine 0.5 and LFTs are normal. His weight is 230.6 today. D. We will plan to have follow-up CT of the chest with IV contrast prior to his next visit just before the visit so we may review these results at his 1 month follow-up with Dr. López. I have asked for repeat CBC CMP at that time. E. Mr. Garzon was instructed to contact us in the interim should questions or problems arise. 2. He developed an open wound at the site of his Port-A-Cath venous access device in the upper left chest wall in association with a methicillin sensitive staph aureus infection. The Port-A-Cath has been removed, and he is being followed at wound care. At this point he states he has completed outpatient IV vancomycin. Signed By: Bertin Rader-, AOCNP Wally López MD <<Signature on File>>
== END 2021-02-20 23:59 | disposition home or self-care (01) ==
LOC: ONCMED 06:17
PROVIDERS: Internal Medicine Medical Oncology; Absent Provider Radiology Radiation Oncology; PCP Family Medicine; Visit Provider Nurse Practitioner
DX: Z51.0 Encounter for antineoplastic radiation therapy (principal); C34.11 Malignant neoplasm of upper lobe, right bronchus or lung; J44.9 Chronic obstructive pulmonary disease, unspecified; E78.5 Hyperlipidemia, unspecified; E11.59 Type 2 diabetes mellitus with other circulatory complications; I25.10 Atherosclerotic heart disease of native coronary artery without angina pectoris; I25.2 Old myocardial infarction; I65.22 Occlusion and stenosis of left carotid artery; I71.4 Abdominal aortic aneurysm, without rupture; K21.9 Gastro-esophageal reflux disease without esophagitis; M47.9 Spondylosis, unspecified; Z86.19 Personal history of other infectious and parasitic diseases; Z85.51 Personal history of malignant neoplasm of bladder; Z79.899 Other long term (current) drug therapy; Z92.21 Personal history of antineoplastic chemotherapy; Z92.3 Personal history of irradiation
CPT/HCPCS: 36592; 77336; 77386; 80053; 80202; 85025; 96367; 96375; 96413; 96417; 99214; 99215; J1100; J1200; J2469; J3490; J7030; J7040; J7050; J9045; J9267

== ENCOUNTER 2021-02-23 08:56 | Outpatient (CLI) | payer MEDICARE, SELFPAY ==
--- NOTE | 2021-02-23 09:06 | CT_ITS ---
WS: [id number] CT CHEST WITHOUT INTRAVENOUS CONTRAST HISTORY: MALIGNANT NEOPLASM UPPER LOBE RIGHT BRONCHUS OR LUNG TECHNIQUE: Contiguous 5 mm axial imaging performed on the thorax. Coronal and sagittal reformats are submitted. All CT scans at [facility] use at least one of these dose optimization techniques: automated exposure control; mA and/or kV adjustment per patient size (includes targeted exams where dose is matched to clinical indication); or iterative reconstruction. CONTRAST: None DLP: 1114.81 mGycm COMPARISON: 11/22/2020 and 08/31/2020 Lungs and central airway: Moderate decrease in size of the RIGHT upper lobe nodule abutting the super ior fissure since the most recent examination. There is mild adjacent groundglass attenuation. The so lid nodule now measures 14 x 8 mm as compared to 20 x 12 mm on the prior study. Additional anterior s piculated nodule with a maximum diameter 5.0 mm is also decreased in size by 2 mm. Bilateral lower lo be pulmonary nodules measure 4 to 5 mm and are unchanged. There are 2 nodules in the RIGHT lower lobe and a single nodule in the LEFT lower lobe. Pleura: Normal. No pleural effusion. Heart and pericardium: Mildly enlarged heart. No pericardial effusion. Coronary artery calcifications are extensive. There may be a coronary artery stent present also. Mediastinum and katie: Mediastinal and hilar lymph nodes are identified. There has been a very slight decrease in size of the mediastinal and hilar lymph nodes by 1 to 2 mm. No new or increasing adenopat hy. Vessels: Moderate atherosclerosis aorta. No aneurysm. Pulmonary artery size is large. Chest wall and lower neck: No soft tissue masses. Upper abdomen: No adrenal mass. Noncontrast imaging of the liver is negative for suspicious masses. I ncompletely visualized 3.4 cm cyst LEFT kidney. There is an additional exophytic nodule of slight inc reased density extending lateral from the upper pole of the LEFT kidney. This nodule was also present in 2017. 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 Maximum diam eter is 4.8 cm. This aneurysm was described on 05/12/2019. As compared to 11/22/2020 no interval change. Slight increase in size since 05/12/2019. Osseous structures: Straightening of the normal thoracic kyphosis. Spondylitic changes throughout the thoracic spine. CT/CT chest wo con [id number] IMPRESSION: 1. Moderate decrease in size of the RIGHT upper lobe neoplasm since 11/22/2020. The additional spiculated 5 mm nodule has also slightly decreased. 2. No change in the bilateral lower lobe pulmonary nodules. 3. Mild improvement in the mediastinal and hilar lymph nodes. No new lymph nod es or enlarging lymph nodes. 4. No adrenal mass. 5. Pulmonary hypertension. 6. Suprarenal abdominal aortic aneurysm stable since the most recent study but slightly increased since 05/12/2019.
== END 2021-02-23 08:57 | disposition home or self-care (01) ==
PROVIDERS: PCP Family Medicine; Visit Provider Internal Medicine Medical Oncology
DX: C34.11 Malignant neoplasm of upper lobe, right bronchus or lung (principal); I71.4 Abdominal aortic aneurysm, without rupture; I27.20 Pulmonary hypertension, unspecified
CPT/HCPCS: 71250

== ENCOUNTER 2021-03-15 15:58 | Outpatient (RCR) | payer MEDICARE, SELFPAY ==
--- NOTE | 2021-03-04 11:03 | ONCRAD EPV_ITS ---
Radiation Oncology Follow-Up Note Patient Name: Neal Garzon Date of : 1945 Date of Service: 03/04/2021 Attending Physician: John Gusman M.D. Neal returned to my office this morning for a routinely scheduled follow-up appointment. He completed thoracic radiotherapy in January for the management of a clinical stage IIIA (T1cN2) adenocarcinoma of the right upper lobe of the lung. Daily radiotherapy was administered between the dates of December 20, 2020 through February 04, 2021. A prescribed dose of 60 Gy was delivered in 30 fractions encompassing 47 elapsed days. He was prescribed carboplatin (AUC 2) and paclitaxel (50 mg/m???) weekly during therapy under the supervision of Wally López M.D. On review of systems, he did not report any new pulmonary symptoms. On physical examination, he weighed 187 lbs and the temperature was 97.9???F. His blood pressure was 111/63 mmHg. The pulse was 90 bpm and the respiratory rate was 20 breaths per minute. His oxygen saturation while breathing ambient air was 98%. In summary, Mr. Garzon returned for a routine post-radiotherapy follow-up. A recent CT scan performed on March 03 demonstrated a partial response to treatment. He will continue follow-up as scheduled with his medical oncologist. Signed by: Dr. John Gusman 03/04/2021 11:01:45 AM
[2021-03-07 13:58] LABS: Basophils # 0.1 10^3/uL (0.0-0.1); Basophils % 0.6 %; Eosinophils # 0.1 10^3/uL (0.0-0.8); Eosinophils % 1.7 %; Hematocrit 35.8 % (42.0-52.0); Hemoglobin 11.4 g/dL (11.7-16.6); Lymphocytes # 0.7 10^3/uL (0.8-4.8); Lymphocytes % 8.8 %; Mean Corpuscular HGB Conc 31.8 g/dL (30.0-36.0); Mean Corpuscular Hemoglobin 32.6 pg (28.0-34.0); Mean Corpuscular Volume 102.3 fl (80-94); Mean Platelet Volume 10.8 fL (7.4-10.4); Monocytes # 0.9 10^3/uL (0.2-0.9); Monocytes % 11.5 %; Neutrophils # 5.99 10^3/uL (1.8-7.7); Neutrophils % 76.9 %; Nucleated Red Blood Cells % 0 %; Platelet Count 179 10^3/cmm (130-400); Red Cell Distribution Width 24.8 % (12.1-15.1); White Blood Count 7.8 10^3/uL (4.0-10.0)
[2021-03-07 14:25] LABS: Alanine Aminotransferase 8 U/L (0-41); Alkaline Phosphatase 53 IU/L (40-130); Anion Gap 16.3 (5-19); Aspartate Amino Transferase 14 U/L (0-40); Blood Urea Nitrogen 14 mg/dL (8-23); Calcium 9.8 mg/dL (8.5-10.5); Carbon Dioxide 22 mmol/L (22-29); Chloride 105 mmol/L (98-107); Globulin 2.9 g/dL (1.3-4.6); Glucose 119 mg/dL (65-115); Osmolality Calculated 290 mOsm/kg (285-295); Potassium 4.3 mmol/L (3.5-5.1); Sodium 139 mmol/L (136-145); Thyroid Stimulating Hormone 1.97 uIU/mL (0.27-4.20); Total Bilirubin 0.8 mg/dL (0.15-1.2); Total Protein 6.9 g/dL (6.6-8.7)
--- NOTE | 2021-03-12 11:59 | ONC FU_ITS ---
Dr. López Patient Follow-Up Note Patient: Neal Garzon Unit #: [id number]: 1945 Dicatated By: Wally López M.D.Date of Visit:Mar 09, 2021 Onc Med Follow-up/Prog Note Chief Complaint: Lung cancer. 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 In June 2020 he presented with acute visual loss in the left eye. His echocardiogram showed slightly diminished ejection fraction at 50% with mild diffuse hypokinesis of the anterior and lateral wall segments. It otherwise was unrevealing. His carotid Doppler showed high-grade stenosis of the left ICA and bifurcation with a moderate heterogeneous plaques at the right bifurcation and ICA. CT angiogram of the head/neck on 07/30/2020 showed a large amount of calcified plaque and intimal thickening to the proximal left ICA which was noted to be completely occluded. There was 20% stenosis of the right extracranial ICA. CT angiogram of the chest on 08/10/2020 showed patent common carotid origins and subclavian artery origins. The most significant finding was the presence of suspicious pulmonary opacities involving the superior segment right upper lobe along the fissure measuring 2.1 x 1.1 cm and in the anterior right upper lobe measuring 15 mm. A noncalcified right lower lobe nodule measured 7 mm. There was associated right hilar adenopathy and there was prominent AP window, peribronchial, anterior mediastinal, and subcarinal adenopathy, all new from a previous study in 2017. Further evaluation with PET/CT on 08/21/2020 showed FDG avid posterior segment right upper lobe subpleural nodule measuring 1.4 x 1.7 cm, SUV 7.7, indicating high probability of malignancy. A second lesion in the anterior right upper lobe measuring 1.0 x 1.5 cm was also FDG avid with SUV 4.9. FDG positive lymph nodes were noted in the right upper hilum and right paratracheal region consistent with metastatic disease. There were no other areas of abnormal uptake. He then had pulmonary consultation with Dr. Sanford and on 08/31/2020 he underwent navigational bronchoscopy/EBUS. There was evidence for mild irregularity of mucosa of the entrance in the right upper lobe bronchus, there were no endobronchial lesions identified. He underwent right upper lobe endobronchial biopsy and transbronchial FNA biopsy of the right upper lobe nodule and of station 4R, 7, and 10 lymph nodes. Pathology on the right upper lobe transbronchial biopsies showed no malignancy, and the FNA biopsies of station 4R, station 7, and station 10 R lymph nodes were also negative for malignancy. Additionally, the bronchial washings were negative for malignancy. On 10/22/[address]-guided biopsy of the subpleural nodule in the posterior lateral right upper lobe. Pathology on that biopsy showed invasive moderately differentiated adenocarcinoma consistent with pulmonary origin. The tumor was positive for P-L1 expression > 50%. There was insufficient tumor sample for any additional molecular studies. I had seen him initially on 11/05/2020. Despite the negative FNA, the PET/CT findings were still suspicious for involvement in the mediastinal lymph nodes. He then had a repeat chest CT on 11/22/2020. That study showed no change in the right upper lobe pulmonary nodules or in the prominent anterior mediastinal, peribronchial, and right hilar lymph nodes. As such, he was referred to Dr. Goldstein and on 12/06/2020 he underwent surgical mediastinoscopy with biopsy of level 2R, level 4R, and left precarinal lymph nodes. The left precarinal node biopsy was negative for malignancy, but both the level 4R and the level 2R nodes showed adenocarcinoma. With that finding, his disease was confirmed to be stage IIIB (T3, N2, M0), and he was recommended to proceed with chemoradiation he was His other medical illnesses include COPD, hypertension, hyperlipidemia, type 2 diabetes, coronary artery disease with previous myocardial infarction, carotid stenosis, GERD, and degenerative arthritis/degenerative disease of the spine. He has had previous endovascular repair of an abdominal aortic aneurysm. He also has a prior history of superficial bladder cancer. He has a history of smoking for 50 years, up to 2 packs of cigarettes daily. He has been in the process of quitting. INTERIM HISTORY: He began radiation together with weekly carboplatin/paclitaxel chemotherapy on 12/20/2020. Experienced no acute toxicity with his initial chemotherapy infusion. He continued with his week 2 chemotherapy on 12/28/2020. He then developed an infection at the site of his Port-A-Cath venous access device, requiring removal of the Port-A-Cath on 01/02/2021. The wound site and the catheter tip grew methicillin sensitive staph aureus. On 01/11/2021 he was able to continue with his week 3 carboplatin/paclitaxel administered through a PICC line in the right arm. He was seen at wound care, and he treated as an outpatient with IV vancomycin. He received week 4 carboplatin/paclitaxel on 01/18/2021. His further treatment was then delayed due to neutropenia. He completed his 5th and final chemotherapy infusion on 02/01/2021. He completed radiation on 02/04/2021, total dose 6000 cGy administered in [address] on 02/23/2021 showed a moderate decrease in the size of the right upper lobe neoplasm measuring 14 x 18 mm compared to 20 x 12 mm on the November 2020 study. There is a very slight decrease in mediastinal and hilar lymph nodes. There is no new adenopathy identified. Bilateral lower lobe pulmonary nodules measuring 4 to 5 mm also appeared unchanged. He is seen for a follow-up visit. He is still fatigued following the chemotherapy/radiation, though is able to do some light work at home. His ECOG score is 1. He says his appetite is down somewhat, but not bad. He has not had fever or night sweats. He complains of dry mouth. He has a smoker's hack. He is short of breath with activity. He does not complain of chest pain. He has no GI or complaints. He recently strained his back. Also reports having stiffness in his hands. He does not complain of headache. He has some lightheadedness when his blood pressure is low. He has no numbness/paresthesia or other neuropathy symptoms. Medications: Acetaminophen PM (500-25 mg) Tablet Oral at bedtime PRN, Anti-Diarrheal 1 Tablet (of 2 mg) Tablet Oral PRN, Atenolol (25 mg) Tablet Oral daily, B Complex-C Tablet Oral daily, Cholecalciferol (25 mcg ) Tablet Oral daily, Clopidogrel Bisulfate (75 mg) Tablet Oral daily, diphenhydrAMINE HCl (50 mg) Capsule Oral at bedtime, Empagliflozin (25 mg) Tablet Oral daily, Zgknuimtwrc-Yfbofxyiq-Fwmapz (100-62.5-25 mcg/inh) Aerosol Powder, Breath Activated Inhalation every am, glipiZIDE ER (2.5 mg) Tablet SR 24 HR Oral every am, HYDROcodone-Acetaminophen (10-325 mg) Tablet Oral four times a day PRN, Isosorbide Mononitrate ER (30 mg) Tablet SR 24 HR Oral every am, Lansoprazole (30 mg) Capsule Delayed Release Oral every am, Losartan Potassium (50 mg) Tablet Oral b.i.d., metFORMIN HCl (1000 mg) Tablet Oral b.i.d., Multivitamin Adult Tablet Oral daily, Nitroglycerin Tablet, sublingual Sublingual PRN, Probiotic Daily 1 Capsule Oral b.i.d., Rosuvastatin Calcium (20 mg) Tablet Oral daily, ZzzQuil Liquid Oral at bedtime PRN Allergies: Ammonia Solution, Exenatide, Iodinated Contrast Media, Liraglutide, and Niacin. Vital Signs: Performed on Mar 09, 2021 08:52 Height - 72.00 in Weight - 229.8 lbs (HIGH) BSA - 2.26 sq.m BMI - 31.17 (HIGH) Temperature - 97.0 F (LOW) Pulse - 98 /min Respiration - 18 /min BP - 112/68 mm(hg) O2 Sat - 96 % Pain - 4 Fatigue - 5 Physical Examination: Constitutional - He looks pretty good generally, Eyes - Sclerae nonicteric. Conjunctivae clear, ENMT - No lesions noted in the oral cavity, Hematologic/Lymphatic - No cervical, clavicular, or axillary adenopathy, Respiratory - Lungs sound clear with some decrease in air movement bilaterally, Cardiovascular - Heart rhythm is regular. There is no murmur, gallop, or rub noted, Abdomen - Mildly distended. Liver and spleen are not enlarged. There is no abdominal mass or ascites noted and there is no inguinal adenopathy, Extremities - There is significant swelling of the right leg with right calf circumference measuring 44 cm compared to 40 cm on the left, Neurologic - No focal neurologic deficits noted. Lab/Imaging: Test performed on Mar 07, 2021 13:20 Sodium 139 mmol/L TSH 1.97 uIU/mL Potassium 4.3 mmol/L Chloride 105 mmol/L CO2 22 mmol/L Anion Gap 16.3 BUN 14 mg/dL Creatinine 0.6 mg/dL Cr Clearance (Est) 149.60 mL/min Glucose 119 mg/dL Osmolality - Calculated 290 mOsm/kg Calcium 9.8 mg/dL Protein, Total 6.9 g/dL Albumin 4.0 g/dL Globulin 2.9 g/dL Bilirubin, Total 0.8 mg/dL ALT (SGPT) 8 U/L AST (SGOT) 14 U/L Alkaline Phosphatase 53 IU/L WBC 7.8 10 3/uL RBC 3.50 10 6/uL HGB 11.4 g/dL HCT 35.8 % MCV 102.3 fl MCH 32.6 pg MCHC 31.8 g/dL RDW 24.8 % Platelet Count 179 10 3/cmm MPV 10.8 fL Neutrophils 5.99 10 3/uL Lymphocytes 0.7 10 3/uL Monocytes 0.9 10 3/uL Eosinophils 0.1 10 3/uL Basophils 0.1 10 3/uL Neutrophil % 76.9 % Lymphocyte % 8.8 % Monocyte % 11.5 % Eosinophil % 1.7 % Basophils % 0.6 % NRBC % 0 % Problem List: 1. Moderately differentiated adenocarcinoma involving the upper lobe of the right lung, stage IIIB (T3, N2, M0). His tumor was found to to be positive for PD-L1 expression at > 50%. 2. COPD. 3. Hypertension. 4. Hyperlipidemia. 5. Type 2 diabetes. 6. Coronary artery disease with previous myocardial infarction. 7. 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 8. He is status post endovascular repair of abdominal aortic aneurysm. 9. GERD. 10. Degenerative arthritis/degenerative disease of the spine. 11. History of superficial bladder cancer. 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 His tumor was found to to be positive for PD-L1 expression at >50%. The mediastinal lymph node involvement was confirmed by surgical mediastinoscopy. With those findings, he was recommended to proceed with chemoradiation. He began radiation concurrently with weekly carboplatin/paclitaxel chemotherapy on 12/20/2020. Following his week 2 chemotherapy he developed an infection at the site of the Port-A-Cath venous access device in the upper left chest wall, and he underwent removal of the Port-A-Cath on 01/02/2021. He was able to proceed with week 3 carboplatin/paclitaxel on 01/11/2021, administered through a PICC line in the right arm. He received week 4 carboplatin/paclitaxel 01/18/2021. His further treatment was delayed due to neutropenia. He completed his 5th and final cycle of chemotherapy on 02/01/2021. He completed radiation on 02/04/2021, total dose 6000 cGy administered in [address] of the chest on 02/23/2021 did show evidence of response and no evidence of disease progression. As such, he is eligible now to proceed with maintenance durvalumab. I reviewed potential side effects with the immunotherapy which may include enteritis, pneumonitis, endocrinopathies, skin eruption, and renal and/or hepatic dysfunction, among others. He is agreeable to continue treatment as recommended, and he will be given his initial infusion of durvalumab today at the standard fixed dosage of 1500 mg. He returns in 4 weeks. Signed By: Wally López M.D. <<Signature on File>>
--- NOTE | 2021-03-15 16:18 | USR_ITS ---
PROCEDURE INFORMATION: Exam: US Duplex Right Lower Extremity Veins, Limited Exam date and time: 03/15/2021 4:18 PM Age: 76 years old Clinical indication: Swelling (edema) of limb; Lower extremity, right; Patient HX: H/o lung CA; Additional info: Right lower extremity swelling TECHNIQUE: Imaging protocol: Real-time Duplex ultrasound of the Right Lower Extremity with 2-D singh scale, color Doppler flow and spectral waveform analysis with image documentation. Limited exam was focused on the right lower extremity veins. COMPARISON: No relevant prior studies available. FINDINGS: Right deep veins: Unremarkable. The common femoral, femoral, proximal profunda femoral and popliteal veins are patent without thrombus. Normal Doppler waveforms. Normal compressibility and/or augmentation response. Right superficial veins: Unremarkable. Saphenofemoral junction is patent without thrombus. Soft tissues: Unremarkable. US/[place] [id number] IMPRESSION: No evidence of deep vein thrombosis. Radiation Dose CTDIVOL = (mGy): DLP = (mGy-cm)
== END 2021-03-22 23:59 | disposition home or self-care (01) ==
LOC: ONCMED 15:58
PROVIDERS: PCP Family Medicine; Visit Provider Internal Medicine Medical Oncology
DX: Z51.12 Encounter for antineoplastic immunotherapy (principal); C34.11 Malignant neoplasm of upper lobe, right bronchus or lung; J44.9 Chronic obstructive pulmonary disease, unspecified; I10 Essential (primary) hypertension; E78.5 Hyperlipidemia, unspecified; E11.59 Type 2 diabetes mellitus with other circulatory complications; I25.10 Atherosclerotic heart disease of native coronary artery without angina pectoris; I25.2 Old myocardial infarction; I65.22 Occlusion and stenosis of left carotid artery; I71.4 Abdominal aortic aneurysm, without rupture; K21.9 Gastro-esophageal reflux disease without esophagitis; M47.9 Spondylosis, unspecified; R22.41 Localized swelling, mass and lump, right lower limb; Z85.51 Personal history of malignant neoplasm of bladder; Z79.899 Other long term (current) drug therapy
CPT/HCPCS: 36415; 80053; 84443; 85025; 93971; 96413; 99024; 99215; J7050; J9173

== ENCOUNTER → 2021-04-05 09:14 | Outpatient (BNVA) | payer MEDICARE, SELFPAY | PROVIDERS: PCP Family Medicine; Visit Provider Urology | DX: C67.2 Malignant neoplasm of lateral wall of bladder (principal) | CPT/HCPCS: 81003; 88112 ==

== ENCOUNTER 2021-04-06 07:51 | Outpatient (RCR) | payer MEDICARE, SELFPAY ==
[2021-04-06 09:24] LABS: Basophils # 0.1 10^3/uL (0.0-0.1); Basophils % 0.8 %; Eosinophils # 0.2 10^3/uL (0.0-0.8); Eosinophils % 2.7 %; Hematocrit 34.7 % (42.0-52.0); Hemoglobin 11.2 g/dL (11.7-16.6); Lymphocytes # 0.5 10^3/uL (0.8-4.8); Lymphocytes % 6.6 %; Mean Corpuscular HGB Conc 32.3 g/dL (30.0-36.0); Mean Corpuscular Volume 102.4 fl (80-94); Mean Platelet Volume 10.7 fL (7.4-10.4); Monocytes # 0.8 10^3/uL (0.2-0.9); Monocytes % 10.4 %; Neutrophils # 6.24 10^3/uL (1.8-7.7); Neutrophils % 79.1 %; Nucleated Red Blood Cells % 0 %; Platelet Count 169 10^3/cmm (130-400); Red Blood Count 3.39 10^6/uL (4.1-5.3); Red Cell Distribution Width 18.2 % (12.1-15.1); White Blood Count 7.9 10^3/uL (4.0-10.0)
[2021-04-06 09:47] LABS: Alanine Aminotransferase 25 U/L (0-41); Alkaline Phosphatase 55 IU/L (40-130); Anion Gap 19.4 (5-19); Aspartate Amino Transferase 40 U/L (0-40); Blood Urea Nitrogen 12 mg/dL (8-23); Calcium 8.9 mg/dL (8.5-10.5); Carbon Dioxide 20 mmol/L (22-29); Chloride 103 mmol/L (98-107); Globulin 2.6 g/dL (1.3-4.6); Glucose 126 mg/dL (65-115); Osmolality Calculated 287 mOsm/kg (285-295); Potassium 4.4 mmol/L (3.5-5.1); Sodium 138 mmol/L (136-145); Thyroid Stimulating Hormone 2.71 uIU/mL (0.27-4.20); Total Bilirubin 0.8 mg/dL (0.15-1.2); Total Protein 6.6 g/dL (6.6-8.7)
== END 2021-04-22 23:59 | disposition home or self-care (01) ==
LOC: RAD 07:51
PROVIDERS: PCP Family Medicine; Visit Provider Internal Medicine Medical Oncology
DX: Z51.11 Encounter for antineoplastic chemotherapy (principal); C34.11 Malignant neoplasm of upper lobe, right bronchus or lung; M79.89 Other specified soft tissue disorders; J44.9 Chronic obstructive pulmonary disease, unspecified; I10 Essential (primary) hypertension; E78.5 Hyperlipidemia, unspecified; E11.9 Type 2 diabetes mellitus without complications; K21.9 Gastro-esophageal reflux disease without esophagitis; I25.2 Old myocardial infarction; Z85.51 Personal history of malignant neoplasm of bladder
CPT/HCPCS: 80053; 84443; 85025; 96413; 99215; J7050; J9173

== ENCOUNTER 2021-05-05 09:58 | Outpatient (RCR) | payer MEDICARE, SELFPAY ==
[2021-05-05 10:50] LABS: Basophils % 0.5 %; Eosinophils % 0.1 %; Hematocrit 35.8 % (42.0-52.0); Hemoglobin 11.4 g/dL (11.7-16.6); Lymphocytes # 0.6 10^3/uL (0.8-4.8); Lymphocytes % 7.8 %; Mean Corpuscular HGB Conc 31.8 g/dL (30.0-36.0); Mean Corpuscular Hemoglobin 32.2 pg (28.0-34.0); Mean Corpuscular Volume 101.1 fl (80-94); Mean Platelet Volume 10.2 fL (7.4-10.4); Monocytes # 0.9 10^3/uL (0.2-0.9); Monocytes % 12.3 %; Neutrophils # 6.05 10^3/uL (1.8-7.7); Nucleated Red Blood Cells % 0 %; Platelet Count 181 10^3/cmm (130-400); Red Blood Count 3.54 10^6/uL (4.1-5.3); Red Cell Distribution Width 15.1 % (12.1-15.1); White Blood Count 7.7 10^3/uL (4.0-10.0)
[2021-05-05 11:04] LABS: Alanine Aminotransferase 23 U/L (0-41); Albumin Level 3.9 g/dL (3.5-5.2); Alkaline Phosphatase 60 IU/L (40-130); Anion Gap 18.5 (5-19); Aspartate Amino Transferase 33 U/L (0-40); Blood Urea Nitrogen 14 mg/dL (8-23); Calcium 9.1 mg/dL (8.5-10.5); Carbon Dioxide 21 mmol/L (22-29); Chloride 102 mmol/L (98-107); Glucose 111 mg/dL (65-115); Osmolality Calculated 285 mOsm/kg (285-295); Potassium 4.5 mmol/L (3.5-5.1); Sodium 137 mmol/L (136-145); Total Bilirubin 0.8 mg/dL (0.15-1.2); Total Protein 6.9 g/dL (6.6-8.7)
--- NOTE | 2021-05-07 12:59 | ONC FU_ITS ---
Dr. López Patient Follow-Up Note Patient: Neal Garzon Unit #: [id number]: 1945 Dicatated By: Wally López M.D.Date of Visit:May 05, 2021 Onc Med Follow-up/Prog Note Chief Complaint: Lung cancer. 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 In June 2020 he presented with acute visual loss in the left eye. His echocardiogram showed slightly diminished ejection fraction at 50% with mild diffuse hypokinesis of the anterior and lateral wall segments. It otherwise was unrevealing. His carotid Doppler showed high-grade stenosis of the left ICA and bifurcation with a moderate heterogeneous plaques at the right bifurcation and ICA. CT angiogram of the head/neck on 07/30/2020 showed a large amount of calcified plaque and intimal thickening to the proximal left ICA which was noted to be completely occluded. There was 20% stenosis of the right extracranial ICA. CT angiogram of the chest on 08/10/2020 showed patent common carotid origins and subclavian artery origins. The most significant finding was the presence of suspicious pulmonary opacities involving the superior segment right upper lobe along the fissure measuring 2.1 x 1.1 cm and in the anterior right upper lobe measuring 15 mm. A noncalcified right lower lobe nodule measured 7 mm. There was associated right hilar adenopathy and there was prominent AP window, peribronchial, anterior mediastinal, and subcarinal adenopathy, all new from a previous study in 2017. Further evaluation with PET/CT on 08/21/2020 showed FDG avid posterior segment right upper lobe subpleural nodule measuring 1.4 x 1.7 cm, SUV 7.7, indicating high probability of malignancy. A second lesion in the anterior right upper lobe measuring 1.0 x 1.5 cm was also FDG avid with SUV 4.9. FDG positive lymph nodes were noted in the right upper hilum and right paratracheal region consistent with metastatic disease. There were no other areas of abnormal uptake. He then had pulmonary consultation with Dr. Sanford and on 08/31/2020 he underwent navigational bronchoscopy/EBUS. There was evidence for mild irregularity of mucosa of the entrance in the right upper lobe bronchus, there were no endobronchial lesions identified. He underwent right upper lobe endobronchial biopsy and transbronchial FNA biopsy of the right upper lobe nodule and of station 4R, 7, and 10 lymph nodes. Pathology on the right upper lobe transbronchial biopsies showed no malignancy, and the FNA biopsies of station 4R, station 7, and station 10 R lymph nodes were also negative for malignancy. Additionally, the bronchial washings were negative for malignancy. On 10/22/[address]-guided biopsy of the subpleural nodule in the posterior lateral right upper lobe. Pathology on that biopsy showed invasive moderately differentiated adenocarcinoma consistent with pulmonary origin. The tumor was positive for P-L1 expression > 50%. There was insufficient tumor sample for any additional molecular studies. I had seen him initially on 11/05/2020. Despite the negative FNA, the PET/CT findings were still suspicious for involvement in the mediastinal lymph nodes. He then had a repeat chest CT on 11/22/2020. That study showed no change in the right upper lobe pulmonary nodules or in the prominent anterior mediastinal, peribronchial, and right hilar lymph nodes. As such, he was referred to Dr. Goldstein and on 12/06/2020 he underwent surgical mediastinoscopy with biopsy of level 2R, level 4R, and left precarinal lymph nodes. The left precarinal node biopsy was negative for malignancy, but both the level 4R and the level 2R nodes showed adenocarcinoma. With that finding, his disease was confirmed to be stage IIIB (T3, N2, M0), and he was recommended to proceed with chemoradiation he was His other medical illnesses include COPD, hypertension, hyperlipidemia, type 2 diabetes, coronary artery disease with previous myocardial infarction, carotid stenosis, GERD, and degenerative arthritis/degenerative disease of the spine. He has had previous endovascular repair of an abdominal aortic aneurysm. He also has a prior history of superficial bladder cancer. He has a history of smoking for 50 years, up to 2 packs of cigarettes daily. He has been in the process of quitting. INTERIM HISTORY: He began radiation together with weekly carboplatin/paclitaxel chemotherapy on 12/20/2020. Experienced no acute toxicity with his initial chemotherapy infusion. He continued with his week 2 chemotherapy on 12/28/2020. He then developed an infection at the site of his Port-A-Cath venous access device, requiring removal of the Port-A-Cath on 01/02/2021. The wound site and the catheter tip grew methicillin sensitive staph aureus. On 01/11/2021 he was able to continue with his week 3 carboplatin/paclitaxel administered through a PICC line in the right arm. He was seen at wound care, and he treated as an outpatient with IV vancomycin. He received week 4 carboplatin/paclitaxel on 01/18/2021. His further treatment was then delayed due to neutropenia. He completed his 5th and final chemotherapy infusion on 02/01/2021. He completed radiation on 02/04/2021, total dose 6000 cGy administered in [address] on 02/23/2021 showed a moderate decrease in the size of the right upper lobe neoplasm measuring 14 x 18 mm compared to 20 x 12 mm on the November 2020 study. There is a very slight decrease in mediastinal and hilar lymph nodes. There is no new adenopathy identified. Bilateral lower lobe pulmonary nodules measuring 4 to 5 mm also appeared unchanged. With those findings he was recommended to proceed on to maintenance immunotherapy with durvalumab. He began cycle 1 on 03/09/2021. He tolerated it well and he continued with cycle 2 on 04/06/2021. He is seen for a follow-up visit. He has been feeling okay, though he says he has a lot of fatigue and that he does not have much activity. He is still doing most of his normal stuff . ECOG score is 1. His appetite is good. He does not have fever or night sweats. He has had no mouth sores. He has a little bit of hacking cough. His still short of breath with activity. He says he quit smoking 4 weeks ago. He does not complain of chest pain. He has no GI complaints other than occasional diarrhea, which is self-limited. He describes his urination as weak. He has had some pain in the right shoulder, that is getting better using a heating pad. He has no other joint or bone pain. He does not complain of headache. He sometimes has dizziness. He has no numbness/paresthesia or other focal neurologic symptoms. Medications: Acetaminophen PM (500-25 mg) Tablet Oral at bedtime PRN, Anti-Diarrheal 1 Tablet (of 2 mg) Tablet Oral PRN, Atenolol (25 mg) Tablet Oral daily, B Complex-C Tablet Oral daily, Cholecalciferol (25 mcg ) Tablet Oral daily, Clopidogrel Bisulfate (75 mg) Tablet Oral daily, diphenhydrAMINE HCl (50 mg) Capsule Oral at bedtime, Empagliflozin (25 mg) Tablet Oral daily, Eeaufwtzhoh-Ngkxkqlil-Trscar (100-62.5-25 mcg/inh) Aerosol Powder, Breath Activated Inhalation every am, glipiZIDE ER (2.5 mg) Tablet SR 24 HR Oral every am, HYDROcodone-Acetaminophen (10-325 mg) Tablet Oral four times a day PRN, Isosorbide Mononitrate ER (30 mg) Tablet SR 24 HR Oral every am, Lansoprazole (30 mg) Capsule Delayed Release Oral every am, Losartan Potassium (50 mg) Tablet Oral b.i.d., metFORMIN HCl (1000 mg) Tablet Oral b.i.d., Multivitamin Adult Tablet Oral daily, Nitroglycerin Tablet, sublingual Sublingual PRN, Probiotic Daily 1 Capsule Oral b.i.d., Rosuvastatin Calcium (20 mg) Tablet Oral daily, ZzzQuil Liquid Oral at bedtime PRN Allergies: Ammonia Solution, Exenatide, Iodinated Contrast Media, Liraglutide, and Niacin. Vital Signs: Performed on May 05, 2021 13:19 Height - 72.00 in Temperature - 98 F (LOW) Pulse - 74 /min Respiration - 18 /min BP - 98/58 mm(hg) O2 Sat - 97 % Pain - 0 Fatigue - 0 Performed on May 05, 2021 10:49 Height - 72.00 in Weight - 228 lbs (LOW) BSA - 2.25 sq.m BMI - 30.92 (HIGH) Temperature - 97.2 F (LOW) Pulse - 82 /min Respiration - 18 /min BP - 103/64 mm(hg) O2 Sat - 92 % (LOW) Pain - 0 Fatigue - 4 Physical Examination: Constitutional - He looks pretty good generally, Eyes - Sclerae nonicteric. Conjunctivae clear, ENMT - No lesions noted in the oral cavity, Hematologic/Lymphatic - No cervical, clavicular, or axillary adenopathy, Respiratory - Lungs sound clear with some decrease in air movement bilaterally, Cardiovascular - Heart rhythm is regular. There is no murmur, gallop, or rub noted, Abdomen - Mildly distended. Liver and spleen are not enlarged. There is no abdominal mass or ascites noted and there is no inguinal adenopathy, Extremities - There is mild residual swelling of the right leg, Neurologic - No focal neurologic deficits noted. Lab/Imaging: Test performed on May 05, 2021 10:40 Sodium 137 mmol/L Potassium 4.5 mmol/L Chloride 102 mmol/L CO2 21 mmol/L Anion Gap 18.5 BUN 14 mg/dL Creatinine 0.6 mg/dL Cr Clearance (Est) 148.43 mL/min Glucose 111 mg/dL Osmolality - Calculated 285 mOsm/kg Calcium 9.1 mg/dL Protein, Total 6.9 g/dL Albumin 3.9 g/dL Globulin 3.0 g/dL Bilirubin, Total 0.8 mg/dL ALT (SGPT) 23 U/L AST (SGOT) 33 U/L Alkaline Phosphatase 60 IU/L WBC 7.7 10 3/uL RBC 3.54 10 6/uL HGB 11.4 g/dL HCT 35.8 % MCV 101.1 fl MCH 32.2 pg MCHC 31.8 g/dL RDW 15.1 % Platelet Count 181 10 3/cmm MPV 10.2 fL Neutrophils 6.05 10 3/uL Lymphocytes 0.6 10 3/uL Monocytes 0.9 10 3/uL Eosinophils 0.0 10 3/uL Basophils 0.0 10 3/uL Neutrophil % 79.0 % Lymphocyte % 7.8 % Monocyte % 12.3 % Eosinophil % 0.1 % Basophils % 0.5 % NRBC % 0 % Problem List: 1. Moderately differentiated adenocarcinoma involving the upper lobe of the right lung, stage IIIB (T3, N2, M0). His tumor was found to to be positive for PD-L1 expression at > 50%. 2. COPD. 3. Hypertension. 4. Hyperlipidemia. 5. Type 2 diabetes. 6. Coronary artery disease with previous myocardial infarction. 7. 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 8. He is status post endovascular repair of abdominal aortic aneurysm. 9. GERD. 10. Degenerative arthritis/degenerative disease of the spine. 11. History of superficial bladder cancer. 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 His tumor was found to to be positive for PD-L1 expression at >50%. The mediastinal lymph node involvement was confirmed by surgical mediastinoscopy. With those findings, he was recommended to proceed with chemoradiation. He began radiation concurrently with weekly carboplatin/paclitaxel chemotherapy on 12/20/2020. Following his week 2 chemotherapy he developed an infection at the site of the Port-A-Cath venous access device in the upper left chest wall, and he underwent removal of the Port-A-Cath on 01/02/2021. He was able to proceed with week 3 carboplatin/paclitaxel on 01/11/2021, administered through a PICC line in the right arm. He received week 4 carboplatin/paclitaxel 01/18/2021. His further treatment was delayed due to neutropenia. He completed his 5th and final cycle of chemotherapy on 02/01/2021. He completed radiation on 02/04/2021, total dose 6000 cGy administered in [address] of the chest on 02/23/2021 did show evidence of response and no evidence of disease progression. With those findings, he was recommended to proceed on to maintenance immunotherapy with durvalumab. He began cycle 1 on 03/09/2021. He has now completed 2 cycles. Thus far he has tolerated well. He continues to have somewhat limited activity, but his overall clinical status remains stable. He will proceed with cycle 3 of durvalumab 1500 mg by IV infusion. He returns in 4 weeks. He will have restaging CT scans prior to that visit. Signed By: Wally López M.D. <<Signature on File>>
== END 2021-05-23 23:59 | disposition home or self-care (01) ==
LOC: ONCMED 09:58
PROVIDERS: PCP Family Medicine; Visit Provider Internal Medicine Medical Oncology
DX: Z51.12 Encounter for antineoplastic immunotherapy (principal); C34.11 Malignant neoplasm of upper lobe, right bronchus or lung; E11.59 Type 2 diabetes mellitus with other circulatory complications; I25.10 Atherosclerotic heart disease of native coronary artery without angina pectoris; I25.2 Old myocardial infarction; I10 Essential (primary) hypertension; E78.5 Hyperlipidemia, unspecified; I65.22 Occlusion and stenosis of left carotid artery; I71.4 Abdominal aortic aneurysm, without rupture; K21.9 Gastro-esophageal reflux disease without esophagitis; M19.90 Unspecified osteoarthritis, unspecified site; M47.9 Spondylosis, unspecified; Z85.51 Personal history of malignant neoplasm of bladder; Z79.899 Other long term (current) drug therapy; Z92.21 Personal history of antineoplastic chemotherapy; Z92.3 Personal history of irradiation
CPT/HCPCS: 80053; 85025; 96413; 99215; J7050; J9173

== ENCOUNTER 2021-05-27 08:34 | Outpatient (CLI) | payer MEDICARE, SELFPAY ==
--- NOTE | 2021-05-27 08:37 | CT_ITS ---
WS: [id number] CT CHEST WITHOUT INTRAVENOUS CONTRAST HISTORY: History of lung cancer. Fatigue and shortness of breath. TECHNIQUE: Contiguous 5 mm axial imaging performed on the thorax. Coronal and sagittal reformats are submitted. All CT scans at [facility] use at least one of these dose optimization techniques: automated exposure control; mA and/or kV adjustment per patient size (includes targeted exams where dose is matched to clinical indication); or iterative reconstruction. CONTRAST: None DLP: 830.89 mGy.cm COMPARISON: 02/23/2021, 11/22/2020 Lungs and central airway: Irregular shaped nodule in the RIGHT upper lobe abutting the superior major fissure has not significantly changed. Nodule measures 15 x 8 mm and extends over length of 18 mm al rachel the fissure. There is adjacent pleural thickening and tethering. No obvious increase in size or p rogression. Spiculated nodule measuring 7 mm lobe is unchanged. 3 mm nodule in the superior segment R IGHT lower lobe, image 31 of series 6. Additional nodules in the RIGHT lower lobe are unchanged. Pleura: Normal. No pleural effusion. Heart and pericardium: Normal size heart. No pericardial effusion. Mediastinum and katie: No mediastinal widening. Small mediastinal and hilar lymph nodes have been pres ent on prior studies. No enlarging lymph nodes. Vessels: Extensive atherosclerotic plaque within the aorta. Pulmonary artery size is dilated similar to prior studies maximum diameter 3.9 cm. Coronary artery calcifications. Chest wall and lower neck: No soft tissue masses. Upper abdomen: Liver is mildly prominent. No mass is identified on this unenhanced examination but no ncontrast evaluation and is not sensitive for metastatic lesions. Cholelithiasis without acute cholec ystitis. No adrenal mass. Cystic mass upper pole LEFT kidney measures 4.2 x 4.0 cm. No adrenal mass. Osseous structures: Straightening of the normal lumbar lordosis. No change in appearance of the lumba r vertebral bodies or degenerative disease. CT/CT chest wo con [id number] IMPRESSION: 1. No interval change in the RIGHT upper lobe neoplasm since 11/22/2020. The spi culated 7 mm nodule is also unchanged. There are a few additional scattered nod ules which have been stable. There is a single nodule which may not have been v isualized on prior imaging studies in the RIGHT lower lobe measuring only 3 mm. Due to the small size this may not have been visualized due to volume jeanette g. Recommend continued interval CT evaluation to document long-term stability. 2. No new or enlarging lymph nodes. 3. Pulmonary hypertension.
--- NOTE | 2021-05-27 08:37 | USCV_ITS ---
Neal Garzon Age: 76 Gender: M : 1945 Exam Date: 05/27/2021 09:05 Ordering Phys: Wally López MD Technologist: [email or web address] Exam Location: [facility] [place] Indication: LUNG CANCER, RLE SWELLING HISTORY: Lower extremity swelling. PROCEDURES: Venous duplex imaging was performed in only the right lower extremity. The following venous structures were evaluated: common femoral vein, profunda vein, proximal portion of the greater saphenous vein, superficial femoral vein, and the popliteal vein. In addition, the posterior tibial and peroneal trunk were evaluated. Serial compression, augmentation maneuvers, and spectral Doppler flow evaluation were performed. FINDINGS: Normal 2-D Doppler and augmentation and compressibility throughout the lower extremity venous structures. Additional imaging through the proximal calf veins also reveals no thrombus. Limited evaluation of the greater saphenous vein is patent with no thrombus. CONCLUSIONS No DVT right lower extremity. Dr. Vijaya Willingham DO (Electronically Signed) Final Date: 27 May 2021 09:26 S
== END 2021-05-27 08:35 | disposition home or self-care (01) ==
PROVIDERS: PCP Family Medicine; Visit Provider Internal Medicine Medical Oncology
DX: R22.41 Localized swelling, mass and lump, right lower limb (principal); C34.11 Malignant neoplasm of upper lobe, right bronchus or lung; R53.83 Other fatigue; I27.20 Pulmonary hypertension, unspecified
CPT/HCPCS: 71250; 93971

== ENCOUNTER 2021-06-02 06:26 | Outpatient (RCR) | payer MEDICARE, SELFPAY ==
[2021-06-02 10:18] LABS: Basophils # 0.1 10^3/uL (0.0-0.1); Basophils % 0.8 %; Eosinophils # 0.1 10^3/uL (0.0-0.8); Eosinophils % 1.2 %; Hematocrit 37.4 % (42.0-52.0); Hemoglobin 11.4 g/dL (11.7-16.6); Lymphocytes # 0.7 10^3/uL (0.8-4.8); Lymphocytes % 8.8 %; Mean Corpuscular HGB Conc 30.5 g/dL (30.0-36.0); Mean Corpuscular Hemoglobin 30.1 pg (28.0-34.0); Mean Corpuscular Volume 98.7 fl (80-94); Mean Platelet Volume 10.2 fL (7.4-10.4); Monocytes # 0.8 10^3/uL (0.2-0.9); Monocytes % 9.9 %; Neutrophils # 6.16 10^3/uL (1.8-7.7); Neutrophils % 78.8 %; Nucleated Red Blood Cells % 0 %; Platelet Count 287 10^3/cmm (130-400); Red Blood Count 3.79 10^6/uL (4.1-5.3); Red Cell Distribution Width 15.6 % (12.1-15.1); White Blood Count 7.8 10^3/uL (4.0-10.0)
[2021-06-02 10:57] LABS: Alanine Aminotransferase 13 U/L (0-41); Albumin Level 3.7 g/dL (3.5-5.2); Alkaline Phosphatase 90 IU/L (40-130); Anion Gap 17.7 (5-19); Aspartate Amino Transferase 22 U/L (0-40); Blood Urea Nitrogen 15 mg/dL (8-23); Calcium 9.2 mg/dL (8.5-10.5); Carbon Dioxide 22 mmol/L (22-29); Chloride 102 mmol/L (98-107); Globulin 3.1 g/dL (1.3-4.6); Glucose 128 mg/dL (65-115); Osmolality Calculated 286 mOsm/kg (285-295); Potassium 4.7 mmol/L (3.5-5.1); Sodium 137 mmol/L (136-145); Thyroid Stimulating Hormone 3.29 uIU/mL (0.27-4.20); Total Bilirubin 0.4 mg/dL (0.15-1.2); Total Protein 6.8 g/dL (6.6-8.7)
[2021-06-02] MEDS: sodium chloride 0.9% 250 ML 999 ML IV (12:24)
--- NOTE | 2021-06-05 10:34 | ONC FU_ITS ---
Dr. López Patient Follow-Up Note Patient: Neal Garzon Unit #: [id number]: 1945 Dicatated By: Wally López M.D.Date of Visit:Jun 02, 2021 Onc Med Follow-up/Prog Note Chief Complaint: Lung cancer. 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 In June 2020 he presented with acute visual loss in the left eye. His echocardiogram showed slightly diminished ejection fraction at 50% with mild diffuse hypokinesis of the anterior and lateral wall segments. It otherwise was unrevealing. His carotid Doppler showed high-grade stenosis of the left ICA and bifurcation with a moderate heterogeneous plaques at the right bifurcation and ICA. CT angiogram of the head/neck on 07/30/2020 showed a large amount of calcified plaque and intimal thickening to the proximal left ICA which was noted to be completely occluded. There was 20% stenosis of the right extracranial ICA. CT angiogram of the chest on 08/10/2020 showed patent common carotid origins and subclavian artery origins. The most significant finding was the presence of suspicious pulmonary opacities involving the superior segment right upper lobe along the fissure measuring 2.1 x 1.1 cm and in the anterior right upper lobe measuring 15 mm. A noncalcified right lower lobe nodule measured 7 mm. There was associated right hilar adenopathy and there was prominent AP window, peribronchial, anterior mediastinal, and subcarinal adenopathy, all new from a previous study in 2017. Further evaluation with PET/CT on 08/21/2020 showed FDG avid posterior segment right upper lobe subpleural nodule measuring 1.4 x 1.7 cm, SUV 7.7, indicating high probability of malignancy. A second lesion in the anterior right upper lobe measuring 1.0 x 1.5 cm was also FDG avid with SUV 4.9. FDG positive lymph nodes were noted in the right upper hilum and right paratracheal region consistent with metastatic disease. There were no other areas of abnormal uptake. He then had pulmonary consultation with Dr. Sanford and on 08/31/2020 he underwent navigational bronchoscopy/EBUS. There was evidence for mild irregularity of mucosa of the entrance in the right upper lobe bronchus, there were no endobronchial lesions identified. He underwent right upper lobe endobronchial biopsy and transbronchial FNA biopsy of the right upper lobe nodule and of station 4R, 7, and 10 lymph nodes. Pathology on the right upper lobe transbronchial biopsies showed no malignancy, and the FNA biopsies of station 4R, station 7, and station 10 R lymph nodes were also negative for malignancy. Additionally, the bronchial washings were negative for malignancy. On 10/22/[address]-guided biopsy of the subpleural nodule in the posterior lateral right upper lobe. Pathology on that biopsy showed invasive moderately differentiated adenocarcinoma consistent with pulmonary origin. The tumor was positive for P-L1 expression > 50%. There was insufficient tumor sample for any additional molecular studies. I had seen him initially on 11/05/2020. Despite the negative FNA, the PET/CT findings were still suspicious for involvement in the mediastinal lymph nodes. He then had a repeat chest CT on 11/22/2020. That study showed no change in the right upper lobe pulmonary nodules or in the prominent anterior mediastinal, peribronchial, and right hilar lymph nodes. As such, he was referred to Dr. Goldstein and on 12/06/2020 he underwent surgical mediastinoscopy with biopsy of level 2R, level 4R, and left precarinal lymph nodes. The left precarinal node biopsy was negative for malignancy, but both the level 4R and the level 2R nodes showed adenocarcinoma. With that finding, his disease was confirmed to be stage IIIB (T3, N2, M0), and he was recommended to proceed with chemoradiation. He began radiation together with weekly carboplatin/paclitaxel chemotherapy on 12/20/2020. Experienced no acute toxicity with his initial chemotherapy infusion. He continued with his week 2 chemotherapy on 12/28/2020. He then developed an infection at the site of his Port-A-Cath venous access device, requiring removal of the Port-A-Cath on 01/02/2021. The wound site and the catheter tip grew methicillin sensitive staph aureus. On 01/11/2021 he was able to continue with his week 3 carboplatin/paclitaxel administered through a PICC line in the right arm. He was seen at wound care, and he treated as an outpatient with IV vancomycin. He received week 4 carboplatin/paclitaxel on 01/18/2021. His further treatment was then delayed due to neutropenia. He completed his 5th and final chemotherapy infusion on 02/01/2021. He completed radiation on 02/04/2021, total dose 6000 cGy administered in 30 fractions. His other medical illnesses include COPD, hypertension, hyperlipidemia, type 2 diabetes, coronary artery disease with previous myocardial infarction, carotid stenosis, GERD, and degenerative arthritis/degenerative disease of the spine. He has had previous endovascular repair of an abdominal aortic aneurysm. He also has a prior history of superficial bladder cancer. He has a history of smoking for 50 years, up to 2 packs of cigarettes daily. He has been in the process of quitting. INTERIM HISTORY: Restaging chest CT on 02/23/2021 showed a moderate decrease in the size of the right upper lobe neoplasm measuring 14 x 18 mm compared to 20 x 12 mm on the November 2020 study. There was a very slight decrease in mediastinal and hilar lymph nodes. There was no new adenopathy identified. Bilateral lower lobe pulmonary nodules measuring 4 to 5 mm also appeared unchanged. With those findings he was recommended to proceed on to maintenance immunotherapy with durvalumab. He began cycle 1 on 03/09/2021. He tolerated it well and he then continued with cycle 2 on 04/06/2021 and with cycle 3 on 05/05/2021. Restaging chest CT on 05/27/2021 showed no change in the irregular shaped nodule in the upper lobe of the right lung abutting the superior major fissure measuring 15 x 8 x 18 mm. There was adjacent pleural thickening and tethering. Additional small right and nodules appeared unchanged. Small mediastinal and hilar lymph nodes also appeared unchanged. Overall, there was no evidence of disease progression. He is seen for a follow-up visit. He says he is getting by, but he continues to complain that his energy is very low. He says that he stays exhausted, though he is able to do some of his routine stuff . His ECOG score is 1. His appetite is not real good. He has lost weight. He does not have fever or night sweats. He has not had sore mouth or throat. He has a little bit of a hacking cough. His breathing is somewhat labored with exertion, but overall not bad. He does not complain of chest pain. He has no GI complaints other than occasional bouts of loose stools. Bladder function remains adequate, though his stream is a little weak. He has no significant joint or bone pain. He does not complain of headache. He occasionally has dizziness. He has no focal neurologic symptoms. Medications: Acetaminophen PM (500-25 mg) Tablet Oral at bedtime PRN, Anti-Diarrheal 1 Tablet (of 2 mg) Tablet Oral PRN, Atenolol (25 mg) Tablet Oral daily, B Complex-C Tablet Oral daily, Cholecalciferol (25 mcg ) Tablet Oral daily, Clopidogrel Bisulfate (75 mg) Tablet Oral daily, diphenhydrAMINE HCl (50 mg) Capsule Oral at bedtime, Empagliflozin (25 mg) Tablet Oral daily, Zjatajrcfrw-Hsnkbnegy-Cyvzkb (100-62.5-25 mcg/inh) Aerosol Powder, Breath Activated Inhalation every am, glipiZIDE ER (2.5 mg) Tablet SR 24 HR Oral every am, HYDROcodone-Acetaminophen (10-325 mg) Tablet Oral four times a day PRN, Isosorbide Mononitrate ER (30 mg) Tablet SR 24 HR Oral every am, Lansoprazole (30 mg) Capsule Delayed Release Oral every am, Losartan Potassium (50 mg) Tablet Oral b.i.d., metFORMIN HCl (1000 mg) Tablet Oral b.i.d., Multivitamin Adult Tablet Oral daily, Nitroglycerin Tablet, sublingual Sublingual PRN, Probiotic Daily 1 Capsule Oral b.i.d., Rosuvastatin Calcium (20 mg) Tablet Oral daily, ZzzQuil Liquid Oral at bedtime PRN Allergies: Ammonia Solution, Exenatide, Iodinated Contrast Media, Liraglutide, and Niacin. Vital Signs: Performed on Jun 02, 2021 13:57 Height - 72.00 in Weight - 220.4 lbs (LOW) BSA - 2.22 sq.m BMI - 29.89 Temperature - 98.0 F (LOW) Pulse - 58 /min (LOW) Respiration - 18 /min BP - 130/74 mm(hg) O2 Sat - 94 % (LOW) Pain - 0 Fatigue - 6 Physical Examination: Constitutional - He appears somewhat weak generally, Eyes - Sclerae nonicteric. Conjunctivae clear, ENMT - No lesions noted in the oral cavity, Hematologic/Lymphatic - No cervical, clavicular, or axillary adenopathy, Respiratory - Lungs sound clear with some decrease in air movement bilaterally, Cardiovascular - Heart rhythm is regular. There is no murmur, gallop, or rub noted, Abdomen - Mildly distended. Liver and spleen are not enlarged. There is no abdominal mass or ascites noted and there is no inguinal adenopathy, Extremities - No edema, Neurologic - No focal neurologic deficits noted. Lab/Imaging: Test performed on Jun 02, 2021 10:04 Sodium 137 mmol/L TSH 3.29 uIU/mL Potassium 4.7 mmol/L Chloride 102 mmol/L CO2 22 mmol/L Anion Gap 17.7 BUN 15 mg/dL Creatinine 0.6 mg/dL Cr Clearance (Est) 143.48 mL/min Glucose 128 mg/dL Osmolality - Calculated 286 mOsm/kg Calcium 9.2 mg/dL Protein, Total 6.8 g/dL Albumin 3.7 g/dL Globulin 3.1 g/dL Bilirubin, Total 0.4 mg/dL ALT (SGPT) 13 U/L AST (SGOT) 22 U/L Alkaline Phosphatase 90 IU/L WBC 7.8 10 3/uL RBC 3.79 10 6/uL HGB 11.4 g/dL HCT 37.4 % MCV 98.7 fl MCH 30.1 pg MCHC 30.5 g/dL RDW 15.6 % Platelet Count 287 10 3/cmm MPV 10.2 fL Neutrophils 6.16 10 3/uL Lymphocytes 0.7 10 3/uL Monocytes 0.8 10 3/uL Eosinophils 0.1 10 3/uL Basophils 0.1 10 3/uL Neutrophil % 78.8 % Lymphocyte % 8.8 % Monocyte % 9.9 % Eosinophil % 1.2 % Basophils % 0.8 % NRBC % 0 % Problem List: 1. Moderately differentiated adenocarcinoma involving the upper lobe of the right lung, stage IIIB (T3, N2, M0). His tumor was found to to be positive for PD-L1 expression at > 50%. 2. COPD. 3. Hypertension. 4. Hyperlipidemia. 5. Type 2 diabetes. 6. Coronary artery disease with previous myocardial infarction. 7. 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 8. He is status post endovascular repair of abdominal aortic aneurysm. 9. GERD. 10. Degenerative arthritis/degenerative disease of the spine. 11. History of superficial bladder cancer. 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 His tumor was found to to be positive for PD-L1 expression at >50%. The mediastinal lymph node involvement was confirmed by surgical mediastinoscopy. With those findings, he was recommended to proceed with chemoradiation. He began radiation concurrently with weekly carboplatin/paclitaxel chemotherapy on 12/20/2020. Following his week 2 chemotherapy he developed an infection at the site of the Port-A-Cath venous access device in the upper left chest wall, and he underwent removal of the Port-A-Cath on 01/02/2021. He was able to proceed with week 3 carboplatin/paclitaxel on 01/11/2021, administered through a PICC line in the right arm. He received week 4 carboplatin/paclitaxel 01/18/2021. His further treatment was delayed due to neutropenia. He completed his 5th and final cycle of chemotherapy on 02/01/2021. He completed radiation on 02/04/2021, total dose 6000 cGy administered in [address] of the chest on 02/23/2021 did show evidence of response and no evidence of disease progression. With those findings, he was recommended to proceed on to maintenance immunotherapy with durvalumab. He began cycle 1 on 03/09/2021. He has now completed 3 cycles. His restaging chest CT shows stable findings, with some evidence of treatment response and no evidence of disease progression. He continues to have complaints of fatigue/exhaustion and muscle weakness. The cause for this is uncertain. Some component may just be due to deconditioning. As such, I will request physical therapy evaluation and treatment for his muscle weakness. In the absence of any evidence of disease progression, he will continue with cycle 4 of maintenance durvalumab 1500 mg by IV infusion. He returns in 4 weeks. Signed By: Wally López M.D. <<Signature on File>>
== END 2021-06-20 23:59 | disposition home or self-care (01) ==
LOC: ONCMED 06:26
PROVIDERS: PCP Family Medicine; Visit Provider Internal Medicine Medical Oncology
DX: Z51.12 Encounter for antineoplastic immunotherapy (principal); C34.11 Malignant neoplasm of upper lobe, right bronchus or lung; J44.9 Chronic obstructive pulmonary disease, unspecified; I10 Essential (primary) hypertension; E78.5 Hyperlipidemia, unspecified; E11.59 Type 2 diabetes mellitus with other circulatory complications; I25.10 Atherosclerotic heart disease of native coronary artery without angina pectoris; I25.2 Old myocardial infarction; I65.22 Occlusion and stenosis of left carotid artery; I71.4 Abdominal aortic aneurysm, without rupture; K21.9 Gastro-esophageal reflux disease without esophagitis; G31.89 Other specified degenerative diseases of nervous system; Z85.51 Personal history of malignant neoplasm of bladder; Z79.899 Other long term (current) drug therapy; Z79.4 Long term (current) use of insulin
CPT/HCPCS: 80053; 84443; 85025; 96413; 99215; J7050; J9173

== ENCOUNTER 2021-06-15 09:19 | Outpatient (RCR) | payer MEDICARE, SELFPAY | END 2021-06-20 23:59 | disposition home or self-care (01) | LOC: SPT 09:19 | PROVIDERS: PCP Family Medicine; Referring Provider Internal Medicine Medical Oncology; Visit Provider Internal Medicine Medical Oncology | DX: Z85.118 Personal history of other malignant neoplasm of bronchus and lung (principal) | CPT/HCPCS: 97162 ==

== ENCOUNTER 2021-06-21 06:00 | Outpatient (RCR) | payer MEDICARE, SELFPAY | END 2021-07-21 23:59 | disposition home or self-care (01) | LOC: SPT 06:00 | PROVIDERS: PCP Family Medicine; Referring Provider Internal Medicine Medical Oncology; Visit Provider Internal Medicine Medical Oncology | DX: Z85.118 Personal history of other malignant neoplasm of bronchus and lung (principal) | CPT/HCPCS: 97110 ==

== ENCOUNTER 2021-06-21 07:53 | Outpatient (CLI) | payer MEDICARE, SELFPAY ==
--- NOTE | 2021-06-21 08:06 | MR_ITS ---
WS: [id number] MRI BRAIN WITH AND WITHOUT CONTRAST HISTORY: LUNG CANCER/WEAKNESS COMPARISON: 11/19/2020 TECHNIQUE: Multiplanar imaging performed through the brain with MultiHance 20 ml's IV. Interval resolution of the diffusion abnormality noted within the mesial LEFT temporal lobe since 10/23. No diffusion-weighted abnormalities are identified today. Mild chronic microvascular ischemic disease. No susceptibility artifacts or prior lacunar infarcts. Ventricles and extra-axial spaces are normal. Clivus and pituitary gland are normal. Visualized posterior fossa and brainstem are also normal. Dural enhancing lesion with calvarial remodeling at the superior RIGHT parietal vertex measures 7 x 6 mm. Similar to the prior examination. No increase in size. Dural venous sinuses are normal. Known occlusion or high-grade LEFT ICA stenosis resulting in loss of the normal LEFT ICA flow void through the skull base and cavernous sinus. Paranasal sinuses: Mild mucoperiosteal thickening in the ethmoid and frontal sinuses. No air-fluid le vels. Mastoid air cells: Normal. Calvarium and scalp: Intact. Small amount of remodeling associated with the RIGHT parietal meningioma . MR/MR head wo/w con [id number] IMPRESSION: 1. No acute infarct. Resolution of the LEFT mesial temporal lobe diffusion-isaias ghted abnormality. 2. No enhancing metastatic lesions. 3. Stable RIGHT parietal dural based 7 x 6 mm enhancing mass consistent with m eningioma. 4. Lack of the normal flow void in the LEFT intracranial ICA. Patient has a kn own very high-grade stenosis resulting in slow flow versus occlusion of the LEF T ICA that was previously described. 5. Mild chronic microvascular ischemic disease.
== END 2021-06-21 07:54 | disposition home or self-care (01) ==
LOC: RAD 07:54
PROVIDERS: PCP Family Medicine; Visit Provider Internal Medicine Medical Oncology
DX: C34.11 Malignant neoplasm of upper lobe, right bronchus or lung (principal); R53.1 Weakness; I67.82 Cerebral ischemia; Z85.118 Personal history of other malignant neoplasm of bronchus and lung
CPT/HCPCS: 70553; 97110; A9577

== ENCOUNTER 2021-06-30 08:27 | Outpatient (RCR) | payer MEDICARE, SELFPAY ==
[2021-06-30 09:27] LABS: Basophils # 0.1 10^3/uL (0.0-0.1); Basophils % 0.9 %; Eosinophils # 0.2 10^3/uL (0.0-0.8); Eosinophils % 2.4 %; Hematocrit 35.1 % (42.0-52.0); Hemoglobin 10.8 g/dL (11.7-16.6); Lymphocytes # 0.8 10^3/uL (0.8-4.8); Lymphocytes % 11.6 %; Mean Corpuscular HGB Conc 30.8 g/dL (30.0-36.0); Mean Corpuscular Hemoglobin 28.7 pg (28.0-34.0); Mean Corpuscular Volume 93.4 fl (80-94); Mean Platelet Volume 10.2 fL (7.4-10.4); Monocytes # 0.6 10^3/uL (0.2-0.9); Neutrophils # 5.08 10^3/uL (1.8-7.7); Neutrophils % 75.8 %; Nucleated Red Blood Cells % 0 %; Platelet Count 185 10^3/cmm (130-400); Red Blood Count 3.76 10^6/uL (4.1-5.3); Red Cell Distribution Width 17.4 % (12.1-15.1); White Blood Count 6.7 10^3/uL (4.0-10.0)
[2021-06-30 10:58] LABS: Alanine Aminotransferase 12 U/L (0-41); Albumin Level 3.9 g/dL (3.5-5.2); Alkaline Phosphatase 55 IU/L (40-130); Anion Gap 14.3 (5-19); Aspartate Amino Transferase 20 U/L (0-40); Blood Urea Nitrogen 14 mg/dL (8-23); Calcium 9.7 mg/dL (8.5-10.5); Carbon Dioxide 23 mmol/L (22-29); Chloride 105 mmol/L (98-107); Globulin 3.3 g/dL (1.3-4.6); Glucose 125 mg/dL (65-115); Iron 56 ug/dL (59-158); Osmolality Calculated 288 mOsm/kg (285-295); Percent Saturation 15.7 % (20-50); Potassium 4.3 mmol/L (3.5-5.1); Sodium 138 mmol/L (136-145); Total Iron Binding Capacity 355 mcg/dl; Total Protein 7.2 g/dL (6.6-8.7); Unsaturated Iron Binding 299 ug/dL (112-347)
[2021-06-30 11:13] LABS: Vitamin B12 586 pg/mL (232-1245)
--- NOTE | 2021-07-03 12:50 | ONC FU_ITS ---
Dr. López Patient Follow-Up Note Patient: Neal Garzon Unit #: [id number]: [id number] Dicatated By: Wally López M.D.Date of Visit:Jun 30, 2021 Onc Med Follow-up/Prog Note Chief Complaint: Lung cancer. 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 In June 2020 he presented with acute visual loss in the left eye. His echocardiogram showed slightly diminished ejection fraction at 50% with mild diffuse hypokinesis of the anterior and lateral wall segments. It otherwise was unrevealing. His carotid Doppler showed high-grade stenosis of the left ICA and bifurcation with a moderate heterogeneous plaques at the right bifurcation and ICA. CT angiogram of the head/neck on 07/30/2020 showed a large amount of calcified plaque and intimal thickening to the proximal left ICA which was noted to be completely occluded. There was 20% stenosis of the right extracranial ICA. CT angiogram of the chest on 08/10/2020 showed patent common carotid origins and subclavian artery origins. The most significant finding was the presence of suspicious pulmonary opacities involving the superior segment right upper lobe along the fissure measuring 2.1 x 1.1 cm and in the anterior right upper lobe measuring 15 mm. A noncalcified right lower lobe nodule measured 7 mm. There was associated right hilar adenopathy and there was prominent AP window, peribronchial, anterior mediastinal, and subcarinal adenopathy, all new from a previous study in 2017. Further evaluation with PET/CT on 08/21/2020 showed FDG avid posterior segment right upper lobe subpleural nodule measuring 1.4 x 1.7 cm, SUV 7.7, indicating high probability of malignancy. A second lesion in the anterior right upper lobe measuring 1.0 x 1.5 cm was also FDG avid with SUV 4.9. FDG positive lymph nodes were noted in the right upper hilum and right paratracheal region consistent with metastatic disease. There were no other areas of abnormal uptake. He then had pulmonary consultation with Dr. Sanford and on 08/31/2020 he underwent navigational bronchoscopy/EBUS. There was evidence for mild irregularity of mucosa of the entrance in the right upper lobe bronchus, there were no endobronchial lesions identified. He underwent right upper lobe endobronchial biopsy and transbronchial FNA biopsy of the right upper lobe nodule and of station 4R, 7, and 10 lymph nodes. Pathology on the right upper lobe transbronchial biopsies showed no malignancy, and the FNA biopsies of station 4R, station 7, and station 10 R lymph nodes were also negative for malignancy. Additionally, the bronchial washings were negative for malignancy. On 10/22/[address]-guided biopsy of the subpleural nodule in the posterior lateral right upper lobe. Pathology on that biopsy showed invasive moderately differentiated adenocarcinoma consistent with pulmonary origin. The tumor was positive for P-L1 expression > 50%. There was insufficient tumor sample for any additional molecular studies. I had seen him initially on 11/05/2020. Despite the negative FNA, the PET/CT findings were still suspicious for involvement in the mediastinal lymph nodes. He then had a repeat chest CT on 11/22/2020. That study showed no change in the right upper lobe pulmonary nodules or in the prominent anterior mediastinal, peribronchial, and right hilar lymph nodes. As such, he was referred to Dr. Goldstein and on 12/06/2020 he underwent surgical mediastinoscopy with biopsy of level 2R, level 4R, and left precarinal lymph nodes. The left precarinal node biopsy was negative for malignancy, but both the level 4R and the level 2R nodes showed adenocarcinoma. With that finding, his disease was confirmed to be stage IIIB (T3, N2, M0), and he was recommended to proceed with chemoradiation. He began radiation together with weekly carboplatin/paclitaxel chemotherapy on 12/20/2020. Experienced no acute toxicity with his initial chemotherapy infusion. He continued with his week 2 chemotherapy on 12/28/2020. He then developed an infection at the site of his Port-A-Cath venous access device, requiring removal of the Port-A-Cath on 01/02/2021. The wound site and the catheter tip grew methicillin sensitive staph aureus. On 01/11/2021 he was able to continue with his week 3 carboplatin/paclitaxel administered through a PICC line in the right arm. He was seen at wound care, and he treated as an outpatient with IV vancomycin. He received week 4 carboplatin/paclitaxel on 01/18/2021. His further treatment was then delayed due to neutropenia. He completed his 5th and final chemotherapy infusion on 02/01/2021. He completed radiation on 02/04/2021, total dose 6000 cGy administered in 30 fractions. His other medical illnesses include COPD, hypertension, hyperlipidemia, type 2 diabetes, coronary artery disease with previous myocardial infarction, carotid stenosis, GERD, and degenerative arthritis/degenerative disease of the spine. He has had previous endovascular repair of an abdominal aortic aneurysm. He also has a prior history of superficial bladder cancer. He has a history of smoking for 50 years, up to 2 packs of cigarettes daily. He has been in the process of quitting. INTERIM HISTORY: Restaging chest CT on 02/23/2021 showed a moderate decrease in the size of the right upper lobe neoplasm measuring 14 x 18 mm compared to 20 x 12 mm on the November 2020 study. There was a very slight decrease in mediastinal and hilar lymph nodes. There was no new adenopathy identified. Bilateral lower lobe pulmonary nodules measuring 4 to 5 mm also appeared unchanged. With those findings he was recommended to proceed on to maintenance immunotherapy with durvalumab. He began cycle 1 on 03/09/2021. He tolerated it well and he then continued with cycle 2 on 04/06/2021 and with cycle 3 on 05/05/2021. Restaging chest CT on 05/27/2021 showed no change in the irregular shaped nodule in the upper lobe of the right lung abutting the superior major fissure measuring 15 x 8 x 18 mm. There was adjacent pleural thickening and tethering. Additional small right and nodules appeared unchanged. Small mediastinal and hilar lymph nodes also appeared unchanged. Overall, there was no evidence of disease progression. He continued with cycle 4 of maintenance durvalumab on 06/02/2021. He is seen for a follow-up visit. His main complaint is that he has been feeling weak/exhausted. Since his last visit, he has started physical therapy, and that has been helping a little. He is able to do his usual housework, but he still complains that his energy is not good. His ECOG score is 1. Appetite has been okay. He has no fever or night sweats. He has not had sore mouth or throat. He does not complain of cough. He says his breathing is not bad. He has not had any chest pain. He currently has no GI complaints. He says his bladder is weak. He is seeing Dr. Scherer. He has no significant joint or bone pain. He only rarely has headache. He does feel dizzy when his blood pressure is low. He has no numbness/paresthesia or other focal neurologic symptoms. Medications: Acetaminophen PM (500-25 mg) Tablet Oral at bedtime PRN, Anti-Diarrheal 1 Tablet (of 2 mg) Tablet Oral PRN, Atenolol (25 mg) Tablet Oral daily, B Complex-C Tablet Oral daily, Cholecalciferol (25 mcg ) Tablet Oral daily, Clopidogrel Bisulfate (75 mg) Tablet Oral daily, diphenhydrAMINE HCl (50 mg) Capsule Oral at bedtime, Empagliflozin (25 mg) Tablet Oral daily, Bewwfvmptmd-Lcoegvazh-Smfucm (100-62.5-25 mcg/inh) Aerosol Powder, Breath Activated Inhalation every am, glipiZIDE ER (2.5 mg) Tablet SR 24 HR Oral every am, HYDROcodone-Acetaminophen (10-325 mg) Tablet Oral four times a day PRN, Isosorbide Mononitrate ER (30 mg) Tablet SR 24 HR Oral every am, Lansoprazole (30 mg) Capsule Delayed Release Oral every am, Losartan Potassium (50 mg) Tablet Oral b.i.d., metFORMIN HCl (1000 mg) Tablet Oral b.i.d., Multivitamin Adult Tablet Oral daily, Nitroglycerin Tablet, sublingual Sublingual PRN, Probiotic Daily 1 Capsule Oral b.i.d., Rosuvastatin Calcium (20 mg) Tablet Oral daily, ZzzQuil Liquid Oral at bedtime PRN Allergies: Ammonia Solution, Exenatide, Liraglutide, and Niacin. Vital Signs: Performed on Jun 30, 2021 09:42 Height - 72.00 in Weight - 222.8 lbs (HIGH) BSA - 2.23 sq.m BMI - 30.22 (HIGH) Temperature - 97.7 F (LOW) Pulse - 78 /min Respiration - 18 /min BP - 109/67 mm(hg) O2 Sat - 96 % Pain - 0 Fatigue - 6 Physical Examination: Constitutional - He appears somewhat weak generally, Eyes - Sclerae nonicteric. Conjunctivae clear, ENMT - No lesions noted in the oral cavity, Hematologic/Lymphatic - No cervical, clavicular, or axillary adenopathy, Respiratory - Lungs sound clear with some decrease in air movement bilaterally, Cardiovascular - Heart rhythm is regular. There is no murmur, gallop, or rub noted, Abdomen - Mildly distended. Liver and spleen are not enlarged. There is no abdominal mass or ascites noted and there is no inguinal adenopathy, Extremities - No edema, Neurologic - No focal neurologic deficits noted. Lab/Imaging: Test performed on Jun 30, 2021 10:28 Iron 56 mcg/dL Sodium 138 mmol/L Vitamin B12 586 pg/mL Iron Binding Capacity (TIBC) 355 mcg/dl Potassium 4.3 mmol/L % Iron Saturation 15.7 % Chloride 105 mmol/L CO2 23 mmol/L UIBC 299 mcg/dL Anion Gap 14.3 BUN 14 mg/dL Creatinine 0.5 mg/dL Cr Clearance (Est) 174.0500 mL/min Glucose 125 mg/dL Osmolality - Calculated 288 mOsm/kg Calcium 9.7 mg/dL Protein, Total 7.2 g/dL Albumin 3.9 g/dL Globulin 3.3 g/dL Bilirubin, Total 1.0 mg/dL ALT (SGPT) 12 U/L AST (SGOT) 20 U/L Alkaline Phosphatase 55 IU/L Test performed on Jun 30, 2021 09:10 WBC 6.7 10 3/uL RBC 3.76 10 6/uL HGB 10.8 g/dL HCT 35.1 % MCV 93.4 fl MCH 28.7 pg MCHC 30.8 g/dL RDW 17.4 % Platelet Count 185 10 3/cmm MPV 10.2 fL Neutrophils 5.08 10 3/uL Lymphocytes 0.8 10 3/uL Monocytes 0.6 10 3/uL Eosinophils 0.2 10 3/uL Basophils 0.1 10 3/uL Neutrophil % 75.8 % Lymphocyte % 11.6 % Monocyte % 9.0 % Eosinophil % 2.4 % Basophils % 0.9 % NRBC % 0 % Problem List: 1. Moderately differentiated adenocarcinoma involving the upper lobe of the right lung, stage IIIB (T3, N2, M0). His tumor was found to to be positive for PD-L1 expression at > 50%. 2. COPD. 3. Hypertension. 4. Hyperlipidemia. 5. Type 2 diabetes. 6. Coronary artery disease with previous myocardial infarction. 7. 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 8. He is status post endovascular repair of abdominal aortic aneurysm. 9. GERD. 10. Degenerative arthritis/degenerative disease of the spine. 11. History of superficial bladder cancer. Problems Addressed with this Encounter and Plan: 1. 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 His tumor was found to to be positive for PD-L1 expression at >50%. The mediastinal lymph node involvement was confirmed by surgical mediastinoscopy. With those findings, he was recommended to proceed with chemoradiation. He began radiation concurrently with weekly carboplatin/paclitaxel chemotherapy on 12/20/2020. Following his week 2 chemotherapy he developed an infection at the site of the Port-A-Cath venous access device in the upper left chest wall, and he underwent removal of the Port-A-Cath on 01/02/2021. He was able to proceed with week 3 carboplatin/paclitaxel on 01/11/2021, administered through a PICC line in the right arm. He received week 4 carboplatin/paclitaxel 01/18/2021. His further treatment was delayed due to neutropenia. He completed his 5th and final cycle of chemotherapy on 02/01/2021. He completed radiation on 02/04/2021, total dose 6000 cGy administered in [address] of the chest on 02/23/2021 did show evidence of response and no evidence of disease progression. With those findings, he was recommended to proceed on to maintenance immunotherapy with durvalumab. He began cycle 1 on 03/09/2021. He has now completed 4 cycles. During this time, he has ongoing complaints of weakness/fatigue. There has been no evidence of disease progression on follow-up chest CT and a repeat head MRI showed no evidence of metastatic disease. In the absence of any evidence of disease progression, he will continue with cycle 5 of maintenance durvalumab at 1500 mg by IV infusion. He will be scheduled for a follow-up visit in 4 weeks. In the meantime, with his blood pressure relatively low, I will have him decrease his losartan dosage. 2. He has been mildly anemic. His serum iron studies show low transferrin saturation at 15.7%, consistent with iron deficiency. He will start an oral iron supplement. Signed By: Wally López M.D. <<Signature on File>>
== END 2021-07-21 23:59 | disposition home or self-care (01) ==
LOC: ONCMED 08:27
PROVIDERS: PCP Family Medicine; Visit Provider Internal Medicine Medical Oncology
DX: Z51.12 Encounter for antineoplastic immunotherapy (principal); C34.11 Malignant neoplasm of upper lobe, right bronchus or lung; I10 Essential (primary) hypertension; E78.5 Hyperlipidemia, unspecified; E11.59 Type 2 diabetes mellitus with other circulatory complications; I25.10 Atherosclerotic heart disease of native coronary artery without angina pectoris; I25.2 Old myocardial infarction; I65.22 Occlusion and stenosis of left carotid artery; I71.4 Abdominal aortic aneurysm, without rupture; K21.9 Gastro-esophageal reflux disease without esophagitis; M47.9 Spondylosis, unspecified; Z85.51 Personal history of malignant neoplasm of bladder; Z79.899 Other long term (current) drug therapy
CPT/HCPCS: 80053; 82607; 83540; 83550; 85025; 96413; 99215; J7050; J9173

== ENCOUNTER 2021-07-22 06:00 | Outpatient (RCR) | payer MEDICARE, SELFPAY | END 2021-08-20 23:59 | disposition home or self-care (01) | LOC: SPT 06:00 | PROVIDERS: PCP Family Medicine; Referring Provider Internal Medicine Medical Oncology; Visit Provider Internal Medicine Medical Oncology | DX: Z85.118 Personal history of other malignant neoplasm of bronchus and lung (principal) | CPT/HCPCS: 97110 ==

== ENCOUNTER 2021-07-26 12:27 | Outpatient (RCR) | payer MEDICARE, SELFPAY ==
[2021-07-26 13:11] LABS: Basophils # 0.1 10^3/uL (0.0-0.1); Basophils % 0.9 %; Eosinophils # 0.1 10^3/uL (0.0-0.8); Eosinophils % 2.2 %; Hematocrit 38.4 % (42.0-52.0); Hemoglobin 12.2 g/dL (11.7-16.6); Lymphocytes # 0.9 10^3/uL (0.8-4.8); Lymphocytes % 14.5 %; Mean Corpuscular HGB Conc 31.8 g/dL (30.0-36.0); Mean Corpuscular Hemoglobin 30.7 pg (28.0-34.0); Mean Corpuscular Volume 96.7 fl (80-94); Mean Platelet Volume 10.4 fL (7.4-10.4); Monocytes # 0.6 10^3/uL (0.2-0.9); Monocytes % 10.2 %; Neutrophils # 4.21 10^3/uL (1.8-7.7); Neutrophils % 71.9 %; Nucleated Red Blood Cells % 0 %; Platelet Count 184 10^3/cmm (130-400); Red Blood Count 3.97 10^6/uL (4.1-5.3); Red Cell Distribution Width 22.3 % (12.1-15.1); White Blood Count 5.9 10^3/uL (4.0-10.0)
[2021-07-26 13:40] LABS: Alanine Aminotransferase 13 U/L (0-41); Albumin Level 4.2 g/dL (3.5-5.2); Alkaline Phosphatase 58 IU/L (40-130); Anion Gap 17.3 (5-19); Aspartate Amino Transferase 20 U/L (0-40); Blood Urea Nitrogen 11 mg/dL (8-23); Calcium 9.9 mg/dL (8.5-10.5); Carbon Dioxide 21 mmol/L (22-29); Chloride 104 mmol/L (98-107); Globulin 2.4 g/dL (1.3-4.6); Glucose 99 mg/dL (65-115); Osmolality Calculated 285 mOsm/kg (285-295); Potassium 4.3 mmol/L (3.5-5.1); Sodium 138 mmol/L (136-145); Thyroid Stimulating Hormone 2.27 uIU/mL (0.27-4.20); Total Bilirubin 0.9 mg/dL (0.15-1.2); Total Protein 6.6 g/dL (6.6-8.7)
--- NOTE | 2021-07-31 16:44 | ONC FU_ITS ---
Taylor Miles Progress Note Patient: Neal Garzon Unit #: [id number]: 1945 Dicatated By: Taylor Miles N.P.Date of Visit:Jul 26, 2021 Onc MED Follow-up/Prog Note Chief Complaint: Lung cancer. 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 In June 2020 he presented with acute visual loss in the left eye. His echocardiogram showed slightly diminished ejection fraction at 50% with mild diffuse hypokinesis of the anterior and lateral wall segments. It otherwise was unrevealing. His carotid Doppler showed high-grade stenosis of the left ICA and bifurcation with a moderate heterogeneous plaques at the right bifurcation and ICA. CT angiogram of the head/neck on 07/30/2020 showed a large amount of calcified plaque and intimal thickening to the proximal left ICA which was noted to be completely occluded. There was 20% stenosis of the right extracranial ICA. CT angiogram of the chest on 08/10/2020 showed patent common carotid origins and subclavian artery origins. The most significant finding was the presence of suspicious pulmonary opacities involving the superior segment right upper lobe along the fissure measuring 2.1 x 1.1 cm and in the anterior right upper lobe measuring 15 mm. A noncalcified right lower lobe nodule measured 7 mm. There was associated right hilar adenopathy and there was prominent AP window, peribronchial, anterior mediastinal, and subcarinal adenopathy, all new from a previous study in 2017. Further evaluation with PET/CT on 08/21/2020 showed FDG avid posterior segment right upper lobe subpleural nodule measuring 1.4 x 1.7 cm, SUV 7.7, indicating high probability of malignancy. A second lesion in the anterior right upper lobe measuring 1.0 x 1.5 cm was also FDG avid with SUV 4.9. FDG positive lymph nodes were noted in the right upper hilum and right paratracheal region consistent with metastatic disease. There were no other areas of abnormal uptake. He then had pulmonary consultation with Dr. Sanford and on 08/31/2020 he underwent navigational bronchoscopy/EBUS. There was evidence for mild irregularity of mucosa of the entrance in the right upper lobe bronchus, there were no endobronchial lesions identified. He underwent right upper lobe endobronchial biopsy and transbronchial FNA biopsy of the right upper lobe nodule and of station 4R, 7, and 10 lymph nodes. Pathology on the right upper lobe transbronchial biopsies showed no malignancy, and the FNA biopsies of station 4R, station 7, and station 10 R lymph nodes were also negative for malignancy. Additionally, the bronchial washings were negative for malignancy. On 10/22/[address]-guided biopsy of the subpleural nodule in the posterior lateral right upper lobe. Pathology on that biopsy showed invasive moderately differentiated adenocarcinoma consistent with pulmonary origin. The tumor was positive for P-L1 expression > 50%. There was insufficient tumor sample for any additional molecular studies. I had seen him initially on 11/05/2020. Despite the negative FNA, the PET/CT findings were still suspicious for involvement in the mediastinal lymph nodes. He then had a repeat chest CT on 11/22/2020. That study showed no change in the right upper lobe pulmonary nodules or in the prominent anterior mediastinal, peribronchial, and right hilar lymph nodes. As such, he was referred to Dr. Goldstein and on 12/06/2020 he underwent surgical mediastinoscopy with biopsy of level 2R, level 4R, and left precarinal lymph nodes. The left precarinal node biopsy was negative for malignancy, but both the level 4R and the level 2R nodes showed adenocarcinoma. With that finding, his disease was confirmed to be stage IIIB (T3, N2, M0), and he was recommended to proceed with chemoradiation. He began radiation together with weekly carboplatin/paclitaxel chemotherapy on 12/20/2020. Experienced no acute toxicity with his initial chemotherapy infusion. He continued with his week 2 chemotherapy on 12/28/2020. He then developed an infection at the site of his Port-A-Cath venous access device, requiring removal of the Port-A-Cath on 01/02/2021. The wound site and the catheter tip grew methicillin sensitive staph aureus. On 01/11/2021 he was able to continue with his week 3 carboplatin/paclitaxel administered through a PICC line in the right arm. He was seen at wound care, and he treated as an outpatient with IV vancomycin. He received week 4 carboplatin/paclitaxel on 01/18/2021. His further treatment was then delayed due to neutropenia. He completed his 5th and final chemotherapy infusion on 02/01/2021. He completed radiation on 02/04/2021, total dose 6000 cGy administered in 30 fractions. His other medical illnesses include COPD, hypertension, hyperlipidemia, type 2 diabetes, coronary artery disease with previous myocardial infarction, carotid stenosis, GERD, and degenerative arthritis/degenerative disease of the spine. He has had previous endovascular repair of an abdominal aortic aneurysm. He also has a prior history of superficial bladder cancer. He has a history of smoking for 50 years, up to 2 packs of cigarettes daily. He has been in the process of quitting. INTERIM HISTORY: Restaging chest CT on 02/23/2021 showed a moderate decrease in the size of the right upper lobe neoplasm measuring 14 x 18 mm compared to 20 x 12 mm on the November 2020 study. There was a very slight decrease in mediastinal and hilar lymph nodes. There was no new adenopathy identified. Bilateral lower lobe pulmonary nodules measuring 4 to 5 mm also appeared unchanged. With those findings he was recommended to proceed on to maintenance immunotherapy with durvalumab. He began cycle 1 on 03/09/2021. He tolerated it well and he then continued with cycle 2 on 04/06/2021 and with cycle 3 on 05/05/2021. Restaging chest CT on 05/27/2021 showed no change in the irregular shaped nodule in the upper lobe of the right lung abutting the superior major fissure measuring 15 x 8 x 18 mm. There was adjacent pleural thickening and tethering. Additional small right and nodules appeared unchanged. Small mediastinal and hilar lymph nodes also appeared unchanged. Overall, there was no evidence of disease progression. He continued with cycle 4 of maintenance durvalumab on 06/02/2021. Patient presents today for a follow-up visit. He continues to have moderate amount of fatigue. He is seeing physical therapy and he said that is helping some. His appetite has been good. He denies fever, chills, night sweats. No sinus drainage or sore throat. He does have some shortness of breath and a chronic cough due to COPD and being a smoker. He denies chest pain. No GI or problems. No joint pain. No headaches or dizziness. Review Of Symptoms: See above. Past Medical History: Abdominal aortic aneurysm Carotid stenosis Chronic obstructive pulmonary disease Coronary artery disease Degenerative arthritis Degenerative disease of the spine Gastroesophageal reflux disease History of diverticulitis History of retinal artery occlusion History of superficial bladder cancer Hyperlipidemia Hypertension Type II diabetes Past Surgical History: Cataracts Colonoscopy CT directed biopsy of right upper lobe lung nodule in 2020 Navigational bronchoscopy/EBUS in 2020 Covid vaccine #2 in 2020 Covid vaccine #1 in 2020 Endovascular repair of abdominal aortic aneurysm in 2010 TURBT for superficial bladder cancer in 2006 Spinal fusion in 1960 Allergies: Ammonia Solution, Exenatide, Liraglutide, and Niacin. Medications: Acetaminophen PM (500-25 mg) Tablet Oral at bedtime PRN Anti-Diarrheal 1 Tablet (of 2 mg) Tablet Oral PRN Atenolol (25 mg) Tablet Oral daily B Complex-C Tablet Oral daily Cholecalciferol (25 mcg ) Tablet Oral daily Clopidogrel Bisulfate (75 mg) Tablet Oral daily diphenhydrAMINE HCl (50 mg) Capsule Oral at bedtime Empagliflozin (25 mg) Tablet Oral daily Cebblvnxmzm-Zszlenqsf-Owsykr (100-62.5-25 mcg/inh) Aerosol Powder, Breath Activated Inhalation every am glipiZIDE ER (2.5 mg) Tablet SR 24 HR Oral every am HYDROcodone-Acetaminophen (10-325 mg) Tablet Oral four times a day PRN Isosorbide Mononitrate ER (30 mg) Tablet SR 24 HR Oral every am Lansoprazole (30 mg) Capsule Delayed Release Oral every am Losartan Potassium (50 mg) Tablet Oral daily metFORMIN HCl (1000 mg) Tablet Oral b.i.d. Multivitamin Adult Tablet Oral daily Nitroglycerin Tablet, sublingual Sublingual PRN Probiotic Daily 1 Capsule Oral b.i.d. Rosuvastatin Calcium (20 mg) Tablet Oral daily ZzzQuil Liquid Oral at bedtime PRN Family History: Mr. Garzon's mother at age 100. Mr. Garzon's father at age 51: aortic aneurysm. Father of ruptured aortic aneurysm at age 51. Mother lived to age 100. A brother has been treated for throat cancer. Social History: Mr. Garzon is . He is an occasional smoker who has smoked 2.0 packs/day for 60 years. He drinks occasionally. He has indicated exposure to the following products: cigarettes. 12/21/20: Has started back smoking but is trying to quit again.//bd He has a history of smoking for 50 years, up to 2 packs of cigarettes daily. He is in the process of quitting. He has had only very occasional alcohol use. Physical Examination: Performed on Jul 26, 2021 14:17: Height - 72.00 in, Weight - 222.4 lbs (LOW), BSA - 2.23 sq.m, BMI - 30.16 (HIGH), Temperature - 97.0 F (LOW), Pulse - 90 /min, Respiration - 21 /min, BP - 109/67 mm(hg), O2 Sat - 92 % (LOW), Pain - 0, and Fatigue - 6. Performance Status: 1 - No physically strenuous activity, but ambulatory and able to carry out light or sedentary work (e.g. office work, light house work). (ECOG) Constitutional Alert, cooperative, oriented. Mood and affect appropriate. Appears close to chronological age. Well nourished. Well developed. Respiratory Lungs are clear to auscultation without rhonchi or wheezing. Cardiovascular Regular rate and rhythm of heart without murmurs, gallops or rubs. Abdomen Non-tender, non-distended, no masses, ascites or hepatosplenomegaly. Good bowel sounds. No guarding or rebound tenderness. Musculoskeletal Generalized weakness Psychiatric Alert and oriented times three. Coherent speech. Verbalizes understanding of our discussions today. Laboratory: Test performed on Jul 26, 2021 12:55 Sodium 138 mmol/L TSH 2.27 uIU/mL Potassium 4.3 mmol/L Chloride 104 mmol/L CO2 21 mmol/L Anion Gap 17.3 BUN 11 mg/dL Creatinine 0.6 mg/dL Cr Clearance (Est) 144.78 mL/min Glucose 99 mg/dL Osmolality - Calculated 285 mOsm/kg Calcium 9.9 mg/dL Protein, Total 6.6 g/dL Albumin 4.2 g/dL Globulin 2.4 g/dL Bilirubin, Total 0.9 mg/dL ALT (SGPT) 13 U/L AST (SGOT) 20 U/L Alkaline Phosphatase 58 IU/L WBC 5.9 10 3/uL RBC 3.97 10 6/uL HGB 12.2 g/dL HCT 38.4 % MCV 96.7 fl MCH 30.7 pg MCHC 31.8 g/dL RDW 22.3 % Platelet Count 184 10 3/cmm MPV 10.4 fL Neutrophils 4.21 10 3/uL Lymphocytes 0.9 10 3/uL Monocytes 0.6 10 3/uL Eosinophils 0.1 10 3/uL Basophils 0.1 10 3/uL Neutrophil % 71.9 % Lymphocyte % 14.5 % Monocyte % 10.2 % Eosinophil % 2.2 % Basophils % 0.9 % NRBC % 0 % Test performed on Jun 30, 2021 10:28 Iron 56 mcg/dL Vitamin B12 586 pg/mL Iron Binding Capacity (TIBC) 355 mcg/dl % Iron Saturation 15.7 % UIBC 299 mcg/dL Impression: 1. Moderately differentiated adenocarcinoma involving the upper lobe of the right lung, stage IIIB (T3, N2, M0). His tumor was found to to be positive for PD-L1 expression at > 50%. 2. COPD. 3. Hypertension. 4. Hyperlipidemia. 5. Type 2 diabetes. 6. Coronary artery disease with previous myocardial infarction. 7. 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 8. He is status post endovascular repair of abdominal aortic aneurysm. 9. GERD. 10. Degenerative arthritis/degenerative disease of the spine. 11. History of superficial bladder cancer. Plan: 1. 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 His tumor was found to to be positive for PD-L1 expression at >50%. The mediastinal lymph node involvement was confirmed by surgical mediastinoscopy. With those findings, he was recommended to proceed with chemoradiation. He began radiation concurrently with weekly carboplatin/paclitaxel chemotherapy on 12/20/2020. Following his week 2 chemotherapy he developed an infection at the site of the Port-A-Cath venous access device in the upper left chest wall, and he underwent removal of the Port-A-Cath on 01/02/2021. He was able to proceed with week 3 carboplatin/paclitaxel on 01/11/2021, administered through a PICC line in the right arm. He received week 4 carboplatin/paclitaxel 01/18/2021. His further treatment was delayed due to neutropenia. He completed his 5th and final cycle of chemotherapy on 02/01/2021. He completed radiation on 02/04/2021, total dose 6000 cGy administered in [address] of the chest on 02/23/2021 did show evidence of response and no evidence of disease progression. With those findings, he was recommended to proceed on to maintenance immunotherapy with durvalumab. He began cycle 1 on 03/09/2021. He has now completed 4 cycles. During this time, he has ongoing complaints of weakness/fatigue. There has been no evidence of disease progression on follow-up chest CT and a repeat head MRI showed no evidence of metastatic disease. Patient presents today for follow-up. His blood pressure is stable at 109/67 after stopping losartan. He is tolerating durvalumab well so he will receive cycle 6 today at 1500 mg and continue current dose every 4 weeks. 2. Patient was started on oral iron for iron deficiency anemia. His hemoglobin today is 12.2 up from 10.8 at last visit. We will recheck his iron studies in 4 weeks along with a CBC and CMP. Signed By: Taylor Miles N.P. <<Signature on File>>
== END 2021-08-20 23:59 | disposition home or self-care (01) ==
LOC: ONCMED 12:27
PROVIDERS: PCP Family Medicine; Visit Provider Nurse Practitioner Family
DX: Z51.12 Encounter for antineoplastic immunotherapy (principal); C34.11 Malignant neoplasm of upper lobe, right bronchus or lung; J44.9 Chronic obstructive pulmonary disease, unspecified; I10 Essential (primary) hypertension; E78.5 Hyperlipidemia, unspecified; E11.59 Type 2 diabetes mellitus with other circulatory complications; I25.10 Atherosclerotic heart disease of native coronary artery without angina pectoris; I25.2 Old myocardial infarction; I65.22 Occlusion and stenosis of left carotid artery; I71.4 Abdominal aortic aneurysm, without rupture; K21.9 Gastro-esophageal reflux disease without esophagitis; M19.90 Unspecified osteoarthritis, unspecified site; M47.9 Spondylosis, unspecified; Z85.51 Personal history of malignant neoplasm of bladder; Z79.899 Other long term (current) drug therapy; Z92.21 Personal history of antineoplastic chemotherapy; Z92.3 Personal history of irradiation
CPT/HCPCS: 80053; 84443; 85025; 96413; 99215; J7050; J9173

== ENCOUNTER → 2021-08-04 09:13 | Outpatient (BNVA) | payer MEDICARE, SELFPAY | PROVIDERS: PCP Family Medicine; Visit Provider Urology | DX: C67.4 Malignant neoplasm of posterior wall of bladder (principal); N40.1 Benign prostatic hyperplasia with lower urinary tract symptoms | CPT/HCPCS: 81003 ==

== ENCOUNTER 2021-08-10 13:50 | Outpatient (CLI) | payer MEDICARE, SELFPAY ==
--- NOTE | 2021-08-10 13:57 | CT_ITS ---
WS: [id number] CT ANGIOGRAPHY OF THE ABDOMINAL AORTA WITH RUNOFF TO THE ANKLES HISTORY: I71.4 - Abdominal aortic aneurysm, without rupture TECHNIQUE: Arterial injection is performed during imaging to evaluate the aorta and runoff vessels to the ankles. MIP and volume rendering imaging has also been performed. All images are reviewed. All C T scans at [facility] use at least one of these dose optimization techniques: automated exposu re control; mA and/or kV adjustment per patient size (includes targeted exams where dose is matched t o clinical indication); or iterative reconstruction. Contrast: Omnipaque 350; 95 mL IV. DLP: 1442.55 mGy.cm COMPARISON: 05/12/2019 Chronic emphysema the lung bases. Heart size is normal. Abdominal aorta: Status post endovascular graft repair of the abdominal aortic aneurysm. Endovascular graft extends from the SMA into the proximal iliac arteries bilaterally. Thrombus is developing with in the lumen of the graft. Circumferential thrombus is noted. No high-grade stenosis within the graft . No endovascular leak or enlarging [place] aneurysm. RIGHT lower extremity arterial system: Proximal iliac graft is patent. Moderate stenosis involving th e origin of the internal iliac artery. External iliac artery contains scattered calcification. 50-60% stenosis involving the RIGHT femoral artery at the level of the humeral head. Plaque continues into the SFA and deep profunda. 50% stenosis proximal SFA. Additional multi focal areas of stenosis throug hout the SFA. The artery is heavily calcified and there are areas of stenoses approaching 60-70%. Mil d aneurysmal dilatation of the popliteal artery measuring 2.0 cm. This aneurysm is partially thrombos ed. Heavy calcification continues into the anterior and posterior tibial arteries and peroneal arteri es. These arteries are very difficult to evaluate due to the extensive calcification. There are proba lorraine areas of high-grade stenosis or occlusion. Very small vessel runoff to the ankle. Intermittently visualized lumens. LEFT lower extremity arterial system: LEFT common iliac graft is patent. Moderate stenosis at the jennifer gin of the internal iliac artery. May be completely or nearly completely occluded. Extensive plaque c ontinues to the external iliac artery. Plaque continues through the femoral artery. Heavy calcificati on continues into the proximal SFA and profunda. Stenosis near 50%. Extensive multifocal plaque virgilio nues to the SFA with areas of stenosis 50-60%. There is a very high-grade stenosis greater than 80% i n the mid SFA. Small caliber popliteal artery. Heavy calcified plaque and poorly visualized anterior and posterior tibial arteries. The peroneal artery is small caliber but visualized throughout the misa ority of the lower extremity. Liver and gallbladder and spleen are negative. No adrenal mass. Low-attenuation nodule measuring 12 m m from the uncinate process of the pancreas. There are additional calcifications scattered throughout the pancreas. No duct dilatation. Numerous bilateral renal cysts. There are numerous small nodules w ithin the cortex some of which cannot be characterized further. There is one mildly hyperdense nodule measuring 2.3 x 2.7 cm in the mid posterior LEFT kidney which may be a solid neoplasm needs further evaluation. Mass was present on the prior study from 2019 and unchanged in size. Additional 1.2 cm no dule with mild enhancement in the posterior lower pole LEFT kidney has slightly increased in size sin ce the prior study. No adenopathy or ascites. No GI tract obstruction. Numerous diverticula throughou t the distal colon with no acute diverticulitis. The appendix is normal. Prostate gland is enlarged e ncroaching into the base of the bladder. Marked straightening reversal normal lumbar lordosis. There is bone upon bone with severe disc space narrowing at L2-3 and L3-4 and L4-5. CT/CT angio abd aorta runof [id number] IMPRESSION: 1. Status post endovascular graft repair of the abdominal aorta. No increase i n size of the [place] aneurysm or endovascular leak. 2. Increasing amount of thrombus within the endovascular graft lumen. No high- grade stenosis at this time. 3. RIGHT femoral artery stenosis 50-60%. 4. Multifocal plaque continues into the superficial femoral arteries and super ficial femoral arteries bilaterally. Multifocal areas of stenosis. The most sig nificant stenosis approaching 80% in the mid LEFT SFA. Additional stenosis bila terally between 50 and 60%. 5. 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 6. Poor runoff to the ankles bilaterally due to heavily diseased tibial arteri es and peroneal arteries. Calcification is obscuring the lumen of the arteries bilaterally. 7. Low-attenuation nodule uncinate process of the pancreas measures 12 mm. Rec ommend follow-up abdomen CT focused to the pancreas with IV and oral contrast i n 3-4 months to document stability. 8. Bilateral renal cysts. Indeterminate masses in the LEFT kidney. These can b e followed up also in 3-4 months at the time of the pancreatic CT follow-up. Ea rly renal cell neoplasm not excluded.
[2021-08-10] MEDS: iohexol 350 mg/mL 100 mL Btl IV (15:23)
== END 2021-08-10 13:51 | disposition home or self-care (01) ==
LOC: RAD 13:54
PROVIDERS: PCP Family Medicine; Visit Provider Internal Medicine Cardiovascular Disease
DX: I71.4 Abdominal aortic aneurysm, without rupture (principal); I77.1 Stricture of artery; N28.1 Cyst of kidney, acquired; I72.4 Aneurysm of artery of lower extremity
CPT/HCPCS: 75635

== ENCOUNTER → 2021-08-11 10:07 | Outpatient (BNVA) | payer MEDICARE, SELFPAY | PROVIDERS: PCP Family Medicine; Visit Provider Internal Medicine Cardiovascular Disease | DX: I25.10 Atherosclerotic heart disease of native coronary artery without angina pectoris (principal); I71.4 Abdominal aortic aneurysm, without rupture; I65.22 Occlusion and stenosis of left carotid artery; E78.2 Mixed hyperlipidemia; I10 Essential (primary) hypertension; I72.4 Aneurysm of artery of lower extremity; E11.59 Type 2 diabetes mellitus with other circulatory complications; Z79.4 Long term (current) use of insulin; I73.9 Peripheral vascular disease, unspecified; Z87.891 Personal history of nicotine dependence | CPT/HCPCS: 99214 ==

== ENCOUNTER 2021-08-21 06:00 | Outpatient (RCR) | payer MEDICARE, SELFPAY | END 2021-09-20 23:59 | disposition home or self-care (01) | LOC: SPT 06:00 | PROVIDERS: PCP Family Medicine; Referring Provider Internal Medicine Medical Oncology; Visit Provider Internal Medicine Medical Oncology | DX: M62.81 Muscle weakness (generalized) (principal); Z85.118 Personal history of other malignant neoplasm of bronchus and lung | CPT/HCPCS: 97110 ==

== ENCOUNTER 2021-08-26 12:09 | Outpatient (CLI) | payer MEDICARE, SELFPAY ==
--- NOTE | 2021-08-26 12:15 | USCV_ITS ---
Neal Garzon Age: 76 Gender: M : 1945 Exam Date: 08/26/2021 12:28 Ordering Phys: Jovany Burns MD ([email or web address]) Technologist: Emilia Miles [place] [facility] [place]ication: See the CT report of AO with runoff Risk Factors: Non smoker and no DM Previous Vascular Surgery: none RIGHT LEFT BP: 115.0 / BP: 110.0/ 0 0 Waveform Velocity (cm/s) Velocity (cm/s) Waveform Biphasic 169.1 Iliac Prox 83.9 Triphasic Biphasic 182.0 Iliac Mid 52.4 Triphasic Biphasic 163.8 Iliac Distal 75.5 Biphasic Biphasic 112.5 CUSTOMER COUNTER REPRESENTATIVE 87.1 Biphasic Biphasic 84.4 SFA Prox 62.8 Biphasic Biphasic SFA Mid Biphasic 82.7 58.4 Biphasic 109.2 SFA Dist 190.7 Triphasic Biphasic 22.1 POP 18.4 Biphasic Biphasic 36.9 HUMAN SERVICES SUPERVISOR Biphasic DPA 21.0 Biphasic 1.0 MICHAEL 0.7 FINDINGS RT [id number] RT HUMAN SERVICES SUPERVISOR 120 LT DPA 80 LT HUMAN SERVICES SUPERVISOR NO FLOW SEEN Mild to moderate diffuse plaques in the iliac and femoral arteries on the right side. moderate diffuse plaques in the superficial femoral artery on the left side elevated velocity in the distal SFA on the left side Normal Doppler flow signals in the posterior tibial artery on the left side CONCLUSIONS Normal resting MICHAEL on the right side, suggesting no significant arterial obstruction. Abnormal resting MICHAEL of 0.7 on the left side suggesting moderate peripheral artery disease. Possible hemodynamically significant stenosis at the distal SFA. Features of total occlusion of the posterior tibial artery on the left side. Compared to the MICHAEL on 03/27/2017, there is a definite change in the resting MICHAEL on the left side. Occlusion of the posttibial artery on the left side also appears to be new. Dr Jovany Burns MD [facility] (Electronically Signed) Final Date: 27 Aug 2021 10:44 S
== END 2021-08-26 12:10 | disposition home or self-care (01) ==
LOC: RAD 12:12
PROVIDERS: PCP Family Medicine; Visit Provider Internal Medicine Cardiovascular Disease
DX: I73.9 Peripheral vascular disease, unspecified (principal)
CPT/HCPCS: 93925

== ENCOUNTER 2021-09-21 06:00 | Outpatient (RCR) | payer MEDICARE, SELFPAY | END 2021-10-20 23:59 | disposition home or self-care (01) | LOC: SPT 06:00 | PROVIDERS: PCP Family Medicine; Referring Provider Internal Medicine Medical Oncology; Visit Provider Internal Medicine Medical Oncology | DX: M62.81 Muscle weakness (generalized) (principal) | CPT/HCPCS: 97110; 97112 ==

== ENCOUNTER 2021-09-22 08:00 | Oncology outpatient (recurring) (ONCR) | payer MEDICARE, SELFPAY ==
[2021-08-23 12:26] LABS: Basophils # 0.1 10^3/uL (0.0-0.1); Basophils % 0.7 %; Eosinophils # 0.2 10^3/uL (0.0-0.8); Eosinophils % 1.8 %; Hematocrit 41.1 % (42.0-52.0); Lymphocytes # 0.8 10^3/uL (0.8-4.8); Lymphocytes % 9.4 %; Mean Corpuscular HGB Conc 31.6 g/dL (30.0-36.0); Mean Corpuscular Hemoglobin 32.1 pg (28.0-34.0); Mean Corpuscular Volume 101.5 fl (80-94); Mean Platelet Volume 10.5 fL (7.4-10.4); Monocytes # 0.7 10^3/uL (0.2-0.9); Monocytes % 8.1 %; Neutrophils # 6.45 10^3/uL (1.8-7.7); Neutrophils % 79.5 %; Nucleated Red Blood Cells % 0 %; Platelet Count 213 10^3/cmm (130-400); Red Blood Count 4.05 10^6/uL (4.1-5.3); Red Cell Distribution Width 21.6 % (12.1-15.1); White Blood Count 8.1 10^3/uL (4.0-10.0)
[2021-08-23 12:43] LABS: Alanine Aminotransferase 13 U/L (0-41); Albumin Level 4.1 g/dL (3.5-5.2); Alkaline Phosphatase 63 IU/L (40-130); Anion Gap 17.3 (5-19); Aspartate Amino Transferase 18 U/L (0-40); Blood Urea Nitrogen 16 mg/dL (8-23); Calcium 9.8 mg/dL (8.5-10.5); Carbon Dioxide 23 mmol/L (22-29); Chloride 101 mmol/L (98-107); Globulin 3.4 g/dL (1.3-4.6); Glucose 112 mg/dL (65-115); Iron 131 ug/dL (59-158); Osmolality Calculated 286 mOsm/kg (285-295); Percent Saturation 36.9 % (20-50); Potassium 4.3 mmol/L (3.5-5.1); Sodium 137 mmol/L (136-145); Total Bilirubin 0.8 mg/dL (0.15-1.2); Total Iron Binding Capacity 355 mcg/dl; Total Protein 7.5 g/dL (6.6-8.7); Unsaturated Iron Binding 224 ug/dL (112-347)
[2021-08-23] MEDS: durvalumab 1,500 MG in sodium chloride 0.9% 250 ML 280 MG IV (14:41)
[2021-08-23 15:50] VITALS: BP 108/66; PULSE 88; RESP 16; TEMP 36.1; O2SAT 92
[2021-08-25 11:15] VITALS: BP 136/80; PULSE 105; RESP 18; TEMP 36.6; O2SAT 98
[2021-08-25] MEDS: sodium chloride 0.9% 1,000 ML 999 ML IV (11:30)
[2021-08-25 12:30] VITALS: BP 97/59; PULSE 79; RESP 18; TEMP 522.7; TEMP 973; O2SAT 99
--- NOTE | 2021-09-05 14:32 | CT_ITS ---
WS: [id number] CT CHEST, ABDOMEN AND PELVIS WITHOUT CONTRAST. HISTORY: lung cancer TECHNIQUE: Contiguous 5 mm axial imaging performed through the chest, abdomen and pelvis without IV c ontrast, oral contrast has been provided. Coronal and sagittal reformats chest. Coronal and sagittal reformats through the abdomen and pelvis. All CT scans at [facility] use at least one of thes e dose optimization techniques: automated exposure control; mA and/or kV adjustment per patient size (includes targeted exams where dose is matched to clinical indication); or iterative reconstruction. CONTRAST: None DLP: 1530.48 mGy.cm COMPARISON: 08/10/2021 and 05/27/2021, 02/23/[address]: Chronic emphysema. Previously described RIGHT upper lobe subsolid nodule measures 18 x 17 m m. Compared to prior studies not significantly increased in size. Measurements are very slightly grea ter but this is probably due to adjacent volume averaging and slice selection. The additional 9 x 8 m m mildly spiculated nodule in the anterior RIGHT upper lobe is unchanged. 7 mm nodule RIGHT lower lob e is unchanged. No new nodule or significantly enlarging nodule. Small mediastinal and hilar lymph no fara. No increase in size of these lymph nodes on this unenhanced examination. Moderate atherosclerosi s thoracic aorta. Dilated pulmonary artery. Mild enlargement the heart. No pericardial or pleural eff usions. Small hiatal hernia. Abdomen CT: Hepatic steatosis. Negative gallbladder. No bile duct dilatation. Negative spleen. Recent ly described cystic lesion associated with the uncinate process of the pancreas is difficult to visua lize on this unenhanced study. No obvious change since 08/10/2021. This will need continued follow-up. Normal adrenal glands. Bilateral low-attenuation masses within each kidney. No renal obstruction. Pr ior endovascular graft placement aorta. No adjacent hematoma. No adenopathy or ascites. Diffuse constipation. Sigmoid diverticulosis without acute diverticulitis. Normal appendix. Mild pros friedman enlargement. Straightening of the normal lumbar lordosis. Advanced degenerative disc disease and spondylitic ayon es within the lumbar spine. No osteoblastic or osteolytic bone disease identified. Pelvic CT: Well-distended urinary bladder. No free fluid within the pelvis. CT/CT chest abd pel wo con IMPRESSION: 1. As compared to the most recent examinations RIGHT upper lobe subsolid lung neoplasm has not significantly changed since the most recent examinations. Nodu le measures 18 x 17 mm. Additional smaller RIGHT upper lobe and RIGHT lower lob e nodules are stable. 2. No increase in size or number of the lymph nodes within the chest, abdomen or pelvis. 3. Prior endovascular graft repair aorta. 4. No change in the uncinate process cystic mass that was described on 08/11/19 22 on this unenhanced study. Continued serial follow-up will be necessary for s tability.
[2021-09-22 08:20] VITALS: BMI 30.2
[2021-09-22 08:29] LABS: Basophils # 0.1 10^3/uL (0.0-0.1); Basophils % 0.8 %; Eosinophils # 0.2 10^3/uL (0.0-0.8); Eosinophils % 2.6 %; Hematocrit 40.3 % (42.0-52.0); Hemoglobin 13.1 g/dL (11.7-16.6); Lymphocytes # 0.7 10^3/uL (0.8-4.8); Lymphocytes % 9.1 %; Mean Corpuscular HGB Conc 32.5 g/dL (30.0-36.0); Mean Corpuscular Hemoglobin 32.3 pg (28.0-34.0); Mean Corpuscular Volume 99.5 fl (80-94); Mean Platelet Volume 10.5 fL (7.4-10.4); Monocytes # 0.6 10^3/uL (0.2-0.9); Monocytes % 7.9 %; Neutrophils # 6.16 10^3/uL (1.8-7.7); Neutrophils % 79.2 %; Nucleated Red Blood Cells % 0 %; Platelet Count 189 10^3/cmm (130-400); Red Blood Count 4.05 10^6/uL (4.1-5.3); White Blood Count 7.8 10^3/uL (4.0-10.0)
[2021-09-22] MEDS: sodium chloride 0.9% 250 ML 75 ML IV (10:08)
[2021-09-22] MEDS: durvalumab 1,500 MG in sodium chloride 0.9% 250 ML 280 MG IV (10:11)
[2021-09-22 10:20] LABS: Alanine Aminotransferase 8 U/L (0-41); Albumin Level 3.4 g/dL (3.5-5.2); Alkaline Phosphatase 59 IU/L (40-130); Anion Gap 17.6 (5-19); Aspartate Amino Transferase 13 U/L (0-40); Blood Urea Nitrogen 13 mg/dL (8-23); Calcium 8.2 mg/dL (8.5-10.5); Carbon Dioxide 19 mmol/L (22-29); Chloride 109 mmol/L (98-107); Globulin 2.7 g/dL (1.3-4.6); Glucose 151 mg/dL (65-115); Osmolality Calculated 297 mOsm/kg (285-295); Potassium 3.6 mmol/L (3.5-5.1); Sodium 142 mmol/L (136-145); Thyroid Stimulating Hormone 1.64 uIU/mL (0.27-4.20); Total Bilirubin 0.4 mg/dL (0.15-1.2); Total Protein 6.1 g/dL (6.6-8.7)
== END 2021-09-22 23:59 | disposition home or self-care (01) ==
PROVIDERS: Nurse Practitioner Family; PCP Family Medicine; Referring Provider Internal Medicine Critical Care Medicine; Visit Provider Internal Medicine Medical Oncology
DX: Z51.11 Encounter for antineoplastic chemotherapy (principal); C34.11 Malignant neoplasm of upper lobe, right bronchus or lung; F17.210 Nicotine dependence, cigarettes, uncomplicated; R53.83 Other fatigue
CPT/HCPCS: 71250; 74176; 80053; 83540; 83550; 84443; 85025; 96360; 96413; 99214; J7030; J7050; J9173

== ENCOUNTER 2021-10-21 06:00 | Outpatient (RCR) | payer MEDICARE, SELFPAY | END 2021-11-20 23:59 | disposition home or self-care (01) | LOC: SPT 06:00 | PROVIDERS: PCP Family Medicine; Referring Provider Internal Medicine Medical Oncology; Visit Provider Internal Medicine Medical Oncology | DX: M62.81 Muscle weakness (generalized) (principal) | CPT/HCPCS: 97110 ==

== ENCOUNTER 2021-10-26 09:36 | Oncology outpatient (recurring) (ONCR) | payer MEDICARE, SELFPAY ==
[2021-10-26 10:07] LABS: Basophils # 0.1 10^3/uL (0.0-0.1); Basophils % 0.7 %; Eosinophils # 0.2 10^3/uL (0.0-0.8); Eosinophils % 2.4 %; Hematocrit 40.1 % (42.0-52.0); Hemoglobin 13.4 g/dL (11.7-16.6); Lymphocytes # 0.7 10^3/uL (0.8-4.8); Lymphocytes % 8.6 %; Mean Corpuscular HGB Conc 33.4 g/dL (30.0-36.0); Mean Corpuscular Hemoglobin 33.3 pg (28.0-34.0); Mean Corpuscular Volume 99.8 fl (80-94); Mean Platelet Volume 10.6 fL (7.4-10.4); Monocytes # 0.5 10^3/uL (0.2-0.9); Monocytes % 6.6 %; Neutrophils # 6.53 10^3/uL (1.8-7.7); Neutrophils % 81.2 %; Nucleated Red Blood Cells % 0 %; Platelet Count 188 10^3/cmm (130-400); Red Blood Count 4.02 10^6/uL (4.1-5.3); Red Cell Distribution Width 15.8 % (12.1-15.1)
[2021-10-26 10:27] LABS: Alanine Aminotransferase 10 U/L (0-41); Albumin Level 3.9 g/dL (3.5-5.2); Alkaline Phosphatase 66 IU/L (40-130); Anion Gap 18.1 (5-19); Aspartate Amino Transferase 15 U/L (0-40); Blood Urea Nitrogen 13 mg/dL (8-23); Calcium 9.3 mg/dL (8.5-10.5); Carbon Dioxide 21 mmol/L (22-29); Chloride 103 mmol/L (98-107); Globulin 3.1 g/dL (1.3-4.6); Glucose 189 mg/dL (65-115); Osmolality Calculated 291 mOsm/kg (285-295); Potassium 4.1 mmol/L (3.5-5.1); Sodium 138 mmol/L (136-145); Thyroid Stimulating Hormone 1.95 uIU/mL (0.27-4.20); Total Bilirubin 0.6 mg/dL (0.15-1.2)
[2021-10-26] MEDS: sodium chloride 0.9% 250 ML 75 ML IV (11:19)
[2021-10-26] MEDS: durvalumab 1,500 MG in sodium chloride 0.9% 250 ML 280 MG IV (11:40)
[2021-10-26 12:54] VITALS: BP 120/64; PULSE 85; TEMP 36.5; O2SAT 91
== END 2021-11-20 23:59 | disposition home or self-care (01) ==
PROVIDERS: Nurse Practitioner Family; PCP Family Medicine; Referring Provider Internal Medicine Critical Care Medicine; Visit Provider Internal Medicine Medical Oncology
DX: Z51.11 Encounter for antineoplastic chemotherapy (principal); C34.11 Malignant neoplasm of upper lobe, right bronchus or lung; F17.210 Nicotine dependence, cigarettes, uncomplicated; R53.83 Other fatigue
CPT/HCPCS: 80053; 84443; 85025; 96413; 99214; J7050; J9173

== ENCOUNTER 2021-11-21 06:00 | Outpatient (RCR) | payer MEDICARE, SELFPAY | END 2021-12-21 23:59 | disposition home or self-care (01) | LOC: SPT 06:00 | PROVIDERS: PCP Family Medicine; Referring Provider Internal Medicine Medical Oncology; Visit Provider Internal Medicine Medical Oncology | DX: M62.81 Muscle weakness (generalized) (principal) | CPT/HCPCS: 97110 ==

== ENCOUNTER 2021-11-22 13:28 | Outpatient (CLI) | payer MEDICARE, SELFPAY ==
--- NOTE | 2021-11-22 13:30 | CT_ITS ---
WS: [id number] CT CHEST WITH INTRAVENOUS CONTRAST HISTORY: Restaging, history of bladder and lung cancer. Restaging RIGHT upper lobe neoplasm. TECHNIQUE: Contiguous 5 mm axial imaging performed on the thorax. Coronal and sagittal reformats are submitted. All CT scans at [facility] use at least one of these dose optimization techniques: automated exposure control; mA and/or kV adjustment per patient size (includes targeted exams where dose is matched to clinical indication); or iterative reconstruction. CONTRAST: Omnipaque 350; 90 mL IV. DLP: 820.59 mGy.cm COMPARISON: 09/05/2021 Lungs and central airway: Centrilobular emphysema. Subsolid nodule in the RIGHT upper lobe abuts the superior major fissure measures 17 x 15 mm and not significantly changed. There is a small amount of adjacent atelectasis or fibrosis. Spiculated nodule in the anterior RIGHT upper lobe measures 9 x 7 m m and not changed. There are a few additional scattered nodules which are stable. No new pulmonary no dule is identified. Pleura: Normal. No pleural effusion. Heart and pericardium: Mild enlargement of the heart. No pericardial effusion. Mediastinum and katie: Small mediastinal and hilar lymph nodes. No increase in size or number. Vessels: Moderate atherosclerotic change within the aorta. Pulmonary artery size is slightly enlarged . No filling defects proximally. Chest wall and lower neck: No soft tissue masses. Upper abdomen: Liver is enlarged and of low attenuation from hepatic steatosis. No metastatic lesions . Normal adrenal glands. Cystic masses in the LEFT kidney are unchanged. Status post endovascular rep air of aorta. Only superiormost graft is included. The entire pancreatic head is not included. Osseous structures: Straightening of the normal thoracic kyphosis. Degenerative changes in the discs. CT/CT chest w con* [id number] IMPRESSION: 1. No significant enlargement or improvement in the pulmonary nodules. The lar gest is subsolid in the RIGHT upper lobe measuring 17 x 15 mm. Prior measuremen t of 18 x 17 mm. Additional smaller nodules are also stable since the most rece nt study of 09/05/2021. 2. No increase in size and number of the mediastinal or hilar lymph nodes. 3. No metastatic disease to the liver or adrenal glands.
[2021-11-22] MEDS: iohexol 350 mg/mL 100 mL Btl IV (14:24)
== END 2021-11-22 13:29 | disposition home or self-care (01) ==
PROVIDERS: PCP Family Medicine; Visit Provider Internal Medicine Medical Oncology
DX: C34.11 Malignant neoplasm of upper lobe, right bronchus or lung (principal); Z85.51 Personal history of malignant neoplasm of bladder
CPT/HCPCS: 71260

== ENCOUNTER 2021-12-21 11:00 | Oncology outpatient (recurring) (ONCR) | payer MEDICARE, SELFPAY ==
[2021-11-23 09:36] VITALS: BMI 28.0
[2021-11-23 09:43] LABS: Basophils # 0.1 10^3/uL (0.0-0.1); Basophils % 0.6 %; Eosinophils # 0.2 10^3/uL (0.0-0.8); Eosinophils % 2.6 %; Hematocrit 42.1 % (42.0-52.0); Hemoglobin 13.7 g/dL (11.7-16.6); Lymphocytes # 0.8 10^3/uL (0.8-4.8); Mean Corpuscular HGB Conc 32.5 g/dL (30.0-36.0); Mean Corpuscular Hemoglobin 33.7 pg (28.0-34.0); Mean Corpuscular Volume 103.4 fl (80-94); Mean Platelet Volume 10.6 fL (7.4-10.4); Monocytes # 0.7 10^3/uL (0.2-0.9); Monocytes % 7.7 %; Neutrophils # 6.81 10^3/uL (1.8-7.7); Neutrophils % 79.6 %; Nucleated Red Blood Cells % 0 %; Platelet Count 181 10^3/cmm (130-400); Red Blood Count 4.07 10^6/uL (4.1-5.3); Red Cell Distribution Width 16.4 % (12.1-15.1); White Blood Count 8.6 10^3/uL (4.0-10.0)
[2021-11-23 10:17] LABS: Alanine Aminotransferase 9 U/L (0-41); Alkaline Phosphatase 67 IU/L (40-130); Aspartate Amino Transferase 16 U/L (0-40); Blood Urea Nitrogen 13 mg/dL (8-23); Calcium 9.6 mg/dL (8.5-10.5); Carbon Dioxide 22 mmol/L (22-29); Chloride 101 mmol/L (98-107); Globulin 2.9 g/dL (1.3-4.6); Glucose 172 mg/dL (65-115); Osmolality Calculated 290 mOsm/kg (285-295); Sodium 138 mmol/L (136-145); Thyroid Stimulating Hormone 3.16 uIU/mL (0.27-4.20); Total Bilirubin 1.1 mg/dL (0.15-1.2); Total Protein 6.9 g/dL (6.6-8.7)
[2021-11-23 10:19] LABS: Anion Gap 19.3 (5-19); Potassium 4.3 mmol/L (3.5-5.1)
[2021-11-23] MEDS: sodium chloride 0.9% 250 ML 100 ML IV (11:34)
[2021-11-23] MEDS: durvalumab 1,500 MG in sodium chloride 0.9% 250 ML 280 MG IV (11:39)
[2021-11-23 12:51] VITALS: BP 107/63; PULSE 75; RESP 16; TEMP 36.4; O2SAT 93
[2021-12-14 08:25] LABS: Basophils # 0.1 10^3/uL (0.0-0.1); Basophils % 0.8 %; Eosinophils # 0.2 10^3/uL (0.0-0.8); Eosinophils % 2.1 %; Hematocrit 43.7 % (42.0-52.0); Hemoglobin 14.2 g/dL (11.7-16.6); Lymphocytes # 0.8 10^3/uL (0.8-4.8); Lymphocytes % 10.1 %; Mean Corpuscular HGB Conc 32.5 g/dL (30.0-36.0); Mean Corpuscular Hemoglobin 33.9 pg (28.0-34.0); Mean Corpuscular Volume 104.3 fl (80-94); Mean Platelet Volume 10.5 fL (7.4-10.4); Monocytes # 0.6 10^3/uL (0.2-0.9); Monocytes % 7.3 %; Neutrophils # 6.19 10^3/uL (1.8-7.7); Neutrophils % 79.3 %; Nucleated Red Blood Cells % 0 %; Platelet Count 173 10^3/cmm (130-400); Red Blood Count 4.19 10^6/uL (4.1-5.3); Red Cell Distribution Width 16.1 % (12.1-15.1); White Blood Count 7.8 10^3/uL (4.0-10.0)
[2021-12-14 09:04] LABS: Alanine Aminotransferase 11 U/L (0-41); Albumin Level 4.2 g/dL (3.5-5.2); Alkaline Phosphatase 72 U/L (40-130); Anion Gap 16.9 (5-19); Aspartate Amino Transferase 20 U/L (0-40); Blood Urea Nitrogen 14 mg/dL (8-23); Carbon Dioxide 24 mmol/L (22-29); Chloride 102 mmol/L (98-107); Globulin 3.2 g/dL (1.3-4.6); Glucose 160 mg/dL (65-115); Osmolality Calculated 292 mOsm/kg (285-295); Potassium 3.9 mmol/L (3.5-5.1); Sodium 139 mmol/L (136-145); Thyroid Stimulating Hormone 2.25 uIU/mL (0.27-4.20); Total Bilirubin 0.9 mg/dL (0.15-1.2); Total Protein 7.4 g/dL (6.6-8.7)
[2021-12-21 11:24] VITALS: BP 106/68; PULSE 93; RESP 18; TEMP 36.6; O2SAT 93
[2021-12-21] MEDS: durvalumab 1,500 MG in sodium chloride 0.9% 250 ML 280 MG IV (12:03)
== END 2021-12-21 23:59 | disposition home or self-care (01) ==
PROVIDERS: Nurse Practitioner Family; PCP Family Medicine; Referring Provider Internal Medicine Critical Care Medicine; Visit Provider Internal Medicine Medical Oncology
DX: Z51.11 Encounter for antineoplastic chemotherapy; C34.11 Malignant neoplasm of upper lobe, right bronchus or lung; F17.210 Nicotine dependence, cigarettes, uncomplicated; Z53.9 Procedure and treatment not carried out, unspecified reason
CPT/HCPCS: 36415; 80053; 84443; 85025; 96413; 99214; 99215; J7050; J9173

== ENCOUNTER 2021-12-22 06:00 | Outpatient (RCR) | payer MEDICARE, SELFPAY | END 2022-01-20 23:59 | disposition home or self-care (01) | LOC: SPT 06:00 | PROVIDERS: PCP Family Medicine; Visit Provider Internal Medicine Medical Oncology | DX: M62.81 Muscle weakness (generalized) (principal) | CPT/HCPCS: 97110 ==

== ENCOUNTER 2022-01-18 08:50 | Oncology outpatient (recurring) (ONCR) | payer MEDICARE, SELFPAY ==
[2022-01-18 09:30] LABS: Basophils # 0.1 10^3/uL (0.0-0.1); Basophils % 0.7 %; Eosinophils # 0.2 10^3/uL (0.0-0.8); Eosinophils % 1.7 %; Hematocrit 43.6 % (42.0-52.0); Hemoglobin 13.9 g/dL (11.7-16.6); Lymphocytes # 0.8 10^3/uL (0.8-4.8); Lymphocytes % 8.3 %; Mean Corpuscular HGB Conc 31.9 g/dL (30.0-36.0); Mean Corpuscular Hemoglobin 33.9 pg (28.0-34.0); Mean Corpuscular Volume 106.3 fl (80-94); Mean Platelet Volume 10.7 fL (7.4-10.4); Monocytes # 0.6 10^3/uL (0.2-0.9); Monocytes % 5.7 %; Neutrophils # 8.25 10^3/uL (1.8-7.7); Neutrophils % 83.2 %; Nucleated Red Blood Cells % 0 %; Platelet Count 199 10^3/cmm (130-400); Red Cell Distribution Width 15.4 % (12.1-15.1); White Blood Count 9.9 10^3/uL (4.0-10.0)
[2022-01-18 10:21] LABS: Alanine Aminotransferase 9 U/L (0-41); Albumin Level 3.9 g/dL (3.5-5.2); Alkaline Phosphatase 72 U/L (40-130); Blood Urea Nitrogen 16 mg/dL (8-23); Calcium 9.8 mg/dL (8.5-10.5); Carbon Dioxide 26 mmol/L (22-29); Chloride 100 mmol/L (98-107); Globulin 3.5 g/dL (1.3-4.6); Glucose 135 mg/dL (65-115); Osmolality Calculated 287 mOsm/kg (285-295); Sodium 137 mmol/L (136-145); Thyroid Stimulating Hormone 2.45 uIU/mL (0.27-4.20); Total Bilirubin 0.8 mg/dL (0.15-1.2); Total Protein 7.4 g/dL (6.6-8.7)
[2022-01-18 10:29] LABS: Anion Gap 15.3 (5-19); Aspartate Amino Transferase 23 U/L (0-40)
[2022-01-18 10:30] LABS: Potassium 4.3 mmol/L (3.5-5.1)
[2022-01-18] MEDS: sodium chloride 0.9% 250 ML 100 ML IV (11:18)
[2022-01-18] MEDS: durvalumab 1,500 MG in sodium chloride 0.9% 250 ML 280 MG IV (11:32)
[2022-01-18 12:37] VITALS: BP 116/67; PULSE 74; TEMP 36.5; O2SAT 92
== END 2022-01-20 23:59 | disposition home or self-care (01) ==
PROVIDERS: Nurse Practitioner Family; PCP Family Medicine; Referring Provider Internal Medicine Critical Care Medicine; Visit Provider Internal Medicine Medical Oncology
DX: C34.11 Malignant neoplasm of upper lobe, right bronchus or lung (principal); Z51.12 Encounter for antineoplastic immunotherapy; E11.52 Type 2 diabetes mellitus with diabetic peripheral angiopathy with gangrene
CPT/HCPCS: 80053; 84443; 85025; 96413; 99214; J7050; J9173

== ENCOUNTER 2022-01-21 06:00 | Outpatient (RCR) | payer MEDICARE, SELFPAY | END 2022-02-20 23:59 | disposition home or self-care (01) | LOC: SPT 06:00 | PROVIDERS: PCP Family Medicine; Visit Provider Internal Medicine Medical Oncology | DX: M62.81 Muscle weakness (generalized) (principal) | CPT/HCPCS: 97110 ==

== ENCOUNTER → 2022-02-07 09:23 | Outpatient (BNVA) | payer MEDICARE, SELFPAY | PROVIDERS: PCP Family Medicine; Visit Provider Urology | DX: N40.1 Benign prostatic hyperplasia with lower urinary tract symptoms (principal); C67.4 Malignant neoplasm of posterior wall of bladder | CPT/HCPCS: 51741; 51798; 52000; 81003; 99212 ==

== ENCOUNTER 2022-02-15 08:49 | Oncology outpatient (recurring) (ONCR) | payer MEDICARE, SELFPAY ==
[2022-02-15 09:37] LABS: Basophils # 0.1 10^3/uL (0.0-0.1); Basophils % 0.8 %; Eosinophils # 0.2 10^3/uL (0.0-0.8); Eosinophils % 2.7 %; Hematocrit 39.4 % (42.0-52.0); Hemoglobin 12.8 g/dL (11.7-16.6); Lymphocytes # 0.8 10^3/uL (0.8-4.8); Lymphocytes % 10.6 %; Mean Corpuscular HGB Conc 32.5 g/dL (30.0-36.0); Mean Corpuscular Hemoglobin 34.3 pg (28.0-34.0); Mean Corpuscular Volume 105.6 fl (80-94); Mean Platelet Volume 10.3 fL (7.4-10.4); Monocytes # 0.5 10^3/uL (0.2-0.9); Monocytes % 6.4 %; Neutrophils # 5.84 10^3/uL (1.8-7.7); Neutrophils % 79.1 %; Nucleated Red Blood Cells % 0 %; Platelet Count 171 10^3/cmm (130-400); Red Blood Count 3.73 10^6/uL (4.1-5.3); Red Cell Distribution Width 15.4 % (12.1-15.1); White Blood Count 7.4 10^3/uL (4.0-10.0)
[2022-02-15 09:56] LABS: Alanine Aminotransferase 8 U/L (0-41); Albumin Level 3.9 g/dL (3.5-5.2); Alkaline Phosphatase 73 U/L (40-130); Anion Gap 13.1 (5-19); Aspartate Amino Transferase 14 U/L (0-40); Blood Urea Nitrogen 12 mg/dL (8-23); Calcium 9.2 mg/dL (8.5-10.5); Carbon Dioxide 24 mmol/L (22-29); Chloride 103 mmol/L (98-107); Globulin 2.7 g/dL (1.3-4.6); Glucose 117 mg/dL (65-115); Osmolality Calculated 283 mOsm/kg (285-295); Potassium 4.1 mmol/L (3.5-5.1); Sodium 136 mmol/L (136-145); Total Protein 6.6 g/dL (6.6-8.7)
[2022-02-15] MEDS: sodium chloride 0.9% 250 ML 100 ML IV (11:04)
[2022-02-15] MEDS: durvalumab 1,500 MG in sodium chloride 0.9% 250 ML 280 MG IV (11:10)
[2022-02-15 12:24] VITALS: BP 124/74; PULSE 74; TEMP 36.1; O2SAT 92
[2022-02-15 17:23] LABS: Estmated Average Glucose 120; Hemoglobin A1C 5.8 % (4.0-6.0)
== END 2022-02-20 23:59 | disposition home or self-care (01) ==
PROVIDERS: PCP Family Medicine; Referring Provider Internal Medicine Critical Care Medicine; Visit Provider Internal Medicine Medical Oncology
DX: C34.11 Malignant neoplasm of upper lobe, right bronchus or lung (principal); Z51.12 Encounter for antineoplastic immunotherapy
CPT/HCPCS: 80053; 83036; 85025; 96413; 99214; J7050; J9173

== ENCOUNTER → 2022-02-16 10:06 | Outpatient (BNVA) | payer MEDICARE, SELFPAY | PROVIDERS: PCP Family Medicine; Visit Provider Internal Medicine Cardiovascular Disease | DX: I25.10 Atherosclerotic heart disease of native coronary artery without angina pectoris (principal); I73.9 Peripheral vascular disease, unspecified; E11.59 Type 2 diabetes mellitus with other circulatory complications; E78.2 Mixed hyperlipidemia; I10 Essential (primary) hypertension; F17.210 Nicotine dependence, cigarettes, uncomplicated; Z79.84 Long term (current) use of oral hypoglycemic drugs | CPT/HCPCS: 99214 ==

== ENCOUNTER 2022-02-21 06:00 | Outpatient (RCR) | payer MEDICARE, SELFPAY | END 2022-03-22 23:59 | disposition home or self-care (01) | LOC: SPT 06:00 | PROVIDERS: PCP Family Medicine; Visit Provider Internal Medicine Medical Oncology | DX: M62.81 Muscle weakness (generalized) (principal) | CPT/HCPCS: 97110 ==

== ENCOUNTER 2022-03-23 06:00 | Outpatient (RCR) | payer MEDICARE, SELFPAY | END 2022-04-22 23:59 | disposition home or self-care (01) | LOC: SPT 06:00 | PROVIDERS: PCP Family Medicine; Visit Provider Internal Medicine Medical Oncology | DX: M62.81 Muscle weakness (generalized) (principal) | CPT/HCPCS: 97110 ==

== ENCOUNTER 2022-03-31 08:48 | Outpatient (CLI) | payer MEDICARE, SELFPAY ==
--- NOTE | 2022-03-31 09:00 | CT_ITS ---
WS: [id number] EXAMINATION: CT chest wo con [id number] REASON FOR EXAM: abnormal PET scan of right clavicle COMPARISON: PET CT 02/18/2022, CT chest 11/22/2021 ORDER DATE: 03/31/2022 9:00 AM TOTAL EXAM DLP: 782.[address] scans at [facility] use at least one of these dose optimization techniques: automated ex posure control; mA and/or kV adjustment per patient size (includes targeted exams where dose is match ed to clinical indication); or iterative reconstruction. TECHNIQUE: Multiple axial images of the chest were obtained with 2-D imaging without the administration of contr ast. Evaluation of the mediastinum and katie for adenopathy and other pathology is significantly limited by the lack of intravascular contrast. FINDINGS: Lungs and central airway: Centrilobular emphysema. Subsolid nodule in the RIGHT upper lobe abuts the superior major fissure measures 17 x 15 mm and not significantly changed. There is a small amount of adjacent atelectasis or fibrosis. Spiculated nodule in the anterior RIGHT upper lobe measures 9 x 7 m m and not changed. There are a few additional scattered nodules which are stable. No new pulmonary no dule is identified. Pleura: Normal. No pleural effusion. Heart and pericardium: Mild enlargement of the heart. No pericardial effusion. Mediastinum and katie: Small mediastinal and hilar lymph nodes. No increase in size or number. Vessels: Moderate atherosclerotic change within the aorta. Pulmonary artery size is slightly enlarged . No filling defects proximally. Chest wall and lower neck: No soft tissue masses. Upper abdomen: Liver is enlarged and of low attenuation from hepatic steatosis. No metastatic lesions . Normal adrenal glands. Cystic masses in the LEFT kidney are unchanged. Osseous structures: There is a groundglass sclerotic density about 15 mm in diameter in the medial ri ght clavicle is not present on the prior CT of 11/22/2021 and was noted on recent PET/CT of 02/18/2022 examining increased activity. No other osseous changes with chronic degenerative spine change CT/CT chest wo con [id number] IMPRESSION: 1. No significant enlargement or improvement in the pulmonary nodules. The lar gest is subsolid in the RIGHT upper lobe measuring 17 x 15 mm. Additional small er nodules are also stable. No increase in size and number of the mediastinal o r hilar lymph nodes. 2. Recent sclerotic lesion in the medial right clavicle on PET/CT imaging 02/18 was not present on prior chest CT 11-22. This is consistent with osteob lastic metastatic lesion.
== END 2022-03-31 08:49 | disposition home or self-care (01) ==
LOC: RAD 08:48
PROVIDERS: PCP Family Medicine; Visit Provider Internal Medicine Medical Oncology
DX: C34.11 Malignant neoplasm of upper lobe, right bronchus or lung (principal)
CPT/HCPCS: 71250

== ENCOUNTER 2022-04-12 08:00 | Oncology outpatient (recurring) (ONCR) | payer MEDICARE, SELFPAY ==
[2022-04-12 08:27] LABS: Basophils # 0.1 10^3/uL (0.0-0.1); Basophils % 0.6 %; Eosinophils # 0.3 10^3/uL (0.0-0.8); Eosinophils % 3.3 %; Hematocrit 42.1 % (42.0-52.0); Hemoglobin 13.5 g/dL (11.7-16.6); Lymphocytes % 10.8 %; Mean Corpuscular HGB Conc 32.1 g/dL (30.0-36.0); Mean Corpuscular Hemoglobin 33.6 pg (28.0-34.0); Mean Corpuscular Volume 104.7 fl (80-94); Mean Platelet Volume 11.2 fL (7.4-10.4); Monocytes # 0.7 10^3/uL (0.2-0.9); Monocytes % 8.3 %; Neutrophils # 6.82 10^3/uL (1.8-7.7); Neutrophils % 76.6 %; Nucleated Red Blood Cells % 0 %; Platelet Count 193 10^3/cmm (130-400); Red Blood Count 4.02 10^6/uL (4.1-5.3); Red Cell Distribution Width 16.9 % (12.1-15.1); White Blood Count 8.9 10^3/uL (4.0-10.0)
[2022-04-12 09:05] LABS: Alanine Aminotransferase 9 U/L (0-41); Alkaline Phosphatase 68 U/L (40-130); Anion Gap 15.4 (5-19); Aspartate Amino Transferase 16 U/L (0-40); Blood Urea Nitrogen 15 mg/dL (8-23); Calcium 9.9 mg/dL (8.5-10.5); Carbon Dioxide 25 mmol/L (22-29); Chloride 104 mmol/L (98-107); Globulin 3.5 g/dL (1.3-4.6); Glucose 118 mg/dL (65-115); Osmolality Calculated 292 mOsm/kg (285-295); Potassium 4.4 mmol/L (3.5-5.1); Sodium 140 mmol/L (136-145); Thyroid Stimulating Hormone 2.87 uIU/mL (0.27-4.20); Total Bilirubin 0.8 mg/dL (0.15-1.2); Total Protein 7.5 g/dL (6.6-8.7)
[2022-04-12] MEDS: durvalumab 1,500 MG in sodium chloride 0.9% 250 ML 280 MG IV (10:22)
[2022-04-12] MEDS: sodium chloride 0.9% 250 ML 100 ML IV (10:26)
[2022-04-12 11:50] VITALS: BP 135/78; PULSE 75; TEMP 36.2; O2SAT 92
== END 2022-04-22 23:59 | disposition home or self-care (01) ==
PROVIDERS: PCP Family Medicine; Visit Provider Internal Medicine Medical Oncology
DX: Z51.12 Encounter for antineoplastic immunotherapy (principal); C34.11 Malignant neoplasm of upper lobe, right bronchus or lung; Z79.899 Other long term (current) drug therapy
CPT/HCPCS: 80053; 84443; 85025; 96413; 99214; J7050; J9173

== ENCOUNTER 2022-04-23 06:00 | Outpatient (RCR) | payer MEDICARE, SELFPAY | END 2022-05-23 23:59 | disposition home or self-care (01) | LOC: SPT 06:00 | PROVIDERS: PCP Family Medicine; Visit Provider Internal Medicine Medical Oncology | DX: M62.81 Muscle weakness (generalized) (principal) | CPT/HCPCS: 97110 ==

== ENCOUNTER 2022-05-10 11:53 | Oncology outpatient (recurring) (ONCR) | payer MEDICARE, SELFPAY ==
[2022-05-10 12:22] LABS: Basophils # 0.1 10^3/uL (0.0-0.1); Basophils % 0.7 %; Eosinophils # 0.2 10^3/uL (0.0-0.8); Eosinophils % 2.8 %; Hematocrit 42.4 % (42.0-52.0); Hemoglobin 13.3 g/dL (11.7-16.6); Lymphocytes % 12.3 %; Mean Corpuscular HGB Conc 31.4 g/dL (30.0-36.0); Mean Corpuscular Hemoglobin 32.7 pg (28.0-34.0); Mean Corpuscular Volume 104.2 fl (80-94); Mean Platelet Volume 10.2 fL (7.4-10.4); Monocytes # 0.5 10^3/uL (0.2-0.9); Monocytes % 6.6 %; Neutrophils # 6.29 10^3/uL (1.8-7.7); Neutrophils % 77.2 %; Nucleated Red Blood Cells % 0 %; Platelet Count 210 10^3/cmm (130-400); Red Blood Count 4.07 10^6/uL (4.1-5.3); Red Cell Distribution Width 16.7 % (12.1-15.1); White Blood Count 8.2 10^3/uL (4.0-10.0)
[2022-05-10 12:57] LABS: Alanine Aminotransferase 9 U/L (0-41); Alkaline Phosphatase 67 U/L (40-130); Aspartate Amino Transferase 16 U/L (0-40); Blood Urea Nitrogen 14 mg/dL (8-23); Calcium 10.2 mg/dL (8.5-10.5); Carbon Dioxide 26 mmol/L (22-29); Chloride 104 mmol/L (98-107); Globulin 3.6 g/dL (1.3-4.6); Glucose 148 mg/dL (65-115); Osmolality Calculated 291 mOsm/kg (285-295); Sodium 139 mmol/L (136-145); Thyroid Stimulating Hormone 2.15 uIU/mL (0.27-4.20); Total Bilirubin 0.8 mg/dL (0.15-1.2); Total Protein 7.6 g/dL (6.6-8.7)
[2022-05-10] MEDS: durvalumab 1,500 MG in sodium chloride 0.9% 250 ML 280 MG IV (14:13)
== END 2022-05-23 23:59 | disposition home or self-care (01) ==
PROVIDERS: PCP Family Medicine; Visit Provider Internal Medicine Medical Oncology
DX: Z51.12 Encounter for antineoplastic immunotherapy (principal); C34.11 Malignant neoplasm of upper lobe, right bronchus or lung; C77.8 Secondary and unspecified malignant neoplasm of lymph nodes of multiple regions; C78.02 Secondary malignant neoplasm of left lung; M89.9 Disorder of bone, unspecified; R53.0 Neoplastic (malignant) related fatigue; F17.210 Nicotine dependence, cigarettes, uncomplicated; Z79.899 Other long term (current) drug therapy; Z92.21 Personal history of antineoplastic chemotherapy; Z92.3 Personal history of irradiation
CPT/HCPCS: 36415; 80053; 84443; 85025; 96413; 99214; J7050; J9173

== ENCOUNTER 2022-05-24 06:00 | Outpatient (RCR) | payer MEDICARE, SELFPAY | END 2022-05-30 23:59 | disposition home or self-care (01) | LOC: SPT 06:00 | PROVIDERS: PCP Family Medicine; Visit Provider Internal Medicine Medical Oncology | DX: M62.81 Muscle weakness (generalized) (principal) | CPT/HCPCS: 97110 ==

== ENCOUNTER 2022-06-07 08:41 | Oncology outpatient (recurring) (ONCR) | payer MEDICARE, SELFPAY ==
[2022-06-07 09:17] LABS: Basophils # 0.1 10^3/uL (0.0-0.1); Basophils % 0.8 %; Eosinophils # 0.3 10^3/uL (0.0-0.8); Eosinophils % 3.4 %; Hemoglobin 12.9 g/dL (11.7-16.6); Lymphocytes # 0.9 10^3/uL (0.8-4.8); Mean Corpuscular HGB Conc 31.5 g/dL (30.0-36.0); Mean Corpuscular Hemoglobin 32.6 pg (28.0-34.0); Mean Corpuscular Volume 103.5 fl (80-94); Mean Platelet Volume 10.7 fL (7.4-10.4); Monocytes # 0.6 10^3/uL (0.2-0.9); Monocytes % 7.1 %; Neutrophils # 6.42 10^3/uL (1.8-7.7); Neutrophils % 77.5 %; Nucleated Red Blood Cells % 0 %; Platelet Count 183 10^3/cmm (130-400); Red Blood Count 3.96 10^6/uL (4.1-5.3); White Blood Count 8.3 10^3/uL (4.0-10.0)
[2022-06-07 09:50] LABS: Alanine Aminotransferase 9 U/L (0-41); Albumin Level 4.1 g/dL (3.5-5.2); Alkaline Phosphatase 64 U/L (40-130); Anion Gap 15.9 (5-19); Aspartate Amino Transferase 15 U/L (0-40); Blood Urea Nitrogen 13 mg/dL (8-23); Calcium 9.4 mg/dL (8.5-10.5); Carbon Dioxide 26 mmol/L (22-29); Chloride 101 mmol/L (98-107); Globulin 3.1 g/dL (1.3-4.6); Glucose 114 mg/dL (65-115); Osmolality Calculated 289 mOsm/kg (285-295); Potassium 3.9 mmol/L (3.5-5.1); Sodium 139 mmol/L (136-145); Thyroid Stimulating Hormone 2.79 uIU/mL (0.27-4.20); Total Bilirubin 0.9 mg/dL (0.15-1.2); Total Protein 7.2 g/dL (6.6-8.7)
[2022-06-07] MEDS: durvalumab 1,500 MG in sodium chloride 0.9% 250 ML 280 MG IV (11:37)
[2022-06-07 12:44] VITALS: BP 126/74; PULSE 76; RESP 16; TEMP 35.9; O2SAT 93
== END 2022-06-20 23:59 | disposition home or self-care (01) ==
PROVIDERS: PCP Family Medicine; Visit Provider Internal Medicine Medical Oncology
DX: Z51.12 Encounter for antineoplastic immunotherapy (principal); C34.11 Malignant neoplasm of upper lobe, right bronchus or lung; C77.8 Secondary and unspecified malignant neoplasm of lymph nodes of multiple regions; C78.02 Secondary malignant neoplasm of left lung; C79.51 Secondary malignant neoplasm of bone; R53.0 Neoplastic (malignant) related fatigue; F17.210 Nicotine dependence, cigarettes, uncomplicated; Z79.899 Other long term (current) drug therapy
CPT/HCPCS: 80053; 84443; 85025; 99213; 99214; J7050; J9173

== ENCOUNTER 2022-06-27 08:47 | Outpatient (CLI) | payer MEDICARE, SELFPAY ==
--- NOTE | 2022-06-27 09:00 | CT_ITS ---
WS: [id number] CT CHEST TECHNIQUE: Noncontrast CT of the chest with coronal and sagittal reformatted images. CLINICAL INFORMATION: Restaging COMPARISON: CT chest March 31, 2022 and PET/CT February 18, 2022 DLP: 481.[address] scans at [facility] use at least one of these dose optimization techniques: automated e xposure control; mA and/or kV adjustment per patient size (includes targeted exams where dose is matc hed to clinical indication); or iterative reconstruction. FINDINGS: Stable RIGHT upper lobe semisolid nodule along the fissure measuring 1.4 x 1.5 cm unchanged . No evidence of progression. Stable 6 mm RIGHT lower lobe pulmonary nodule. Clustered micronodules R IGHT lower lobe posteriorly have resolved. Anterior RIGHT upper lobe nodule measuring 11 mm is unchan ged. Stable small nodule LEFT lower lobe laterally measuring 3 mm. Additional adjacent nodule LEFT lo wer lobe laterally along the fissure measuring 6 mm is unchanged. Normal caliber thoracic aorta. Aortic calcification. A few prominent anterior mediastinal lymph nodes largest measuring 10 mm. Coronary calcification. No axillary lymphadenopathy. Partially visualized aneurysmal upper abdominal aorta measuring 4.7 x 4. 1 CM. Adrenal glands are normal. LEFT renal cyst measuring 3.4 CM. Fatty atrophy of the pancreas. Nor mal GE junction. CT/CT chest wo con [id number] IMPRESSION: 1. 2. Stable previously described pulmonary nodules. Largest in the RIGHT upper l obe laterally along the fissure measuring 1.4 x 1.5 cm 3. Additional stable nodule RIGHT upper lobe anteriorly measuring 11 mm. 4. Stable RIGHT and LEFT lower lobe nodules laterally measuring 6 mm. 5. Stable prominent anterior mediastinal lymph nodes largest measuring 10 to 1 1 mm. 6. Improved previously described metastatic lesion in the medial RIGHT clavicl e 7. Partially visualized infrarenal abdominal aortic aneurysm.
== END 2022-06-27 08:48 | disposition home or self-care (01) ==
LOC: RAD 08:51
PROVIDERS: PCP Family Medicine; Visit Provider Internal Medicine Medical Oncology
DX: C34.11 Malignant neoplasm of upper lobe, right bronchus or lung (principal); R91.8 Other nonspecific abnormal finding of lung field; I71.43 Infrarenal abdominal aortic aneurysm, without rupture
CPT/HCPCS: 71250

== ENCOUNTER 2022-07-05 08:55 | Oncology outpatient (recurring) (ONCR) | payer MEDICARE, SELFPAY ==
[2022-07-05 09:29] LABS: Basophils # 0.1 10^3/uL (0.0-0.1); Basophils % 0.7 %; Eosinophils # 0.2 10^3/uL (0.0-0.8); Eosinophils % 2.9 %; Hematocrit 41.9 % (42.0-52.0); Hemoglobin 13.1 g/dL (11.7-16.6); Lymphocytes # 1.1 10^3/uL (0.8-4.8); Lymphocytes % 14.7 %; Mean Corpuscular HGB Conc 31.3 g/dL (30.0-36.0); Mean Corpuscular Hemoglobin 33.2 pg (28.0-34.0); Mean Corpuscular Volume 106.1 fl (80-94); Mean Platelet Volume 10.8 fL (7.4-10.4); Monocytes # 0.6 10^3/uL (0.2-0.9); Monocytes % 7.5 %; Neutrophils # 5.39 10^3/uL (1.8-7.7); Neutrophils % 73.8 %; Nucleated Red Blood Cells % 0 %; Platelet Count 150 10^3/cmm (130-400); Red Blood Count 3.95 10^6/uL (4.1-5.3); Red Cell Distribution Width 15.8 % (12.1-15.1); White Blood Count 7.3 10^3/uL (4.0-10.0)
[2022-07-05 09:56] VITALS: BP 120/72; PULSE 79; RESP 16; TEMP 36.2; O2SAT 96
[2022-07-05 10:07] LABS: Alanine Aminotransferase 9 U/L (0-41); Albumin Level 3.8 g/dL (3.5-5.2); Alkaline Phosphatase 62 U/L (40-130); Aspartate Amino Transferase 17 U/L (0-40); Blood Urea Nitrogen 14 mg/dL (8-23); Calcium 9.2 mg/dL (8.5-10.5); Carbon Dioxide 24 mmol/L (22-29); Chloride 104 mmol/L (98-107); Globulin 3.1 g/dL (1.3-4.6); Glucose 120 mg/dL (65-115); Osmolality Calculated 298 mOsm/kg (285-295); Sodium 143 mmol/L (136-145); Thyroid Stimulating Hormone 3.17 uIU/mL (0.27-4.20); Total Bilirubin 0.6 mg/dL (0.15-1.2); Total Protein 6.9 g/dL (6.6-8.7)
[2022-07-05 10:10] LABS: Anion Gap 18.6 (5-19); Potassium 3.6 mmol/L (3.5-5.1)
[2022-07-05] MEDS: durvalumab 1,500 MG in sodium chloride 0.9% 250 ML 280 MG IV (11:17)
[2022-07-05 12:21] VITALS: BP 130/70; PULSE 76; RESP 16; TEMP 35.8; O2SAT 95
== END 2022-07-21 23:59 | disposition home or self-care (01) ==
LOC: ONCMED 08:55
PROVIDERS: Nurse Practitioner; PCP Family Medicine; Visit Provider Internal Medicine Medical Oncology
DX: Z51.12 Encounter for antineoplastic immunotherapy (principal); C34.11 Malignant neoplasm of upper lobe, right bronchus or lung; C77.8 Secondary and unspecified malignant neoplasm of lymph nodes of multiple regions; C78.02 Secondary malignant neoplasm of left lung; C79.51 Secondary malignant neoplasm of bone; R53.0 Neoplastic (malignant) related fatigue; F17.210 Nicotine dependence, cigarettes, uncomplicated; Z79.899 Other long term (current) drug therapy
CPT/HCPCS: 80053; 84443; 85025; 96413; J7050; J9173

== ENCOUNTER 2022-08-02 08:50 | Oncology outpatient (recurring) (ONCR) | payer MEDICARE, SELFPAY ==
[2022-08-02 08:59] VITALS: BP 109/65; BP 121/69; PULSE 71; PULSE 83; RESP 16; TEMP 36.1; TEMP 36.4; O2SAT 84; O2SAT 92
[2022-08-02 09:14] LABS: Basophils # 0.1 10^3/uL (0.0-0.1); Basophils % 0.7 %; Eosinophils # 0.2 10^3/uL (0.0-0.8); Eosinophils % 2.3 %; Hemoglobin 12.9 g/dL (11.7-16.6); Lymphocytes # 1.1 10^3/uL (0.8-4.8); Lymphocytes % 11.9 %; Mean Corpuscular HGB Conc 32.3 g/dL (30.0-36.0); Mean Corpuscular Hemoglobin 33.1 pg (28.0-34.0); Mean Corpuscular Volume 102.6 fl (80-94); Mean Platelet Volume 10.5 fL (7.4-10.4); Monocytes # 0.8 10^3/uL (0.2-0.9); Monocytes % 8.8 %; Neutrophils # 6.79 10^3/uL (1.8-7.7); Neutrophils % 75.9 %; Nucleated Red Blood Cells % 0 %; Platelet Count 172 10^3/cmm (130-400); Red Cell Distribution Width 15.9 % (12.1-15.1)
[2022-08-02 10:36] LABS: Alanine Aminotransferase 9 U/L (0-41); Albumin Level 3.7 g/dL (3.5-5.2); Alkaline Phosphatase 53 U/L (40-130); Anion Gap 17.5 (5-19); Aspartate Amino Transferase 16 U/L (0-40); Blood Urea Nitrogen 18 mg/dL (8-23); Calcium 9.7 mg/dL (8.5-10.5); Carbon Dioxide 22 mmol/L (22-29); Chloride 103 mmol/L (98-107); Globulin 3.3 g/dL (1.3-4.6); Glucose 112 mg/dL (65-115); Osmolality Calculated 289 mOsm/kg (285-295); Potassium 4.5 mmol/L (3.5-5.1); Sodium 138 mmol/L (136-145); Total Bilirubin 0.8 mg/dL (0.15-1.2)
[2022-08-02] MEDS: durvalumab 1,500 MG in sodium chloride 0.9% 250 ML 280 MG IV (11:47)
[2022-08-02 12:55] VITALS: BP 105/75; PULSE 78; RESP 16; TEMP 36.4; O2SAT 92
== END 2022-08-20 23:59 | disposition home or self-care (01) ==
PROVIDERS: PCP Family Medicine; Visit Provider Internal Medicine Medical Oncology
DX: Z51.12 Encounter for antineoplastic immunotherapy (principal); C34.11 Malignant neoplasm of upper lobe, right bronchus or lung; C77.8 Secondary and unspecified malignant neoplasm of lymph nodes of multiple regions; C78.02 Secondary malignant neoplasm of left lung; C79.51 Secondary malignant neoplasm of bone; F17.210 Nicotine dependence, cigarettes, uncomplicated; Z79.899 Other long term (current) drug therapy
CPT/HCPCS: 80053; 84443; 85025; 96413; 99214; J7050; J9173

== ENCOUNTER → 2022-08-29 13:55 | Outpatient (BNVA) | payer MEDICARE, SELFPAY | PROVIDERS: PCP Family Medicine; Visit Provider Internal Medicine Cardiovascular Disease | DX: I25.10 Atherosclerotic heart disease of native coronary artery without angina pectoris (principal); I65.23 Occlusion and stenosis of bilateral carotid arteries; E11.59 Type 2 diabetes mellitus with other circulatory complications; E78.2 Mixed hyperlipidemia; I10 Essential (primary) hypertension; F17.210 Nicotine dependence, cigarettes, uncomplicated; Z79.84 Long term (current) use of oral hypoglycemic drugs | CPT/HCPCS: 99214 ==

== ENCOUNTER 2022-08-30 09:50 | Oncology outpatient (recurring) (ONCR) | payer MEDICARE, SELFPAY ==
[2022-08-30 10:15] VITALS: BP 109/66; PULSE 94; RESP 18; TEMP 36.4; O2SAT 91
[2022-08-30] MEDS: durvalumab 1,500 MG in sodium chloride 0.9% 250 ML 280 MG IV (10:59)
[2022-08-30 12:05] VITALS: BP 110/65; PULSE 84; RESP 18; TEMP 36.4; O2SAT 91
== END 2022-09-20 23:59 | disposition home or self-care (01) ==
PROVIDERS: PCP Family Medicine; Visit Provider Internal Medicine Medical Oncology
DX: Z51.11 Encounter for antineoplastic chemotherapy (principal); C34.11 Malignant neoplasm of upper lobe, right bronchus or lung
CPT/HCPCS: 96413; J7050; J9173

== ENCOUNTER 2022-09-11 13:45 | Outpatient (CLI) | payer MEDICARE, SELFPAY ==
--- NOTE | 2022-09-11 13:45 | USCV_ITS ---
Neal Garzon Age: 77 Gender: M : 1945 Exam Date: 09/11/2022 14:06 Ordering Phys: Jovany Burns MD ([email or web address]) Technologist: Ronnie Eller Exam Location: [facility] [place] Indication: carotid occlusion Risk Factors: Previous Vascular Surgery: Right Brachial BP: / Left Brachial BP: / Right Left Velocity (cm/s) Spectral Plaque Velocity (cm/s) Spectral Plaque Syst/Diast Broadening Syst/Diast Broadening 70.70/ 24.90 Prox CCA / 73.00/ 19.40 Mid CCA / 49.10/ 16.20 Distal CCA / 94.80/ 27.30 Prox ICA / 88.90/ 33.30 Mid ICA / 82.00/ 32.50 Distal ICA / 111.90 ECA 41.40 1.22 ICA/CCA Antegrade Vertebral Antegrade 49.10/ 12.30 cm/s 78.60/ 26.50 cm/s Tri Subclavian Tri 50.40 60.70 FINDINGS Minimal dense plaques at the right bifurcation and proximal internal carotid artery Heavy dense plaques at the left bifurcation and internal carotid artery. Normal Doppler flow signals in the left common carotid and no carotid artery Low velocity Doppler flow signals in the left external carotid artery Antegrade flow in the vertebral arteries bilaterally Normal Doppler velocities and subclavian arteries bilaterally CONCLUSIONS Minimal dense plaques at the right bifurcation and proximal internal carotid artery, suggesting less than 50% stenosis. 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 Compared to the study from 10/28/2020, there is no antegrade flow in the internal carotid artery on the left side Dr Jovany Burns MD [facility] (Electronically Signed) Final Date: 12 Sep 2022 22:42 S
== END 2022-09-11 13:46 | disposition home or self-care (01) ==
LOC: RAD 13:50
PROVIDERS: PCP Family Medicine; Visit Provider Internal Medicine Cardiovascular Disease
DX: I65.23 Occlusion and stenosis of bilateral carotid arteries (principal); I77.9 Disorder of arteries and arterioles, unspecified
CPT/HCPCS: 93880; 99214

== ENCOUNTER 2022-09-27 09:53 | Oncology outpatient (recurring) (ONCR) | payer MEDICARE, SELFPAY ==
[2022-09-27 10:07] VITALS: BP 115/70; PULSE 83; RESP 18; TEMP 35.9; O2SAT 91
[2022-09-27 10:48] LABS: Basophils # 0.1 10^3/uL (0.0-0.1); Basophils % 0.9 %; Eosinophils # 0.3 10^3/uL (0.0-0.8); Eosinophils % 3.6 %; Hematocrit 41.7 % (42.0-52.0); Hemoglobin 13.5 g/dL (11.7-16.6); Lymphocytes % 11.4 %; Mean Corpuscular HGB Conc 32.4 g/dL (30.0-36.0); Mean Corpuscular Hemoglobin 33.8 pg (28.0-34.0); Mean Corpuscular Volume 104.3 fl (80-94); Mean Platelet Volume 10.8 fL (7.4-10.4); Monocytes # 0.7 10^3/uL (0.2-0.9); Neutrophils % 75.5 %; Nucleated Red Blood Cells % 0 %; Platelet Count 182 10^3/cmm (130-400); Red Cell Distribution Width 15.3 % (12.1-15.1); White Blood Count 8.6 10^3/uL (4.0-10.0)
[2022-09-27 11:24] LABS: Alanine Aminotransferase 9 U/L (0-41); Albumin Level 3.9 g/dL (3.5-5.2); Alkaline Phosphatase 64 U/L (40-130); Anion Gap 17.1 (5-19); Aspartate Amino Transferase 14 U/L (0-40); Blood Urea Nitrogen 16 mg/dL (8-23); Calcium 9.4 mg/dL (8.5-10.5); Carbon Dioxide 21 mmol/L (22-29); Chloride 102 mmol/L (98-107); Glucose 113 mg/dL (65-115); Osmolality Calculated 284 mOsm/kg (285-295); Potassium 4.1 mmol/L (3.5-5.1); Sodium 136 mmol/L (136-145); Thyroid Stimulating Hormone 2.43 uIU/mL (0.27-4.20); Total Bilirubin 0.7 mg/dL (0.15-1.2); Total Protein 6.9 g/dL (6.6-8.7)
[2022-09-27] MEDS: durvalumab 1,500 MG in sodium chloride 0.9% 250 ML 280 MG IV (12:18)
[2022-09-27 13:15] VITALS: BP 115/64; PULSE 74; RESP 16; TEMP 36.3; O2SAT 94
== END 2022-10-20 23:59 | disposition home or self-care (01) ==
PROVIDERS: Nurse Practitioner; PCP Family Medicine; Visit Provider Internal Medicine Medical Oncology
DX: Z51.12 Encounter for antineoplastic immunotherapy (principal); C34.11 Malignant neoplasm of upper lobe, right bronchus or lung; C77.8 Secondary and unspecified malignant neoplasm of lymph nodes of multiple regions; C78.02 Secondary malignant neoplasm of left lung; C79.51 Secondary malignant neoplasm of bone; F17.210 Nicotine dependence, cigarettes, uncomplicated; Z79.899 Other long term (current) drug therapy
CPT/HCPCS: 80053; 84443; 85025; 96413; 99214; J7050; J9173

== ENCOUNTER 2022-10-25 14:52 | Oncology outpatient (recurring) (ONCR) | payer MEDICARE, SELFPAY ==
--- OUTSIDE RECORDS SUMMARY | 2022-10-25 14:54 | XMS_ITS | Patient Health Record ---
Author Name Unknown Organization [facility] Care Team Providers Care Project Management Name Role Phone Migration, Provider Unavailable Unavailable Arturo Burgos Unavailable [phone] ALLERGIES Allergen (clinical drug ingredient) Drug/Non Drug Allergy documented on EMR Reaction Allergy Type Onset Date Status tizanidine tizanidine , , Drug Allergy Activ e ENCOUNTERS from 1945 to 2022-10-25 Encounter Location Date Provider Diagnosis [facility] [address] [place] [address] Mar, Provider Migration [facility] [address] [place] [address] Mar, Provider Migration [facility] [address] [place] [address], [place] [address] Apr, Arturo Burgos [facility] [address] [place] [address], [place] [address] Mar, Arturo Burgos SOCIAL HISTORY Sex Assigned At : Social History Observation Description Sex Assigned At Unknown REASON FOR REFERRAL No Information VITAL SIGNS from 1945 to 2022-10-25 Height 68 in Mar, Weight 181.44 lbs Mar, BMI 27.66 kg/m2 Mar, Temperature 97.6 degrees Fahrenheit Mar, Heart Rate 60 /min Mar, Respiratory Rate 20 /min Mar, Oximetry 96 % Mar, MEDICATIONS Medication SIG (Take, Route, Frequency, Duration) Notes Start Date End Date Status Metronidazole 0.01 MG/MG Topical Gel [MetroGel] Metronidazole 0.01 MG/MG Topical Gel [MetroGel] Mar, Active Aspirin 81 MG Enteric Coated Tablet Aspirin 81 MG Enteric Coated Tablet Mar, Active Nitroglycerin 0.4 MG Sublingual Tablet [Nitrostat] Nitroglycerin 0.4 MG Sublingual Tablet [Nitrostat] Mar, Active 200 ACTUAT Albuterol 0.09 MG/ACTUAT Metered Dose Inhaler [ProAir HFA] 200 ACTUAT Albuterol 0.09 MG/ACTUAT Metered Dose Inhaler [ProAir HFA] Mar, Active Simvastatin 40 MG Oral Tablet Simvastatin 40 MG Oral Tablet Mar, Active Naproxen sodium 220 MG Oral Capsule Naproxen sodium 220 MG Oral Capsule Mar, Active Ranitidine 150 MG Oral Capsule Ranitidine 150 MG Oral Capsule Mar, Active Prednisone 20 MG Oral Tablet Prednisone 20 MG Oral Tablet Mar, Active Loratadine 10 MG Oral Capsule Loratadine 10 MG Oral Capsule Mar, Active Terazosin 2 MG Oral Capsule Terazosin 2 MG Oral Capsule Mar, Active Levothyroxine Sodium 0.075 MG Oral Capsule Levothyroxine Sodium 0.075 MG Oral Capsule Mar, Active Azelastine hydrochloride 0.137 MG/ACTUAT / Fluticasone propionate 0.05 MG/ACTUAT Metered Dose Nasal [place] [Dymista] Azelastine hydrochloride 0.137 MG/ACTUAT / Fluticasone propionate 0.05 MG/ACTUAT Metered Dose Nasal [place] [Dymista] Mar, Active RESULTS from 1945 to 2022-10-25 Component Value Reference Range Notes Immunology/Serology Reviewed date: Interpretation: Performing Lab: Notes/Report: A/G Ratio Abs Basophils Abs Eosinophils Abs Immature Grans Abs Lymphs Abs Monocytes Abs Neutrophils [place]ESLEY Acetylcholine Binding Ab Acetylcholine Blocking AutoAbs Acetylcholine Receptor Modulating Ab AFP Tumor Marker Albumin Electro Albumin Level Aldosterone Alk Phos Alpha 1 Alpha 1-Antitrypsin (A1AT) Alpha 2 ALT/SGPT ANAI Comment ANAI IFA ANAI IgG None Detected None Detected ANAI Pattern ANAI Pattern 2 ANAI Screen ANAI Titer ANAI Titer 2 ANCA Comment ANCA IFA Scrn ANCA IgG Anion Gap Anti dsDNA Ab Titer Anti-C1Q Ab, IgG (EIA) Anti-DNase B Strep Ab ASO Titer Aspergillis Ab Aspergillus Flavus Ab Aspergillus Fumigatus 1 Aspergillus Fumigatus 2 Aspergillus Fumigatus 3 Aspergillus Fumigatus 6 Aspergillus Fumigatus Ab Aspergillus Galactomannan Ag Aspergillus Galactomannan Index Aspergillus Niger Ab AST/SGOT Aureobasidium pullulans Ab Auto Baso % Auto Eos % Auto Lymph % Auto Dane % Auto Neut % B2-Glycoprotein IgG B2-Glycoprotein IgM Band/Segs % Man Bartonella henselae IgG Bartonella henselae IgM Bartonella ivey IgG Bartonella ivey IgM Baso % Man Beta hCG Quant Beta Total Beta-2 Microglobulin Bili Direct Bili Total Blasto Ab CF Bordetella pertussis Interp BUN BUN/Creat Ratio C-Reactive Protein (CRP) Calcium Cardiolipin Ab Scrn Cardiolipin IgA Ab Cardiolipin IgG Ab Cardiolipin IgM Ab Catecholamines Fractionated CCP Ab IgG 62 unit(s) 0-19 unit(s) Celiac Disease Ag Scrn Celiac Disease Interp Centromere Ab Centromere B IgG Ceruloplasmin Chlam/GC Comment Chlamydia RNA Chlamydia trachomatis IgM Chlamydia trachomatis DARYL Chlamydia trachomatis RNA TMA Chloride Level Chol Chol/HDL Ratio Class Latex Clostridium difficile Toxin CMV IgG CMV IgM CO2 Coccidioides Abs COL/ADP COL/EPI Cold Agglutinin Cold Agglutinin Interp Complement C3 Complement C4 Complement Total (CH50) Confirmation Performed Creatinine Cryoglobulin Cryptococcus Ag Cytoplasmic Pattern Deamidated Gliadin Abs IgA Deamidated Gliadin Abs IgG DHEA Sulfate Diff (Smear) Review Digoxin Level DNA Ab DNAse B Ab Dopamine Level dRVVT 1:1 Mix dRVVT Confirmation dRVVT Scrn dsDNA Crithidia Ab dsDNA IgG EBC NA Ab EBV Ab IgG EBV Ab IgM EBV Ab Interp EBV Ag EBV Capsid Ag IgG EBV DNA PCR EBV EA Ab, IgG EBV NA IgG Ser IA-aCnc EER, HCV Qnt RT-PCR Ehrlichia chaffeensis IgG Ehrlichia Interp Endomysial Ab IgA Eos % Man Epinephrine Level Factor V FACV Specimen Ferritin Folate Francisella tularensis Ab Francisella Tularensis IgG Francisella Tularensis IgM FTA-ABS Fungal Ab Gamma GBM Ab IgG GBM Ab IgG IFA GGT Gliadin Ab IgA Gliadin Ab IgG Globulin Gluc 1 Hr Glucose Level Hantavirus IgG Hantavirus IgM Haptoglobin Hct HCV High Res by Sequencing HDL Helicobacter pylori Ag Stool Helicobacter Pylori Breath Test Helicobacter Pylori IgG Hep A Ab Hep A IgM Hep B Ag Hep B Core Ab Hep B Core IgM Hep B DNA Qt Log 10 Hep B DNA Qt PCR Interp Hep B DNA Qt PCR IU Hep Be Ab Hep Be Ag Hep Bs Ab Hep Bs Ag Hep C Ab Hep C RNA Qt PCR Hep C RNA Qt PCR Interp Hep C RNA Qt PCR log Hexagonal Phospholipid Neutralization Hgb Histone Ab Histoplasma Ab Histoplasma Mycelial CSF Histoplasma Yeast Ab CSF HIV 1 Ab Conf HIV 1 RNA PCR Log 10 HIV 1,2 Ab HIV 1/2 Ab, Ag HIV 2 Ab HIV Comment HIV Interp HIV-1 RNA PCR copy/ml HSV Ab HSV Ag HSV DNA PCR HSV I & II IgG HSV I & II IgM HSV I IgG HSV IgM HSV II IgG HSV Spec Type Hypersensitivity Pneumonitis Panel IgA IgE IgE Allergen IgG IgM Immature Granulocytes Immature Platelet Fraction (IPF) Immunofixation Influenza A Ag Influenza A/B Influenza A/B Interp Influenza B Ag Influenza B PCR Influenza Source Instr WBC Interleukin 6 Intrinsic Factor Blocking Auto Ab Iron Miroslava-1 Ab Lactic Acid CSF Latex IgE LDH LDH CSF LDL Legionella Ab IgG Liver-Kidney Microsome 1 (LKM-1) IgG Lupus Anticoag Lupus Anticoag Interp Lupus Confirmation Lupus Interpretation Lyme Ab Lyme Ab IgG Lyme Ab IgM Lymph % Man Magnesium Level MCH MCHC MCV Measles Ab IgG Methylenetetrahydrofolate Reductase (MTHFR) Micropolyspora faeni Ab Mitochondrial Ab Mitochondrial M2 IgG Dane % Man Dane Scrn Monospot Test MPV Mumps Abs IgG Muscle Sp Tyrosine Kinase (MuSK) Ab Myasthenia Gravis Eval Mycoplasma IgG Myeloperoxidase Ab Myocardial Ab Myoglobin Neisseria gonorrhea Neisseria gonorrhoeae DNA Neuronal Nuclear Ab Neuronal Nuclear Ab, Anti-Hu Neutrophil Ab Norepinephrine Level NRBC % NRBC's Abs# O&P [place] Parvovirus B19 IgG Ab Parvovirus B19 IgM Ab PFA Interp pH Gastric Phosphatidyl Serine Ab IgA Phosphatidyl Serine Ab IgG Phosphatidyl Serine Ab IgM Phosphorus [place] Serum Platelet Platelet Ab Platelet Function Assay Hematocrit Platelet Function Assay Platelet Platelet Neutralization Plt Est Potassium Level Pregnenolone Level Hep-Q-Ryifzwcmfop Peptide Protein C Total Protein Electrophoresis Interp Protein S Tot Protein Total Prothrombin Time-D (dPT) PSA PTH Intact PTT Heparin Neutralized PTT LA PTT LA Screen PTT-D 1:1 Mix QuantiFERON Mitogen Minus Nil QuantiFERON Mitogen Nil Value QuantiFERON Nil Value QuantiFERON TB Gold QuantiFERON- TB minus NIL Quantiferon-TB2 minus NIL RA RA Factor 265.0 0.0-10.0 RAST Test RBC RBC Morph RDW (sd) RDW CV Reactive Lymph % Man Renin Renin Activity Reptilase Time Respiratory Syncytial Virus PCR Rheum Fact Qt TR Ribonucleic Protein Ab IgG Ribosomal Ab Ribosomal P Protein Ab Rickettsia typhi IgG Rickettsia typhi IgG Titer [place]ettsia typhi IgM [place] typhi IgM Titer RMSF RMSF IgG Ab Titer RMSF IgM Ab Titer [place] Spotted Fever IgG [place] Spotted Fever IgM Rotavirus Ag RPR Ql RPR Titer RPR Titer TR RSV IgG RSV IgM RSV Nasal Swab Rubella Ab Rubella IgG Ab Saccharomonospora viridis Serine Protease 3 IgG Sjogren's Anti SS-A Sjogren's Anti SS-B SM/BACK TENDER PULP DRIER Ab Rivera (EDNA) Ab Rivera (EDNA) Ab, IgG Smooth Muscle Ab IgG Smooth Muscle Antibody Sodium Level SSA (Ro) (EDNA) Ab, IgG 3 0-40 SSA 60 (Ro) (EDNA) Antibody, IgG 1 0-40 SSB (La)(EDNA) Ab, IgG 2 0-40 Streptozyme Striated Muscle Ab Scrn T4 (Thyroxine) T4 Free Tetanus Antitoxoid Ab Thermoactinomyces candidus Ab Thermoactinomyces saccharii Thermoactinomyces vulgaris Thrombin Time - Patient TIBC Tissue Transglutaminase IgA Tissue Transglutaminase IgG Total CK Total Protein Electro Toxoplasma Ab IgG Toxoplasma Abs Treponema Pallidum Antibody FTA-IgG Trichrome 1 Trig TSH [place] Smear U Histoplasma Ag U Legionella Ag U Streptococcus pneumoniae Ag Uric Acid Varicella Zoster IgG Abs Varicella Zoster IgM Vitamin B1 (Thiamine) Vitamin B12 Level Vitamin B6 (Pyridoxine) Vitamin C Level Vitamin D 25 OH Vitamin D, 1, 25 Dihydroxy Total von Willebrand Factor Ag WBC West Nile Virus Zinc Level REASON FOR VISIT No Information MEDICAL (GENERAL) HISTORY Type Description Date Medical History Problem: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
[2022-10-25 15:26] VITALS: BP 137/79; PULSE 75; RESP 16; TEMP 36.3; O2SAT 93
[2022-10-25] MEDS: durvalumab 1,500 MG in sodium chloride 0.9% 250 ML 280 MG IV (15:36)
[2022-10-25 16:40] VITALS: BP 122/72; PULSE 78; RESP 17; TEMP 36.6; O2SAT 92
== END 2022-11-20 23:59 | disposition home or self-care (01) ==
PROVIDERS: PCP Family Medicine; Visit Provider Internal Medicine Medical Oncology
DX: Z51.12 Encounter for antineoplastic immunotherapy (principal); C34.11 Malignant neoplasm of upper lobe, right bronchus or lung
CPT/HCPCS: 96413; J7050; J9173

== ENCOUNTER → 2022-11-01 10:18 | Outpatient (BNVA) | payer MEDICARE, SELFPAY | PROVIDERS: PCP Family Medicine; Visit Provider Internal Medicine Cardiovascular Disease | DX: I25.10 Atherosclerotic heart disease of native coronary artery without angina pectoris (principal); E11.59 Type 2 diabetes mellitus with other circulatory complications; Z79.84 Long term (current) use of oral hypoglycemic drugs; E78.2 Mixed hyperlipidemia; I10 Essential (primary) hypertension; I95.9 Hypotension, unspecified; I73.9 Peripheral vascular disease, unspecified; I71.40 Abdominal aortic aneurysm, without rupture, unspecified; F17.210 Nicotine dependence, cigarettes, uncomplicated | CPT/HCPCS: 99214 ==

== ENCOUNTER 2022-11-29 11:53 | Oncology outpatient (recurring) (ONCR) | payer MEDICARE, SELFPAY ==
[2022-11-29 12:01] VITALS: BMI 28.6
[2022-11-29 12:02] VITALS: BP 131/83; PULSE 78; RESP 18; TEMP 35.6; O2SAT 92
[2022-11-29 12:16] LABS: Basophils # 0.1 10^3/uL (0.0-0.1); Basophils % 0.7 %; Eosinophils # 0.3 10^3/uL (0.0-0.8); Hematocrit 45.9 % (42.0-52.0); Hemoglobin 15.1 g/dL (11.7-16.6); Lymphocytes % 12.1 %; Mean Corpuscular HGB Conc 32.9 g/dL (30.0-36.0); Mean Corpuscular Hemoglobin 34.2 pg (28.0-34.0); Mean Corpuscular Volume 103.8 fl (80-94); Mean Platelet Volume 10.5 fL (7.4-10.4); Monocytes # 0.6 10^3/uL (0.2-0.9); Monocytes % 7.2 %; Neutrophils # 6.59 10^3/uL (1.8-7.7); Neutrophils % 76.5 %; Nucleated Red Blood Cells % 0 %; Platelet Count 178 10^3/cmm (130-400); Red Blood Count 4.42 10^6/uL (4.1-5.3); Red Cell Distribution Width 15.5 % (12.1-15.1); White Blood Count 8.6 10^3/uL (4.0-10.0)
[2022-11-29 13:26] LABS: Albumin Level 3.9 g/dL (3.5-5.2); Alkaline Phosphatase 57 U/L (40-130); Blood Urea Nitrogen 12 mg/dL (8-23); Calcium 9.2 mg/dL (8.5-10.5); Carbon Dioxide 24 mmol/L (22-29); Chloride 103 mmol/L (98-107); Globulin 2.9 g/dL (1.3-4.6); Glucose 154 mg/dL (65-115); Osmolality Calculated 287 mOsm/kg (285-295); Sodium 137 mmol/L (136-145); Thyroid Stimulating Hormone 2.01 uIU/mL (0.27-4.20); Total Bilirubin 0.7 mg/dL (0.15-1.2); Total Protein 6.8 g/dL (6.6-8.7)
[2022-11-29 13:29] LABS: Alanine Aminotransferase 10 U/L (0-41); Anion Gap 14.7 (5-19); Aspartate Amino Transferase 27 U/L (0-40); Potassium 4.7 mmol/L (3.5-5.1)
[2022-11-29] MEDS: durvalumab 1,500 MG in sodium chloride 0.9% 250 ML 280 MG IV (14:30)
[2022-11-29 15:48] VITALS: BP 124/79; PULSE 81; RESP 16; TEMP 36.1; O2SAT 91
== END 2022-12-21 23:59 | disposition home or self-care (01) ==
PROVIDERS: PCP Family Medicine; Visit Provider Internal Medicine Medical Oncology
DX: Z51.12 Encounter for antineoplastic immunotherapy (principal); C34.11 Malignant neoplasm of upper lobe, right bronchus or lung; C77.8 Secondary and unspecified malignant neoplasm of lymph nodes of multiple regions; C78.02 Secondary malignant neoplasm of left lung; C79.51 Secondary malignant neoplasm of bone; F17.210 Nicotine dependence, cigarettes, uncomplicated; Z79.899 Other long term (current) drug therapy
CPT/HCPCS: 80053; 84443; 85025; 96413; 99214; J7050; J9173

== ENCOUNTER 2022-12-18 10:49 | Outpatient (CLI) | payer MEDICARE, SELFPAY ==
--- NOTE | 2022-12-18 11:00 | CT_ITS ---
WS: [id number] CT CHEST TECHNIQUE: Contrast enhanced CT of the chest with coronal and sagittal reformatted images. CLINICAL INFORMATION: follow up COMPARISON: CT chest 06/27/2022 DLP: 430.[address] scans at [facility] use at least one of these dose optimization techniques: automated e xposure control; mA and/or kV adjustment per patient size (includes targeted exams where dose is matc hed to clinical indication); or iterative reconstruction. FINDINGS: Moderate chronic emphysematous changes. Stable RIGHT upper lobe semisolid nodule along the fissure an d pleura measuring 1.4 cm appears unchanged. Additional bilateral subcentimeter pulmonary nodules are stable in appearance. No new pulmonary opacities. Previously described metastatic lesion in the RIGH T medial clavicle better seen on the prior PET/CT. Osteopenia. Enlarged anterior mediastinal and parabronchial lymph nodes appear slightly more prominent today the largest measuring 15 mm. Recommend 6-month follow-up. No other significant interval changes. Normal caliber thoracic aorta. Aortic calcification. Coronary calcification. The proximal main pulmo nary arteries are normal. No axillary lymphadenopathy. Celiac and SMA are patent. Aneurysmal upper abdominal aorta partially visualized appears unchanged me asuring 4.5 x 4.2 cm. . IMPRESSION: 1. No significant change in the appearance of described pulmonary opacities. 2. Anterior mediastinal and parabronchial lymph nodes appears slightly progressed compared to previo us the largest measuring 14 mm. Recommend 6-month follow-up. 3. Aneurysmal upper abdominal aorta is unchanged. 4. No other significant interval changes.
[2022-12-18] MEDS: iohexol 350 mg/mL 500 mL Btl (per mL) IV (11:11)
== END 2022-12-18 10:50 | disposition home or self-care (01) ==
PROVIDERS: PCP Family Medicine; Visit Provider Internal Medicine Medical Oncology
DX: C34.11 Malignant neoplasm of upper lobe, right bronchus or lung (principal)
CPT/HCPCS: 71260; Q9967

== ENCOUNTER 2022-12-27 14:24 | Oncology outpatient (recurring) (ONCR) | payer MEDICARE, SELFPAY ==
[2022-12-27 14:55] VITALS: BP 121/60; PULSE 88; RESP 18; TEMP 36; O2SAT 93
[2022-12-27] MEDS: durvalumab 1,500 MG in sodium chloride 0.9% 250 ML 280 MG IV (15:05)
[2022-12-27 16:13] VITALS: BP 108/57; PULSE 82; RESP 16; TEMP 35.9; O2SAT 92
== END 2023-01-20 23:59 | disposition home or self-care (01) ==
LOC: ONCMED 14:24
PROVIDERS: PCP Family Medicine; Visit Provider Internal Medicine Medical Oncology
DX: Z51.12 Encounter for antineoplastic immunotherapy (principal); C34.11 Malignant neoplasm of upper lobe, right bronchus or lung
CPT/HCPCS: 96413; J7050; J9173

== ENCOUNTER 2023-01-24 08:39 | Oncology outpatient (recurring) (ONCR) | payer MEDICARE, SELFPAY ==
[2023-01-24 08:45] VITALS: BP 120/70; PULSE 83; RESP 16; TEMP 35.8; O2SAT 94
[2023-01-24 09:05] LABS: Basophils # 0.1 10^3/uL (0.0-0.1); Eosinophils # 0.3 10^3/uL (0.0-0.8); Eosinophils % 3.1 %; Hematocrit 42.4 % (37-53); Lymphocytes # 0.9 10^3/uL (0.8-4.8); Lymphocytes % 11.8 %; Mean Corpuscular HGB Conc 33.5 g/dL (30-55); Mean Corpuscular Hemoglobin 34.4 pg (27-33); Mean Corpuscular Volume 102.7 fl (82-101); Mean Platelet Volume 10.6 fL (7.4-10.4); Monocytes # 0.6 10^3/uL (0.2-0.9); Monocytes % 6.9 %; Neutrophils # 6.09 10^3/uL (1.8-7.7); Neutrophils % 76.8 %; Nucleated Red Blood Cells % 0 %; Platelet Count 193 10^3/cmm (157-399); Red Blood Count 4.13 10^6/uL (3.85-5.65); Red Cell Distribution Width 15.7 % (12.1-15.1); White Blood Count 7.94 10^3/uL (3.29-11.43)
[2023-01-24 11:15] LABS: Alanine Aminotransferase 9 U/L (0-41); Alkaline Phosphatase 65 U/L (40-130); Anion Gap 14.9 (5-19); Aspartate Amino Transferase 15 U/L (0-40); Blood Urea Nitrogen 19 mg/dL (8-23); Calcium 9.6 mg/dL (8.5-10.5); Carbon Dioxide 23 mmol/L (22-29); Chloride 105 mmol/L (98-107); Globulin 2.9 g/dL (1.3-4.6); Glucose 149 mg/dL (65-115); Osmolality Calculated 293 mOsm/kg (285-295); Potassium 3.9 mmol/L (3.5-5.1); Sodium 139 mmol/L (136-145); Total Bilirubin 0.8 mg/dL (0.15-1.2); Total Protein 6.9 g/dL (6.6-8.7)
[2023-01-24 11:28] LABS: Creatinine Clr Calc Pharmacy 94.3882
[2023-01-24 11:55] LABS: Thyroid Stimulating Hormone 2.02 uIU/mL (0.27-4.20)
[2023-01-24] MEDS: sodium chloride 0.9% 250 ML 75 ML IV (11:59)
[2023-01-24] MEDS: durvalumab 1,500 MG in sodium chloride 0.9% 250 ML 280 MG IV (12:00)
[2023-01-24 13:28] VITALS: BP 115/67; PULSE 76; RESP 17; TEMP 36.1; O2SAT 97
== END 2023-02-20 23:59 | disposition home or self-care (01) ==
PROVIDERS: PCP Family Medicine; Visit Provider Internal Medicine Medical Oncology
DX: Z51.12 Encounter for antineoplastic immunotherapy (principal); C34.11 Malignant neoplasm of upper lobe, right bronchus or lung; C77.8 Secondary and unspecified malignant neoplasm of lymph nodes of multiple regions; C78.02 Secondary malignant neoplasm of left lung; C79.51 Secondary malignant neoplasm of bone; R53.0 Neoplastic (malignant) related fatigue; F17.210 Nicotine dependence, cigarettes, uncomplicated; Z79.899 Other long term (current) drug therapy
CPT/HCPCS: 80053; 84443; 85025; 96413; 99214; J7050; J9173

== ENCOUNTER 2023-02-27 15:01 | Outpatient (CLI) | payer MEDICARE, SELFPAY ==
--- NOTE | 2023-02-27 11:30 | PETR_ITS ---
PROCEDURE INFORMATION: Exam: PET/CT Skull Base to Mid-thigh Exam date and time: 02/27/2023 12:35 PM Age: 78 years old Clinical indication: Condition or disease; Condition/disease: Lung CA; Additional info: Restaging, please schedule pet/ct week prior to f/u visit with LABS AND CLINICAL REPORTS: Glucose: 77 mg/dl Treatment strategy for malignancy (PET staging): Restaging (PS) TECHNIQUE: Imaging protocol: Following at least four-hour fasting and following the injection of radiopharmaceutical, low dose CT images were obtained. Then, PET images were obtained. Attenuation corrected images were constructed using the CT scan. Fused images of PET and CT were reviewed. The standardized uptake values (SUV) reported below are maximum values within a region of interest, expressed in gm/ml. Exam includes orbital meatal line to mid-thigh. Radiopharmaceutical: 8.92 mCi F-18 FDG (Fluorodeoxyglucose), IV. Time of imaging post radiopharmaceutical administration: 1 hour Injection site: Not specified COMPARISON: CT chest 12/18/2022, PT PET Scan 02/18/2022 8:43 AM FINDINGS: Limitations: The examination is slightly technically suboptimal secondary to the scan to injection time outside of recommended parameters (45-75 minutes). Reported scan to injection time of 42 minutes. Injection to scan times outside of recommended parameters can result in decreased PET sensitivity and limit the utility of comparison of SUV values to prior or subsequent exams. Brain: Visualized brain has normal physiologic uptake. Paranasal sinuses: Mild lobulated mucosal thickening in the right maxillary sinus is not radiotracer avid compatible with benign mucous retention cyst or polyp. Pharynx: No abnormal uptake. Larynx: No abnormal uptake. Lungs, pleura and trachea: A solid 7 mm posterior right lower lobe nodule on series 3, image 108 is similar in size compared with the prior PET-CT with an additional 2-3 mm solid nodule in the medial right lower lobe on series 3, image 107 which appears new compared to the prior PET-CT. These nodules are not radiotracer avid. Pleural based ovoid irregularly marginated soft tissue density nodule located laterally in the right upper lobe adjacent to the major fissure currently measures 2.4 x 1.3 cm (previously approximately 1.9 x 1.2 cm on the prior PET-CT) on series 3, image 94 within SUV max 2.0 (previously 2.5). Heart: Normal physiologic uptake. Mediastinal space: No abnormal uptake. Liver: No abnormal uptake. Gallbladder and bile ducts: No abnormal uptake. A small stone in the gallbladder is noted. Pancreas: No abnormal uptake. Spleen: No abnormal uptake. Adrenal glands: No abnormal uptake. Kidneys and ureters: Normal physiologic uptake. Numerous rounded lesions arise from both kidneys measuring up to 3.3 cm in the left renal superior pole without elevated uptake. Stomach and bowel: No abnormal uptake. Uptake within the bowel appears physiologic. Colonic diverticula are noted, most extensive in the region of the sigmoid colon. Vasculature: No abnormal uptake. Diffuse atherosclerotic changes are noted. There is an infrarenal abdominal aortic stent graft with limbs extending into the bilateral common iliac arteries. Lymph nodes: Mildly prominent mediastinal lymph nodes are noted, some of which are increased in size since the prior PET-CT. A newly mildly prominent right supraclavicular lymph node measuring 1.0 x 0.6 cm on series 3, image 58 posterior to the medial right clavicle demonstrates new elevated radiotracer uptake since the prior PET-CT, SUV max 4.0. Small lymph nodes in the pretracheal space measuring up to 8 mm in diameter are noted, SUV max 3.0 (previously 3.2) on series 3 between images 76 and 80 similar in size compared to the prior PET-CT. Inferior to this level an inferior right paratracheal lymph node or cluster of lymph nodes demonstrates an overall measurement 2.6 x 1.7 cm on series 3, image 86, SUV max 12.0 (previously measuring approximately 1.4 x 1.1 cm on the prior PET-CT without elevated uptake). Additional mildly prominent mediastinal lymph nodes are similar in size compared with 12/18/2022 and majority are increased in size compared with the prior PET-CT without significant uptake for example in the subcarinal space measuring 2.2 x 1.2 cm on image 103, SUV max 1.6. Bones/joints: Previously noted uptake in the medial right clavicle is no longer identified. Degenerative changes in the spine are noted. Soft tissues: No abnormal uptake in the visualized head, neck, chest, abdomen, pelvis, and extremities. Uptake which is likely on the skin surface or intravascular involving the distal right arm is noted likely related to the site of the injection. METRICS: Mediastinal blood pool: SUV max 2.5 PET/PET [facility] SUBSEQ [id number] IMPRESSION: 1. A previously noted irregularly marginated pleural based nodule in the lateral right upper lobe adjacent to the major fissure appears similar in size compared with 12/18/2022 and more prominent than on the most recent prior PET-CT however uptake is decreased (SUV max 2.0, previously 2.5) and is less than mediastinal blood pool activity consistent with treated neoplasm. No definite residual or recurrent hypermetabolic malignancy in this region is noted. 2. Similar small solid right lower lobe nodule without elevated uptake. An additional 2-3 mm non radiotracer avid right lower lobe nodule is also present which appears new since the prior PET-CT. Assessment of small nodules can be limited by PET-CT. 3. Lymphadenopathy in the mediastinum is increased since the prior PET-CT. In the pretracheal space proximally (in the previously noted index lymph node), uptake remains mildly elevated but is slightly decreased which may represent partial response to therapy. Significant interval increase in uptake within a more inferiorly located inferior right paratracheal lymph node is noted however and there is new uptake within a mildly prominent right supraclavicular lymph node consistent with increased neoplastic involvement. 4. Interval resolution of previously noted uptake in the medial right clavicle. 5. Several rounded lesions in the kidneys are present. Lack of uptake within these structures favors presence of benign cysts, however assessment of renal lesions can be limited by PET-CT. 6. Additional nonurgent findings as detailed above.
== END 2023-02-27 15:02 | disposition home or self-care (01) ==
LOC: RAD 15:01
PROVIDERS: PCP Family Medicine; Visit Provider Nurse Practitioner Family
DX: C34.11 Malignant neoplasm of upper lobe, right bronchus or lung (principal); R91.8 Other nonspecific abnormal finding of lung field; R59.0 Localized enlarged lymph nodes
CPT/HCPCS: 78815; A9552

== ENCOUNTER → 2023-03-13 12:23 | Outpatient (BNVA) | payer MEDICARE, SELFPAY | PROVIDERS: PCP Family Medicine; Visit Provider Internal Medicine Cardiovascular Disease | DX: I25.10 Atherosclerotic heart disease of native coronary artery without angina pectoris (principal); E11.59 Type 2 diabetes mellitus with other circulatory complications; E78.2 Mixed hyperlipidemia; I10 Essential (primary) hypertension; I65.23 Occlusion and stenosis of bilateral carotid arteries; F17.210 Nicotine dependence, cigarettes, uncomplicated; Z79.84 Long term (current) use of oral hypoglycemic drugs; C34.11 Malignant neoplasm of upper lobe, right bronchus or lung; R59.0 Localized enlarged lymph nodes; J44.9 Chronic obstructive pulmonary disease, unspecified | CPT/HCPCS: 99204; 99214 ==

== ENCOUNTER 2023-03-14 11:45 | Oncology outpatient (recurring) (ONCR) | payer MEDICARE, SELFPAY ==
[2023-03-14 12:14] LABS: Basophils # 0.1 10^3/uL (0.0-0.1); Basophils % 0.7 %; Eosinophils # 0.2 10^3/uL (0.0-0.8); Eosinophils % 2.1 %; Hematocrit 44.3 % (37-53); Lymphocytes # 1.1 10^3/uL (0.8-4.8); Lymphocytes % 11.1 %; Mean Corpuscular HGB Conc 32.3 g/dL (30-55); Mean Corpuscular Hemoglobin 34.5 pg (27-33); Mean Corpuscular Volume 106.7 fl (82-101); Mean Platelet Volume 10.6 fL (7.4-10.4); Monocytes # 0.8 10^3/uL (0.2-0.9); Neutrophils # 7.41 10^3/uL (1.8-7.7); Neutrophils % 77.8 %; Nucleated Red Blood Cells % 0 %; Platelet Count 186 10^3/cmm (157-399); Red Blood Count 4.15 10^6/uL (3.85-5.65); Red Cell Distribution Width 15.4 % (12.1-15.1); White Blood Count 9.53 10^3/uL (3.29-11.43)
[2023-03-14 12:22] VITALS: BP 105/67; PULSE 84; RESP 16; TEMP 36.2; O2SAT 93
[2023-03-14 12:45] LABS: Alanine Aminotransferase 10 U/L (0-41); Albumin Level 4.1 g/dL (3.5-5.2); Alkaline Phosphatase 59 U/L (40-130); Anion Gap 17.2 (5-19); Aspartate Amino Transferase 16 U/L (0-40); Blood Urea Nitrogen 13 mg/dL (8-23); Calcium 9.5 mg/dL (8.5-10.5); Carbon Dioxide 22 mmol/L (22-29); Chloride 105 mmol/L (98-107); Glucose 116 mg/dL (65-115); Osmolality Calculated 291 mOsm/kg (285-295); Potassium 4.2 mmol/L (3.5-5.1); Sodium 140 mmol/L (136-145); Thyroid Stimulating Hormone 2.13 uIU/mL (0.27-4.20); Total Protein 7.1 g/dL (6.6-8.7)
== END 2023-03-22 23:59 | disposition home or self-care (01) ==
LOC: ONCMED 11:46
PROVIDERS: Nurse Practitioner Family; PCP Family Medicine; Visit Provider Internal Medicine Medical Oncology
DX: Z51.12 Encounter for antineoplastic immunotherapy (principal); C34.11 Malignant neoplasm of upper lobe, right bronchus or lung; C77.8 Secondary and unspecified malignant neoplasm of lymph nodes of multiple regions; C78.02 Secondary malignant neoplasm of left lung; C79.51 Secondary malignant neoplasm of bone; R53.0 Neoplastic (malignant) related fatigue; F17.210 Nicotine dependence, cigarettes, uncomplicated; Z79.899 Other long term (current) drug therapy
CPT/HCPCS: 36415; 80053; 84443; 85025; 99214

== ENCOUNTER 2023-03-27 09:44 | Day surgery (SDC) | payer MEDICARE, SELFPAY ==
[2023-03-27] VITALS (10 sets, daily range): BP systolic 97–140; BP diastolic 48–80; PULSE 67–75; RESP 12–17; TEMP 36.2–36.3; O2SAT 90–94; BMI 28.5
[2023-03-27] MEDS: sodium chloride 0.9% 1,000 ML 30 ML IV (10:08)
[2023-03-27 10:11] LABS: Glucose Point of Care 130 mg/dL (70-110)
--- NOTE | 2023-03-27 11:11 | ANES.PREANE2 ---
Pre-Anesthetic Assessment Height/Weight: Height 1.83 m Weight 95.254 kg Temp Pulse Resp BP Pulse Ox O2 Del Method 97.3 F L 72 17 140/80 93 Room Air 03/27/23 10:02 03/27/23 10:02 03/27/23 10:02 03/27/23 10:02 03/27/23 10:02 03/27/23 10:02 Operation Date: 03/27/23 10:45 Proposed Procedures p EBUS, 49525, 02481, 12373, 16394, 63023,R91.8(Not Applicable) - Johnny Ann DatarMD Familial anesthetic complications: None Was Beta Jas taken within 24 hours: Yes Was Clonidine taken within 24 hours: N/A Last intake: Intake Last Liquid Date 03/26/23 Last Liquid Time 22:00 Last Solid Date 03/26/23 Last Solid Time 17:30 Social Tobacco and No alcohol .5 pack(s) per day 60 pack years Exam alert, oriented x 3, clear to auscultation bilaterally and regular rate & rhythm Airway Submandibular: within normal limits Cervical ROM: within normal limits Mallampati: Class II Dentition: false History/ROS No significant history except as noted and No significant complaints Pulmonary Chronic Obstructive Pulmonary Disease, Cough and Exertional Dyspnea Lung cancer radiation and chemo CV/HEM Anemia, Coronary Artery Disease, Congestive Heart Failure, Hypertension, Myocardial Infarction (No intervention) and Peripheral Vascular Disease AAA: endovascular repair 2010, no changes Left carotid stenosis 100% History of mediastinoscopy CONCLUSION: 1. No significant EKG changes with the LexiScan infusion 2. No LexiScan induced chest pain or cardiac arrhythmia 3. Normal blood pressure and heart rate response 4. Sestamibi/sestamibi perfusion scan pending; see separate report. 07/05/20 Echo Normal LV size with a slightly diminished ejection fraction of ?50% (visual). ?Mild diffuse hypokinesia of the anterior and lateral wall ?segments. ?Trace to mild tricuspid valve regurgitation. ?Trace aortic valve regurgitation. ?There is no pericardial effusion. ?There are no intracardiac masses. ?No similar previous study is available for comparison. BPH Hepatic None reported GI Hiatal Hernia Metabolic Diabetes Mellitus and Hyperlipidemia Musc/skel Osteoarthritis/DJD Lumbar spinal fusion from 1960 Neuropsych None reported Anesthetic Plan ASA status: 3 Anesthesia: Anesthesia Evaluation and General Risk of > 500 ml blood loss (7ml/kg in children): No Medications/Allergies Home Medications Medication Instructions Recorded Confirmed Last Taken Type B-complex with vitamin C 1 tab PO QAM 09/22/19 03/27/23 03/26/23 History diphenhydramine 25 1 tab PO BEDTIME 09/22/19 03/27/23 03/26/23 History mg-acetaminophen 500 mg tablet (Tylenol PM Extra Strength) empagliflozin 25 mg tablet 25 mg PO DAILY@18 09/22/19 03/27/23 03/26/23 History (Jardiance) fluticasone fur. 100 mcg-umeclid 1 inh inhalation QAM 09/22/19 03/27/23 03/27/23 History 62.5 mcg-vilant 25 mcg inhalat.powder (Trelegy Ellipta) glipizide 2.5 mg tablet, extended 2.5 mg PO QAM 09/22/19 03/27/23 03/26/23 History release 24 hr isosorbide mononitrate 30 mg 30 mg PO DAILY@18 09/22/19 03/27/23 03/26/23 History tablet,extended release 24 hr lansoprazole 30 mg capsule,delayed 30 mg PO QAM 09/22/19 03/27/23 03/26/23 History release metformin 1,000 mg tablet 1,000 mg PO BID 09/22/19 03/27/23 03/26/23 History multivitamin 1 tab PO DAILY 09/22/19 03/27/23 03/26/23 History nitroglycerin 0.4 mg sublingual 0.4 mg sublingual Q5M PRN chest 09/22/19 03/27/23 03/26/23 Rx tablet pain 30 days #30 tabs rosuvastatin 20 mg tablet (Crestor) 20 mg PO DAILY@18 09/22/19 03/27/23 03/26/23 History cholecalciferol (vitamin D3) 25 25 mcg PO QPM 04/19/20 03/27/23 03/26/23 History mcg (1,000 unit) capsule atenolol 25 mg tablet 25 mg PO QAM #90 tabs 04/06/21 03/27/23 03/27/23 Rx ferrous sulfate 325 mg (65 mg 325 mg PO DAILY 08/23/21 03/27/23 03/26/23 History iron) tablet losartan 50 mg tablet 25 mg PO DAILY 11/23/21 03/27/23 03/26/23 History clopidogrel 75 mg tablet (Plavix) 75 mg PO DAILY #90 tabs 12/29/22 03/27/23 03/23/23 Rx Allergies Allergy/AdvReac Type Severity Reaction Status Date / Time ammonia Allergy sensitive Verified 03/27/23 09:56 exenatide [From Byetta] Allergy Nausea Verified 03/27/23 09:56 liraglutide [From Victoza] Allergy Tachycardia Verified 03/27/23 09:56 niacin Allergy ALGY-Rash Verified 03/27/23 09:56 Byetta Allergy Unknown ADR/ALGY-Pa Uncoded 03/27/23 09:56 lpitations Victoza Allergy Unknown ADR/ALGY-Pa Uncoded 03/27/23 09:56 lpitations Current Medications Generic Name Dose Route Start Last Admin Trade Name Freq PRN Reason Stop Dose Admin Sodium Chloride 1,000 mls @ 30 mls/hr 03/27/23 10:15 03/27/23 10:08 Sodium Chloride 0.9% IV 03/28/23 10:14 30 mls/hr .Q24H HATTIE Administration PFSH Anesthesia Medical History BPH loc w urin obs/LUTS CAD (coronary artery disease) 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 Chronic respiratory failure with hypoxia COPD (chronic obstructive pulmonary disease) Diabetes Diverticulitis Hyperlipidemia Hypertension Immunosuppression Iron deficiency anemia Lung cancer Pulmonary hemorrhage Retinal artery occlusion Sinus pause one episode 3-4 seconds on telemetry, multiple leads, during hospital stay, completely asymptomatic Surgical History H/O spinal fusion H/O transurethral destruction of bladder lesion History of PTCA S/P bronchoscopy with biopsy (08/31/20) S/P endovascular aneurysm repair Family History Mother , 100 Diabetes Father , AT AGE 51 Aortic aneurysm CAD (coronary artery disease) Brother Cancer Other Hypertension Denies family history of Clotting disorder Dementia Chronic kidney disease (CKD) Suicide Anesthesia complication Bleeding disorder Lung disease Stroke Social History (Reviewed 03/17/23 @ 07:22 by ANASTACIA Ang Smoking and tobacco/nicotine status: current every day tobacco/nicotine user (<1 ppd) cigarettes Packs smoked per day: 1 Years cigarettes smoked: 60 [ Other cigarette details: Started at age 16] Quit status (tobacco/nicotine): has quit using Second hand smoke exposure: No Alcohol intake: current Alcohol intake frequency: holidays/special occasions only Substance/Drug Use: never Lives independently: Yes Household members: spouse Marital status: Current occupational status: retired Do you think of yourself as: Straight/Heterosexual Current gender identity: Male Data Anesthesia Cardiac Studies: Echocardiogram Ultrasound 07/05/20 Sestamibi Stress Test (Cardiology) 07/30/20
--- NOTE | 2023-03-27 11:21 | W.PM.OPSUD ---
Surgery/Procedure H&P Update DATE OF PROCEDURE: March 27, 2023 DATE H&P PERFORMED: 01/02/21 H&P UPDATE INFORMATION: I have reviewed H&P completed within last 30 days, I have examined patient prior to procedure and No changes to prior documentation CHANGES TO PREVIOUS DOCUMENTATION: NONE PREOP DIAGNOSIS: PET/CT active lymphadenopathy in the mediastinum suspicious for neoplastic PRIMARY INDICATION FOR PROCEDURE: To rule out malignancy in PET active lymph nodes PLANNED PROCEDURE: Operation Date: 03/27/23 10:45 Proposed Procedures p EBUS, 59618, 24764, 26856, 99894, 94961,R91.8(Not Applicable) - Johnny Ann DatarMD
[2023-03-27] MEDS: lidocaine 1% INJ 10 mL (per mL) XX (11:57)
[2023-03-27 12:53] LABS: Cyto Order Verification Order Verified
--- NOTE | 2023-03-27 13:03 | XRR_ITS ---
PROCEDURE INFORMATION: Exam: XR Chest Exam date and time: 03/27/2023 2:15 PM Age: 78 years old Clinical indication: Device placement; Other: Post bronch/ebus; Prior surgery; Surgery date: Post-operative (0-2 days) TECHNIQUE: Imaging protocol: Radiologic exam of the chest. Views: 1 view. COMPARISON: CT chest w con* [id number] 12/18/2022 11:06 AM FINDINGS: Lungs: Moderate diffuse and chronic interstitial fibrosis. Atelectasis or infiltrates at the lung bases. Pleural spaces: No pneumothorax. Heart/Mediastinum: See Vasculature finding. Vasculature: Cardiomegaly and uncoiling of the thoracic aorta. Bones/joints: Unremarkable. XR/XR chest 1V portable [id number] IMPRESSION: 1. No pneumothorax. 2. Mild bibasilar atelectasis or infiltrates.
--- NOTE | 2023-03-27 14:00 | ANE.PACU2 ---
Inpatient post-anesthesia follow up: Airway intact: Yes Vital signs: Temperature 97.1 F Pulse Rate 68 Respiratory Rate 16 Blood Pressure 112/67 Pulse Oximetry 93 Oxygen Delivery Me thod Nasal Cannula Oxygen Flow Rate 2 Fraction of Inspir ed Oxygen Hydration adequate: Yes Nausea and vomiting: No Pain level: 2 Mental status: Baseline
--- NOTE | 2023-03-27 14:13 | P.OP_ITS ---
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 follows up with Oncology Most recent PETCT 02/27/23 : ?A previously noted irregularly marginated pleural based nodule in the lateral right upper lobe adjacent to the major fissure appears similar however uptake is decreased -consistent with treated neoplasm. N o definite residual or recurrent hypermetabolic malignancy in this region is noted. There are other small nodules that are non radiotracer avid. There is Lymphadenopathy in the mediastinum is increased since the prior PET-CT and there is new uptake within a mildly prominent right supraclavicular lymph node consistent with increased neoplastic involvement. Interval resolution of previously noted uptake in the medial right clavicle. Oncology referred for endobronchial ultrasound survelliance and biopsies of mediastinal lymph nodes Discussed with pt about Ebus guided biospies and related complications and he agreed for the procedure. Today he is scheduled for the same Procedure: 12283 Dx Bronchoscope w/BAL 38786 Bronchoscopy w/ therapeutic aspiration of the tracheobronchial tree (clearance of airway secretions, removal of mucus plugs) 04179 EBUS Sampling >=3 nodes Indication: PET active mediastinal/hilar lymph nodes-rule out Malignancy Anesthesia: General anesthesia. Local anesthesia: The elis in the right and left mainstem bronchi were anesthetized with 1% lidocaine, 3 mL. Description of the procedure: The procedure was explained to the patient and the consent was obtained. The patient was brought to the OR. The patient underwent induction for general anesthesia and endotracheal tube was placed. The bronchoscope was advanced through the ET tube. The distal trachea was visualized. Tracheal mucosa appeared normal, no endotracheal lesion was seen. The elis was sharp. 1 mL each of 1% lidocaine was instilled in the trachea the right and left mainstem bronchi for local anesthesia. In a systematic manner bilateral bronchial tree was then examined. The bronchoscope was then introduced into the right mainstem bronchus. The right upper lobe, right middle lobe and right lower lobe bronchi were examined up to the third subsegmental level and no abnormalities were identified. The mucosa appeared normal with no endobronchial lesions, active bleeding or mucous plugs.There were clear secretions which were suctioned right away(81417). The bronchoscope was advanced into the left mainstem bronchus. There is a endobronchial lesion which is completely occluding left lower lobe airway. It is friable and started to bleed as soon as bronchoscope touched the surface. The left upper lobe, and lingula were examined up to the third subsegmental level and no abnormalities were identified. Mucosa of left upper lobe and lingula appeared normal with no endobronchial lesion. There were clear secretions which were suctioned right away(57876). Bronchoalveolar lavage was taken near right middle lobe Bronchoscope was retracted and Endobronchial Ultrasound (EBUS)(13636 ) was introduced. Identified lymph node stations from 4L, 7, 4R. Using [id number] were taken from all station 4L, station 7, as well as station 4R (15188); there was some evidence of bleeding which is controlled with instillation of cold saline.. After making sure there is no active bleeding, bronchoscope retracted and procedure terminated. Samples: 1. Bronchoalveolar lavage (26509) was performed after wedging the bronchoscope at the right middle lobe. 30 mL of saline was instilled, fluid return was 13 mL. Bronchoalveolar lavage specimen was sent for cell count and differential, gram stain and culture, cytology B. EBUS guided Fine-needle aspiration biopsies were taken from station 4L, station 4R and station 7. (59196) 1. Total of 3 passes were made using needle aspiration(83875) from station 4L; all the material was placed in formalin and sent for histopathology 2. Total of 3 passes were made using needle aspiration(02001) from station 7; all the material was placed in formalin and sent for histopathology 3. Total of 3 passes were made using needle aspiration(51479) from station 4R; all the material was placed in formalin and sent for histopathology Complications: None.The patient was extubated and brought to the PACU in stable condition. Disposition: Patient can be discharged home in stable condition. Pt is aware that I am going to call to update final biopsy results once available. Related Problem List Diagnoses (1) Mediastinal lymphadenopathy:
[2023-03-27 17:02] LABS: Apprearance, Bronch Wash Cloudy (CLEAR); Color, Bronc Wash Slight Pink
[2023-03-27 17:03] LABS: Bronch Source Right Middle Lobe; PATH Referral Yes; Total Cells Counted Bronch 200
== END 2023-03-27 14:35 | disposition home or self-care (01) ==
PROVIDERS: PCP Family Medicine; Visit Provider Internal Medicine Pulmonary Disease
PROC: BB4BZZZ Ultrasonography of Pleura (ICD-10-PCS; principal; 2023-03-27 10:35)
DX: R91.8 Other nonspecific abnormal finding of lung field (principal); J44.9 Chronic obstructive pulmonary disease, unspecified; Z92.21 Personal history of antineoplastic chemotherapy; I25.10 Atherosclerotic heart disease of native coronary artery without angina pectoris; I11.0 Hypertensive heart disease with heart failure; I50.9 Heart failure, unspecified; I25.2 Old myocardial infarction; N40.0 Benign prostatic hyperplasia without lower urinary tract symptoms; E11.9 Type 2 diabetes mellitus without complications; E78.5 Hyperlipidemia, unspecified; N40.1 Benign prostatic hyperplasia with lower urinary tract symptoms; N13.8 Other obstructive and reflux uropathy; Z85.51 Personal history of malignant neoplasm of bladder; Z98.1 Arthrodesis status; F17.210 Nicotine dependence, cigarettes, uncomplicated
CPT/HCPCS: 31624; 31645; 31653; 36416; 71045; 80503; 82962; 87070; 87077; 87205; 88305; 88342; 89050; J1100; J2371; J2405; J2704; J3010; J3490; J7030

== ENCOUNTER → 2023-04-03 14:21 | Outpatient (BNVA) | payer MEDICARE, SELFPAY | PROVIDERS: PCP Family Medicine; Visit Provider Internal Medicine Pulmonary Disease | DX: C34.11 Malignant neoplasm of upper lobe, right bronchus or lung (principal); R59.0 Localized enlarged lymph nodes; J44.9 Chronic obstructive pulmonary disease, unspecified; R84.5 Abnormal microbiological findings in specimens from respiratory organs and thorax; F17.210 Nicotine dependence, cigarettes, uncomplicated | CPT/HCPCS: 99214 ==

== ENCOUNTER 2023-05-15 14:49 | Outpatient (CLI) | payer MEDICARE, SELFPAY ==
--- NOTE | 2023-05-15 15:00 | CT_ITS ---
WS: [id number] CT CHEST TECHNIQUE: Contrast enhanced CT of the chest with coronal and sagittal reformatted images. CLINICAL INFORMATION: lung cancer follow up COMPARISON: CT 12/18/2022 DLP: 527.[address] scans at [facility] use at least one of these dose optimization techniques: automated e xposure control; mA and/or kV adjustment per patient size (includes targeted exams where dose is matc hed to clinical indication); or iterative reconstruction. FINDINGS: Moderate chronic emphysematous changes. Stable RIGHT lower lobe nodule measuring 5.[address] able pleural-parenchymal scarring RIGHT lower lobe along the fissure. Stable LEFT lower lobe nodule l aterally measuring 5.2 mm. Few additional subcentimeter pulmonary nodules are stable. No new suspicio us pulmonary parenchymal abnormalities.Previously described metastatic lesion in the RIGHT medial cla vicle better seen on the prior PET/CT. Osteopenia. Normal caliber thoracic aorta. Aortic calcification. Coronary calcification. Proximal main pulmonary arteries are normal. Enlarged anterior mediastinal and parabronchial lymph nodes measuring up to 13 m m unchanged. No axillary lymphadenopathy. Hepatomegaly. Cholelithiasis. Normal GE junction. Adrenal g lands are normal. LEFT renal cysts. Partially visualized aneurysmal upper abdominal aorta with partia lly visualized endograft. IMPRESSION: 1. Previously described subcentimeter pulmonary nodules are stable. 2. Enlarged anterior mediastinal and parabronchial lymph nodes are unchanged. 3. Cholelithiasis. 4. No other significant changes
[2023-05-15] MEDS: iohexol 350 mg/mL 500 mL Btl (per mL) IV (15:08)
== END 2023-05-15 14:50 | disposition home or self-care (01) ==
LOC: RAD 14:51
PROVIDERS: PCP Family Medicine; Visit Provider Internal Medicine Medical Oncology
DX: C34.11 Malignant neoplasm of upper lobe, right bronchus or lung (principal); R91.8 Other nonspecific abnormal finding of lung field; R59.0 Localized enlarged lymph nodes; K80.20 Calculus of gallbladder without cholecystitis without obstruction
CPT/HCPCS: 71260; Q9967

== ENCOUNTER 2023-05-23 12:30 | Oncology outpatient (recurring) (ONCR) | payer MEDICARE, SELFPAY ==
[2023-04-25 12:35] VITALS: BP 116/69; PULSE 67; RESP 16; TEMP 35.7; O2SAT 97
[2023-04-25 12:42] LABS: Basophils # 0.1 10^3/uL (0.0-0.1); Basophils % 0.7 %; Eosinophils # 0.3 10^3/uL (0.0-0.8); Eosinophils % 2.6 %; Hematocrit 44.1 % (37-53); Lymphocytes # 1.1 10^3/uL (0.8-4.8); Lymphocytes % 11.8 %; Mean Corpuscular HGB Conc 33.1 g/dL (30-55); Mean Corpuscular Hemoglobin 34.4 pg (27-33); Mean Corpuscular Volume 103.8 fl (82-101); Mean Platelet Volume 10.2 fL (7.4-10.4); Monocytes # 0.7 10^3/uL (0.2-0.9); Monocytes % 7.2 %; Neutrophils # 7.43 10^3/uL (1.8-7.7); Neutrophils % 77.1 %; Nucleated Red Blood Cells % 0 %; Platelet Count 176 10^3/cmm (157-399); Red Blood Count 4.25 10^6/uL (3.85-5.65); Red Cell Distribution Width 15.2 % (12.1-15.1); White Blood Count 9.64 10^3/uL (3.29-11.43)
[2023-04-25 13:02] LABS: Alanine Aminotransferase 8 U/L (0-41); Alkaline Phosphatase 61 U/L (40-130); Anion Gap 15.3 (5-19); Aspartate Amino Transferase 15 U/L (0-40); Blood Urea Nitrogen 11 mg/dL (8-23); Calcium 9.4 mg/dL (8.5-10.5); Carbon Dioxide 25 mmol/L (22-29); Chloride 102 mmol/L (98-107); Globulin 3.3 g/dL (1.3-4.6); Glucose 105 mg/dL (65-115); Osmolality Calculated 286 mOsm/kg (285-295); Potassium 4.3 mmol/L (3.5-5.1); Sodium 138 mmol/L (136-145); Total Bilirubin 0.8 mg/dL (0.15-1.2); Total Protein 7.3 g/dL (6.6-8.7)
[2023-05-23 12:57] LABS: Basophils # 0.1 10^3/uL (0.0-0.1); Basophils % 0.8 %; Eosinophils # 0.2 10^3/uL (0.0-0.8); Eosinophils % 2.3 %; Hematocrit 41.8 % (37-53); Lymphocytes # 1.1 10^3/uL (0.8-4.8); Mean Corpuscular Hemoglobin 33.8 pg (27-33); Mean Corpuscular Volume 102.5 fl (82-101); Monocytes # 0.7 10^3/uL (0.2-0.9); Monocytes % 7.3 %; Neutrophils # 6.92 10^3/uL (1.8-7.7); Neutrophils % 77.3 %; Nucleated Red Blood Cells % 0 %; Platelet Count 167 10^3/cmm (157-399); Red Blood Count 4.08 10^6/uL (3.85-5.65); Red Cell Distribution Width 15.2 % (12.1-15.1); White Blood Count 8.95 10^3/uL (3.29-11.43)
[2023-05-23 13:14] LABS: Alanine Aminotransferase 10 U/L (0-41); Alkaline Phosphatase 55 U/L (40-130); Anion Gap 15.3 (5-19); Aspartate Amino Transferase 16 U/L (0-40); Blood Urea Nitrogen 12 mg/dL (8-23); Calcium 9.3 mg/dL (8.5-10.5); Carbon Dioxide 24 mmol/L (22-29); Chloride 103 mmol/L (98-107); Globulin 3.1 g/dL (1.3-4.6); Glucose 106 mg/dL (65-115); Osmolality Calculated 286 mOsm/kg (285-295); Potassium 4.3 mmol/L (3.5-5.1); Sodium 138 mmol/L (136-145); Total Bilirubin 1.3 mg/dL (0.15-1.2); Total Protein 7.1 g/dL (6.6-8.7)
== END 2023-05-23 23:59 | disposition home or self-care (01) ==
PROVIDERS: PCP Family Medicine; Visit Provider Internal Medicine Medical Oncology
DX: Z53.9 Procedure and treatment not carried out, unspecified reason (principal); C34.11 Malignant neoplasm of upper lobe, right bronchus or lung; F17.210 Nicotine dependence, cigarettes, uncomplicated; Z92.21 Personal history of antineoplastic chemotherapy; Z92.3 Personal history of irradiation; Z79.899 Other long term (current) drug therapy
CPT/HCPCS: 36415; 80053; 85025; 99213; 99214

== ENCOUNTER 2023-08-09 12:16 | Outpatient (CLI) | payer MEDICARE, SELFPAY ==
--- NOTE | 2023-08-09 12:30 | CT_ITS ---
WS: [id number] CT chest w con* [id number] HISTORY: lung cancer; compare to previous TECHNIQUE: Axial imaging performed through the thorax. Coronal and sagittal reformats are submitted. All CT scans at [facility] use at least one of these dose optimization techniques: automated exposure control; mA and/or kV adjustment per patient size (includes targeted exams where dose is mat ched to clinical indication); or iterative reconstruction. CONTRAST: Omnipaque 350; 100 mL IV. DLP: 489.89 mGy.cm COMPARISON: 05/15/2023, 12/18/2022, 06/27/2022 Lungs and central airway: chronic emphysema. Interstitial thickening within the periphery of the lung s. Previously described nodules in the pleural thickening are stable. The nodules and RIGHT lateral p leural thickening were negative on the PET/CT from 02/27/2023. No new mass or pulmonary nodule. There is mild soft tissue thickening along the medial RIGHT upper lobe which is similar to the prior studie s. This may be atelectasis or scar tissue, this should be further evaluated on follow-up exams also. Pleura: Stable pleural thickening RIGHT lateral chest . Heart and pericardium: Normal size heart with no pericardial effusion. Mediastinum and katie: Mediastinal and hilar lymph nodes are slightly more prominent as compared to but decreased since 05/15/2023. Largest lymph nodes in the inferior RIGHT paratracheal region measure 12 mm. Subcarinal lymph node 17 mm in diameter. Vessels: Moderate atherosclerotic plaque throughout the thoracic aorta. Pulmonary artery is dilated. Extensive coronary artery calcifications. Chest wall and lower neck: No soft tissue masses. Upper abdomen: LEFT renal cyst upper pole. No adrenal mass. The entire adrenal glands are not include d. Visualized liver is negative. Osseous structures: Straightening of the normal thoracic curvature. IMPRESSION: 1. No new or increasing size of the pulmonary nodules that have been previously described and were negative on PET/CT. 2. Indeterminate mediastinal and hilar lymph nodes but no increase in size since 05/15/2023. 3. Mild pulmonary hypertension. 4. Recommend continued follow-up of the soft tissue opacification along the medial RIGHT upper lobe. No change since 05/15/2023 but this is increased since 02/27/2023. May be atelectasis.
[2023-08-09 12:49] LABS: Blood Urea Nitrogen 11 mg/dL (8-23)
[2023-08-09] MEDS: iohexol 350 mg/mL 500 mL Btl (per mL) IV (12:58)
== END 2023-08-09 12:17 | disposition home or self-care (01) ==
LOC: RAD 12:16
PROVIDERS: PCP Family Medicine; Visit Provider Internal Medicine Medical Oncology
DX: C34.11 Malignant neoplasm of upper lobe, right bronchus or lung (principal); I27.20 Pulmonary hypertension, unspecified
CPT/HCPCS: 71260; 82565; 84520; Q9967

== ENCOUNTER 2023-08-16 13:10 | Oncology outpatient (recurring) (ONCR) | payer MEDICARE, SELFPAY ==
[2023-08-16 13:48] LABS: Basophils # 0.1 10^3/uL (0.0-0.1); Basophils % 0.8 %; Eosinophils # 0.2 10^3/uL (0.0-0.8); Eosinophils % 2.3 %; Hematocrit 44.6 % (37-53); Lymphocytes # 1.2 10^3/uL (0.8-4.8); Lymphocytes % 13.4 %; Mean Corpuscular HGB Conc 32.5 g/dL (30-55); Mean Corpuscular Hemoglobin 33.6 pg (27-33); Mean Corpuscular Volume 103.2 fl (82-101); Mean Platelet Volume 9.6 fL (7.4-10.4); Monocytes # 0.7 10^3/uL (0.2-0.9); Monocytes % 7.5 %; Neutrophils # 6.68 10^3/uL (1.8-7.7); Neutrophils % 75.7 %; Nucleated Red Blood Cells % 0 %; Platelet Count 189 10^3/cmm (157-399); Red Blood Count 4.32 10^6/uL (3.85-5.65); Red Cell Distribution Width 14.9 % (12.1-15.1); White Blood Count 8.82 10^3/uL (3.29-11.43)
[2023-08-16 14:05] LABS: Alanine Aminotransferase 9 U/L (0-41); Albumin Level 3.9 g/dL (3.5-5.2); Alkaline Phosphatase 63 U/L (40-130); Aspartate Amino Transferase 15 U/L (0-40); Blood Urea Nitrogen 12 mg/dL (8-23); Calcium 9.4 mg/dL (8.5-10.5); Carbon Dioxide 27 mmol/L (22-29); Chloride 102 mmol/L (98-107); Globulin 3.4 g/dL (1.3-4.6); Glucose 101 mg/dL (65-115); Osmolality Calculated 286 mOsm/kg (285-295); Sodium 138 mmol/L (136-145); Total Bilirubin 0.8 mg/dL (0.15-1.2); Total Protein 7.3 g/dL (6.6-8.7)
[2023-08-16 14:13] LABS: Anion Gap 13.7 (5-19); Potassium 4.7 mmol/L (3.5-5.1)
== END 2023-08-21 23:59 | disposition home or self-care (01) ==
PROVIDERS: Nurse Practitioner Family; PCP Family Medicine; Visit Provider Internal Medicine Medical Oncology
DX: C34.11 Malignant neoplasm of upper lobe, right bronchus or lung (principal); F17.210 Nicotine dependence, cigarettes, uncomplicated; Z79.899 Other long term (current) drug therapy
CPT/HCPCS: 36415; 80053; 85025; 99214

== ENCOUNTER → 2023-09-11 11:41 | Outpatient (BNVA) | payer MEDICARE, SELFPAY | PROVIDERS: PCP Family Medicine; Visit Provider Internal Medicine Cardiovascular Disease | DX: I25.10 Atherosclerotic heart disease of native coronary artery without angina pectoris (principal); E78.2 Mixed hyperlipidemia; I71.40 Abdominal aortic aneurysm, without rupture, unspecified; I10 Essential (primary) hypertension; I65.23 Occlusion and stenosis of bilateral carotid arteries; F17.210 Nicotine dependence, cigarettes, uncomplicated; E11.51 Type 2 diabetes mellitus with diabetic peripheral angiopathy without gangrene; Z79.84 Long term (current) use of oral hypoglycemic drugs | CPT/HCPCS: 99214 ==

== ENCOUNTER 2023-11-19 11:57 | Outpatient (CLI) | payer MEDICARE, SELFPAY ==
--- NOTE | 2023-11-19 12:00 | CT_ITS ---
WS: [id number] CT chest w con* [id number] HISTORY: follow up lung cancer. TECHNIQUE: Axial imaging performed through the thorax. Coronal and sagittal reformats are submitted. All CT scans at [facility] use at least one of these dose optimization techniques: automated exposure control; mA and/or kV adjustment per patient size (includes targeted exams where dose is mat ched to clinical indication); or iterative reconstruction. CONTRAST: Omnipaque 350; 100 mL IV. DLP: 434.07 mGy.cm COMPARISON: 08/09/2023, 11/22/2020, 05/15/2023 Lungs and central airway: Pulmonary hyperexpansion. Stable appearance of the pleural thickening and s carring RIGHT upper lobe along the superior fissure with extension into the superior segment LEFT low er lobe. Scattered subcentimeter pulmonary nodules are stable. There are no new or increasing size of pulmonary nodules. Pleura: Normal. No pleural effusion. Heart and pericardium: Mild RIGHT heart enlargement. No pericardial effusion. Mediastinum and katie: Mediastinal and hilar lymph nodes are reidentified. Indeterminate lymph nodes w [facility] are not increasing in size or number. Largest lymph node is 19 mm in the subcarina. Vessels: Moderate atherosclerosis aorta. No aneurysm. Pulmonary artery is dilated. Chest wall and lower neck: No soft tissue masses. Upper abdomen: Retrocrural lymph node stable. Visualized liver is negative. Adrenal glands are not co mpletely included but the portions visualized are normal. LEFT renal cyst. Osseous structures: Straightening of the normal thoracic kyphosis. CT/CT chest w con* [id number] IMPRESSION: 1. Stable bilateral pulmonary nodules and subpleural thickening with scarring in the central RIGHT chest. No recurrent mass identified. 2. Indeterminate mediastinal and hilar lymph nodes. Lymph nodes are stable in size with no progression since 12/18/2022. Prior to 12/18/2022 the lymph nodes hodge ve increased in size. Some of these lymph nodes were indeterminate on a PET/CT of 02/27/2023. Previously described RIGHT supraclavicular lymph node is not iden tified by CT. This supraclavicular region was not included on this exam. Sugges t continued close imaging follow-up of these indeterminant lymph nodes.
--- NOTE | 2023-11-19 12:27 | CT_ITS ---
WS: [id number] CTA ABDOMEN TECHNIQUE: Noncontrast plus contrast enhanced CTA of the abdominal aorta with coronal and sagittal re formatted images and additional MIP Images. CLINICAL INFORMATION: FOLLOW UP AAA COMPARISON: 08/10/2021 DLP: 2101.[address] scans at [facility] use at least one of these dose optimization techniques: automated e xposure control; mA and/or kV adjustment per patient size (includes targeted exams where dose is matc hed to clinical indication); or iterative reconstruction. FINDINGS: Prior postoperative changes aortic endograft with biiliac extension. Excluded aneurysm sac measures 4 .5 x 4.1 cm AP by transverse unchanged from the prior study. No evidence of enlarging excluded aneury sm sac. No evidence of endoleak on the delayed imaging. Bilateral iliac limbs are patent. Dense vascu lar calcification. Celiac and SMA are patent. Proximal renal arteries are patent. Normal renal parenc hymal enhancement. Bilateral renal cysts. Some are too small to characterize. Normal GE junction. Lung bases are well aerated. Noncalcified nodule LEFT lower lobe measuring 5.5 mm . This appears increased in size since 08/10/2021. Recommend follow-up chest CT. Bibasilar atelectasis . Enlarged heterogeneously enhancing nodular prostate measuring 5.2 cm. Recommend PSA. Thickening of th e seminal vesicles bilaterally. Evidence of bladder outlet obstruction. Sigmoid diverticulosis. Normal appendix. Ankylosis lumbar spine. CT/CT angio abdomen pelvis [id number] IMPRESSION: 1. Stable aortic endograft with biiliac extension. No evidence of enlarging an eurysm sac. No evidence of endoleak on the delayed imaging. 2. Celiac and SMA are patent. Proximal renal arteries are patent. 3. Bilateral renal cysts similar to previous. Some are too small to characteri ze. 4. Enlarged prostate with bladder outlet obstruction. Recommend correlation PS A. 5. Sigmoid diverticulosis. 6. 5.5 mm nodule LEFT lower lobe appears progressed compared to the prior CTA. Recommend follow-up chest CT. 7. Enlarged RIGHT retrocrural lymph nodes measuring 11 mm in short axis dimens ion similar to the prior PET/CT 2022
[2023-11-19 12:33] LABS: Basophils # 0.1 10^3/uL (0.0-0.1); Basophils % 0.9 %; Eosinophils # 0.2 10^3/uL (0.0-0.8); Eosinophils % 2.4 %; Hematocrit 44.7 % (37-53); Lymphocytes # 1.1 10^3/uL (0.8-4.8); Lymphocytes % 12.5 %; Mean Corpuscular HGB Conc 33.3 g/dL (30-55); Mean Corpuscular Hemoglobin 34.7 pg (27-33); Mean Corpuscular Volume 104.2 fl (82-101); Mean Platelet Volume 10.5 fL (7.4-10.4); Monocytes # 0.7 10^3/uL (0.2-0.9); Monocytes % 7.7 %; Neutrophils # 6.76 10^3/uL (1.8-7.7); Nucleated Red Blood Cells % 0 %; Platelet Count 164 10^3/cmm (157-399); Red Blood Count 4.29 10^6/uL (3.85-5.65); Red Cell Distribution Width 15.3 % (12.1-15.1); White Blood Count 8.88 10^3/uL (3.29-11.43)
[2023-11-19 12:54] LABS: Alanine Aminotransferase 8 U/L (0-41); Alkaline Phosphatase 60 U/L (40-130); Blood Urea Nitrogen 14 mg/dL (8-23); Calcium 9.3 mg/dL (8.5-10.5); Carbon Dioxide 22 mmol/L (22-29); Chloride 106 mmol/L (98-107); Globulin 3.1 g/dL (1.3-4.6); Glucose 112 mg/dL (65-115); Osmolality Calculated 293 mOsm/kg (285-295); Sodium 141 mmol/L (136-145); Total Protein 7.1 g/dL (6.6-8.7)
[2023-11-19 12:58] LABS: Anion Gap 17.4 (5-19); Potassium 4.4 mmol/L (3.5-5.1)
[2023-11-19 12:59] LABS: Aspartate Amino Transferase 15 U/L (0-40)
[2023-11-19] MEDS: iohexol 350 mg/mL 500 mL Btl (per mL) IV ×2 (13:08→13:09)
== END 2023-11-19 11:58 | disposition home or self-care (01) ==
LOC: RAD 11:58
PROVIDERS: PCP Family Medicine; Visit Provider Nurse Practitioner Family
DX: C34.11 Malignant neoplasm of upper lobe, right bronchus or lung (principal); I71.40 Abdominal aortic aneurysm, without rupture, unspecified; I25.10 Atherosclerotic heart disease of native coronary artery without angina pectoris; R91.8 Other nonspecific abnormal finding of lung field; J98.4 Other disorders of lung; I51.7 Cardiomegaly; N28.1 Cyst of kidney, acquired; I89.9 Noninfective disorder of lymphatic vessels and lymph nodes, unspecified; Q61.02 Congenital multiple renal cysts; R91.1 Solitary pulmonary nodule; J98.11 Atelectasis; N40.3 Nodular prostate with lower urinary tract symptoms; N50.89 Other specified disorders of the male genital organs; K57.30 Diverticulosis of large intestine without perforation or abscess without bleeding
CPT/HCPCS: 71260; 74174; 80053; 85025; Q9967

== ENCOUNTER 2023-12-19 11:10 | Oncology outpatient (recurring) (ONCR) | payer MEDICARE, SELFPAY | END 2023-12-22 23:59 | disposition home or self-care (01) | PROVIDERS: PCP Family Medicine; Visit Provider Internal Medicine Medical Oncology | DX: C34.11 Malignant neoplasm of upper lobe, right bronchus or lung (principal); C77.8 Secondary and unspecified malignant neoplasm of lymph nodes of multiple regions; C78.02 Secondary malignant neoplasm of left lung; C79.51 Secondary malignant neoplasm of bone; R53.0 Neoplastic (malignant) related fatigue; F17.210 Nicotine dependence, cigarettes, uncomplicated; Z79.899 Other long term (current) drug therapy | CPT/HCPCS: 99214 ==

== ENCOUNTER 2024-02-05 11:48 | Outpatient (CLI) | payer MEDICARE, SELFPAY ==
[2024-02-05 12:17] LABS: Basophils # 0.1 10^3/uL (0.0-0.1); Basophils % 0.7 %; Eosinophils # 0.2 10^3/uL (0.0-0.8); Eosinophils % 2.7 %; Hematocrit 45.2 % (37-53); Lymphocytes # 1.3 10^3/uL (0.8-4.8); Lymphocytes % 14.6 %; Mean Corpuscular HGB Conc 33.4 g/dL (30-55); Mean Corpuscular Hemoglobin 35.1 pg (27-33); Mean Corpuscular Volume 105.1 fl (82-101); Mean Platelet Volume 10.4 fL (7.4-10.4); Monocytes # 0.7 10^3/uL (0.2-0.9); Neutrophils # 6.67 10^3/uL (1.8-7.7); Neutrophils % 73.7 %; Nucleated Red Blood Cells % 0 %; Platelet Count 167 10^3/cmm (157-399); Red Cell Distribution Width 15.1 % (12.1-15.1); White Blood Count 9.04 10^3/uL (3.29-11.43)
--- NOTE | 2024-02-05 12:30 | CTR_ITS ---
PROCEDURE INFORMATION: Exam: CT Chest With Contrast; Diagnostic Exam date and time: 02/05/2024 12:49 PM Age: 78 years old Clinical indication: Condition or disease; Lung condition and disease; Cancer of the lung; Unspecified; Primary cancer: Right lung cancer; Prior surgery; Surgery date: 6+ months; Surgery type: Port placement and removal TECHNIQUE: Imaging protocol: Diagnostic computed tomography of the chest with contrast. Radiation optimization: All CT scans at this facility use at least one of these dose optimization techniques: automated exposure control; mA and/or kV adjustment per patient size (includes targeted exams where dose is matched to clinical indication); or iterative reconstruction. Contrast material: OMNI 350; Contrast volume: 100 ml; Contrast route: INTRAVENOUS (IV); COMPARISON: CT chest w con* [id number] 11/19/2023 1:03 PM RADIATION DOSE METRICS: Total DLP (mGy-cm): 540.31 FINDINGS: Lungs: Stable chronic pleuroparenchymal scarring periphery right lower lobe superior segment. Stable chronic interstitial peripheral reticulation anterior segment left upper lobe. Stable lung nodules measuring up to 7 mm. Stable right suprahilar interstitial scarring with mild bronchiectasis. No new lung nodules or consolidations. Pleural spaces: Unremarkable. No pneumothorax. No pleural effusion. Heart: Calcifications of the aortic valve annulus. Coronary arteries: There is severe atherosclerotic calcification of the coronary arteries. Lymph nodes: Stable mediastinal adenopathy, with the largest lymph node in the subcarinal space measuring 1.4 cm. No new adenopathy. Vasculature: Moderate diffuse calcific atherosclerosis of the aorta. Partially seen graft repair of a infrarenal abdominal aortic aneurysm without acute complications. Gallbladder and biliary ducts: Multiple calcified gallstones are present. Kidneys: Subcentimeter right renal hypodense lesions are too small to characterize but most probably benign representing cysts. Consider correlation with nonemergent ultrasound. Multiple simple left renal cysts, largest measuring 4.3 cm. No follow-up recommended. Subcentimeter left renal hypodense lesions are too small to characterize but most probably benign representing cysts. Consider correlation with nonemergent ultrasound. Bones/joints: There are healed right rib fractures. Moderate multilevel degenerative changes of the spine. Soft tissues: No acute body wall soft tissue findings. CT/CT chest w con* [id number] IMPRESSION: Stable chest without definitive evidence for disease recurrence or metastasis. COMMENTS: Consistent with the [employer]'s Incidental Findings Committee white paper (J Am Carline Radiol 2018): Any incidental renal lesion less than 1 cm or classified as too small to characterize, or any incidental cystic renal lesion characterized as simple-appearing, is likely benign. No follow-up imaging is recommended for these lesions per consensus recommendations based on imaging criteria.
[2024-02-05 12:50] LABS: Alanine Aminotransferase 9 U/L (0-41); Albumin Level 4.2 g/dL (3.5-5.2); Alkaline Phosphatase 63 U/L (40-130); Anion Gap 13.5 (5-19); Aspartate Amino Transferase 12 U/L (0-40); Blood Urea Nitrogen 18 mg/dL (8-23); Calcium 9.5 mg/dL (8.5-10.5); Carbon Dioxide 26 mmol/L (22-29); Chloride 101 mmol/L (98-107); Globulin 3.2 g/dL (1.3-4.6); Glucose 107 mg/dL (65-115); Osmolality Calculated 284 mOsm/kg (285-295); Potassium 4.5 mmol/L (3.5-5.1); Sodium 136 mmol/L (136-145); Thyroid Stimulating Hormone 2.89 uIU/mL (0.27-4.20); Total Bilirubin 1.1 mg/dL (0.15-1.2); Total Protein 7.4 g/dL (6.6-8.7)
[2024-02-05] MEDS: iohexol 350 mg/mL 500 mL Btl (per mL) IV (12:56)
== END 2024-02-05 11:49 | disposition home or self-care (01) ==
PROVIDERS: PCP Family Medicine; Visit Provider Internal Medicine Medical Oncology
DX: C34.11 Malignant neoplasm of upper lobe, right bronchus or lung (principal); R53.83 Other fatigue; E11.59 Type 2 diabetes mellitus with other circulatory complications; J84.10 Pulmonary fibrosis, unspecified; I70.0 Atherosclerosis of aorta; I25.84 Coronary atherosclerosis due to calcified coronary lesion; K80.20 Calculus of gallbladder without cholecystitis without obstruction; Q61.02 Congenital multiple renal cysts
CPT/HCPCS: 36415; 71260; 80053; 84443; 85025

== ENCOUNTER 2024-02-18 13:27 | Oncology outpatient (recurring) (ONCR) | payer MEDICARE, SELFPAY | END 2024-02-21 23:59 | disposition home or self-care (01) | PROVIDERS: PCP Family Medicine; Visit Provider Internal Medicine Hematology & Oncology | DX: C34.11 Malignant neoplasm of upper lobe, right bronchus or lung (principal); Z79.899 Other long term (current) drug therapy | CPT/HCPCS: 99214 ==

== ENCOUNTER → 2024-03-27 11:18 | Outpatient (BNVA) | payer MEDICARE, SELFPAY | PROVIDERS: PCP Family Medicine; Visit Provider Internal Medicine Cardiovascular Disease | DX: I25.10 Atherosclerotic heart disease of native coronary artery without angina pectoris (principal); I73.9 Peripheral vascular disease, unspecified; E78.2 Mixed hyperlipidemia; I10 Essential (primary) hypertension; I71.40 Abdominal aortic aneurysm, without rupture, unspecified; I72.4 Aneurysm of artery of lower extremity; F17.210 Nicotine dependence, cigarettes, uncomplicated | CPT/HCPCS: 99214 ==

== ENCOUNTER 2024-04-21 12:45 | Oncology outpatient (recurring) (ONCR) | payer MEDICARE, SELFPAY ==
--- NOTE | 2024-04-04 14:00 | USCV_ITS ---
Neal Garzon Age: 79 Gender: M : 1945 Exam Date: 04/04/2024 14:08 Ordering Phys: Jovany Burns MD ([email or web address]) Technologist: RENE [place] [facility] [place]: PAD pop aneurysm Risk Factors: Previous Vascular Surgery: RIGHT LEFT BP: 133.0 / 68.00 BP: 132.0/ 72.00 0 0 Waveform Velocity (cm/s) Velocity (cm/s) Waveform Triphasic 75.4 Iliac Prox 73.7 Triphasic Triphasic 94.3 Iliac Mid 69.0 Triphasic Triphasic 112.5 Iliac Distal 70.7 Triphasic Triphasic 179.0 MULESER 94.0 Triphasic Triphasic 127.0 SFA Prox 137.0 Triphasic Triphasic 132.0 SFA Mid 201.0 Triphasic Triphasic 24.0 SFA Dist 230.0 Triphasic Biphasic 35.0 POP 39.0 Biphasic N/A ELEVATOR REPA[employer]ER AP[employer]ENTICE 105.0 Biphasic Biphasic 66.0 DPA 32.0 Biphasic 0.9 MICHAEL 0.9 FINDINGS Resting MICHAEL 0.9 bilaterally. Mild to moderate diffuse plaque in the iliac and common femoral , femoral and popliteal arteries bilaterally No Doppler flow signals in the posterior artery of the right side Small aneurysmal dilatation of the popliteal artery measuring 1.7 cm of maximum diameter and 3.5 cm long. Moderate irregular plaques in the lumen CONCLUSIONS 1. Abnormal resting ABIs of 0.9 bilaterally suggesting mild peripheral arterial disease 2. Mild to moderate diffuse plaque in the iliac, femoral and popliteal arteries bilaterally 3. Possible total occlusion of the posttibial artery on the right side 4. Small popliteal artery aneurysm with a maximum diameter of 1.7 cm. Moderate irregular plaques in the lumen Revised copy of the study from 04/04/2024 Dr Jovany Burns MD [facility] (Electronically Signed) Final Date: 04 April 2024 19:01 Amended: 11 April 2024 10:14 C
--- NOTE | 2024-04-21 12:45 | USCV_ITS ---
Neal Garzon Age: 79 Gender: M : 1945 Exam Date: 04/21/2024 12:47 Ordering Phys: Jovany Burns MD ([email or web address]) Technologist: USR Exam Location: [facility] – [place] Indication: pop aneurysms Findings bilateral aneurysms seen in popliteal arteries velocities noted within aneurysms 1.7 x 1.7 x 3.9 cm on the right 1.5 x 1.4 x 2.4 cm on the left side Mild to moderate diffuse plaques are noted in the popliteal artery. 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 On the right side, the aneurysm measured 1.7 x 1.7 x 3.9 cm. On the left side, it measured 1.5 x 1.4 x 2.4 cm. No similar previous studies are available for comparison Dr Jovany Burns MD [facility] (Electronically Signed) Final Date: 26 April 2024 20:57 S
== END 2024-04-22 23:59 | disposition home or self-care (01) ==
LOC: RAD 04-22 → ONCMED 04-22 09:35
PROVIDERS: PCP Family Medicine; Visit Provider Internal Medicine Cardiovascular Disease
DX: C34.11 Malignant neoplasm of upper lobe, right bronchus or lung (principal); C77.8 Secondary and unspecified malignant neoplasm of lymph nodes of multiple regions; C78.02 Secondary malignant neoplasm of left lung; C79.51 Secondary malignant neoplasm of bone; R53.0 Neoplastic (malignant) related fatigue; F17.210 Nicotine dependence, cigarettes, uncomplicated; Z79.899 Other long term (current) drug therapy; Z51.12 Encounter for antineoplastic immunotherapy; I73.9 Peripheral vascular disease, unspecified
CPT/HCPCS: 93925

== ENCOUNTER 2024-05-19 12:54 | Oncology outpatient (recurring) (ONCR) | payer MEDICARE, SELFPAY ==
[2024-05-19 13:16] LABS: Basophils # 0.1 10^3/uL (0.0-0.1); Basophils % 0.7 %; Eosinophils # 0.2 10^3/uL (0.0-0.8); Eosinophils % 1.9 %; Lymphocytes # 1.2 10^3/uL (0.8-4.8); Mean Corpuscular Hemoglobin 33.8 pg (27-33); Mean Corpuscular Volume 102.4 fl (82-101); Monocytes # 0.7 10^3/uL (0.2-0.9); Monocytes % 7.7 %; Neutrophils # 7.24 10^3/uL (1.8-7.7); Neutrophils % 76.3 %; Nucleated Red Blood Cells % 0 %; Platelet Count 175 10^3/cmm (157-399); Red Blood Count 4.59 10^6/uL (3.85-5.65); Red Cell Distribution Width 14.9 % (12.1-15.1); White Blood Count 9.49 10^3/uL (3.29-11.43)
[2024-05-19 13:34] LABS: Alanine Aminotransferase 9 U/L (0-41); Albumin Level 4.1 g/dL (3.5-5.2); Alkaline Phosphatase 64 U/L (40-130); Anion Gap 16.4 (5-19); Aspartate Amino Transferase 14 U/L (0-40); Blood Urea Nitrogen 12 mg/dL (8-23); Calcium 9.6 mg/dL (8.5-10.5); Carbon Dioxide 24 mmol/L (22-29); Chloride 101 mmol/L (98-107); Globulin 3.3 g/dL (1.3-4.6); Glucose 96 mg/dL (65-115); Osmolality Calculated 284 mOsm/kg (285-295); Potassium 4.4 mmol/L (3.5-5.1); Sodium 137 mmol/L (136-145); Total Bilirubin 1.5 mg/dL (0.15-1.2); Total Protein 7.4 g/dL (6.6-8.7)
== END 2024-05-23 23:59 | disposition home or self-care (01) ==
PROVIDERS: PCP Family Medicine; Visit Provider Internal Medicine Medical Oncology
DX: Z08 Encounter for follow-up examination after completed treatment for malignant neoplasm (principal); Z85.118 Personal history of other malignant neoplasm of bronchus and lung; F17.210 Nicotine dependence, cigarettes, uncomplicated; Z71.6 Tobacco abuse counseling; Z92.3 Personal history of irradiation; Z92.21 Personal history of antineoplastic chemotherapy
CPT/HCPCS: 36415; 80053; 85025; 99214

== ENCOUNTER 2024-08-04 12:00 | Oncology outpatient (recurring) (ONCR) | payer MEDICARE, SELFPAY ==
[2024-07-29 11:00] LABS: Basophils # 0.1 10^3/uL (0.0-0.1); Basophils % 0.8 %; Eosinophils # 0.2 10^3/uL (0.0-0.8); Eosinophils % 2.1 %; Hematocrit 46.2 % (37-53); Lymphocytes # 1.1 10^3/uL (0.8-4.8); Lymphocytes % 12.4 %; Mean Corpuscular HGB Conc 33.1 g/dL (30-55); Mean Corpuscular Hemoglobin 33.8 pg (27-33); Mean Platelet Volume 10.6 fL (7.4-10.4); Monocytes # 0.6 10^3/uL (0.2-0.9); Monocytes % 6.4 %; Neutrophils # 7.19 10^3/uL (1.8-7.7); Neutrophils % 77.9 %; Nucleated Red Blood Cells % 0 %; Platelet Count 175 10^3/cmm (157-399); Red Blood Count 4.53 10^6/uL (3.85-5.65); Red Cell Distribution Width 15.2 % (12.1-15.1); White Blood Count 9.22 10^3/uL (3.29-11.43)
[2024-07-29] MEDS: iohexol 350 mg/mL 500 mL Btl (per mL) PO (11:52)
--- NOTE | 2024-07-29 12:00 | CT_ITS ---
WS: [id number] CT CHEST, ABDOMEN AND PELVIS WITH CONTRAST HISTORY: Follow-up lung cancer. TECHNIQUE: Contiguous 5 mm axial imaging performed through the chest, abdomen and pelvis with IV contrast, oral contrast has been provided. Coronal and sagittal reformats chest. Coronal and sagittal reformats through the abdomen and pelvis. All CT scans at [facility] use at least one of these dose optimization techniques: automated exposure control; mA and/or kV adjustment per patient size (includes targeted exams where dose is matched to clinical indication); or iterative reconstruction. CONTRAST: Omnipaque 350; 100 mL IV. DLP: 1154.17 mGy.cm COMPARISON: Chest CT 02/05/2024, CT abdomen 08/10/2021 and 11/19/[address]: New small RIGHT pleural effusion. Mild pleural parenchymal scarring along the mid lateral RIGHT lung measuring 2.1 cm was present on the prior study. Stable 5 mm nodule RIGHT lower lobe. Mild chronic emphysema. No new mass or nodule. Moderate atherosclerotic plaque thoracic aorta. Dilated pulmonary artery. Heart size is normal. No pericardial effusion. No mediastinal or hilar lymph nodes. Stable mild scattered areas of interstitial thickening. There are few small frothy secretions through the trachea and proximal main bronchi. Linear atelectasis and bronchial wall thickening RIGHT upper lobe. Abdomen CT: Normal liver. No metastatic disease. Normal portal vein. Normal size gallbladder with cholelithiasis. No evidence for acute cholecystitis. Normal spleen. Normal adrenal glands. Numerous bilateral renal cysts. Some of these are too small to characterize. There is a solid mass which has been previously described exophytic from the posterior medial and inferior LEFT kidney. This mass measures 9 x 13 mm with minimal increase in size since 2021. Suspicious for renal neoplasm. Reidentified is the low-attenuation mass in the uncinate process measuring 11 mm which is unchanged. Stable over multiple prior studies. Endovascular graft repair of the abdominal aortic aneurysm. No increase in size of the blackfeet aneurysm. No periaortic fluid collections. By iliac stent grafts are intact. Dense calcifications continue through the iliac arteries into the femoral arteries. No ascites or adenopathy. Diffuse stomach wall thickening in part may be due to under distention. Marked constipation. Sigmoid diverticulosis without acute diverticulitis. Pelvic CT: No free fluid. Urinary bladder is normally distended. Prostate gland hypertrophy and enlargement. No destructive bone lesions. Advanced degenerative disease throughout the lumbar spine. Reversal of the normal lumbar lordosis. Large bridging osteophytes. CT/CT chest abdpel w/*[id number] IMPRESSION: 1. New small RIGHT pleural effusion. 2. Pleural-parenchymal scarring is stable in the RIGHT upper lobe. There are a few additional pulmonary nodules which are also stable. 3. Progression of bronchiectasis and bronchial wall thickening in the medial R IGHT upper lobe. 4. Solid LEFT renal mass. Highly suspicious for renal carcinoma with no change since 2021. 5. No change in the low-attenuation mass in the uncinate process of the pancre as. 6. No mediastinal or hilar adenopathy. 7. Status post endovascular graft repair of abdominal aortic aneurysm. No comp lications. 8. Cholelithiasis without acute cholecystitis. 9. Mild stomach wall thickening is diffuse and may be due to partial distentio n or gastritis. No focal mass.
[2024-07-29] MEDS: iohexol 350 mg/mL 500 mL Btl (per mL) IV (12:34)
[2024-07-29 12:49] LABS: Alanine Aminotransferase 9 U/L (0-41); Albumin Level 3.8 g/dL (3.5-5.2); Alkaline Phosphatase 59 U/L (40-130); Aspartate Amino Transferase 15 U/L (0-40); Blood Urea Nitrogen 12 mg/dL (8-23); Calcium 9.4 mg/dL (8.5-10.5); Carbon Dioxide 26 mmol/L (22-29); Chloride 104 mmol/L (98-107); Globulin 3.2 g/dL (1.3-4.6); Glucose 87 mg/dL (65-115); Osmolality Calculated 285 mOsm/kg (285-295); Sodium 138 mmol/L (136-145); Total Bilirubin 0.9 mg/dL (0.15-1.2)
[2024-07-29 12:54] LABS: Anion Gap 12.2 (5-19); Potassium 4.2 mmol/L (3.5-5.1)
== END 2024-08-20 23:59 | disposition home or self-care (01) ==
PROVIDERS: Internal Medicine Medical Oncology; PCP Family Medicine; Visit Provider Internal Medicine
DX: Z08 Encounter for follow-up examination after completed treatment for malignant neoplasm; Z85.118 Personal history of other malignant neoplasm of bronchus and lung; N28.89 Other specified disorders of kidney and ureter; F17.210 Nicotine dependence, cigarettes, uncomplicated; Z92.3 Personal history of irradiation; Z92.21 Personal history of antineoplastic chemotherapy; Z92.25 Personal history of immunosuppression therapy; Z53.9 Procedure and treatment not carried out, unspecified reason
CPT/HCPCS: 36415; 71260; 74177; 80053; 85025; 99213

== ENCOUNTER 2024-09-08 13:07 | Oncology outpatient (recurring) (ONCR) | payer MEDICARE, SELFPAY | END 2024-09-20 23:59 | disposition home or self-care (01) | PROVIDERS: PCP Family Medicine; Visit Provider Internal Medicine | DX: Z08 Encounter for follow-up examination after completed treatment for malignant neoplasm (principal); Z85.118 Personal history of other malignant neoplasm of bronchus and lung; F17.210 Nicotine dependence, cigarettes, uncomplicated; Z92.3 Personal history of irradiation; Z92.21 Personal history of antineoplastic chemotherapy; Z92.25 Personal history of immunosuppression therapy; N28.89 Other specified disorders of kidney and ureter; Z71.6 Tobacco abuse counseling | CPT/HCPCS: 99213 ==

== ENCOUNTER → 2024-09-22 09:31 | Outpatient (BNVA) | payer MEDICARE, SELFPAY | PROVIDERS: PCP Family Medicine; Visit Provider Nurse Practitioner Family | DX: I25.118 Atherosclerotic heart disease of native coronary artery with other forms of angina pectoris (principal); I10 Essential (primary) hypertension; I65.29 Occlusion and stenosis of unspecified carotid artery; I72.4 Aneurysm of artery of lower extremity; E78.2 Mixed hyperlipidemia; Z79.02 Long term (current) use of antithrombotics/antiplatelets; F17.210 Nicotine dependence, cigarettes, uncomplicated; Z95.5 Presence of coronary angioplasty implant and graft; E11.59 Type 2 diabetes mellitus with other circulatory complications | CPT/HCPCS: 99214 ==

== ENCOUNTER 2024-12-22 06:30 | Outpatient (RCR) | payer MEDICARE, SELFPAY | END 2025-01-20 23:59 | disposition home or self-care (01) | LOC: SPT 06:30 | PROVIDERS: Visit Provider Family Medicine | DX: M25.552 Pain in left hip (principal) | CPT/HCPCS: 97161 ==

== ENCOUNTER 2025-01-21 05:00 | Outpatient (RCR) | payer MEDICARE, SELFPAY | END 2025-02-20 23:59 | disposition home or self-care (01) | LOC: SPT 05:00 | PROVIDERS: Visit Provider Family Medicine | DX: M25.552 Pain in left hip (principal) | CPT/HCPCS: 97110; 97530 ==

== ENCOUNTER 2025-02-09 13:54 | Oncology outpatient (recurring) (ONCR) | payer MEDICARE, SELFPAY ==
[2025-02-02 10:47] LABS: Hematocrit 43.0 % (37-53); Hemoglobin 14.10 g/dL (11.27-16.99); Mean Corpuscular HGB Conc 32.8 g/dL (30-55); Mean Corpuscular Hemoglobin 34.0 pg (27-33); Mean Corpuscular Volume 103.6 fl (82-101); Nucleated Red Blood Cells % 0 %; Platelet Count 164 10^3/cmm (157-399); Red Blood Count 4.15 10^6/uL (3.85-5.65); White Blood Count 8.76 10^3/uL (3.29-11.43)
[2025-02-02 11:04] LABS: Alanine Aminotransferase 9 U/L (0-41); Albumin Level 4.2 g/dL (3.5-5.2); Alkaline Phosphatase 59 U/L (40-130); Anion Gap 16.4 (5-19); Aspartate Amino Transferase 14 U/L (0-40); Blood Urea Nitrogen 13 mg/dL (8-23); Calcium 9.7 mg/dL (8.5-10.5); Carbon Dioxide 25 mmol/L (22-29); Chloride 100 mmol/L (98-107); Globulin 3.1 g/dL (1.3-4.6); Glucose 106 mg/dL (65-115); Osmolality Calculated 285 mOsm/kg (285-295); Potassium 4.4 mmol/L (3.5-5.1); Sodium 137 mmol/L (136-145); Total Protein 7.3 g/dL (6.6-8.7)
[2025-02-02] MEDS: iohexol 350 mg/mL 500 mL Btl (per mL) PO (11:48)
--- NOTE | 2025-02-02 12:00 | CTR_ITS ---
PROCEDURE INFORMATION: Exam: CT Chest With Contrast; Diagnostic Exam date and time: 02/02/2025 11:56 AM Age: 79 years old Clinical indication: Condition or disease; Other: Lung cancer; Lung condition and disease; Cancer of the lung; Bilateral; Unspecified; Prior surgery; Surgery date: 6+ months; Surgery type: Back, aaa, port in/out; Additional info: Malignant neoplasm of upper lobe TECHNIQUE: Imaging protocol: Diagnostic computed tomography of the chest with contrast. Radiation optimization: All CT scans at this facility use at least one of these dose optimization techniques: automated exposure control; mA and/or kV adjustment per patient size (includes targeted exams where dose is matched to clinical indication); or iterative reconstruction. Contrast material: OMNI 350; Contrast volume: 100 ml; Contrast route: INTRAVENOUS (IV); COMPARISON: CT chest abdpel w/*[id number] 10/30/2023 12:[address] report from 02/05/2024 of the chest abdomen and pelvis RADIATION DOSE METRICS: Total DLP (mGy-cm): 1150.73 FINDINGS: Lungs: Moderate architectural changes of centrilobular emphysema are stable. Again seen is a stable area of isolated sessile pleural thickening along the lateral margin of the right hemithorax at the periphery of the right lower lobe. There is stable cylindrical bronchiectasis. There is a stable 7 mm solid pulmonary nodule within the right lower lobe on image 41 of series 5. There is a new nodule in the anteromedial aspect of the right upper lobe on image 31. This is solid measuring 15 x 12 mm. There is also some new sessile pleural thickening of the dorsal margin of the right upper lobe as seen for instance on image 21 of series 5 and image 26 of series 5. Pleural spaces: There is now a small dependent layering right pleural effusion. Heart: Unremarkable. No cardiomegaly. No pericardial effusion. Coronary arteries: There is coronary artery calcification. Lymph nodes: There remains a mildly enlarged subcarinal lymph node unchanged measuring 24 x 15 mm. There are small additional paratracheal lymph nodes, stable. There is no significant hilar or supraclavicular adenopathy. Vasculature: The thoracic aorta is normal in caliber with marginal atherosclerotic calcification. Bones/joints: There is no acute osseous abnormality appreciated. There is no lytic or blastic lesion identified. Soft tissues: Unremarkable. PROCEDURE INFORMATION: Exam: CT Abdomen And Pelvis With Contrast Exam date and time: 02/02/2025 11:56 AM Age: 79 years old Clinical indication: Condition or disease; Other: Lung cancer; Lung condition and disease; Cancer of the lung; Bilateral; Unspecified; Prior surgery; Surgery date: 6+ months; Surgery type: Back, aaa, port in/out; Additional info: Malignant neoplasm of upper lobe TECHNIQUE: Imaging protocol: Computed tomography of the abdomen and pelvis with contrast. Radiation optimization: All CT scans at this facility use at least one of these dose optimization techniques: automated exposure control; mA and/or kV adjustment per patient size (includes targeted exams where dose is matched to clinical indication); or iterative reconstruction. Contrast material: OMNI 350; Contrast volume: 100 ml; Contrast route: INTRAVENOUS (IV); COMPARISON: CT chest report from 02/05/2024 RADIATION DOSE METRICS: Total DLP (mGy-cm): 1150.73 FINDINGS: Tubes, catheters and devices: Abdominal aortic endograft is in place infrarenal in location with bilateral iliac limbs. It is patent and intact. Maximal caliber of the endograft and aorta immediately inferior to the SMA is 4.9 cm. Liver: Normal. No mass. Gallbladder and biliary ducts: There is cholelithiasis with small dependent calcified gallstone. Pancreas: Normal. No ductal dilation. Spleen: Normal. No splenomegaly. Adrenal glands: Normal. No mass. Kidneys and ureters: There is a solid lesion at the inferior pole of the left kideny. This measures 1.7 cm on image 41 of series 6. There are multiple bilateral renal cortical cysts. There are small bilateral renal cortical hypodensities too small to characterize but statistically most likely representing cysts. Small nonobstructing 1 and 2 mm right renal calculi are present. Stomach and bowel: There is diverticulosis of the sigmoid colon and descending colon. Appendix: No evidence of appendicitis. Intraperitoneal space: Unremarkable. No free air. No significant fluid collection. Vasculature: Unremarkable. No abdominal aortic aneurysm. Lymph nodes: Unremarkable. No enlarged lymph nodes. Urinary bladder: Unremarkable as visualized. Reproductive: The prostate is enlarged. Bones/joints: There is no acute osseous abnormality appreciated. There is no lytic or blastic lesion present. There is prominent degenerative changes throughout the lumbar spine with straightening and reversal of the normal lordotic curvature. Soft tissues: There are small bilateral fat containing inguinal hernias. CT/CT chest abdpel w/*[id number] IMPRESSION: 1. New anterior right upper lobe nodule of indeterminate etiology. Follow-up PET-CT is recommended for further evaluation. 2. New small right pleural effusion 3. Stable pleural thickening in the mid axillary line of the right upper lobe 4. New subtle nodular sessile pleural thickening of the dorsal aspect of the right upper lobe 5. Stable subcarinal enlarged lymph node 6. Stable centrilobular emphysema and bronchiectasis IMPRESSION: 1. No CT evidence of abdominal metastatic disease 2. Solid lesion at the inferior pole of the left kidney. This is concerning for renal cell carcinoma. Follow up MRI is recomended 3. Cholelithiasis 4. Diverticulosis 5. Nonobstructing right-sided nephrolithiasis 6. Infrarenal abdominal aortic aneurysm traversed by an endograft COMMENTS: Consistent with the [employer]'s Incidental Findings Committee white paper (J Am Carline Radiol 2018): Any incidental renal lesion less than 1 cm or classified as too small to characterize, or any incidental cystic renal lesion characterized as simple-appearing, is likely benign. No follow-up imaging is recommended for these lesions per consensus recommendations based on imaging criteria.
[2025-02-02] MEDS: iohexol 350 mg/mL 500 mL Btl (per mL) IV (12:01)
== END 2025-02-20 23:59 | disposition home or self-care (01) ==
PROVIDERS: Internal Medicine Medical Oncology; Visit Provider Internal Medicine
DX: Z08 Encounter for follow-up examination after completed treatment for malignant neoplasm (principal); Z85.118 Personal history of other malignant neoplasm of bronchus and lung; D75.89 Other specified diseases of blood and blood-forming organs; N28.89 Other specified disorders of kidney and ureter; Z92.3 Personal history of irradiation; Z92.21 Personal history of antineoplastic chemotherapy; Z92.25 Personal history of immunosuppression therapy
CPT/HCPCS: 36415; 71260; 74177; 80053; 85025; 99214

== ENCOUNTER 2025-02-21 05:00 | Outpatient (RCR) | payer MEDICARE, SELFPAY | END 2025-03-22 23:59 | disposition home or self-care (01) | LOC: SPT 05:00 | PROVIDERS: PCP Family Medicine; Visit Provider Family Medicine | DX: M25.552 Pain in left hip (principal) | CPT/HCPCS: 97110 ==

== ENCOUNTER 2025-03-06 13:57 | Oncology outpatient (recurring) (ONCR) | payer MEDICARE, SELFPAY ==
--- NOTE | 2025-03-06 14:15 | USR_ITS ---
PROCEDURE INFORMATION: Exam: US Duplex Bilateral Lower Extremity Arteries Exam date and time: 03/06/2025 2:10 PM Age: 80 years old Clinical indication: Condition or Disease; Aneurysm; Lower extremity, bilateral; Additional Info: pop aneurysms, schedule for March TECHNIQUE: Imaging protocol: Real-time ultrasound scan of the arteries of the bilateral lower extremities with 2-D singh scale, color Doppler flow and spectral waveform analysis. Images documented and saved. COMPARISON: CT angio abd aorta runof [id number] 08/10/2021 2:56 PM FINDINGS: Right common femoral artery: No occlusion or significant stenosis. Normal triphasic waveform. 110 cm/sec. Right superficial femoral artery: Moderate atherosclerotic calcifications. No occlusion or significant stenosis. Normal triphasic waveform proximal to mid, blunted distally. 86 cm/sec proximal, 156 cm/sec mid compatible with a mild stenosis, 27 cm/sec distal. Right popliteal artery: Aneurysmal dilatation of the popliteal artery measuring 2.2 cm in diameter. No occlusion or significant stenosis. Normal triphasic waveform. 25 cm/sec. Right calf/foot arteries: No occlusion or significant stenosis in the visualized arteries. Normal triphasic waveforms. Dorsalis pedis artery is patent. Left common femoral artery: No occlusion or significant stenosis. Normal triphasic waveform. 79 cm/sec. Left superficial femoral artery: Moderate atherosclerotic calcifications. No occlusion or significant stenosis. Normal triphasic waveform. 42 cm/sec proximal, 159 cm/sec mid compatible with a mild stenosis, 29 cm/sec distally. Left popliteal artery: Aneurysmal dilatation of the popliteal artery measuring 2.4 cm in diameter. No occlusion or significant stenosis. Normal waveform. Left calf/foot arteries: Atherosclerotic calcifications. No occlusion or significant stenosis in the visualized arteries. Monophasic waveforms. Dorsalis pedis artery is patent. US/[place] [id number] IMPRESSION: Bilateral popliteal aneurysms. No significant stenosis or occlusion. Mild areas of stenosis in the mid femoral arteries bilaterally with slightly diminished flow distally.
== END 2025-03-22 23:59 | disposition home or self-care (01) ==
LOC: ONCMED 13:59
PROVIDERS: PCP Family Medicine; Visit Provider Internal Medicine
DX: Z08 Encounter for follow-up examination after completed treatment for malignant neoplasm (principal); Z85.118 Personal history of other malignant neoplasm of bronchus and lung; D75.89 Other specified diseases of blood and blood-forming organs; N28.89 Other specified disorders of kidney and ureter; Z92.3 Personal history of irradiation; Z92.21 Personal history of antineoplastic chemotherapy; Z92.25 Personal history of immunosuppression therapy; Z53.9 Procedure and treatment not carried out, unspecified reason; C34.11 Malignant neoplasm of upper lobe, right bronchus or lung; J90 Pleural effusion, not elsewhere classified; R91.8 Other nonspecific abnormal finding of lung field; I71.43 Infrarenal abdominal aortic aneurysm, without rupture; K80.20 Calculus of gallbladder without cholecystitis without obstruction; J43.2 Centrilobular emphysema; J47.9 Bronchiectasis, uncomplicated; J92.9 Pleural plaque without asbestos; I25.10 Atherosclerotic heart disease of native coronary artery without angina pectoris; R59.0 Localized enlarged lymph nodes; I70.0 Atherosclerosis of aorta; N28.1 Cyst of kidney, acquired; N20.0 Calculus of kidney; K57.30 Diverticulosis of large intestine without perforation or abscess without bleeding; N40.0 Benign prostatic hyperplasia without lower urinary tract symptoms; M47.9 Spondylosis, unspecified; R93.7 Abnormal findings on diagnostic imaging of other parts of musculoskeletal system; K40.20 Bilateral inguinal hernia, without obstruction or gangrene, not specified as recurrent; E11.59 Type 2 diabetes mellitus with other circulatory complications
CPT/HCPCS: 93925

== ENCOUNTER → 2025-03-25 10:05 | Outpatient (BNVA) | payer MEDICARE, SELFPAY | PROVIDERS: PCP Family Medicine; Visit Provider Internal Medicine Cardiovascular Disease | DX: I25.10 Atherosclerotic heart disease of native coronary artery without angina pectoris (principal); I71.40 Abdominal aortic aneurysm, without rupture, unspecified; E78.2 Mixed hyperlipidemia; I10 Essential (primary) hypertension; I65.22 Occlusion and stenosis of left carotid artery; I72.4 Aneurysm of artery of lower extremity; E11.59 Type 2 diabetes mellitus with other circulatory complications; Z79.84 Long term (current) use of oral hypoglycemic drugs; Z98.61 Coronary angioplasty status; F17.299 Nicotine dependence, other tobacco product, with unspecified nicotine-induced disorders | CPT/HCPCS: 99214 ==

== ENCOUNTER 2025-04-03 14:03 | Oncology outpatient (recurring) (ONCR) | payer MEDICARE, SELFPAY ==
--- NOTE | 2025-04-03 14:15 | CTR_ITS ---
PROCEDURE INFORMATION: Exam: CTA Abdominal Aorta and Bilateral Lower Extremities (Run-off) With Contrast Exam date and time: 04/03/2025 2:23 PM Age: 80 years old Clinical indication: Condition or disease; Other: Popliteal artery aneurysm; Prior surgery; Surgery date: 6+ months; Surgery type: Aortic stent, spinal fusion; Additional info: Popliteal artery aneurysm bilateral TECHNIQUE: Imaging protocol: Computed tomographic angiography of the of the abdominal aorta, pelvis and bilateral lower extremities with contrast. 3D rendering (Not supervised by radiologist): MIP and/or 3D reconstructed images were created by the technologist. Radiation optimization: All CT scans at this facility use at least one of these dose optimization techniques: automated exposure control; mA and/or kV adjustment per patient size (includes targeted exams where dose is matched to clinical indication); or iterative reconstruction. Contrast material: OMNI 350; Contrast volume: 100 ml; Contrast route: INTRAVENOUS (IV); COMPARISON: CT angio abdomen pelvis 95392 11/19/2023 12:56 PM RADIATION DOSE METRICS: Total DLP (mGy-cm): 1666.4 FINDINGS: Aorta: Unchanged, intact aortoiliac stent graft. Maximum AP dimension of the [place] aorta remains 5 cm. Slight increasing volume of mural thrombus distally within the aortic stent graft. Celiac and mesenteric arteries: No occlusion or significant stenosis. Renal arteries: No occlusion or significant stenosis. Right iliac arteries: No occlusion or significant stenosis. Right femoral/popliteal arteries: Progressive dense mural calcification in the right common femoral artery now with 60-70% diameter stenosis. Severely diseased right superficial femoral artery with multilevel moderate stenoses up to 50% diameter. Mild fusiform aneurysmal dilatation of the distal SFA over a 12 cm length, beginning in the distal thigh. Right popliteal artery is nonstenotic and patent to its bifurcation. Right infrapopliteal arteries: Dense mural calcifications in the tibioperoneal trunk, proximal peroneal artery and proximal tibialis posterior. At least 50% diameter stenosis of the proximal peroneal and [employer] arteries. Peroneal and PT arteries are patent to the ankle. Severely diseased anterior tibial artery with numerous occlusions. An enhancing dorsalis pedis artery is noted. Left iliac arteries: No occlusion or significant stenosis. Left femoral/popliteal arteries: Severe disease of the left superficial femoral artery with stenoses of up to 80-90% diameter distally. Mild post stenotic dilatation of the distal most left SFA with caliber up to 12 mm. Partially thrombosed left popliteal artery aneurysm measuring 17 mm diameter. Popliteal artery is patent to its bifurcation. Left infrapopliteal arteries: Posterior tibial artery is occluded at its origin. A small vessel is reconstituted near the ankle. Severe stenoses of the proximal peroneal artery, which is patent to the ankle. Left anterior tibial artery demonstrates numerous proximal occlusions and no definitive dorsalis pedis patency. Pleural spaces: Moderate dependent right pleural effusion. Mild patchy ground-glass density in the lower lungs, likely representing mild pulmonary edema. Coronary arteries: Severe coronary artery calcification. Liver: No mass. Gallbladder and biliary ducts: Multiple gallstones are present. No pericholecystic inflammatory changes to suggest cholecystitis. There is no evidence of biliary ductal dilation. Pancreas: 17 mm low-density mass involving the uncinate process of the pancreas. 10 mm low-density structure posteriorly the uncinate portion of the pancreas, with some marginal calcifications. Spleen: Limited spleen assessment due to early phase enhancement. Mass is not identified. Adrenal glands: Normal. No mass. Kidneys and ureters: Heterogeneous exophytic mass protruding posteriorly from the left kidney measures 18 mm, previously 16 mm. Neoplasm is suspected. Unchanged cystic and solid mass protruding posteriorly from the left kidney, either complicated cyst or additional renal neoplasm. A smaller exophytic hyperattenuating structure laterally from the left kidney measures 1 cm, previously 7 mm. Numerous additional renal cysts of varying density again noted bilaterally. No hydronephrosis. Stomach and bowel: Colonic diverticulosis. Bowel caliber is normal. No paracolonic inflammatory changes. Appendix: No evidence of appendicitis. Urinary bladder: No focal wall thickening of the urinary bladder. Reproductive: The prostate gland is enlarged. Intraperitoneal space: No free intraperitoneal fluid or gas. Lymph nodes: No lymph node enlargement. 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 No suspicious lytic or sclerotic lesions. Soft tissues: Bilateral fat containing inguinal hernias again noted. CT/CT angio abd aorta runof 32802 IMPRESSION: 1. Progressive dense mural calcification in the right common femoral artery now with 60-70% diameter stenosis. 2. Mild fusiform aneurysmal dilatation of the distal SFA over a 12 cm length, beginning in the distal thigh. Aneurysm continues into the proximal popliteal artery. Maximum aneurysm diameter of 2 cm. 3. Severe disease of the left superficial femoral artery with stenosis of up to 80-90% diameter distally. 4. Mild aneurysmal dilatation of the distal left SFA and popliteal artery. 5. Left posterior tibial artery is occluded at its origin. A small vessel is reconstituted near the ankle. . Left anterior tibial artery demonstrates numerous proximal occlusions and no definitive dorsalis pedis patency. 6. Moderate dependent right effusion. 7. 17 mm low-density mass involving the uncinate process of the pancreas. Dedicated pancreas imaging is recommended to evaluate for neoplasm. 8. 10 mm low-density structure posteriorly the uncinate portion of the pancreas, with some marginal calcifications. Reimaging every 2 years for 4 years is recommended. (Reference: Krystian, 2017) 9. Heterogeneous exophytic mass protruding posteriorly from the left kidney measures 18 mm, previously 16 mm. Neoplasm is suspected. 10. Unchanged cystic and solid mass protruding posteriorly from the left kidney, either complicated cyst or additional renal neoplasm. REFERENCES: Krystian PARHAM, et al. Management of Incidental Pancreatic Cysts: A White Paper of the ACR Incidental Findings Committee. J Am [facility] Radiol. 2017;14(7):911-923.
[2025-04-03] MEDS: iohexol 350 mg/mL 500 mL Btl (per mL) IV (14:47)
== END 2025-04-22 23:59 | disposition home or self-care (01) ==
LOC: ONCMED 14:04
PROVIDERS: PCP Family Medicine; Visit Provider Internal Medicine
DX: Z08 Encounter for follow-up examination after completed treatment for malignant neoplasm (principal); Z85.118 Personal history of other malignant neoplasm of bronchus and lung; D75.89 Other specified diseases of blood and blood-forming organs; N28.89 Other specified disorders of kidney and ureter; Z92.3 Personal history of irradiation; Z92.21 Personal history of antineoplastic chemotherapy; Z92.25 Personal history of immunosuppression therapy; Z53.9 Procedure and treatment not carried out, unspecified reason; C34.11 Malignant neoplasm of upper lobe, right bronchus or lung; J90 Pleural effusion, not elsewhere classified; R91.8 Other nonspecific abnormal finding of lung field; I71.43 Infrarenal abdominal aortic aneurysm, without rupture; K80.20 Calculus of gallbladder without cholecystitis without obstruction; J43.2 Centrilobular emphysema; J47.9 Bronchiectasis, uncomplicated; J92.9 Pleural plaque without asbestos; I25.10 Atherosclerotic heart disease of native coronary artery without angina pectoris; R59.0 Localized enlarged lymph nodes; I70.0 Atherosclerosis of aorta; N28.1 Cyst of kidney, acquired; N20.0 Calculus of kidney; K57.30 Diverticulosis of large intestine without perforation or abscess without bleeding; N40.0 Benign prostatic hyperplasia without lower urinary tract symptoms; M47.9 Spondylosis, unspecified; R93.7 Abnormal findings on diagnostic imaging of other parts of musculoskeletal system; K40.20 Bilateral inguinal hernia, without obstruction or gangrene, not specified as recurrent; E11.59 Type 2 diabetes mellitus with other circulatory complications; I72.4 Aneurysm of artery of lower extremity; R93.89 Abnormal findings on diagnostic imaging of other specified body structures; I71.40 Abdominal aortic aneurysm, without rupture, unspecified
CPT/HCPCS: 75635